=== PATIENT | female | born 2000 | race Caucasian/White ===

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

== ENCOUNTER 2021-01-25 12:21 | Emergency (ER) | payer OTHER, SELFPAY ==
[2021-01-25 12:39] VITALS: BP 142/91; PULSE 76; RESP 16; TEMP 36.1; O2SAT 100
--- NOTE | 2021-01-25 13:38 | ED.URI ---
HPI - URI/Sore Throat General Chief Complaint: Upper Respiratory Infection Stated Complaint: sore throat Time Seen by Provider: 01/25/21 13:18 Source: patient Mode of arrival: ambulatory Limitations: no limitations History of Present Illness HPI Narrative: This is a 21-year-old female that presents to the emergency department for cold symptoms x4 weeks. Reports congestion, rhinorrhea, and sinus pain. Reports she has been on antibiotics for her symptoms, but they then seem to return shortly after stopping antibiotics. Also reports a sore throat and mild cough. Denies fever. Related Data Home Medications Medication Instructions Recorded Confirmed albuterol sulfate INHALATION 12/03/20 Allergies Allergy/AdvReac Type Severity Reaction Status Date / Time amoxicillin Allergy Severe Swelling Verified 01/25/21 12:56 ibuprofen Allergy Severe Swelling Verified 01/25/21 12:56 Review of Systems Review of Systems: Narrative: CONSTITUTIONAL: Denies fever ENT: Reports rhinorrhea, congestion, sore throat and otalgia. RESPIRATORY: Reports cough All systems reviewed & are unremarkable except as noted in HPI and below PMFSH Past Medical History Medical History (Updated 01/25/21 @ 13:43 by Bonnie Will PA-C) ADD (attention deficit disorder) Anxiety Asthma Bipolar 1 disorder Depression Self-mutilation Suicide attempt Surgical History Surgical History No significant past surgical history Family History Family History Father ADHD (attention deficit hyperactivity disorder) Bipolar disorder Personality disorder Mother Alive and well Social History Social History Smoking packs per day: 0.5 Smoking cigarettes per day: 10.0 Years smoked: 8 Smoking pack-years: 4.00 Smoking status: Current every day smoker Tobacco type: cigarettes Second hand tobacco smoke exposure: Yes Additional smoking assessment comments: Vaping Alcohol intake: current Substance use: current Substance use type: marijuana Gender identity (if verbalized by the patient): Female Exam Narrative: Exam Narrative: GENERAL: Well-appearing, well-nourished, and in no acute distress. HEAD: Normocephalic, atraumatic. EYES: EOMI. ENT: Turbinates swollen and pale. Mucous membranes moist. Oropharynx with mild tonsillar hypertrophy and redness, no exudate or other lesions. Bilateral TMs pearly gilbert non-bulging. Maxillary sinus tenderness bilaterally NECK: Supple. No adenopathy or masses. CHEST: Clear to auscultation. No respiratory distress. No wheezes rales or rhonchi HEART: Regular rate and rhythm. No murmur heard. Normal peripheral pulses. EXTREMITIES: Normal range of motion. No edema. SKIN: Warm, dry, no rash. NEURO: No focal deficits. Alert and oriented x3. PSYCH: Normal mood and affect Course Vital Signs Vital signs: Vital Signs Temperature 97 F L 01/25/21 12:39 Pulse Rate 76 01/25/21 12:39 Respiratory Rate 16 01/25/21 12:39 Blood Pressure 142/91 H 01/25/21 12:39 Pulse Oximetry 100 01/25/21 12:39 Temperature 97 F L 01/25/21 12:39 Pulse Rate 76 01/25/21 12:39 Respiratory Rate 16 01/25/21 12:39 Blood Pressure 142/91 H 01/25/21 12:39 Pulse Oximetry 100 01/25/21 12:39 MDM - URI/Sore Throat MDM Narrative Medical decision making narrative: Patient presents to the emergency department for cold symptoms ongoing over the last month. Reports sinus pain and congestion. Also reporting sore throat. Strep screen is negative. Does report she has relief after antibiotic, but symptoms quickly returned. Will start patient on doxycycline, as she has failed antibiotics recently and has penicillin allergy. Instructed on other care of sinusitis. Instructed if this seems to continue she would benefit from seeing an ENT d
== END 2021-01-25 13:53 | disposition home or self-care (01) ==
PROVIDERS: Emergency Provider Emergency Medicine; PCP Family Medicine
DX: J01.90 Acute sinusitis, unspecified (principal); B96.89 Other specified bacterial agents as the cause of diseases classified elsewhere; F17.210 Nicotine dependence, cigarettes, uncomplicated
CPT/HCPCS: 87081; 87880; 99283

== ENCOUNTER 2021-01-28 16:10 | Emergency (ER) | payer OTHER, SELFPAY ==
--- NOTE | ~2021-01-28 | CT_ITS ---
EXAMINATION: CT abdomen pelvis w con DATE: 01/28/2021 19:19 INDICATION: Left upper quadrant abdominal pain. TECHNIQUE: Computed tomography (CT) of the abdomen and pelvis was performed with 100 mL Omnipaque-350 intravenous contrast. Automated exposure control and iterative reconstruction technique were employe d. The dose-length product was 217.67 mGy-cm. COMPARISON: 10/13/2019 FINDINGS: Lung bases are clear. Heart size is normal. No pericardial or pleural effusion. Liver, gallbladder, s pleen, pancreas, bilateral adrenal glands and kidneys are normal. Bowels including the appendix are n ormal. Bladder, anteverted uterus and left adnexa are unremarkable. 1.6 cm peripherally enhancing cor pus luteum cyst at the right ovary. No free intraperitoneal gas or fluid. No pathologically enlarged abdominal or pelvic lymphadenopathy. Bones are unremarkable. IMPRESSION: 1. Left ovarian corpus luteum cyst. No acute intra-abdominal/pelvic process. Reviewed, dictated and finalized at location A.
[2021-01-28 16:43] VITALS: BP 124/73; PULSE 64; RESP 20; TEMP 37; O2SAT 100
--- NOTE | 2021-01-28 16:54 | ED.ABDPAIN ---
HPI - Abdominal Pain General Chief Complaint: Abdominal Pain Stated Complaint: Abd Pain Time Seen by Provider: 01/28/21 16:34 Source: patient Mode of arrival: ambulatory Limitations: no limitations History of Present Illness HPI narrative: Patient is a 21 year old female who presents complaining of left upper abdominal pain, nausea and vomiting starting this afternoon. She denies diarrhea. Patient reports recent history of sinusitis with treatment with doxycycline. She denies fever, cough or shortness of breath. Patient denies known exposure to Covid. Patient reports pain with palpation to LUQ. She denies urinary complaints. She has no significant medical history per patient. MD elicited complaint: abdominal pain Related Data Home Medications Medication Instructions Recorded Confirmed albuterol sulfate INHALATION 12/03/20 Allergies Allergy/AdvReac Type Severity Reaction Status Date / Time amoxicillin Allergy Severe Swelling Verified 01/28/21 16:47 ibuprofen Allergy Severe Swelling Verified 01/28/21 16:47 Review of Systems Review of Systems: Narrative: CONSTITUTIONAL: Denies fever, chills, or sweats. EYES: Denies visual changes, redness, or discharge. ENT: Denies rhinorrhea, congestion, sore throat, or otalgia. CARDIOVASCULAR: Denies chest pain, palpitations, or edema. RESPIRATORY: Denies cough or dyspnea. GASTROINTESTINAL: Reports abdominal pain, nausea, and vomiting. GENITOURINARY: Denies dysuria or hematuria. SKIN: Denies rash or itching. MUSCULOSKELETAL: Denies back pain, joint pain, or myalgia. NEUROLOGIC: Denies headache, numbness, dizziness, or weakness. PSYCHIATRIC: Denies anxiety or depression. [facility] Past Medical History Medical History (Updated 01/28/21 @ 20:11 by ANTONETTE Stoll) ADD (attention deficit disorder) Anxiety Asthma Bipolar 1 disorder Depression Self-mutilation Suicide attempt Surgical History Surgical History No significant past surgical history Family History Family History Father ADHD (attention deficit hyperactivity disorder) Bipolar disorder Personality disorder Mother Alive and well Social History Social History Smoking packs per day: 0.5 Smoking cigarettes per day: 10.0 Years smoked: 8 Smoking pack-years: 4.00 Smoking status: Current every day smoker Tobacco type: cigarettes Second hand tobacco smoke exposure: Yes Additional smoking assessment comments: Vaping Alcohol intake: current Substance use: current Substance use type: marijuana Gender identity (if verbalized by the patient): Female Comments At the time of signature, I have reviewed and agree with nursing past medical, surgical, social, and family history unless otherwise noted. Please see nursing chart for further information. There is no relevant family history pertinent to the presenting complaint. Exam Narrative: Exam Narrative: GENERAL: Well-appearing, well-nourished, and in no acute distress. HEAD: Normocephalic, atraumatic. EYES: EOMI. No redness or drainage. Conjunctiva are normal. ENT: Mucous membranes pink and moist. CHEST: No respiratory distress. Clear to auscultation. HEART: Regular rate and rhythm. No murmur appreciated. Normal peripheral pulses. GI: Soft, tenderness with palpation to left abdomen quadrant. No distention. Bowel sounds normal in all quadrants. MUSCULOSKELETAL: No bony tenderness. EXTREMITIES: Normal range of motion. No edema. SKIN: Warm, dry, no rash. NEURO: No focal deficits. Alert and oriented x3. Gait steady. PSYCH: Normal affect. No signs of depression or anxiety. Course Vital Signs Vital signs: Vital Signs Temperature 37.0 C 01/28/21 16:43 Pulse Rate 64 01/28/21 16:43 Respiratory Rate 20 01/28/21 16:43 Blood Pressure 124/73 01/28/21 16:43 Pulse Ox
[2021-01-28] MEDS: SODIUM CHLORIDE 0.9% IV 1,000 ML 999 ML IV CONT (17:05)
[2021-01-28] MEDS: ONDANSETRON INJ 4 MG/2 ML VIAL IV PUSH (17:06)
[2021-01-28 17:12] LABS: Add Urine Microscopic? YES; Appearance Urine Clear (Clear); Bilirubin Urine Negative (Negative); Blood Urine Negative (Negative); Color Urine Straw (Yellow); Glucose Urine UA Negative (Negative); Ketones Urine 1+ mg/dL (Negative); Leukocyte Esterase Ur Negative LEU/UL (Negative); Nitrate Urine Negative (Negative); Protein Urine Negative (Negative); RBC Urine 0-2 /hpf (0-2); Specific Grav Ur 1.015 (1.001-1.035); Squamous Epithelial Cell Urine Few /hpf (Few); Urobilinogen Urine Negative mg/dL (<2.0); WBC Urine 0-3 /hpf
[2021-01-28 17:54] VITALS: BP 122/75; PULSE 66; RESP 16; O2SAT 100
--- NOTE | 2021-01-28 18:22 | PC.NURSE ---
pt stating i want my fucking discharge papers. you guys aren't doing shit for me. i could do this all at home. pt reminded of care received thus far and remainder of care plan to be completed. pt insisting i want my fucking discharge papers . pt aggressive towards staff.
[2021-01-28 18:24] LABS: Basophils Percent Auto 0.3 % (0.2-1.2); Eosinophils Percent Auto 0.3 % (0-4.4); Hemoglobin 12.9 g/dL (12.0-15.0); Immature Granulocyte Absolute 0.03 K/mm3 (0.00-0.031); Immature Granulocyte Percent A 0.4 % (0-0.5); Lymphocytes Absolute Auto 1.07 K/mm3 (0.9-3.2); Mean Corpuscular HGB Conc 33.1 g/dl (32-36); Mean Corpuscular Hemoglobin 30.9 pg (26-34); Mean Corpuscular Volume 93.3 fl (80-100); Mean Platelet Volume 9.5 fl (7.4-10.4); Monocytes Absolute Auto 0.3 K/mm3 (0.1-0.6); Monocytes Percent Auto 4.8 % (2.6-8.5); Neutrophils Absolute Auto 5.6 K/mm3 (1.3-6.7); Neutrophils Percent Auto 79.2 % (45.5-73.1); Platelet Count Result 202 k/mm3 (150-375); Red Blood Count 4.18 M/mm3 (4.2-5.4); Red Cell Distribution Width 13.5 % (11.5-14.5); White Blood Count 7.1 K/mm3 (4.5-10.0)
--- NOTE | 2021-01-28 18:29 | PC.NURSE ---
PT USED CALL LIGHT TO CALL LITERARY [employer] AND STATED IF THEY ARE NOT GOING TO GIVE ME PAIN MEDS THAN I WANT TO GO TO A DIFFERENT HOSPITAL , EDP MADE AWARE.
[2021-01-28 18:30] LABS: Alanine Aminotransferase 16 U/L (4-35); Albumin Level 4.4 g/dL (3.5-5.1); Alkaline Phosphatase 55 U/L (38-126); Anion Gap 9 mmol/L (8-16); Aspartate Amino Transferase 27 U/L (14-36); Bilirubin,Total 0.3 mg/dL (0.2-1.3); Blood Urea Nitrogen 13 mg/dL (7-17); Calcium 8.7 mg/dL (8.4-10.2); Carbon Dioxide 20 mmol/L (22-30); Chloride 111 mmol/L (98-107); Estimated CRCL calculation 99 ml/min; Estimated Glomerular Filt Rate > 60; Glucose 84 mg/dL (65-105); Potassium 4.2 mmol/L (3.4-5.0); Sodium 140 mmol/L (137-145)
--- NOTE | 2021-01-28 18:38 | PC.NURSE ---
pt cussing at this rn, you motherfuckers aren't doing shit for me. i'd be more than happy to get my discharge paperwork. pt agreeable to ct after some discussion and redirection.
--- NOTE | 2021-01-28 19:15 | PC.NURSE ---
report to cosme nieves
[2021-01-28 20:18] VITALS: BP 116/78; PULSE 68; RESP 18; O2SAT 100
== END 2021-01-28 20:19 | disposition home or self-care (01) ==
PROVIDERS: Emergency Provider Nurse Practitioner; PCP Family Medicine
DX: N83.12 Corpus luteum cyst of left ovary (principal); F17.210 Nicotine dependence, cigarettes, uncomplicated
CPT/HCPCS: 36415; 74177; 80053; 81001; 81025; 85025; 96361; 96365; 96375; 99284; J0131; J2405; J7030; Q9967

== ENCOUNTER 2021-03-03 13:15 | Emergency (ER) | payer OTHER, SELFPAY ==
[2021-03-03 13:18] VITALS: BP 146/83; PULSE 95; RESP 20; TEMP 36.7; O2SAT 99
[2021-03-03 13:40] LABS: Basophils Percent Auto 0.3 % (0.2-1.2); Eosinophils Absolute Auto 0.2 K/mm3 (0-0.3); Eosinophils Percent Auto 1.6 % (0-4.4); Hematocrit 39.3 % (37.0-47.0); Hemoglobin 13.2 g/dL (12.0-15.0); Immature Granulocyte Absolute 0.04 K/mm3 (0.00-0.031); Immature Granulocyte Percent A 0.3 % (0-0.5); Lymphocytes Absolute Auto 0.94 K/mm3 (0.9-3.2); Mean Corpuscular HGB Conc 33.6 g/dl (32-36); Mean Corpuscular Hemoglobin 30.9 pg (26-34); Mean Platelet Volume 9.6 fl (7.4-10.4); Monocytes Absolute Auto 0.5 K/mm3 (0.1-0.6); Monocytes Percent Auto 4.6 % (2.6-8.5); Neutrophils Absolute Auto 10.1 K/mm3 (1.3-6.7); Neutrophils Percent Auto 85.2 % (45.5-73.1); Platelet Count Result 220 k/mm3 (150-375); Red Blood Count 4.27 M/mm3 (4.2-5.4); Red Cell Distribution Width 13.3 % (11.5-14.5); White Blood Count 11.8 K/mm3 (4.5-10.0)
[2021-03-03 13:52] LABS: Alanine Aminotransferase 19 U/L (4-35); Alkaline Phosphatase 58 U/L (38-126); Anion Gap 9 mmol/L (8-16); Aspartate Amino Transferase 25 U/L (14-36); Bilirubin,Total 0.5 mg/dL (0.2-1.3); Blood Urea Nitrogen 9 mg/dL (7-17); Calcium 9.9 mg/dL (8.4-10.2); Carbon Dioxide 24 mmol/L (22-30); Chloride 101 mmol/L (98-107); Estimated CRCL calculation 88 ml/min; Estimated Glomerular Filt Rate > 60; Glucose 100 mg/dL (65-110); Lipase 67 U/L (23-300); Potassium 3.9 mmol/L (3.4-5.0); Sodium 134 mmol/L (137-145)
[2021-03-03 13:57] LABS: Add Urine Microscopic? YES; Appearance Urine Clear (Clear); Bilirubin Urine Negative (Negative); Blood Urine Negative (Negative); Color Urine Yellow (Yellow); Glucose Urine UA Negative (Negative); Ketones Urine 1+ mg/dL (Negative); Leukocyte Esterase Ur Negative LEU/UL (Negative); Mucus Urine Rare /lpf; Nitrate Urine Negative (Negative); Protein Urine Negative (Negative); RBC Urine 0-2 /hpf (0-2); Specific Grav Ur 1.014 (1.001-1.035); Squamous Epithelial Cell Urine Few /hpf (Few); Urobilinogen Urine Negative mg/dL (<2.0); WBC Urine 0-3 /hpf
[2021-03-03 14:00] VITALS: BP 127/90; PULSE 82; RESP 18; O2SAT 100
--- NOTE | 2021-03-03 14:45 | PC.NURSE ---
Attempted IV x2 without success.
--- NOTE | 2021-03-03 14:58 | ED.GENADULT ---
HPI - General Adult General Chief complaint: Nausea/Vomiting/Diarrhea Stated complaint: flu like symptoms Time Seen by Provider: 03/03/21 13:55 History of Present Illness HPI narrative: Patient is a 21 y/o female complaining nausea and vomiting since earlier this morning. She states that she vomited food particle. She vomited 3 times since onset. She took Zofran, which did not help. She also has intermittent chest pain. However, she has no chest pain at this time. Her last episode of vomiting was 2 hours ago. She had similar episodes of vomiting in the past and was diagnosed with cyclic vomiting. Related Data Home Medications Medication Instructions Recorded Confirmed albuterol sulfate INHALATION 12/03/20 Allergies Allergy/AdvReac Type Severity Reaction Status Date / Time amoxicillin Allergy Severe Swelling Verified 03/03/21 13:49 ibuprofen Allergy Severe Swelling Verified 03/03/21 13:49 Review of Systems Constitutional: Constitutional: Denies chills, Denies fever(s), Denies headache(s) and Denies weakness Eyes: Eyes: Denies blurry vision ENT: Denies headache(s) and Denies neck pain Cardiovascular: Cardiovascular: Reports chest pain and Denies dyspnea Respiratory: Respiratory: Denies cough and Denies dyspnea Gastrointestinal: Gastrointestinal: Denies abdominal pain, Denies diarrhea, Reports nausea and Reports vomiting Genitourinary: Genitourinary: Denies hematuria and Denies dysuria Musculoskeletal: Musculoskeletal: Denies back pain and Denies neck pain Neurologic: Denies headache(s) and Denies weakness PMF Past Medical History Medical History (Updated 03/04/21 @ 00:01 by Background [place]) ADD (attention deficit disorder) Anxiety Asthma Bipolar 1 disorder Depression Self-mutilation Suicide attempt Surgical History Surgical History No significant past surgical history Family History Family History Father ADHD (attention deficit hyperactivity disorder) Bipolar disorder Personality disorder Mother Alive and well Social History Social History Smoking packs per day: 0.5 Smoking cigarettes per day: 10.0 Years smoked: 8 Smoking pack-years: 4.00 Smoking status: Current every day smoker Tobacco type: cigarettes Second hand tobacco smoke exposure: Yes Additional smoking assessment comments: Vaping Alcohol intake: current Substance use: current Substance use type: marijuana Gender identity (if verbalized by the patient): Female Exam Const: General: no acute distress and well developed Orientation/consciousness: oriented to person, oriented to place, oriented to time and patient oriented x3 HENMT: Head: normocephalic Ears: external ears normal General nose exam: Normal external nose present Eyes: General: appearance normal, both eyes and all related structures Conjunctivae: conjunctivae normal Neck: Neck: normal visual inspection and full ROM Chest: Chest palpation & inspection: normal inspection of the chest and no tenderness Resp: Effort & Inspection: normal respiratory effort Auscultation: clear to auscultation bilaterally Cardio: Rate: regular rate Rhythm: regular rhythm GI: GI Palp: No abdominal tenderness and Yes Soft to palpation Skin: General skin exam: normal color and turgor normal Neuro: General: oriented to person, oriented to place, oriented to time and patient oriented x3 Cognition (Neuro): normal cognition Extrem: General: normal to inspection, full ROM and no pedal edema Psych: Appearance: grossly normal Mental Status: mental status grossly normal Affect: normal affect Course Vital Signs Vital signs: Vital Signs Temperature 36.7 C 03/03/21 13:18 Pulse Rate 95 03/03/21 13:18 Respiratory Rate 20 03/03/21 13:18 Blood Pressure 146/83 H 03/03/21 13:18
--- NOTE | 2021-03-03 14:59 | ECG_ITS ---
Measurements Intervals [place] Rate: 74 P: 74 KS: 108 QRS: 62 QRSD: 79 T: 56 QT: 344 QTc: 383 Interpretive Statements ECTOPIC ATRIAL RHYTHM CHANGES TO SINUS RHYTHM WITH SINUS ARRHYTHMIA BASELINE ARTIFACT- I, III, AVR, V4, V6 ABNORMAL ECG Electronically Signed On 03-03-2021 18:55:25 CDT by Carter Fleming D.O.
[2021-03-03 15:00] VITALS: BP 142/99; PULSE 90; RESP 18; O2SAT 100
[2021-03-03] MEDS: SODIUM CHLORIDE 0.9% IV 1,000 ML 999 ML IV CONT (15:00)
[2021-03-03] MEDS: METOCLOPRAMIDE HCL INJ 10 MG/2 ML VIAL IV PUSH (15:05)
--- NOTE | 2021-03-03 15:06 | PC.NURSE ---
called lab to add on Trop @ 1284
[2021-03-03] MEDS: LORazepam INJ (*CRX) 2 MG/ML VIAL 1 MG IV PUSH (15:40)
[2021-03-03 15:49] LABS: Troponin I < 0.012 ng/mL (0.000-0.034)
[2021-03-03 16:25] VITALS: BP 128/91; PULSE 100; RESP 18; O2SAT 100
[2021-03-03 17:55] VITALS: BP 143/84; PULSE 97; RESP 18; O2SAT 100
== END 2021-03-03 19:04 | disposition home or self-care (01) ==
PROVIDERS: Emergency Provider Emergency Medicine; PCP Family Medicine
DX: R11.15 Cyclical vomiting syndrome unrelated to migraine (principal); J45.909 Unspecified asthma, uncomplicated; F17.210 Nicotine dependence, cigarettes, uncomplicated; F17.290 Nicotine dependence, other tobacco product, uncomplicated; R94.31 Abnormal electrocardiogram [ECG] [EKG]
CPT/HCPCS: 36415; 80053; 81001; 81025; 83690; 84484; 85025; 93005; 96361; 96374; 96375; 99284; J2060; J2765; J7030

== ENCOUNTER 2021-03-27 13:44 | Emergency (ER) | payer OTHER, SELFPAY ==
[2021-03-27 13:55] VITALS: BP 145/98; PULSE 83; RESP 16; TEMP 35.7; O2SAT 99
--- NOTE | 2021-03-27 15:07 | ED.GENADULT ---
HPI - General Adult General Chief complaint: Unspecified Stated complaint: infection in mouth Time Seen by Provider: 03/27/21 15:07 Source: patient, RN notes reviewed and old records reviewed Mode of arrival: ambulatory Limitations: no limitations History of Present Illness HPI narrative: 21 year old female who presents to [facility] care with complaint of dental pain. Patient reports that she had wisdom teeth extraction on . She complains that the left upper and lower areas of her mouth remains red swollen and very painful. She states that she is taking the Tylenol #3 and also has been taking Vicodin for her pain with minimal relief of pain on the left side. She reports that she has been using salt water gargles also. MD complaint: gums red and swollen and painful Onset (ago): day(s) (2) Location: mouth (left upper and lower gums where teeth extracted) Related Data Home Medications Medication Instructions Recorded Confirmed albuterol sulfate INHALATION 12/03/20 Hydrocodone 03/27/21 Tylenol-Codeine #3 03/27/21 norethindrone-e.estradiol-iron [Lo tablet 03/27/21 Loestrin Fe] Allergies Allergy/AdvReac Type Severity Reaction Status Date / Time amoxicillin Allergy Severe Swelling Verified 03/03/21 13:49 ibuprofen Allergy Severe Swelling Verified 03/03/21 13:49 Review of Systems Review of Systems: CONSTITUTIONAL: Denies fever, chills, or sweats. EYES: Denies visual changes, redness, or discharge. ENT: Denies rhinorrhea, congestion, sore throat, or otalgia.positive for left side of mouth pain CARDIOVASCULAR: Denies chest pain, palpitations, or edema. RESPIRATORY: Denies cough or dyspnea. GASTROINTESTINAL: Denies abdominal pain, nausea, vomiting, or diarrhea. GENITOURINARY: Denies dysuria or hematuria. SKIN: Denies rash or itching. MUSCULOSKELETAL: Denies back pain, joint pain, or myalgia. NEUROLOGIC: Denies headache, numbness, or weakness. PSYCHIATRIC: Positive history of anxiety or depression. All systems reviewed & are unremarkable except as noted in HPI and below PMFSH Past Medical History Medical History (Updated 03/28/21 @ 00:00 by Grisel Chen) ADD (attention deficit disorder) Anxiety Asthma Bipolar 1 disorder Depression Self-mutilation Suicide attempt Surgical History Surgical History (Updated 04/02/21 @ 20:55 by Desirae Moseley NP) S/P wisdom tooth extraction Family History Family History Father ADHD (attention deficit hyperactivity disorder) Bipolar disorder Personality disorder Mother Alive and well Social History Social History Smoking packs per day: 0.5 Smoking cigarettes per day: 10.0 Years smoked: 8 Smoking pack-years: 4.00 Smoking status: Current every day smoker Tobacco type: cigarettes Second hand tobacco smoke exposure: Yes Additional smoking assessment comments: Vaping Alcohol intake: current Substance use: current Substance use type: marijuana Gender identity (if verbalized by the patient): Female Comments At time of signature, agree with nursing past medical, surgical, social and family history. There is no relevant family history pertinent to the presenting complaint Exam Narrative: GENERAL: Well-appearing, well-nourished, and in no acute distress. HEAD: Normocephalic, atraumatic. EYES: PERRLA and EOMI. ENT: Nares clear, no rhinorrhea or epistaxis. Mucous membranes moist.TM's normal throat pink with no exudates or lesions, no tonsil swelling, red swollen gums left posterior and left lower posterior gums.No difficulty with swallowing or trismus, no Thony angina NECK: Supple.no lymphadenopathy, CHEST: Clear to auscultation. No respiratory distress.SAO2 99% on room air HEART: Regular rate and rhythm. No murmur heard. Normal peripheral pulses. ABDOMEN: Soft, nontender, nondistended, normal active bowel sounds. EXTREMITIES: N
== END 2021-03-27 15:45 | disposition home or self-care (01) ==
PROVIDERS: Emergency Provider Registered Nurse
DX: K04.7 Periapical abscess without sinus (principal); F17.210 Nicotine dependence, cigarettes, uncomplicated; J45.909 Unspecified asthma, uncomplicated
CPT/HCPCS: 99213; G0463

== ENCOUNTER 2021-05-15 16:56 | Emergency (ER) | payer OTHER, SELFPAY ==
[2021-05-15 17:05] VITALS: BP 143/89; PULSE 89; RESP 16; TEMP 37.3; O2SAT 99
--- NOTE | 2021-05-15 18:10 | ED.ABDPAIN ---
HPI - Abdominal Pain General Chief Complaint: Abdominal Pain Stated Complaint: Abdominal Pain Time Seen by Provider: 05/15/21 17:58 Source: patient and RN notes reviewed Mode of arrival: ambulatory Limitations: no limitations History of Present Illness HPI narrative: Patient presents today complaining of a 3-day history of left-sided abdominal pain as well as 2 episodes of vomiting today. Patient has history of irritable bowel syndrome and cyclic vomiting syndrome. She currently rates her pain 7/10 and has been taking Tylenol and Zofran without relief. Denies diarrhea, constipation, fever. Patient states the abdominal pain is fairly constant but waxes and wanes. Patient does have an appointment set up to see a land economist, but has not seen one yet. She is currently taking an antibiotic for UTI for the past week and states it is helping with her UTI symptoms. Reports that the location of her abdominal pain is consistent with her baseline IBS symptoms. MD elicited complaint: abdominal pain Related Data Home Medications Medication Instructions Recorded Confirmed albuterol sulfate INHALATION 12/03/20 sulfamethoxazole-trimethoprim tablet 05/15/21 Allergies Allergy/AdvReac Type Severity Reaction Status Date / Time amoxicillin Allergy Severe Swelling Verified 03/03/21 13:49 ibuprofen Allergy Severe Swelling Verified 03/03/21 13:49 Review of Systems Review of Systems: CONSTITUTIONAL: Denies body aches, fever, chills, or sweats. EYES: Denies visual changes, redness, or discharge. ENT: Denies rhinorrhea, congestion, sore throat, or otalgia. CARDIOVASCULAR: Denies chest pain, palpitations, or edema. RESPIRATORY: Denies cough or dyspnea. GASTROINTESTINAL: Denies diarrhea.+ Abdominal pain, nausea, vomiting GENITOURINARY: Denies dysuria or hematuria. SKIN: Denies rash, itching, or wounds. MUSCULOSKELETAL: Denies back pain, joint pain, or myalgia. NEUROLOGIC: Denies headache, numbness, tingling, or weakness. PSYCH: Denies depression or anxiety. [facility] Past Medical History Medical History (Updated 05/15/21 @ 18:16 by Rocio Sargent, ME[employer] C[employer]TING BLOCK [employer]PA[employer], ) ADD (attention deficit disorder) Anxiety Asthma Bipolar 1 disorder Cyclic vomiting syndrome Depression Irritable bowel syndrome Self-mutilation Suicide attempt Surgical History Surgical History (Updated 04/02/21 @ 20:55 by Desirae Moseley NP) S/P wisdom tooth extraction Family History Family History Father ADHD (attention deficit hyperactivity disorder) Bipolar disorder Personality disorder Mother Alive and well Social History Social History Smoking packs per day: 0.5 Smoking cigarettes per day: 10.0 Years smoked: 8 Smoking pack-years: 4.00 Smoking status: Current every day smoker Tobacco type: cigarettes Second hand tobacco smoke exposure: Yes Additional smoking assessment comments: Vaping Alcohol intake: current Substance use: current Substance use type: marijuana Gender identity (if verbalized by the patient): Female Comments At time of signature, I have reviewed and agree with nursing past medical, surgical, social and family history unless otherwise noted. Please see nursing chart for further information. There is no relevant family history pertinent to the presenting complaint Exam Narrative: GENERAL: Well-appearing, well-nourished, and in no acute distress. HEAD: Normocephalic, atraumatic. EYES: EOMI. No redness or drainage. Conjunctivae normal. ENT: Mucous membranes pink and moist. NECK: Normal AROM. CHEST: No respiratory distress. Clear to auscultation. HEART: Regular rate and rhythm. No murmur appreciated. Normal peripheral pulses. ABDOMEN: Soft, nondistended, normal active bowel sounds.+ Periumbilical abdominal tenderness without rebound or guarding MUSCULOSKELETAL: No bony tenderness. EXTREMITIE
== END 2021-05-15 18:23 | disposition home or self-care (01) ==
PROVIDERS: Emergency Provider Nurse Practitioner; PCP Family Medicine
DX: R10.33 Periumbilical pain (principal); F17.210 Nicotine dependence, cigarettes, uncomplicated; J45.909 Unspecified asthma, uncomplicated
CPT/HCPCS: 99213; G0463

== ENCOUNTER → 2021-06-17 04:13 | Outpatient (CLI) | payer OTHER, SELFPAY ==
[2021-06-17 17:37] LABS: SARS-CoV-2 RNA PCR Negative
== END ==
PROVIDERS: PCP Nurse Practitioner Adult Health; Visit Provider Nurse Practitioner Adult Health
DX: R09.81 Nasal congestion (principal); Z20.822 Contact with and (suspected) exposure to COVID-19
CPT/HCPCS: C9803; U0003; U0005

== ENCOUNTER 2021-06-20 10:17 | Emergency (ER) | payer OTHER, SELFPAY ==
--- NOTE | 2021-06-20 10:25 | ED.FEMALEGU ---
HPI - Female Genitourinary General Chief complaint: Urogenital-Female Stated complaint: uti Time Seen by Provider: 06/20/21 10:25 Source: patient and RN notes reviewed History of Present Illness HPI Narrative: Patient is a 21-year-old female who presents the urgent care with complaints of a possible UTI. Patient states that yesterday she started having urinary frequency, urgency and dysuria. Patient is currently taking doxycycline for sinus infection . Patient also had a UTI approximately 2 weeks ago and states that she did finish the medication at that time. Patient denies of any fever, chills, nausea, vomiting, blood in the urine. No other acute complaints. No acute distress noted. Patient aware of the plan of care. Some parts of this dictation were generated by voice recognition software and may contain typographical and/or grammatical inaccuracies. Related Data Home Medications Medication Instructions Recorded Confirmed albuterol sulfate INHALATION 12/03/20 doxycycline hyclate 06/20/21 hydrochlorothiazide 06/20/21 Allergies Allergy/AdvReac Type Severity Reaction Status Date / Time amoxicillin Allergy Severe Swelling Verified 03/03/21 13:49 ibuprofen Allergy Severe Swelling Verified 03/03/21 13:49 Review of Systems Review of Systems: CONSTITUTIONAL: Denies fever, chills, or sweats. EYES: Denies visual changes, redness, or discharge. ENT: Denies rhinorrhea, congestion, sore throat, or otalgia. CARDIOVASCULAR: Denies chest pain, palpitations, or edema. RESPIRATORY: Denies cough or dyspnea. GASTROINTESTINAL: Denies abdominal pain, nausea, vomiting, or diarrhea. GENITOURINARY: Reports of dysuria, urgency, frequency SKIN: Denies rash or itching. MUSCULOSKELETAL: Denies back pain, joint pain, or myalgia. NEUROLOGIC: Denies headache, numbness, or weakness. All other systems reviewed are negative, except as documented in HPI. [facility] Past Medical History Medical History (Updated 06/20/21 @ 10:38 by ANTONETTE Acevedo) ADD (attention deficit disorder) Anxiety Asthma Bipolar 1 disorder Cyclic vomiting syndrome Depression Irritable bowel syndrome Self-mutilation Suicide attempt Surgical History Surgical History (Updated 04/02/21 @ 20:55 by Desirae Moseley NP) S/P wisdom tooth extraction Family History Family History Father ADHD (attention deficit hyperactivity disorder) Bipolar disorder Personality disorder Mother Alive and well Social History Social History Smoking packs per day: 0.5 Smoking cigarettes per day: 10.0 Years smoked: 8 Smoking pack-years: 4.00 Smoking status: Current every day smoker Tobacco type: cigarettes Second hand tobacco smoke exposure: Yes Additional smoking assessment comments: Vaping Alcohol intake: current Substance use: current Substance use type: marijuana Gender identity (if verbalized by the patient): Female Comments At the time of my signature, I reviewed and agree with the nursing past medical, surgical, social, and family history. There is no relevant family history pertinent to the patient complaint. Exam Narrative: GENERAL: This is a well-nourished, well-developed patient, in no apparent distress. HEAD: normocephalic, atraumatic. EYES: PERRL. Sclera clear/white. Vision is grossly intact. EARS: External ears normal NOSE: External nose normal with no obvious nasal discharge, nares without redness, no rhinorrhea. THROAT: Mucous membranes moist NECK: Neck supple CARDIOVASCULAR: Regular rate and rhythm without murmurs, gallops, or rubs. RESPIRATORY: Clear to auscultation. Breath sounds equal bilaterally. No wheezes, rales, or rhonchi. GASTROINTESTINAL: Abdomen soft, non-tender, nondistended. SKIN: warm, intact with no suspicious lesions or rash, good texture and turgor. NEURO: awake, alert, and oriented to person
[2021-06-20 10:31] VITALS: BP 138/83; PULSE 83; RESP 16; TEMP 36.1; O2SAT 100
[2021-06-20 10:38] VITALS: BP 138/83; PULSE 83; RESP 16; TEMP 36.1; O2SAT 100
== END 2021-06-20 10:39 | disposition home or self-care (01) ==
PROVIDERS: Emergency Provider Nurse Practitioner Family; PCP Family Medicine
DX: R30.0 Dysuria (principal); F17.210 Nicotine dependence, cigarettes, uncomplicated; J45.909 Unspecified asthma, uncomplicated
CPT/HCPCS: 81003; 87086; 99213; G0463

== ENCOUNTER 2021-06-30 09:41 | Outpatient (CLI) | payer OTHER, SELFPAY ==
--- NOTE | ~2021-06-30 | US_ITS ---
EXAMINATION: US retroperitoneal duplex ltd EXAM DATE: 06/30/2021 10:37 INDICATION: Hypertension. TECHNIQUE: Multiple grayscale and Doppler images of the kidneys and renal arteries were obtained. T here is no prior study for comparison. FINDINGS: The aorta peak systolic velocity is 184 cm/s. Renal arteries interrogated in several segments from origin to hilum. RIGHT RENAL ARTERY Proximal segment (origin): 125 cm/s. Middle segment: 110 cm/s. Distal segment (hilum): 101 cm/s. LEFT RENAL ARTERY Proximal segment (origin): 168 cm/s. Middle segment: 122 cm/s. Distal segment (hilum): 97 cm/s. IMPRESSION: Renal artery Doppler velocities within normal limits. Reviewed, dictated and finalized at location B. O MATE
== END 2021-06-30 09:42 | disposition home or self-care (01) ==
LOC: ANHIMG 09:46
PROVIDERS: PCP Family Medicine; Visit Provider Family Medicine
DX: I10 Essential (primary) hypertension (principal)
CPT/HCPCS: 93976

== ENCOUNTER 2021-08-23 13:24 | Emergency (ER) | payer OTHER, SELFPAY ==
[2021-08-23 13:34] VITALS: BP 144/73; PULSE 93; RESP 18; TEMP 36.9; O2SAT 100
--- NOTE | 2021-08-23 14:08 | ED.URI ---
HPI - URI/Sore Throat General Chief Complaint: Upper Respiratory Infection Stated Complaint: Sore Throat Time Seen by Provider: 08/23/21 13:42 Source: patient and RN notes reviewed Mode of arrival: ambulatory Limitations: no limitations History of Present Illness HPI Narrative: Patient presents today with a 3-day history of sore throat, congestion, rhinorrhea. States this morning she noted pus on her tonsils. Denies sick contacts. She currently rates her pain 3/10 and has been taking Tylenol with mild relief. Denies any recent COVID-19 infection. She has not been vaccinated against COVID-19. Denies fever, cough. MD elicited complaint: sore throat Related Data Home Medications Medication Instructions Recorded Confirmed albuterol sulfate 90 mcg INHALATION DIRECTED 12/03/20 hydrochlorothiazide 12.5 mg PO DAILY 06/20/21 Allergies Allergy/AdvReac Type Severity Reaction Status Date / Time amoxicillin Allergy Severe Swelling Verified 03/03/21 13:49 ibuprofen Allergy Severe Swelling Verified 03/03/21 13:49 Review of Systems Review of Systems: CONSTITUTIONAL: Denies body aches, fever, chills, or sweats. EYES: Denies visual changes, redness, or discharge. ENT: Denies otalgia.+ Congestion, rhinorrhea, sore throat CARDIOVASCULAR: Denies chest pain, palpitations, or edema. RESPIRATORY: Denies cough or dyspnea. GASTROINTESTINAL: Denies abdominal pain, nausea, vomiting, or diarrhea. GENITOURINARY: Denies dysuria or hematuria. SKIN: Denies rash, itching, or wounds. MUSCULOSKELETAL: Denies back pain, joint pain, or myalgia. NEUROLOGIC: Denies headache, numbness, tingling, or weakness. PSYCH: Denies depression or anxiety. [facility] Past Medical History Medical History ADD (attention deficit disorder) Anxiety Asthma Bipolar 1 disorder Cyclic vomiting syndrome Depression Irritable bowel syndrome Self-mutilation Suicide attempt Surgical History Surgical History S/P wisdom tooth extraction Family History Family History Father ADHD (attention deficit hyperactivity disorder) Bipolar disorder Personality disorder Mother Alive and well Social History Social History Smoking packs per day: 0.5 Smoking cigarettes per day: 10.0 Years smoked: 8 Smoking pack-years: 4.00 Smoking status: Current every day smoker Tobacco type: cigarettes Second hand tobacco smoke exposure: Yes Additional smoking assessment comments: Vaping Alcohol intake: current Substance use: current Substance use type: marijuana Gender identity (if verbalized by the patient): Female Comments At time of signature, I have reviewed and agree with nursing past medical, surgical, social and family history unless otherwise noted. Please see nursing chart for further information. There is no relevant family history pertinent to the presenting complaint Exam Narrative: GENERAL: Well-appearing, well-nourished, and in no acute distress. HEAD: Normocephalic, atraumatic. EYES: EOMI. No redness or drainage. Conjunctivae normal. ENT: Mucous membranes pink and moist. Nares clear. No rhinorrhea. TMs normal bilaterally. Throat erythematous. Tonsils 2+ with white exudate. Uvula midline. NECK: Normal AROM. Supple. Anterior and posterior bilateral cervical chain lymphadenopathy.. CHEST: No respiratory distress. Clear to auscultation. HEART: Regular rate and rhythm. No murmur appreciated. Normal peripheral pulses. EXTREMITIES: Normal range of motion. No edema. SKIN: Warm, dry, no rash. Capillary refill normal. Normal skin turgor. NEURO: No focal deficits. Alert and oriented x3. Gait steady. PSYCH: Normal affect. No signs of depression or anxiety. Course Course Level of Care: Express Care Visit
== END 2021-08-23 14:56 | disposition home or self-care (01) ==
PROVIDERS: Emergency Provider Nurse Practitioner
DX: J02.9 Acute pharyngitis, unspecified (principal); Z20.822 Contact with and (suspected) exposure to COVID-19; F17.210 Nicotine dependence, cigarettes, uncomplicated; J45.909 Unspecified asthma, uncomplicated
CPT/HCPCS: 87081; 87426; 87880; 99213; C9803; G0463

== ENCOUNTER 2021-08-31 23:17 | Emergency (ER) | payer OTHER, SELFPAY ==
--- NOTE | ~2021-08-31 | XR_ITS ---
EXAMINATION: XR chest 1V portable DATE: 08/31/2021 23:53 INDICATION: Generalized chest pain TECHNIQUE: frontal view of the chest was obtained. COMPARISON: Chest radiograph dated 12/04/2020 FINDINGS: The lungs remain clear with no focal airspace opacities, pulmonary edema, pleural effusion or pneumot horax. The cardiomediastinal silhouette is normal. Mild thoracic dextrocurvature. IMPRESSION: 1. No acute cardiopulmonary disease. Reviewed, dictated and finalized at location A. [employer]
[2021-08-31 23:25] VITALS: BP 140/110; PULSE 81; RESP 14; TEMP 36.9; O2SAT 100
--- NOTE | 2021-08-31 23:30 | ED.CHESTPAIN ---
HPI - Chest Pain General Chief Complaint: Chest Pain Stated Complaint: chest pain Time Seen by Provider: 08/31/21 23:19 Source: RN notes reviewed History of Present Illness HPI narrative: Patient presents emergency room from home for chest pain. Patient states symptoms began approximately 9 AM this morning she states midsternal chest pain described as a pressure associated with nausea states she has been feeling anxious with the symptoms she denies any fevers or chills shortness of breath vomiting diarrhea or any other symptoms states she has been having some intermittent headaches with the symptoms patient states she does have anxiety was not taking medication for the anxiety she denies any other symptoms at this time Related Data Home Medications Medication Instructions Recorded Confirmed albuterol sulfate 90 mcg INHALATION DIRECTED 12/03/20 08/23/21 hydrochlorothiazide 12.5 mg PO DAILY 06/20/21 08/23/21 Allergies Allergy/AdvReac Type Severity Reaction Status Date / Time amoxicillin Allergy Severe Swelling Verified 08/31/21 23:32 ibuprofen Allergy Severe Swelling Verified 08/31/21 23:32 Review of Systems Review of Systems: Gen.: Denies fevers or chills Eyes: Denies eye pain or visual change ENT: Denies congestion Respiratory: Denies shortness of breath or cough CV: See HPI GI: Denies abdominal pain emesis or diarrhea reports nausea Musculoskeletal: Denies back pain or muscle pain Neuro: Denies numbness, tingling, weakness or focal weakness Skin: Denies rash Except as documented, all other systems reviewed and negative [facility] Past Medical History Medical History ADD (attention deficit disorder) Anxiety Asthma Bipolar 1 disorder Cyclic vomiting syndrome Depression Irritable bowel syndrome Self-mutilation Suicide attempt Surgical History Surgical History S/P wisdom tooth extraction Family History Family History Father ADHD (attention deficit hyperactivity disorder) Bipolar disorder Personality disorder Mother Alive and well Social History Social History Smoking packs per day: 0.5 Smoking cigarettes per day: 10.0 Years smoked: 8 Smoking pack-years: 4.00 Smoking status: Current every day smoker Tobacco type: cigarettes Second hand tobacco smoke exposure: Yes Additional smoking assessment comments: Vaping Alcohol intake: current Substance use: current Substance use type: marijuana Gender identity (if verbalized by the patient): Female Exam Narrative: APPEARANCE: No acute distress, nontoxic, resting in bed EYES: EOMI HEENT: Normocephalic, atraumatic, OMM RESPIRATORY: No respiratory distress Clear to auscultation bilaterally with no rhonchi wheezing or rales. CARDIOVASCULAR: Regular rate and rhythm without murmurs rubs or gallops. Chest: Tender palpation across the anterior chest with point tenderness present ABDOMINAL: Soft, nontender, nondistended, no rebound or guarding MUSCULOSKELETAl: Moves all extremities. No clubbing, cyanosis or edema. NEURO: Awake and alert. Following commands, speech normal, no focal deficits SKIN:: Warm, dry. No rashes lesions or abrasions PSYCHIATRIC: Anxious in appearance nontoxic Course Course Emergency Course: Patient feeling much better following Ativan states that she does not have anxiety medication at home states pain is resolved Discussed with patient results of workup and diagnosis. Discussed need for follow-up with primary care, proper use of medication, and reasons to return to the emergency department. Patient understands and agrees to current treatment plan Vital Signs Vital signs: Vital Signs Temperature 98.4 F 08/31/21 23:25 Pulse Rate 81 08/31/21 23:25 Respiratory Rate 14 08/31/21 23:25
--- NOTE | 2021-08-31 23:33 | ECG_ITS ---
Measurements Intervals [place] Rate: 81 P: 74 OK: 130 QRS: 61 QRSD: 85 T: 48 QT: 336 QTc: 392 Interpretive Statements SINUS RHYTHM POSSIBLE LEFT ATRIAL ENLARGEMENT INCOMPLETE RIGHT BUNDLE BRANCH BLOCK BORDERLINE ECG Electronically Signed On 09-01-2021 7:09:54 [employer] by Carter Fleming D.O.
[2021-08-31 23:44] LABS: Basophils Percent Auto 0.4 % (0.2-1.2); Eosinophils Absolute Auto 0.1 K/mm3 (0-0.3); Eosinophils Percent Auto 0.9 % (0-4.4); Hematocrit 42.8 % (37.0-47.0); Hemoglobin 14.9 g/dL (12.0-15.0); Immature Granulocyte Absolute 0.04 K/mm3 (0.00-0.031); Immature Granulocyte Percent A 0.4 % (0-0.5); Lymphocytes Absolute Auto 2.68 K/mm3 (0.9-3.2); Lymphocytes Percent Auto 26.1 % (18.3-44.2); Mean Corpuscular HGB Conc 34.8 g/dl (32-36); Mean Corpuscular Hemoglobin 32.1 pg (26-34); Mean Corpuscular Volume 92.2 fl (80-100); Mean Platelet Volume 9.1 fl (7.4-10.4); Monocytes Absolute Auto 0.7 K/mm3 (0.1-0.6); Monocytes Percent Auto 6.7 % (2.6-8.5); Neutrophils Absolute Auto 6.7 K/mm3 (1.3-6.7); Neutrophils Percent Auto 65.5 % (45.5-73.1); Platelet Count Result 317 k/mm3 (150-375); Red Blood Count 4.64 M/mm3 (4.2-5.4); Red Cell Distribution Width 12.8 % (11.5-14.5); White Blood Count 10.3 K/mm3 (4.5-10.0)
[2021-08-31] MEDS: SODIUM CHLORIDE 0.9% IV 1,000 ML 999 ML IV CONT (23:45)
[2021-08-31] MEDS: ONDANSETRON INJ 4 MG/2 ML VIAL IV PUSH (23:45)
[2021-08-31] MEDS: MORPHINE SULFATE (*CRX) 4 MG/ML INJ 2 MG IV PUSH (23:46)
[2021-08-31 23:55] LABS: Alanine Aminotransferase 17 U/L (4-35); Albumin Level 5.2 g/dL (3.5-5.1); Alkaline Phosphatase 61 U/L (38-126); Anion Gap 11 mmol/L (8-16); Aspartate Amino Transferase 27 U/L (14-36); Bilirubin,Total 0.6 mg/dL (0.2-1.3); Blood Urea Nitrogen 20 mg/dL (7-17); Calcium 10.8 mg/dL (8.4-10.2); Carbon Dioxide 25 mmol/L (22-30); Chloride 102 mmol/L (98-107); Estimated CRCL calculation 66 ml/min; Estimated Glomerular Filt Rate > 60; Glucose 114 mg/dL (65-110); Lipase 128 U/L (23-300); Potassium 3.6 mmol/L (3.4-5.0); Sodium 138 mmol/L (137-145)
[2021-08-31 23:57] LABS: Prothrombin Time 13.2 Seconds (11.1-14.7)
[2021-08-31 23:58] LABS: Partial Thromboplastin Time 27.3 SECONDS (22.3-36.8)
[2021-09-01] MEDS: LORazepam INJ (*CRX) 2 MG/ML VIAL 0.5 MG IV PUSH ×2 (00:03→01:06)
[2021-09-01 00:07] LABS: Troponin I < 0.012 ng/mL (0.000-0.034)
[2021-09-01] MEDS: FAMOTIDINE 20 MG/2 ML VIAL IV PUSH (01:05)
[2021-09-01 01:09] VITALS: BP 143/97; PULSE 105; RESP 14; O2SAT 100
[2021-09-01 02:04] LABS: D Dimer 0.27 ug/mL (<0.48)
[2021-09-01 02:18] VITALS: BP 128/98; PULSE 79; RESP 14; O2SAT 98
== END 2021-09-01 02:19 | disposition home or self-care (01) ==
PROVIDERS: Emergency Provider Emergency Medicine
DX: F41.9 Anxiety disorder, unspecified (principal); J45.909 Unspecified asthma, uncomplicated; K58.9 Irritable bowel syndrome, unspecified; F17.210 Nicotine dependence, cigarettes, uncomplicated; F17.290 Nicotine dependence, other tobacco product, uncomplicated; I45.10 Unspecified right bundle-branch block; R94.31 Abnormal electrocardiogram [ECG] [EKG]
CPT/HCPCS: 36415; 71045; 80053; 83690; 84484; 85025; 85380; 85610; 85730; 93005; 96361; 96374; 96375; 96376; 99284; A9270; J2060; J2270; J2405; J7030

== ENCOUNTER 2021-09-09 18:19 | Emergency (ER) | payer OTHER, SELFPAY ==
--- NOTE | 2021-09-09 18:22 | ED.FEMALEGU ---
HPI - Female Genitourinary General Chief complaint: Urogenital-Female Stated complaint: STI check Source: patient, RN notes reviewed and old records reviewed Mode of arrival: ambulatory Limitations: no limitations History of Present Illness HPI Narrative: 21-year-old female presents to the [facility] with concerns over I think I have an STD. Patient states that she was led to believe this due to he said she said on her social media. Denies any other signs and symptoms. Denies any abdominal pain, nausea, vomiting or diarrhea. Denies any chest pain. Denies any vaginal discharge. Denies any burning or frequency with urination. Last menstrual period was 10 days ago MD elicited complaint: possible STD Related Data Home Medications Medication Instructions Recorded Confirmed albuterol sulfate 90 mcg INHALATION DIRECTED 12/03/20 09/09/21 hydrochlorothiazide 12.5 mg PO DAILY 06/20/21 09/09/21 Allergies Allergy/AdvReac Type Severity Reaction Status Date / Time amoxicillin Allergy Severe Swelling Verified 09/09/21 18:24 ibuprofen Allergy Severe Swelling Verified 09/09/21 18:24 Review of Systems Review of Systems: All systems reviewed & are unremarkable except as noted in HPI and below Constitutional: Constitutional: Reports no additional constitutional complaints, Denies chills and Denies fatigue Eyes: Eyes: Reports no additional eye complaints ENT: Reports system reviewed and no additional complaints, except as documented Cardiovascular: Cardiovascular: Reports no additional cardiovascular complaints and Denies chest pain Respiratory: Respiratory: Reports no additional respiratory complaints and Denies cough Gastrointestinal: Gastrointestinal: Reports no additional gastrointestinal complaints, Denies abdominal pain, Denies diarrhea, Denies nausea and Denies vomiting Genitourinary: Genitourinary: Reports as per HPI, Denies abnormal vaginal bleeding, Denies hematuria, Denies nocturia, Denies genital lesions, Reports dysuria, Denies pelvic pain, Denies flank pain, Denies vaginal discharge and Denies vaginal odor Musculoskeletal: Musculoskeletal: Reports no additional musculoskeletal complaints and Denies back pain Integumentary/Breasts: Skin/Breast: Reports system reviewed and no additional complaints, except as docu Neurologic: Reports system reviewed and no additional complaints, except as documented Psychiatric: Psychiatric: Reports no additional psychiatric complaints Allergic/Immunologic: Allergic/Immunologic: Reports no additional allergic/immunologic complaints PMFSH Past Medical History Medical History ADD (attention deficit disorder) Anxiety Asthma Bipolar 1 disorder Cyclic vomiting syndrome Depression Irritable bowel syndrome Self-mutilation Suicide attempt Surgical History Surgical History S/P wisdom tooth extraction Family History Family History Father ADHD (attention deficit hyperactivity disorder) Bipolar disorder Personality disorder Mother Alive and well Social History Social History Smoking packs per day: 0.5 Smoking cigarettes per day: 10.0 Years smoked: 8 Smoking pack-years: 4.00 Smoking status: Current every day smoker Tobacco type: cigarettes Second hand tobacco smoke exposure: Yes Additional smoking assessment comments: Vaping Alcohol intake: current Substance use: current Substance use type: marijuana Gender identity (if verbalized by the patient): Female Comments At the time of my signature, I reviewed and agree with the nursing past medical, surgical, social, and family history. There is no relevant family history pertinent to the patient complaint. Exam Const: General: healthy appearing, no acute distress and alert Nutrition
[2021-09-09 18:27] VITALS: BP 130/88; PULSE 76; RESP 18; TEMP 36.8; O2SAT 100
== END 2021-09-09 19:06 | disposition home or self-care (01) ==
PROVIDERS: Emergency Provider Nurse Practitioner; PCP Nurse Practitioner Adult Health
DX: Z20.2 Contact with and (suspected) exposure to infections with a predominantly sexual mode of transmission (principal); F17.210 Nicotine dependence, cigarettes, uncomplicated; J45.909 Unspecified asthma, uncomplicated; F41.9 Anxiety disorder, unspecified
CPT/HCPCS: 81003; 81025; 87491; 87591; 87661; 99214; G0463

== ENCOUNTER 2021-09-09 22:29 | Emergency (ER) | payer OTHER, SELFPAY ==
--- NOTE | ~2021-09-09 | CT_ITS ---
EXAMINATION: CT abdomen pelvis w con DATE: 09/10/2021 00:11 INDICATION: Abdominal pain. Nausea and vomiting. TECHNIQUE: Computed tomography (CT) of the abdomen and pelvis was performed with 100 mL Omnipaque 350 intravenous contrast. Automated exposure control and iterative reconstruction technique were employe d. The dose-length product was 222.68 mGy-cm. COMPARISON: CT abdomen and pelvis 01/28/2021 FINDINGS: The visualized portions of the lung bases are clear without pneumonia or pleural effusion. The heart size is normal. No pericardial effusion. The liver, gallbladder, spleen, pancreas, adrenal glands, and kidneys are normal. There are no dilated loops of bowel. The appendix is normal. There ar e no pathologically enlarged lymph nodes. There is physiologic fluid in the pelvis. There is levocurv ature of thoracolumbar spine. IMPRESSION: 1. No specific etiology for the patient's symptoms. Reviewed, dictated and finalized at location A. [employer]
[2021-09-09 22:30] VITALS: BP 134/100; PULSE 114; RESP 16; TEMP 36.4; O2SAT 99
[2021-09-09 22:57] VITALS: BP 136/77; PULSE 117
[2021-09-09 22:58] VITALS: BP 132/89; PULSE 117
[2021-09-09 22:59] LABS: Basophils Percent Auto 0.4 % (0.2-1.2); Eosinophils Absolute Auto 0.2 K/mm3 (0-0.3); Eosinophils Percent Auto 1.8 % (0-4.4); Hematocrit 40.3 % (37.0-47.0); Hemoglobin 13.6 g/dL (12.0-15.0); Immature Granulocyte Absolute 0.04 K/mm3 (0.00-0.031); Immature Granulocyte Percent A 0.4 % (0-0.5); Lymphocytes Absolute Auto 2.37 K/mm3 (0.9-3.2); Lymphocytes Percent Auto 21.7 % (18.3-44.2); Mean Corpuscular HGB Conc 33.7 g/dl (32-36); Mean Corpuscular Hemoglobin 31.6 pg (26-34); Mean Corpuscular Volume 93.7 fl (80-100); Mean Platelet Volume 9.3 fl (7.4-10.4); Monocytes Absolute Auto 0.7 K/mm3 (0.1-0.6); Neutrophils Absolute Auto 7.6 K/mm3 (1.3-6.7); Neutrophils Percent Auto 69.7 % (45.5-73.1); Platelet Count Result 265 k/mm3 (150-375); Red Cell Distribution Width 12.8 % (11.5-14.5); White Blood Count 10.9 K/mm3 (4.5-10.0)
[2021-09-09 23:00] VITALS: BP 136/77; PULSE 110; RESP 20; TEMP 36.9; O2SAT 100
[2021-09-09 23:01] VITALS: BP 127/92; PULSE 118
[2021-09-09 23:13] LABS: Alanine Aminotransferase 18 U/L (4-35); Alkaline Phosphatase 50 U/L (38-126); Anion Gap 0 mmol/L (8-16); Aspartate Amino Transferase 25 U/L (14-36); Bilirubin,Total 0.4 mg/dL (0.2-1.3); Blood Urea Nitrogen 17 mg/dL (7-17); Calcium 9.6 mg/dL (8.4-10.2); Carbon Dioxide 22 mmol/L (22-30); Chloride 105 mmol/L (98-107); Estimated CRCL calculation 77 ml/min; Estimated Glomerular Filt Rate > 60; Glucose 105 mg/dL (65-110); Lipase 287 U/L (23-300); Potassium 4.1 mmol/L (3.4-5.0); Sodium 127 mmol/L (137-145)
[2021-09-09 23:23] LABS: Add Urine Microscopic? YES; Appearance Urine Clear (Clear); Bilirubin Urine Negative (Negative); Blood Urine Negative (Negative); Color Urine Straw (Yellow); Glucose Urine UA Negative (Negative); Ketones Urine Negative (Negative); Leukocyte Esterase Ur 1+ LEU/UL (Negative); Nitrate Urine Negative (Negative); Protein Urine Negative (Negative); RBC Urine 0-2 /hpf (0-2); Specific Grav Ur 1.012 (1.001-1.035); Squamous Epithelial Cell Urine Few /hpf (Few); Urobilinogen Urine Negative mg/dL (<2.0); WBC Urine 0-3 /hpf
--- NOTE | 2021-09-09 23:47 | ED.NAVMDI ---
HPI - Nausea/Vomiting/Diarrhea General Chief complaint: Nausea/Vomiting/Diarrhea Stated complaint: ABD PAIN, N/V Time Seen by Provider: 09/09/21 23:18 Source: patient History of Present Illness HPI Narrative: Patient reports diffuse abdominal pain with nausea and vomiting that started today. Hurts she has pain everywhere is sharp constant everything makes it worse radiates across her entire abdomen. She has not been able to keep anything down today so she came to the ER for evaluation. She denies any diarrhea or urinary symptoms denies any blood or bile or melena. Does report a history of IBS and cyclic vomiting syndrome. Related Data Home Medications Medication Instructions Recorded Confirmed albuterol sulfate 90 mcg INHALATION DIRECTED 12/03/20 09/09/21 hydrochlorothiazide 12.5 mg PO DAILY 06/20/21 09/09/21 Allergies Allergy/AdvReac Type Severity Reaction Status Date / Time amoxicillin Allergy Severe Swelling Verified 09/09/21 22:35 ibuprofen Allergy Severe Swelling Verified 09/09/21 22:35 Review of Systems Review of Systems: CONSTITUTIONAL: Denies fever, chills, or sweats. EYES: Denies visual changes, redness, or discharge. ENT: Denies rhinorrhea, congestion, sore throat, or otalgia. CARDIOVASCULAR: Denies chest pain, palpitations, or edema. RESPIRATORY: Denies cough or dyspnea. GASTROINTESTINAL: Abdominal pain with nausea and vomiting GENITOURINARY: Denies dysuria or hematuria. SKIN: Denies rash or itching. MUSCULOSKELETAL: Denies back pain, joint pain, or myalgia. NEUROLOGIC: Denies headache, numbness, dizziness, or weakness. PSYCHIATRIC: Denies anxiety or depression. All systems reviewed & are unremarkable except as noted in HPI and below PMFSH Past Medical History Medical History ADD (attention deficit disorder) Anxiety Asthma Bipolar 1 disorder Cyclic vomiting syndrome Depression Irritable bowel syndrome Self-mutilation Suicide attempt Surgical History Surgical History S/P wisdom tooth extraction Family History Family History Father ADHD (attention deficit hyperactivity disorder) Bipolar disorder Personality disorder Mother Alive and well Social History Social History Smoking packs per day: 0.5 Smoking cigarettes per day: 10.0 Years smoked: 8 Smoking pack-years: 4.00 Smoking status: Current every day smoker Tobacco type: cigarettes Second hand tobacco smoke exposure: Yes Additional smoking assessment comments: Vaping Alcohol intake: current Substance use: current Substance use type: marijuana Gender identity (if verbalized by the patient): Female Exam Narrative: GENERAL: Well-appearing, well-nourished, and in mild acute distress due to pain. HEAD: Normocephalic, atraumatic. EYES: PERRLA and EOMI. ENT: Nares clear, no rhinorrhea or epistaxis. Mucous membranes moist. NECK: Supple. No masses. No JVD CHEST: Clear to auscultation. No respiratory distress. No wheezes rales or rhonchi HEART: Regular rate and rhythm. No murmur heard. Normal peripheral pulses. ABDOMEN: Moderate diffuse abdominal tenderness with guarding nontender, nondistended, normal active bowel sounds. EXTREMITIES: Normal range of motion. No edema. SKIN: Warm, dry, no rash. NEURO: No focal deficits. Alert and oriented x3. PSYCH: Normal mood and affect. Course Reevaluation(s) Reevaluation #1: Patient is sleeping comfortably easily awoke vital signs much improved after supportive therapies. Patient reports she is feeling much improved after supportive therapies. Patient is comfortable with the outpatient plan. Date: 09/10/21 Time: 01:38 Vital Signs Vital signs: Vital Signs Temperature 36.4 C 09/09/21 22:30 Pulse Rate 114 H 09/09/21 22:30 Respiratory Rate 16
[2021-09-10 00:07] LABS: Lactic Acid Reflex 0.9 mmol/L (0.7-2.1)
[2021-09-10] MEDS: MORPHINE SULFATE (*CRX) 4 MG/ML INJ IV PUSH (00:07)
[2021-09-10] MEDS: ONDANSETRON INJ 4 MG/2 ML VIAL IV PUSH (00:09)
[2021-09-10] MEDS: SODIUM CHLORIDE 0.9% IV 1,000 ML 999 ML IV CONT (00:32)
[2021-09-10 01:59] VITALS: BP 126/70; PULSE 100; RESP 20; O2SAT 100
--- NOTE | 2021-09-20 21:46 | PC.NURSE ---
LATE ENTRY This note is being entered to document information to the patient's record. The following information was omitted on 09/10/21, by Xavi Yu Pt received full L of NS initiated on 09/09/21 at 2326, stop time 09/10/21 at 0026. 0 volume left in container.
== END 2021-09-10 02:10 | disposition home or self-care (01) ==
PROVIDERS: Emergency Provider Emergency Medicine; PCP Nurse Practitioner Adult Health
DX: R11.2 Nausea with vomiting, unspecified (principal); R10.9 Unspecified abdominal pain; K58.9 Irritable bowel syndrome, unspecified; F31.9 Bipolar disorder, unspecified; F41.9 Anxiety disorder, unspecified; F98.8 Other specified behavioral and emotional disorders with onset usually occurring in childhood and adolescence; F17.210 Nicotine dependence, cigarettes, uncomplicated; F17.290 Nicotine dependence, other tobacco product, uncomplicated
CPT/HCPCS: 36415; 74177; 80053; 81001; 81003; 81025; 83605; 83690; 85025; 87491; 87591; 87661; 96374; 96375; 99284; J2270; J2405; J7030; Q9967

== ENCOUNTER 2021-09-14 11:56 | Emergency (ER) | payer OTHER, SELFPAY ==
[2021-09-14 11:58] VITALS: BP 147/94; PULSE 79; RESP 16; TEMP 36.8; O2SAT 100
[2021-09-14] MEDS: GENTAMICIN SULFATE INJ 80 MG/2 ML VIAL 240 MG IM (13:47)
--- NOTE | 2021-09-14 13:51 | ED.FEMALEGU ---
HPI - Female Genitourinary General Chief complaint: GRUBBER Stated complaint: STD Testing Time Seen by Provider: 09/14/21 12:11 Source: patient Mode of arrival: ambulatory Limitations: no limitations History of Present Illness HPI Narrative: This is a 21-year-old female that presents to the emergency department for STD treatment. Had positive chlamydia and gonorrhea tests from the urgent care. Patient has allergy to amoxicillin that causes swelling in her face. She was sent to the emergency department for IM injection of gentamicin to treat for gonorrhea. She does not have any symptoms currently. Reports that she found out a partner was positive. Related Data Home Medications Medication Instructions Recorded Confirmed albuterol sulfate 90 mcg INHALATION DIRECTED 12/03/20 09/09/21 hydrochlorothiazide 12.5 mg PO DAILY 06/20/21 09/09/21 Allergies Allergy/AdvReac Type Severity Reaction Status Date / Time amoxicillin Allergy Severe Swelling Verified 09/14/21 12:01 ibuprofen Allergy Severe Swelling Verified 09/14/21 12:01 Review of Systems Review of Systems: CONSTITUTIONAL: Denies fever GENITOURINARY: Denies dysuria or hematuria. All systems reviewed & are unremarkable except as noted in HPI and below PMFSH Past Medical History Medical History ADD (attention deficit disorder) Anxiety Asthma Bipolar 1 disorder Cyclic vomiting syndrome Depression Irritable bowel syndrome Self-mutilation Suicide attempt Surgical History Surgical History S/P wisdom tooth extraction Family History Family History Father ADHD (attention deficit hyperactivity disorder) Bipolar disorder Personality disorder Mother Alive and well Social History Social History Smoking packs per day: 0.5 Smoking cigarettes per day: 10.0 Years smoked: 8 Smoking pack-years: 4.00 Smoking status: Current every day smoker Tobacco type: cigarettes Second hand tobacco smoke exposure: Yes Additional smoking assessment comments: Vaping Alcohol intake: current Substance use: current Substance use type: marijuana Gender identity (if verbalized by the patient): Female Exam Narrative: GENERAL: Well-appearing, well-nourished, and in no acute distress. HEAD: Normocephalic, atraumatic. EYES: EOMI. CHEST: No respiratory distress. EXTREMITIES: Normal range of motion. No edema. SKIN: Warm, dry, no rash. NEURO: No focal deficits. Alert and oriented x3. PSYCH: Normal mood and affect Course Vital Signs Vital signs: Vital Signs Temperature 98.3 F 09/14/21 11:58 Pulse Rate 79 09/14/21 11:58 Respiratory Rate 16 09/14/21 11:58 Blood Pressure 147/94 H 09/14/21 11:58 Pulse Oximetry 100 09/14/21 11:58 Temperature 98.3 F 09/14/21 11:58 Pulse Rate 79 09/14/21 11:58 Respiratory Rate 16 09/14/21 11:58 Blood Pressure 147/94 H 09/14/21 11:58 Pulse Oximetry 100 09/14/21 11:58 MDM - Female Genitourinary MDM Narrative Medical decision making narrative: Patient presents to the emergency department for STD treatment. Had positive chlamydia and gonorrhea tests from the urgent care. Patient has allergy to amoxicillin that causes swelling of her face. She was sent to the emergency department for IM injection of gentamicin to treat for gonorrhea. She does not have any symptoms currently. Reports that she found out a partner was positive. Given dose of gentamicin in the ED. Will be sent home with oral Doxycycline. She was given 1 time dose of Azithromycin by urgent care, but reports she vomited shortly after so will treat with Doxycycline to ensure clearance. She was instructed to follow-up with primary doctor. She was given warnings to return to the ER Critical Care Time Critical Car
[2021-09-14 14:18] VITALS: PULSE 66; RESP 14
== END 2021-09-14 14:19 | disposition home or self-care (01) ==
PROVIDERS: Emergency Provider Emergency Medicine; PCP Nurse Practitioner Adult Health
DX: A56.8 Sexually transmitted chlamydial infection of other sites (principal); A54.9 Gonococcal infection, unspecified
CPT/HCPCS: 96372; 99283; J1580

== ENCOUNTER 2021-10-20 14:42 | Emergency (ER) | payer OTHER, SELFPAY ==
--- NOTE | ~2021-10-20 | CT_ITS ---
EXAMINATION: CT abdomen pelvis w con EXAM DATE: 10/20/2021 16:25 INDICATION: Low abdominal pain. TECHNIQUE: Spiral CT of the abdomen and pelvis was performed following intravenous injection of 100 m L Omnipaque 350. Axial, coronal and sagittal images of the abdomen and pelvis were reviewed. The do se-length product (DLP) for this examination was 192.22 mGy-cm. The exposure was tailored according to patient size (auto mA exposure control), and iterative reconstruction (ASIR) was used as additiona l dose reduction technique. There is no prior study for comparison. FINDINGS: The liver, spleen, adrenal glands and pancreas are unremarkable. Gallbladder is unremarkab le. No biliary obstruction. Portal and splenic veins are patent. Kidneys enhance symmetrically. T here is no hydronephrosis. The uterus and ovaries are unremarkable, no adnexal mass. Small free pel serenity fluid, physiologic. The bladder is unremarkable. There is no retroperitoneal or pelvic lymphade nopathy. The appendix is normal. The stomach and small bowel are unremarkable. There is expected amount of c olonic stool. No free intraperitoneal gas. The heart is normal in size. There are no pericardial or pleural effusions. The lung bases are unremarkable. The bones are unremarkable. IMPRESSION: No acute intra-abdominal findings. Reviewed, dictated and finalized at location A.
[2021-10-20 14:45] VITALS: BP 150/98; PULSE 86; RESP 18; TEMP 36.7; O2SAT 100
--- NOTE | 2021-10-20 14:53 | ED.ABDPAIN ---
HPI - Abdominal Pain General Chief Complaint: Abdominal Pain Stated Complaint: cp, sob, abd pain Time Seen by Provider: 10/20/21 14:48 Source: RN notes reviewed History of Present Illness HPI narrative: Patient presents emergency department from home for abdominal pain. Patient states symptoms began approximately 2 hours ago patient's pain is diffuse throughout the abdomen described as sharp and stabbing associate with nausea vomiting and diarrhea. Patient states she did try taking ibuprofen at home with minimal relief she denies any fevers or chills, chest pain shortness of breath or any other symptoms Related Data Home Medications Medication Instructions Recorded Confirmed albuterol sulfate 90 mcg INHALATION DIRECTED 12/03/20 09/09/21 hydrochlorothiazide 12.5 mg PO DAILY 06/20/21 09/09/21 Allergies Allergy/AdvReac Type Severity Reaction Status Date / Time amoxicillin Allergy Severe Swelling Verified 09/14/21 12:01 ibuprofen Allergy Severe Swelling Verified 09/14/21 12:01 Review of Systems Review of Systems: Gen.: Denies fevers or chills ENT: Denies congestion Respiratory: Denies shortness of breath or cough CV: Denies chest pain or palpitations GI: See HPI denies burning, urgency, frequency or hematuria Musculoskeletal: Denies back pain or muscle pain Neuro: Denies numbness, tingling, weakness or focal weakness Skin: Denies rash Except as documented, all other systems reviewed and negative PMFSH Past Medical History Medical History ADD (attention deficit disorder) Anxiety Asthma Bipolar 1 disorder Cyclic vomiting syndrome Depression Irritable bowel syndrome Self-mutilation Suicide attempt Surgical History Surgical History S/P wisdom tooth extraction Family History Family History Father ADHD (attention deficit hyperactivity disorder) Bipolar disorder Personality disorder Mother Alive and well Social History Social History Smoking packs per day: 0.5 Smoking cigarettes per day: 10.0 Years smoked: 8 Smoking pack-years: 4.00 Smoking status: Current every day smoker Tobacco type: cigarettes Second hand tobacco smoke exposure: Yes Additional smoking assessment comments: Vaping Alcohol intake: current Substance use: current Substance use type: marijuana Gender identity (if verbalized by the patient): Female Exam Narrative: APPEARANCE: No acute distress, nontoxic, resting in bed HEENT: Normocephalic, atraumatic, OMM RESPIRATORY: No respiratory distress, clear to auscultation bilaterally with no rhonchi wheezing or rales CARDIOVASCULAR: RRR s murmur ABDOMINAL: Soft nondistended diffusely tender to palpation no rebound or guarding MUSCULOSKELETAl: Moves all extremities. No clubbing, cyanosis or edema. NEURO: Awake and alert. Following commands, speech normal, no focal deficits SKIN:: Warm, dry. Normal Color PSYCHIATRIC: Normal affect/mood Course Course Emergency Course: Patient states that they are feeling much better at this time. States abdominal pain has resolved. Repeat abdominal exam shows the patient's abdomen to be soft and nontender. Discussed with patient results of workup and diagnosis. Discussed need for follow-up with primary care physician, reasons to return to the emergency department in proper use of medication. Patient understands and agrees to current treatment plan Vital Signs Vital signs: Vital Signs Temperature 98.1 F 10/20/21 14:45 Pulse Rate 86 10/20/21 14:45 Respiratory Rate 18 10/20/21 14:45 Blood Pressure 150/98 H 10/20/21 14:45 Pulse Oximetry 100 10/20/21 14:45 Temperature 98.1 F 10/20/21 14:45 Pulse Rate 86 10/20/21 14:45 Respiratory Rate 18 10/20/21 14:45 Blood Pressure 150/98 H 10/20/21 14:
[2021-10-20 15:19] LABS: Basophils Percent Auto 0.7 % (0.2-1.2); Eosinophils Absolute Auto 0.1 K/mm3 (0-0.3); Eosinophils Percent Auto 2.5 % (0-4.4); Hematocrit 41.2 % (37.0-47.0); Hemoglobin 13.9 g/dL (12.0-15.0); Immature Granulocyte Absolute 0.01 K/mm3 (0.00-0.031); Immature Granulocyte Percent A 0.2 % (0-0.5); Lymphocytes Absolute Auto 1.16 K/mm3 (0.9-3.2); Lymphocytes Percent Auto 26.7 % (18.3-44.2); Mean Corpuscular HGB Conc 33.7 g/dl (32-36); Mean Corpuscular Hemoglobin 31.7 pg (26-34); Mean Corpuscular Volume 94.1 fl (80-100); Mean Platelet Volume 9.4 fl (7.4-10.4); Monocytes Absolute Auto 0.3 K/mm3 (0.1-0.6); Monocytes Percent Auto 7.1 % (2.6-8.5); Neutrophils Absolute Auto 2.7 K/mm3 (1.3-6.7); Neutrophils Percent Auto 62.8 % (45.5-73.1); Platelet Count Result 225 k/mm3 (150-375); Red Blood Count 4.38 M/mm3 (4.2-5.4); Red Cell Distribution Width 12.7 % (11.5-14.5); White Blood Count 4.4 K/mm3 (4.5-10.0)
[2021-10-20 15:28] LABS: Alanine Aminotransferase 20 U/L (4-35); Albumin Level 5.3 g/dL (3.5-5.1); Alkaline Phosphatase 59 U/L (38-126); Anion Gap 12 mmol/L (8-16); Aspartate Amino Transferase 33 U/L (14-36); Bilirubin,Total 0.8 mg/dL (0.2-1.3); Blood Urea Nitrogen 13 mg/dL (7-17); Calcium 9.9 mg/dL (8.4-10.2); Carbon Dioxide 21 mmol/L (22-30); Chloride 105 mmol/L (98-107); Estimated CRCL calculation 60 ml/min; Estimated Glomerular Filt Rate > 60; Glucose 90 mg/dL (65-110); Lipase 96 U/L (23-300); Potassium 3.8 mmol/L (3.4-5.0); Sodium 138 mmol/L (137-145)
[2021-10-20 15:38] LABS: Add Urine Microscopic? YES; Appearance Urine Cloudy (Clear); Bilirubin Urine Negative (Negative); Blood Urine Negative (Negative); Color Urine Yellow (Yellow); Glucose Urine UA Negative (Negative); Ketones Urine 1+ mg/dL (Negative); Leukocyte Esterase Ur Negative LEU/UL (Negative); Nitrate Urine Negative (Negative); Protein Urine Negative (Negative); RBC Urine 0-2 /hpf (0-2); Specific Grav Ur 1.017 (1.001-1.035); Squamous Epithelial Cell Urine Few /hpf (Few); Urobilinogen Urine Negative mg/dL (<2.0); WBC Urine 0-3 /hpf
[2021-10-20] MEDS: SODIUM CHLORIDE 0.9% IV 1,000 ML 999 ML IV CONT (15:44)
[2021-10-20] MEDS: ONDANSETRON INJ 4 MG/2 ML VIAL IV PUSH (15:45)
[2021-10-20] MEDS: FAMOTIDINE 20 MG/2 ML VIAL IV PUSH (15:45)
[2021-10-20 17:19] VITALS: BP 151/100; PULSE 68; RESP 16; O2SAT 100
== END 2021-10-20 17:20 | disposition home or self-care (01) ==
PROVIDERS: Emergency Provider Emergency Medicine
DX: R10.13 Epigastric pain (principal); R11.2 Nausea with vomiting, unspecified; F17.210 Nicotine dependence, cigarettes, uncomplicated; J45.909 Unspecified asthma, uncomplicated; F41.9 Anxiety disorder, unspecified; F31.9 Bipolar disorder, unspecified
CPT/HCPCS: 36415; 74177; 80053; 81001; 81025; 83690; 85025; 96361; 96374; 96375; 99284; J2405; J7030; Q9967

== ENCOUNTER 2021-12-02 09:20 | Emergency (ER) | payer OTHER, SELFPAY ==
[2021-12-02 09:27] VITALS: BP 132/74; PULSE 91; RESP 16; TEMP 36.8; O2SAT 100
--- NOTE | 2021-12-02 09:40 | ED.SKABFB ---
HPI - Skin/Abscess/Foreign Bdy General Chief complaint: Skin/Abscess/Foreign Body Stated complaint: rash, sob Time Seen by Provider: 12/02/21 09:30 History of Present Illness HPI narrative: 21-year-old female presents the emergency room for evaluation of acute onset of a rash that she woke up with this morning. Patient states that she has hives that are covering her entire body, and causing her to have difficulty breathing. States the rash is pruritic and red. Denies fever. Denies any new medications, new soaps, perfumes, detergents, or Related Data Allergies Allergy/AdvReac Type Severity Reaction Status Date / Time amoxicillin Allergy Severe Swelling Verified 12/02/21 09:26 ibuprofen Allergy Severe Swelling Verified 12/02/21 09:26 Review of Systems Review of Systems: CONSTITUTIONAL: Denies fever, chills, or sweats. EYES: Denies visual changes, redness, or discharge. ENT: Denies rhinorrhea, congestion, sore throat, or otalgia. CARDIOVASCULAR: Denies chest pain, palpitations, or edema. RESPIRATORY: Denies cough or dyspnea. GASTROINTESTINAL: Denies abdominal pain, nausea, vomiting, or diarrhea. GENITOURINARY: Denies dysuria or hematuria. SKIN: Reports rash MUSCULOSKELETAL: Denies back pain, joint pain, or myalgia. NEUROLOGIC: Denies headache, numbness, dizziness, or weakness. PSYCHIATRIC: Denies anxiety or depression. [facility] Past Medical History Medical History ADD (attention deficit disorder) Anxiety Asthma Bipolar 1 disorder Cyclic vomiting syndrome Depression Irritable bowel syndrome Self-mutilation Suicide attempt Surgical History Surgical History S/P wisdom tooth extraction Family History Family History Father ADHD (attention deficit hyperactivity disorder) Bipolar disorder Personality disorder Mother Alive and well Social History Social History Smoking packs per day: 0.5 Smoking cigarettes per day: 10.0 Years smoked: 8 Smoking pack-years: 4.00 Smoking status: Current every day smoker Tobacco type: cigarettes Second hand tobacco smoke exposure: Yes Additional smoking assessment comments: Vaping Alcohol intake: current Substance use: current Substance use type: marijuana Gender identity (if verbalized by the patient): Female Exam Narrative: GENERAL: Well-appearing, well-nourished, and in no acute distress. HEAD: Normocephalic, atraumatic. EYES: PERRLA and EOMI. ENT: Nares clear, no rhinorrhea or epistaxis. Mucous membranes moist. Oropharynx without tonsillar hypertrophy exudate or other lesions. Bilateral TMs pearly gilbert nonbulging NECK: Supple. No adenopathy or masses. No carotid bruits or JVD CHEST: Clear to auscultation. No respiratory distress. No wheezes rales or rhonchi HEART: Regular rate and rhythm. No murmur heard. Normal peripheral pulses. ABDOMEN: Soft, nontender, nondistended, normal active bowel sounds. EXTREMITIES: Normal range of motion. No edema. SKIN: Urticaria noted to chest, back, upper extremities, lower extremities NEURO: No focal deficits. Alert and oriented x3. PSYCH: Normal mood and affect. Course Vital Signs Vital signs: Vital Signs Temperature 36.8 C 12/02/21 09:27 Pulse Rate 91 12/02/21 09:27 Respiratory Rate 16 12/02/21 09:27 Blood Pressure 132/74 12/02/21 09:27 Pulse Oximetry 100 12/02/21 09:27 Temperature 36.8 C 12/02/21 09:27 Pulse Rate 91 12/02/21 09:27 Respiratory Rate 16 12/02/21 09:27 Blood Pressure 132/74 12/02/21 09:27 Pulse Oximetry 100 12/02/21 09:27 Discharge Plan Discharge Clinical Impression: Urticaria Patient Disposition: Home, Self-Care Condition: Stable Instructions: Antibiotic Form, Urticaria (ED) Prescriptions: New prednisone 20 mg table
[2021-12-02] MEDS: SODIUM CHLORIDE 0.9% IV 1,000 ML 999 ML IV CONT (10:06)
[2021-12-02] MEDS: methylPREDNISolone SOD SUCC 125 MG VIAL IV PUSH (10:07)
[2021-12-02] MEDS: FAMOTIDINE 20 MG/2 ML VIAL IV PUSH (10:07)
[2021-12-02] MEDS: diphenhydrAMINE HCl INJ 50 MG/ML VIAL 25 MG IV PUSH (10:07)
== END 2021-12-02 11:37 | disposition home or self-care (01) ==
PROVIDERS: Emergency Provider Nurse Practitioner Family
DX: L50.9 Urticaria, unspecified (principal); J45.909 Unspecified asthma, uncomplicated; K58.9 Irritable bowel syndrome, unspecified; F17.210 Nicotine dependence, cigarettes, uncomplicated; F17.290 Nicotine dependence, other tobacco product, uncomplicated
CPT/HCPCS: 96374; 96375; 99284; J1200; J2930; J7030

== ENCOUNTER 2021-12-04 13:11 | Emergency (ER) | payer OTHER, SELFPAY ==
[2021-12-04] VITALS (12 sets, daily range): BP systolic 107–148; BP diastolic 77–90; PULSE 64–101; RESP 8–18; TEMP 36.8; O2SAT 96–100
--- NOTE | 2021-12-04 13:38 | ED.ALLEREA ---
HPI - Allergic Reaction General Chief complaint: Allergic Reaction Stated complaint: allergic rxn Time Seen by Provider: 12/04/21 13:38 Source: patient Mode of arrival: ambulatory Limitations: no limitations History of Present Illness HPI narrative: Patient is a 21-year-old female returning to the emergency department for evaluation of recurrent hives to the upper and lower extremities. Patient states that she has been compliant with her steroid, Benadryl and this does help to keep the hives controlled. Patient states that she awakened this morning with hives covering her arms and legs with itching sensation in her throat. She denies any nausea, vomiting, diarrhea, shortness of breath. No difficulty swallowing. Patient denies any chest pain, palpitations, diaphoresis. She states she is only taking the Benadryl at night. She continues to deny any new soaps, lotions, detergents. 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 Patient reports that in the past she had tested positive to cat and dog allergens, but lives with these pets in the house. She states that her dog sleeps with her. Patient's mom states that she does have a significant allergic history to ragweed, pollen. She does not currently have a primary care physician or an housekeeping aide. She has never struggled with allergic reactions in the past. No known history of COVID. No history of autoimmune disease. Reviewed the patient's chart with recent, previous visit for similar. Related Data Allergies Allergy/AdvReac Type Severity Reaction Status Date / Time amoxicillin Allergy Severe Swelling Verified 12/02/21 09:26 ibuprofen Allergy Severe Swelling Verified 12/02/21 09:26 Review of Systems Review of Systems: CONSTITUTIONAL: Denies fever, chills, or sweats. EYES: Denies visual changes, redness, or discharge. ENT: Denies rhinorrhea, congestion, sore throat, or otalgia. Reports itching sensation in throat. CARDIOVASCULAR: Denies chest pain, palpitations, or edema. RESPIRATORY: Denies cough or dyspnea. GASTROINTESTINAL: Denies abdominal pain, nausea, vomiting, or diarrhea. GENITOURINARY: Denies dysuria or hematuria. SKIN: Reports urticaria MUSCULOSKELETAL: Denies back pain, joint pain, or myalgia. NEUROLOGIC: Denies headache, numbness, or weakness. [facility] Past Medical History Medical History ADD (attention deficit disorder) Anxiety Asthma Bipolar 1 disorder Cyclic vomiting syndrome Depression Irritable bowel syndrome Self-mutilation Suicide attempt Surgical History Surgical History S/P wisdom tooth extraction Family History Family History Father ADHD (attention deficit hyperactivity disorder) Bipolar disorder Personality disorder Mother Alive and well Social History Social History Smoking packs per day: 0.5 Smoking cigarettes per day: 10.0 Years smoked: 8 Smoking pack-years: 4.00 Smoking status: Current every day smoker Tobacco type: cigarettes Second hand tobacco smoke exposure: Yes Additional smoking assessment comments: Vaping Alcohol intake: current Substance use: current Substance use type: marijuana Gender identity (if verbalized by the patient): Female Exam Narrative: GENERAL: Awake, alert, conversant HEAD: Normocephalic, atraumatic. EYES: PERRLA and EOMI. ENT: Nares clear, no rhinorrhea or epistaxis. Mucous membranes moist.No uvular edema. NECK: Supple. No neck edema. CHEST: No respiratory distress, breathing even and non labored HEART: Regular rate, sinus rhythm ABDOMEN:Non distended, non tender EXTREMITIES: Normal range of motion. No edema. SKIN: Warm, dry, pt with scattered urticaria to upper and lower extremities, none to the thorax, back, flanks. NEURO:No focal deficits. Alert and oriented x3 Course V
[2021-12-04] MEDS: FAMOTIDINE 20 MG/2 ML VIAL IV PUSH (14:30)
[2021-12-04] MEDS: EPINEPHrine HCL INJ 1 MG/ML AMPUL 0.3 MG IM (14:30)
[2021-12-04] MEDS: diphenhydrAMINE HCl INJ 50 MG/ML VIAL IV PUSH (14:30)
[2021-12-04 14:48] LABS: Basophils Percent Auto 0.2 % (0.2-1.2); Eosinophils Absolute Auto 0.1 K/mm3 (0-0.3); Eosinophils Percent Auto 0.5 % (0-4.4); Hematocrit 37.1 % (37.0-47.0); Hemoglobin 12.4 g/dL (12.0-15.0); Immature Granulocyte Absolute 0.03 K/mm3 (0.00-0.031); Immature Granulocyte Percent A 0.3 % (0-0.5); Lymphocytes Absolute Auto 2.71 K/mm3 (0.9-3.2); Lymphocytes Percent Auto 28.6 % (18.3-44.2); Mean Corpuscular HGB Conc 33.4 g/dl (32-36); Mean Corpuscular Hemoglobin 31.8 pg (26-34); Mean Corpuscular Volume 95.1 fl (80-100); Mean Platelet Volume 9.5 fl (7.4-10.4); Monocytes Absolute Auto 0.7 K/mm3 (0.1-0.6); Monocytes Percent Auto 7.3 % (2.6-8.5); Neutrophils Percent Auto 63.1 % (45.5-73.1); Platelet Count Result 212 k/mm3 (150-375); White Blood Count 9.5 K/mm3 (4.5-10.0)
[2021-12-04 15:00] LABS: Alanine Aminotransferase 16 U/L (6-35); Albumin Level 4.6 g/dL (3.5-5.1); Alkaline Phosphatase 29 U/L (38-126); Anion Gap 5 mmol/L (8-16); Aspartate Amino Transferase 28 U/L (14-36); Bilirubin,Total 0.5 mg/dL (0.2-1.3); Blood Urea Nitrogen 20 mg/dL (7-17); Calcium 8.8 mg/dL (8.4-10.2); Carbon Dioxide 27 mmol/L (22-30); Chloride 103 mmol/L (98-107); Estimated CRCL calculation 87 ml/min; Estimated Glomerular Filt Rate > 60; Glucose 76 mg/dL (65-110); Potassium 3.5 mmol/L (3.4-5.0); Sodium 135 mmol/L (137-145)
== END 2021-12-04 16:23 | disposition home or self-care (01) ==
PROVIDERS: Emergency Provider Emergency Medicine
DX: L50.0 Allergic urticaria (principal); J45.909 Unspecified asthma, uncomplicated; K58.9 Irritable bowel syndrome, unspecified
CPT/HCPCS: 36415; 80053; 83520; 85025; 96372; 96374; 96375; 99284; J0171; J1100; J1200

== ENCOUNTER 2021-12-20 19:46 | Emergency (ER) | payer OTHER, SELFPAY ==
[2021-12-20 19:54] VITALS: BP 143/98; PULSE 86; RESP 20; TEMP 36.7; O2SAT 99
--- NOTE | 2021-12-20 19:57 | ED.ABDPAIN ---
HPI - Abdominal Pain General Chief Complaint: Abdominal Pain <COREY Drew Last Filed: 12/21/21 01:30> Stated Complaint: ABD, N/V <Bonnie Bone PA-C - Last Filed: 12/21/21 01:30> History of Present Illness HPI narrative: Patient is a 21-year-old female with a history of cyclic vomiting syndrome and IBS here for evaluation of nausea and vomiting today. Patient states she is been unable to keep anything down today and has had about 8 episodes of vomiting nonbloody, nonbilious emesis. Denies relief after Zofran. She does admit to marijuana use today, she states that she smokes about 5 g/day. Additionally reports some epigastric discomfort for the past week, possibly worse today, and 1 episode of loose, nonbloody stool today. Last menstrual cycle ended 2 days ago. She is sexually active. Denies vaginal discharge, fevers, chest pain, shortness of breath, new foods, sick contacts. Patient has had three abd/pelvis CT scans for this issue in the past year, all of which have been unrevealing. <COREY Drew Last Filed: 12/21/21 01:30> Related Data Allergies/Adverse Reactions: Allergies Allergy/AdvReac Type Severity Reaction Status Date / Time amoxicillin Allergy Severe Swelling Verified 12/02/21 09:26 ibuprofen Allergy Severe Swelling Verified 12/02/21 09:26 <Bonnie Bone PA-C - Last Filed: 12/21/21 01:30> Review of Systems Review of Systems: Gen: Denies fevers or chills Eyes: Denies eye pain or visual change ENT: Denies congestion Respiratory: Denies shortness of breath or cough CV: Denies chest pain or palpitations GI: Reports abdominal pain nausea, emesis and diarrhea : denies burning, urgency, frequency or hematuria Musculoskeletal: Denies back pain or muscle pain Neuro: Denies numbness, tingling, weakness or focal weakness Skin: Denies rash Except as documented, all other systems reviewed and negative <COREY Drew Last Filed: 12/21/21 01:30> [facility] Past Medical History Medical History: Medical History ADD (attention deficit disorder) Anxiety Asthma Bipolar 1 disorder Cyclic vomiting syndrome Depression Irritable bowel syndrome Self-mutilation Suicide attempt <Bonnie Bone PA-C - Last Filed: 12/21/21 01:30> Surgical History Surgical History: Surgical History S/P wisdom tooth extraction <Bonnie Bone PA-C - Last Filed: 12/21/21 01:30> Family History Family History: Family History Father ADHD (attention deficit hyperactivity disorder) Bipolar disorder Personality disorder Mother Alive and well <COREY Drew Last Filed: 12/21/21 01:30> Social History Social History: Social History Smoking packs per day: 0.5 Smoking cigarettes per day: 10.0 Years smoked: 8 Smoking pack-years: 4.00 Smoking status: Current every day smoker Tobacco type: cigarettes Second hand tobacco smoke exposure: Yes Additional smoking assessment comments: Vaping Alcohol intake: current Substance use: current Substance use type: marijuana Gender identity (if verbalized by the patient): Female <COREY Drew Last Filed: 12/21/21 01:30> Exam Narrative: APPEARANCE: Uncomfortable appearing, tearful, smells of marijuana Head: normocephalic and atraumatic. EYES: PERRLA/EOMI, conjunctivae clear NOSE: No nasal drainage EARS: External ear normal in appearance THROAT: Oropharynx is clear. Mucous membranes are moist. NECK: Supple. No adenopathy, no masses. RESPIRATORY: Airway patent, respirations nonlabored. Clear to auscultation bilaterally, no rales, rhonchi, wheezing. CARDIOVASCULAR: Regular rate and rhythm without murmurs, rubs, or gall
[2021-12-20 20:11] LABS: Basophils Percent Auto 0.2 % (0.2-1.2); Eosinophils Absolute Auto 0.1 K/mm3 (0-0.3); Eosinophils Percent Auto 0.5 % (0-4.4); Hematocrit 44.1 % (37.0-47.0); Hemoglobin 14.9 g/dL (12.0-15.0); Immature Granulocyte Absolute 0.07 K/mm3 (0.00-0.031); Immature Granulocyte Percent A 0.6 % (0-0.5); Lymphocytes Absolute Auto 0.48 K/mm3 (0.9-3.2); Lymphocytes Percent Auto 3.9 % (18.3-44.2); Mean Corpuscular HGB Conc 33.8 g/dl (32-36); Mean Corpuscular Hemoglobin 31.4 pg (26-34); Mean Corpuscular Volume 92.8 fl (80-100); Mean Platelet Volume 9.3 fl (7.4-10.4); Monocytes Absolute Auto 0.4 K/mm3 (0.1-0.6); Monocytes Percent Auto 2.9 % (2.6-8.5); Neutrophils Absolute Auto 11.2 K/mm3 (1.3-6.7); Neutrophils Percent Auto 91.9 % (45.5-73.1); Platelet Count Result 229 k/mm3 (150-375); Red Blood Count 4.75 M/mm3 (4.2-5.4); Red Cell Distribution Width 12.4 % (11.5-14.5); White Blood Count 12.2 K/mm3 (4.5-10.0)
[2021-12-20 20:14] LABS: Appearance Urine Clear (Clear); Bilirubin Urine Negative (Negative); Blood Urine Negative (Negative); Color Urine Yellow (Yellow); Glucose Urine UA Negative (Negative); Ketones Urine 2+ mg/dL (Negative); Leukocyte Esterase Ur Negative LEU/UL (Negative); Nitrate Urine Negative (Negative); Protein Urine Negative (Negative); Urobilinogen Urine 0.2 mg/dL (<2.0); pH Urine 8.5 (5.0-9.0)
[2021-12-20] MEDS: SODIUM CHLORIDE 0.9% IV 1,000 ML 999 ML IV CONT (20:19)
[2021-12-20] MEDS: diphenhydrAMINE HCl INJ 50 MG/ML VIAL 12.5 MG IV PUSH (20:19)
[2021-12-20] MEDS: METOCLOPRAMIDE HCL INJ 10 MG/2 ML VIAL IV PUSH (20:20)
[2021-12-20 20:23] LABS: Alanine Aminotransferase 26 U/L (6-35); Albumin Level 5.2 g/dL (3.5-5.1); Alkaline Phosphatase 67 U/L (38-126); Anion Gap 12 mmol/L (8-16); Aspartate Amino Transferase 31 U/L (14-36); Bilirubin,Total 1.3 mg/dL (0.2-1.3); Blood Urea Nitrogen 13 mg/dL (7-17); Calcium 9.7 mg/dL (8.4-10.2); Carbon Dioxide 24 mmol/L (22-30); Chloride 103 mmol/L (98-107); Estimated CRCL calculation 83 ml/min; Estimated Glomerular Filt Rate > 60; Glucose 98 mg/dL (65-110); Lipase 95 U/L (23-300); Potassium 3.5 mmol/L (3.4-5.0); Sodium 139 mmol/L (137-145)
[2021-12-20 20:29] LABS: Add Urine Microscopic? YES; Mucus Urine Rare /lpf; RBC Urine 0-2 /hpf (0-2); WBC Urine 0-3 /hpf
[2021-12-20 22:11] VITALS: BP 101/87; PULSE 95; RESP 18; O2SAT 98
--- NOTE | 2022-01-13 11:19 | PC.NURSE ---
LATE ENTRY This note is being entered to document information to the patient's record. The following information was omitted on [12/20/2021], by [Emmanuel Lynch RN]. Ns stopped at 0672
== END 2021-12-20 22:13 | disposition home or self-care (01) ==
PROVIDERS: Physician Assistant; Emergency Provider Emergency Medicine
DX: K52.9 Noninfective gastroenteritis and colitis, unspecified (principal); K58.9 Irritable bowel syndrome, unspecified; R11.15 Cyclical vomiting syndrome unrelated to migraine; F17.210 Nicotine dependence, cigarettes, uncomplicated; F17.290 Nicotine dependence, other tobacco product, uncomplicated
CPT/HCPCS: 36415; 80053; 81001; 81025; 83690; 85025; 96361; 96374; 96375; 99284; J1200; J2765; J7030

== ENCOUNTER 2022-04-08 11:50 | Emergency (ER) | payer OTHER, SELFPAY ==
[2022-04-08 11:49] VITALS: BP 134/91; PULSE 93; TEMP 36.4; O2SAT 100
[2022-04-08] MEDS: ONDANSETRON INJ 4 MG/2 ML VIAL IV PUSH (12:35)
[2022-04-08] MEDS: SODIUM CHLORIDE 0.9% IV 1,000 ML 999 ML IV CONT (12:35)
[2022-04-08 12:42] LABS: Basophils Percent Auto 0.5 % (0.2-1.2); Eosinophils Absolute Auto 0.1 K/mm3 (0-0.3); Hematocrit 39.6 % (37.0-47.0); Hemoglobin 13.4 g/dL (12.0-15.0); Immature Granulocyte Absolute 0.02 K/mm3 (0.00-0.031); Immature Granulocyte Percent A 0.3 % (0-0.5); Lymphocytes Percent Auto 20.2 % (18.3-44.2); Mean Corpuscular HGB Conc 33.8 g/dl (32-36); Mean Corpuscular Hemoglobin 31.3 pg (26-34); Mean Corpuscular Volume 92.5 fl (80-100); Mean Platelet Volume 9.3 fl (7.4-10.4); Monocytes Absolute Auto 0.3 K/mm3 (0.1-0.6); Monocytes Percent Auto 5.4 % (2.6-8.5); Neutrophils Absolute Auto 4.3 K/mm3 (1.3-6.7); Neutrophils Percent Auto 71.6 % (45.5-73.1); Platelet Count Result 220 k/mm3 (150-375); Red Blood Count 4.28 M/mm3 (4.2-5.4); Red Cell Distribution Width 13.3 % (11.5-14.5); White Blood Count 5.9 K/mm3 (4.5-10.0)
--- NOTE | 2022-04-08 12:43 | ED.NAVMDI ---
HPI - Nausea/Vomiting/Diarrhea General Chief complaint: Nausea/Vomiting/Diarrhea Stated complaint: vomiting since 0900 - drinking last night Time Seen by Provider: 04/08/22 11:56 History of Present Illness HPI Narrative: Patient is a 22-year-old female with a history of IBS here for evaluation of nausea and vomiting today. Patient states that she drank half a bottle of [place] last night and since waking up this morning she has felt nauseated and has had about 4 episodes of vomiting nonbloody/nonbilious emesis. States she feels hungover, has felt this way in the past with hangovers. No significant abdominal pain. No fevers, diarrhea. Patient also notes urinary burning, frequency, urgency. 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 Denies known exposures. Related Data Allergies Allergy/AdvReac Type Severity Reaction Status Date / Time amoxicillin Allergy Severe Swelling Verified 12/02/21 09:26 ibuprofen Allergy Severe Swelling Verified 12/02/21 09:26 Review of Systems Review of Systems: Gen: Denies fevers or chills Eyes: Denies eye pain or visual change ENT: Denies congestion Respiratory: Denies shortness of breath or cough CV: Denies chest pain or palpitations GI: reports nausea, vomiting. : Reports urinary urgency and frequency. Musculoskeletal: Denies back pain or muscle pain Neuro: Denies numbness, tingling, weakness or focal weakness Skin: Denies rash Except as documented, all other systems reviewed and negative [facility] Past Medical History Medical History ADD (attention deficit disorder) Anxiety Asthma Bipolar 1 disorder Cyclic vomiting syndrome Depression Irritable bowel syndrome Self-mutilation Suicide attempt Surgical History Surgical History S/P wisdom tooth extraction Family History Family History Father ADHD (attention deficit hyperactivity disorder) Bipolar disorder Personality disorder Mother Alive and well Social History Social History Smoking packs per day: 0.5 Smoking cigarettes per day: 10.0 Years smoked: 8 Smoking pack-years: 4.00 Smoking status: Current every day smoker Tobacco type: cigarettes Second hand tobacco smoke exposure: Yes Additional smoking assessment comments: Vaping Alcohol intake: current Substance use: current Substance use type: marijuana Gender identity (if verbalized by the patient): Female Exam Narrative: APPEARANCE: Well appearing, no pain in distress, well-nourished. Head: Normocephalic and atraumatic. EYES: PERRLA/EOMI, conjunctivae clear NOSE: No nasal drainage EARS: External ear normal in appearance THROAT: Oropharynx is clear. Mucous membranes are moist. NECK: Supple. No adenopathy, no masses. RESPIRATORY: Airway patent, respirations nonlabored. Clear to auscultation bilaterally, no rales, rhonchi, wheezing. CARDIOVASCULAR: Regular rate and rhythm without murmurs, rubs, or gallops. ABDOMINAL: Normoactive bowel sounds. Soft, nontender, nondistended. No rebound tenderness or guarding. MUSCULOSKELETAL: Extremities are warm and well-perfused. Moves all extremities well. No edema. NEURO: Normal speech. No focal neurologic deficits. SKIN: Skin is warm and dry. No rashes. PSYCHIATRIC: Normal affect/mood. Course Vital Signs Vital signs: Vital Signs Temperature 97.5 F L 04/08/22 11:49 Pulse Rate 93 04/08/22 11:49 Blood Pressure 134/91 H 04/08/22 11:49 Pulse Oximetry 100 04/08/22 11:49 Oxygen Delivery Room Air 04/08/22 11:49 Temperature 97.5 F L 04/08/22 11:49 Pulse Rate 93 04/08/22 11:49 Blood Pressure 134/91 H 04/08/22 11:49 Pulse Oximetry 100 04/08/22 11:49 Oxygen Delivery Room Air 04/08/22 11:49 MDM - Nausea/Vomiti
[2022-04-08 12:52] LABS: Alanine Aminotransferase 21 U/L (6-35); Albumin Level 4.8 g/dL (3.5-5.1); Alkaline Phosphatase 45 U/L (38-126); Anion Gap 12 mmol/L (8-16); Aspartate Amino Transferase 27 U/L (14-36); Bilirubin,Total 0.6 mg/dL (0.2-1.3); Blood Urea Nitrogen 14 mg/dL (7-17); Calcium 9.3 mg/dL (8.4-10.2); Carbon Dioxide 23 mmol/L (22-30); Chloride 104 mmol/L (98-107); Estimated CRCL calculation 94 ml/min; Estimated Glomerular Filt Rate > 60; Glucose 86 mg/dL (65-110); Lipase 62 U/L (23-300); Potassium 4.1 mmol/L (3.4-5.0); Sodium 139 mmol/L (137-145)
[2022-04-08 14:17] LABS: Appearance Urine Slightly Cloudy (Clear); Bilirubin Urine Negative (Negative); Blood Urine Negative (Negative); Color Urine Yellow (Yellow); Glucose Urine UA Negative (Negative); Ketones Urine 1+ mg/dL (Negative); Leukocyte Esterase Ur 3+ LEU/UL (Negative); Nitrate Urine Negative (Negative); Protein Urine Negative (Negative); Specific Grav Ur 1.015 (1.001-1.035); Urobilinogen Urine 0.2 mg/dL (<2.0); pH Urine 8.5 (5.0-9.0)
[2022-04-08 14:26] LABS: Bacteria Urine Trace /hpf; Mucus Urine Rare /lpf; RBC Urine 21-50 /hpf (0-2); Squamous Epithelial Cell Urine Many /hpf (Few); WBC Urine 51-75 /hpf
[2022-04-08 14:28] LABS: Add Urine Microscopic? YES
== END 2022-04-08 14:33 | disposition home or self-care (01) ==
PROVIDERS: Physician Assistant; Emergency Provider Emergency Medicine
DX: N39.0 Urinary tract infection, site not specified (principal); J45.909 Unspecified asthma, uncomplicated; K58.9 Irritable bowel syndrome, unspecified; F17.210 Nicotine dependence, cigarettes, uncomplicated; F17.290 Nicotine dependence, other tobacco product, uncomplicated
CPT/HCPCS: 36415; 80053; 81001; 81025; 83690; 85025; 87086; 96361; 96374; 99284; J2405; J7030

== ENCOUNTER 2022-05-26 08:04 | Emergency (ER) | payer OTHER, SELFPAY ==
[2022-05-26 08:08] VITALS: BP 148/98; PULSE 112; RESP 18; TEMP 36.9; O2SAT 98
--- NOTE | 2022-05-26 08:37 | PC.NURSE ---
vrbo erp dr jean carlos moran to give pcr flu,covid,rsv, and 1lns bolus wide open.
[2022-05-26] MEDS: SODIUM CHLORIDE 0.9% IV 1,000 ML 999 ML IV CONT (08:42)
[2022-05-26 08:45] LABS: Basophils Percent Auto 0.3 % (0.2-1.2); Eosinophils Percent Auto 0.3 % (0-4.4); Hematocrit 39.9 % (37.0-47.0); Hemoglobin 13.4 g/dL (12.0-15.0); Immature Granulocyte Absolute 0.02 K/mm3 (0.00-0.031); Immature Granulocyte Percent A 0.3 % (0-0.5); Lymphocytes Absolute Auto 0.39 K/mm3 (0.9-3.2); Lymphocytes Percent Auto 6.1 % (18.3-44.2); Mean Corpuscular HGB Conc 33.6 g/dl (32-36); Mean Corpuscular Hemoglobin 31.7 pg (26-34); Mean Corpuscular Volume 94.3 fl (80-100); Mean Platelet Volume 9.3 fl (7.4-10.4); Monocytes Absolute Auto 0.7 K/mm3 (0.1-0.6); Monocytes Percent Auto 10.6 % (2.6-8.5); Neutrophils Absolute Auto 5.3 K/mm3 (1.3-6.7); Neutrophils Percent Auto 82.4 % (45.5-73.1); Platelet Count Result 200 k/mm3 (150-375); Red Blood Count 4.23 M/mm3 (4.2-5.4); Red Cell Distribution Width 12.8 % (11.5-14.5); White Blood Count 6.4 K/mm3 (4.5-10.0)
[2022-05-26 08:55] LABS: Alanine Aminotransferase 34 U/L (6-35); Albumin Level 5.3 g/dL (3.5-5.1); Alkaline Phosphatase 52 U/L (38-126); Anion Gap 15 mmol/L (8-16); Aspartate Amino Transferase 47 U/L (14-36); Bilirubin,Total 0.5 mg/dL (0.2-1.3); Blood Urea Nitrogen 12 mg/dL (7-17); Calcium 9.5 mg/dL (8.4-10.2); Carbon Dioxide 23 mmol/L (22-30); Chloride 100 mmol/L (98-107); Estimated CRCL calculation 81 ml/min; Estimated Glomerular Filt Rate > 60; Glucose 109 mg/dL (65-110); Lipase 102 U/L (23-300); Sodium 138 mmol/L (137-145)
--- NOTE | 2022-05-26 09:14 | ED.FEVER ---
HPI - Fever General Chief Complaint: Fever Stated Complaint: flu symptoms Time Seen by Provider: 05/26/22 09:02 Source: patient Mode of arrival: ambulatory Limitations: no limitations History of Present Illness HPI Narrative: 22-year-old female presents today with complaints of cough, body aches, nausea vomiting, abdominal pain. For the past 3 days. Fever started this morning per patient. Patient did not take any medication since currently afebrile here. Patient with wet cough. Patient does have a history of asthma, IBS, hypertension. Patient has unknown sick contacts. Abdominal pain is consistent with her IBS pain. Last menstrual period May 16. Patient states decreased oral intake able to keep some fluids down but not all. Related Data Home Medications Medication Instructions Recorded Confirmed hydrochlorothiazide 12.5 mg capsule mg 05/26/22 ondansetron HCl 4 mg tablet mg 05/26/22 Allergies Allergy/AdvReac Type Severity Reaction Status Date / Time amoxicillin Allergy Severe Swelling Verified 05/26/22 08:10 ibuprofen Allergy Severe Swelling Verified 05/26/22 08:10 Review of Systems Review of Systems: CONSTITUTIONAL: fever, chills, or sweats. EYES: Denies visual changes, redness, or discharge. ENT: Positive for congestion. Denies rhinorrhea, sore throat, or otalgia. CARDIOVASCULAR: Denies chest pain, palpitations, or edema. RESPIRATORY: Productive cough with wheezing. GASTROINTESTINAL: Lower abdominal pain consistent with IBS issues, nausea, vomiting. Denies diarrhea. GENITOURINARY: Denies dysuria or hematuria. SKIN: Denies rash or itching. MUSCULOSKELETAL: Myalgia. denies back pain, joint pain. NEUROLOGIC: Denies headache, numbness, dizziness, or weakness. PSYCHIATRIC: Denies anxiety or depression. [facility] Past Medical History Medical History ADD (attention deficit disorder) Anxiety Asthma Bipolar 1 disorder Cyclic vomiting syndrome Depression Irritable bowel syndrome Self-mutilation Suicide attempt Surgical History Surgical History S/P wisdom tooth extraction Family History Family History Father ADHD (attention deficit hyperactivity disorder) Bipolar disorder Personality disorder Mother Alive and well Social History Social History Smoking packs per day: 0.5 Smoking cigarettes per day: 10.0 Years smoked: 8 Smoking pack-years: 4.00 Smoking status: Current every day smoker Tobacco type: cigarettes Second hand tobacco smoke exposure: Yes Additional smoking assessment comments: Vaping Alcohol intake: current Substance use: current Substance use type: marijuana Gender identity (if verbalized by the patient): Female Exam Narrative: GENERAL: Well-appearing, well-nourished, and in no acute distress. HEAD: Normocephalic, atraumatic. EYES: PERRLA and EOMI. ENT: Nares clear, no rhinorrhea or epistaxis. Mucous membranes moist. Oropharynx without tonsillar hypertrophy exudate or other lesions. Bilateral TMs pearly gilbert nonbulging NECK: Supple. No adenopathy or masses. No carotid bruits or JVD CHEST: Slight wheezing bilaterally to posterior lung bases. No respiratory distress. No wheezes rales or rhonchi HEART: Regular rate and rhythm. No murmur heard. Normal peripheral pulses. ABDOMEN: Soft, nontender, nondistended, normal active bowel sounds. EXTREMITIES: Normal range of motion. No edema. SKIN: Warm, dry, no rash. NEURO: No focal deficits. Alert and oriented x3. PSYCH: Normal mood and affect. Course PULMONARY FELLOW/PA Physician Supervision Patient feeling better after IV medications and fluids. She is aware that she is influenza A positive. Supportive treatment at home. Will discharge home plan follow-up with primary if need be. She is aware to return wit
[2022-05-26 09:20] LABS: Influenza A QL RT-PCR Positive (Negative); Influenza B QL RT-PCR Negative (Negative); RSV RNA, RT-PCR Negative (Negative); SARS-CoV-2 RNA PCR Negative
[2022-05-26 09:43] LABS: Appearance Urine Clear (Clear); Bilirubin Urine Negative (Negative); Blood Urine Negative (Negative); Color Urine Yellow (Yellow); Glucose Urine UA Negative (Negative); Ketones Urine Negative (Negative); Leukocyte Esterase Ur Negative LEU/UL (Negative); Nitrate Urine Negative (Negative); Protein Urine Negative (Negative); Urobilinogen Urine 0.2 mg/dL (<2.0); pH Urine 7.5 (5.0-9.0)
[2022-05-26 09:50] LABS: Add Urine Microscopic? NO
[2022-05-26] MEDS: FAMOTIDINE 20 MG/2 ML VIAL IV PUSH (09:57)
[2022-05-26] MEDS: METOCLOPRAMIDE HCL INJ 10 MG/2 ML VIAL IV PUSH (09:57)
[2022-05-26] MEDS: DICYCLOMINE HCL 10 MG CAPSULE 20 MG PO (09:57)
[2022-05-26 11:31] VITALS: BP 119/70; PULSE 98; RESP 16; O2SAT 100
== END 2022-05-26 11:34 | disposition home or self-care (01) ==
PROVIDERS: Emergency Medicine; Emergency Provider Nurse Practitioner Family; PCP Nurse Practitioner Adult Health
DX: J10.1 Influenza due to other identified influenza virus with other respiratory manifestations (principal); Z20.822 Contact with and (suspected) exposure to COVID-19; J45.909 Unspecified asthma, uncomplicated; K58.9 Irritable bowel syndrome, unspecified; F17.210 Nicotine dependence, cigarettes, uncomplicated; F17.290 Nicotine dependence, other tobacco product, uncomplicated
CPT/HCPCS: 36415; 80053; 81003; 81025; 83690; 85025; 87502; 87634; 96361; 96374; 96375; 99284; A9270; J2765; J7030; U0003; U0005

== ENCOUNTER 2022-08-20 04:32 | Emergency (ER) | payer OTHER, SELFPAY ==
--- NOTE | ~2022-08-20 | XR_ITS ---
EXAMINATION: XR chest 1V portable INDICATION: Chest pain and shortness of breath TECHNIQUE: Portable AP chest at 0455 hours COMPARISON: 08/31/2021 FINDINGS: The lungs are free of acute opacities. No pleural effusion or pneumothorax. The cardiomedia stinal silhouette is normal. The visualized bones and soft tissues are unremarkable. IMPRESSION: 1. No acute cardiopulmonary abnormality. Reviewed, dictated and finalized at location A. TENANCE SPECIALIST
[2022-08-20 04:33] VITALS: BP 146/90; PULSE 89; RESP 16; TEMP 36.7; O2SAT 100
--- NOTE | 2022-08-20 04:42 | ECG_ITS ---
Measurements Intervals [place] Rate: 70 P: 68 UT: 133 QRS: 55 QRSD: 85 T: 54 QT: 369 QTc: 399 Interpretive Statements SINUS RHYTHM NORMAL ECG COMPARED TO ECG 08/31/2021 23:27:47 NO SIGNIFICANT CHANGES Electronically Signed On 08-20-2022 12:47:37 [employer] TE[employer] by Laurent Adames M.D.
--- NOTE | 2022-08-20 04:52 | ED.GENADULT ---
HPI - General Adult General Chief complaint: Upper Respiratory Infection Stated complaint: flu like symptoms, chest discomfort Time Seen by Provider: 08/20/22 04:41 History of Present Illness HPI narrative: 22-year-old female presented to the emergency department for evaluation of cough congestion body aches fatigue headache and fever. Patient suspects that she has the flu. Patient reports that she is already had influenza a and influenza B this season. Patient reports that her symptoms started on . Related Data Home Medications Medication Instructions Recorded Confirmed hydrochlorothiazide 12.5 mg capsule mg 05/26/22 ondansetron HCl 4 mg tablet mg 05/26/22 Allergies Allergy/AdvReac Type Severity Reaction Status Date / Time amoxicillin Allergy Severe Swelling Verified 05/26/22 08:10 ibuprofen Allergy Severe Swelling Verified 05/26/22 08:10 Review of Systems Review of Systems: CONSTITUTIONAL: See HPI EYES: Denies visual changes, redness, or discharge. ENT: See HPI CARDIOVASCULAR: Denies chest pain, palpitations, or edema. RESPIRATORY: See HPI GASTROINTESTINAL: Denies abdominal pain, nausea, vomiting, or diarrhea. GENITOURINARY: Denies dysuria or hematuria. SKIN: Denies rash or itching. MUSCULOSKELETAL: Denies back pain, joint pain, or myalgia. NEUROLOGIC: Denies headache, numbness, or weakness. [facility] Past Medical History Medical History ADD (attention deficit disorder) Anxiety Asthma Bipolar 1 disorder Cyclic vomiting syndrome Depression Irritable bowel syndrome Self-mutilation Suicide attempt Surgical History Surgical History S/P wisdom tooth extraction Family History Family History Father ADHD (attention deficit hyperactivity disorder) Bipolar disorder Personality disorder Mother Alive and well Social History Social History Smoking packs per day: 0.5 Smoking cigarettes per day: 10.0 Years smoked: 8 Smoking pack-years: 4.00 Smoking status: Current every day smoker Tobacco type: cigarettes Second hand tobacco smoke exposure: Yes Additional smoking assessment comments: Vaping Alcohol intake: current Substance use: current Substance use type: marijuana Living arrangements: with family Occupation/Education: occupation Gender identity (if verbalized by the patient): Female Exam Narrative: APPEARANCE: Well appearing, no pain, no distress, well-nourished. HEAD: normocephalic, atraumatic. EYES: PERRLA/EOMI, conjunctivae clear. NOSE: Normal no drainage NECK: Supple. No adenopathy, no masses. RESPIRATORY: Airway patent, respirations nonlabored. Clear to auscultation bilaterally, no rales, rhonchi, wheezing. CARDIOVASCULAR: Regular rate and rhythm without murmurs rubs or gallops. ABDOMINAL: Soft, nontender, nondistended, normal bowel sounds MUSCULOSKELETAL: Moves all extremities. Strength/ROM intact, No edema, No calf tenderness. NEURO: Alert. Cranial nerves II through XII intact. Grossly intact SKIN: Warm, dry. Normal Color Course Course Emergency Course: Patient was not hypoxic nor tachycardic. Patient was saturating well on room air. EKG showed normal sinus rhythm. Chest x-ray showed no acute cardiopulmonary malady. Patient did test positive for COVID. Patient was provided albuterol inhaler and Tessalon Perles. Differential diagnosis also did include pneumothorax, pneumonia, influenza, RSV. With negative chest x-ray and positive COVID patient will be treated and has COVID. Patient was updated on results of her work-up. All questions concerns were addressed. Vital Signs Vital signs: Vital Signs Temperature 98.1 F 08/20/22 04:33 Pulse Rate 89 08/20/22 04:33 Respiratory Rate 16 08/20/22 04:33 Blood Pressure 146/90 H 0
[2022-08-20 04:59] VITALS: PULSE 79; RESP 13; O2SAT 100; O2SAT 99
[2022-08-20 05:00] VITALS: PULSE 88; RESP 15; O2SAT 99
[2022-08-20 05:30] LABS: Influenza A QL RT-PCR Negative (Negative); Influenza B QL RT-PCR Negative (Negative); RSV RNA, RT-PCR Negative (Negative); SARS-CoV-2 RNA PCR Positive
[2022-08-20 05:58] VITALS: BP 130/84; PULSE 68; RESP 17; O2SAT 99
== END 2022-08-20 05:59 | disposition home or self-care (01) ==
PROVIDERS: Emergency Provider Emergency Medicine; PCP Nurse Practitioner Adult Health
DX: U07.1 COVID-19 (principal); F17.210 Nicotine dependence, cigarettes, uncomplicated
CPT/HCPCS: 71045; 87637; 93005; 99283

== ENCOUNTER 2022-08-21 03:23 | Emergency (ER) | payer OTHER, SELFPAY ==
[2022-08-21 03:26] VITALS: BP 150/103; PULSE 89; RESP 20; TEMP 36.6; O2SAT 100
[2022-08-21] MEDS: SODIUM CHLORIDE 0.9% IV 1,000 ML 999 ML IV CONT (03:53)
[2022-08-21] MEDS: ONDANSETRON INJ 4 MG/2 ML VIAL IV PUSH (03:53)
--- NOTE | 2022-08-21 04:03 | ED.GENADULT ---
HPI - General Adult General Chief complaint: Nausea/Vomiting/Diarrhea Stated complaint: COVID + yesterday, n/v Time Seen by Provider: 08/21/22 03:28 History of Present Illness HPI narrative: 22-year-old female presented to the emergency department for evaluation of nausea and vomiting. Patient was recently diagnosed with COVID. During her initial evaluation patient was only having cough and shortness of breath. Patient was discharged home with albuterol and Tessalon Perles. Patient reports after getting home she was having worsening nausea and vomiting was having difficulty keeping medications down. Patient states she is still having some cough and some intermittent chest pain. Patient reports he does have IBS and often has issues with nausea and vomiting. Patient states she is out of her Zofran at home. Related Data Home Medications Medication Instructions Recorded Confirmed hydrochlorothiazide 12.5 mg capsule mg 05/26/22 ondansetron HCl 4 mg tablet mg 05/26/22 Allergies Allergy/AdvReac Type Severity Reaction Status Date / Time amoxicillin Allergy Severe Swelling Verified 08/21/22 03:28 ibuprofen Allergy Severe Swelling Verified 08/21/22 03:28 Review of Systems Review of Systems: CONSTITUTIONAL: Denies fever, chills, or sweats. EYES: Denies visual changes, redness, or discharge. ENT: Denies rhinorrhea, congestion, sore throat, or otalgia. CARDIOVASCULAR: Denies chest pain, palpitations, or edema. RESPIRATORY: Denies cough or dyspnea. GASTROINTESTINAL: See HPI GENITOURINARY: Denies dysuria or hematuria. SKIN: Denies rash or itching. MUSCULOSKELETAL: Denies back pain, joint pain, or myalgia. NEUROLOGIC: Denies headache, numbness, or weakness. [facility] Past Medical History Medical History ADD (attention deficit disorder) Anxiety Asthma Bipolar 1 disorder Cyclic vomiting syndrome Depression Irritable bowel syndrome Self-mutilation Suicide attempt Surgical History Surgical History S/P wisdom tooth extraction Family History Family History Father ADHD (attention deficit hyperactivity disorder) Bipolar disorder Personality disorder Mother Alive and well Social History Social History Smoking packs per day: 0.5 Smoking cigarettes per day: 10.0 Years smoked: 8 Smoking pack-years: 4.00 Smoking status: Current every day smoker Tobacco type: cigarettes Second hand tobacco smoke exposure: Yes Additional smoking assessment comments: Vaping Alcohol intake: current Substance use: current Substance use type: marijuana Living arrangements: with family Occupation/Education: occupation Gender identity (if verbalized by the patient): Female Exam Narrative: APPEARANCE: Well appearing, no pain, no distress, well-nourished. HEAD: normocephalic, atraumatic. EYES: PERRLA/EOMI, conjunctivae clear. NOSE: Normal no drainage NECK: Supple. No adenopathy, no masses. RESPIRATORY: Airway patent, respirations nonlabored. Clear to auscultation bilaterally, no rales, rhonchi, wheezing. CARDIOVASCULAR: Regular rate and rhythm without murmurs rubs or gallops. ABDOMINAL: Soft, nontender, nondistended, normal bowel sounds MUSCULOSKELETAL: Moves all extremities. Strength/ROM intact, No edema, No calf tenderness. NEURO: Alert. Cranial nerves II through XII intact. Grossly intact SKIN: Warm, dry. Normal Color Course Course Emergency Course: Patient was treated with IV fluids and IV Zofran for nausea control. Patient did feel improved with treatment. Patient already has albuterol and Tessalon Perles at home. Patient was provided Zofran for nausea control at home. All question concerns were addressed. Patient was comfortable to plan for discharge to home. Vital Signs Vital signs:
[2022-08-21 04:42] VITALS: BP 126/79; PULSE 76; RESP 19; O2SAT 98
== END 2022-08-21 04:45 | disposition home or self-care (01) ==
PROVIDERS: Emergency Provider Emergency Medicine; PCP Nurse Practitioner Adult Health
DX: U07.1 COVID-19 (principal); R11.2 Nausea with vomiting, unspecified; J45.909 Unspecified asthma, uncomplicated; K58.9 Irritable bowel syndrome, unspecified; F17.210 Nicotine dependence, cigarettes, uncomplicated
CPT/HCPCS: 96361; 96374; 99284; J2405; J7030

== ENCOUNTER 2022-09-12 23:26 | Emergency (ER) | payer OTHER, SELFPAY ==
[2022-09-12 23:32] VITALS: BP 109/92; PULSE 103; RESP 15; TEMP 36.8; O2SAT 100
[2022-09-12 23:36] VITALS: PULSE 103
[2022-09-12 23:38] VITALS: RESP 15
--- NOTE | 2022-09-12 23:55 | ED.OVERDOSE ---
HPI - Overdose General Chief Complaint: Overdose Stated Complaint: Oversdose Time Seen by Provider: 09/12/22 23:45 Source: patient, RN notes reviewed and old records reviewed Mode of arrival: ambulatory Limitations: no limitations History of Present Illness HPI Narrative: This is a 22 year old female who presents for evaluation of a overdose after taking valium. Patient states that she took a approximately 20 Valium 10 mg pills approximately 1 hour ago. She states she took the pills to get high. She normally takes 10mg percocet daily but she did not have today. Someone gave her some valium so she took all of them. She reports a friend was worried about her so they told her to come to ER. She denies SI/HI. She denies taking medications to hurt her self. She denies drinking alcohol today . Her only complaint is dizziness. LMP 1 week ago. Related Data Home Medications Medication Instructions Recorded Confirmed hydrochlorothiazide 12.5 mg capsule mg 05/26/22 ondansetron HCl 4 mg tablet mg 05/26/22 Allergies Allergy/AdvReac Type Severity Reaction Status Date / Time amoxicillin Allergy Severe Swelling Verified 08/21/22 03:28 ibuprofen Allergy Severe Swelling Verified 08/21/22 03:28 Review of Systems Constitutional: Constitutional: Denies weakness Cardiovascular: Cardiovascular: Denies syncope, Denies rapid heart rate, Denies irregular heart rhythm, Denies leg edema and Denies dyspnea Respiratory: Respiratory: Denies chest congestion, Denies hemoptysis, Denies excessive phlegm production and Denies dyspnea Gastrointestinal: Gastrointestinal: Denies abdominal pain, Denies hematochezia, Denies diarrhea and Denies vomiting Genitourinary: Genitourinary: Denies hematuria and Denies dysuria Musculoskeletal: Musculoskeletal: Denies joint swelling, Denies loss of height and Denies muscle weakness Neurologic: Denies syncope, Denies focal weakness and Denies weakness PMFSH Past Medical History Medical History ADD (attention deficit disorder) Anxiety Asthma Bipolar 1 disorder Cyclic vomiting syndrome Depression Irritable bowel syndrome Self-mutilation Suicide attempt Surgical History Surgical History S/P wisdom tooth extraction Family History Family History Father ADHD (attention deficit hyperactivity disorder) Bipolar disorder Personality disorder Mother Alive and well Social History Social History Smoking packs per day: 0.5 Smoking cigarettes per day: 10.0 Years smoked: 8 Smoking pack-years: 4.00 Smoking status: Current every day smoker Tobacco type: cigarettes Second hand tobacco smoke exposure: Yes Additional smoking assessment comments: Vaping Alcohol intake: current Substance use: current Substance use type: marijuana Living arrangements: with family Occupation/Education: occupation Gender identity (if verbalized by the patient): Female Exam Const: General: alert Nutritional Appearance: well nourished Orientation/consciousness: patient oriented x3 Limitations: no limitations HENMT: Head: normal to inspection Eyes: EOM: EOMs intact bilaterally Chest: Chest palpation & inspection: normal inspection of the chest Resp: Effort & Inspection: normal respiratory effort Auscultation: clear to auscultation bilaterally Cardio: Rate: regular rate Rhythm: regular rhythm Heart sounds: no murmurs GI: GI Palp: Yes Soft to palpation, No Tenderness to palpation present (GI) and No Guarding due to palpation present (GI) Auscultation: normal bowel sounds Skin: General skin exam: normal color Rashes: no rashes Wounds: no wounds Neuro: General: patient oriented x3, moves all extremities and CN's II-XI intact bilaterally Extrem: General: normal to insp
--- NOTE | 2022-09-12 23:58 | PC.NURSE ---
[place] poison control called at this time. will order appropriate labs per poison control. case # [id number]
[2022-09-13 00:18] LABS: Basophils Percent Auto 0.5 % (0.2-1.2); Eosinophils Absolute Auto 0.1 K/mm3 (0-0.3); Eosinophils Percent Auto 0.8 % (0-4.4); Hematocrit 39.2 % (37.0-47.0); Immature Granulocyte Absolute 0.01 K/mm3 (0.00-0.031); Immature Granulocyte Percent A 0.2 % (0-0.5); Lymphocytes Absolute Auto 1.85 K/mm3 (0.9-3.2); Lymphocytes Percent Auto 30.5 % (18.3-44.2); Mean Corpuscular HGB Conc 33.2 g/dl (32-36); Mean Corpuscular Hemoglobin 31.3 pg (26-34); Mean Corpuscular Volume 94.2 fl (80-100); Mean Platelet Volume 9.6 fl (7.4-10.4); Monocytes Absolute Auto 0.4 K/mm3 (0.1-0.6); Monocytes Percent Auto 7.2 % (2.6-8.5); Neutrophils Absolute Auto 3.7 K/mm3 (1.3-6.7); Neutrophils Percent Auto 60.8 % (45.5-73.1); Platelet Count Result 235 k/mm3 (150-375); Red Blood Count 4.16 M/mm3 (4.2-5.4); Red Cell Distribution Width 12.8 % (11.5-14.5); White Blood Count 6.1 K/mm3 (4.5-10.0)
[2022-09-13 00:21] LABS: Appearance Urine Clear (Clear); Bilirubin Urine Negative (Negative); Blood Urine Negative (Negative); Color Urine Yellow (Yellow); Glucose Urine UA Negative (Negative); Ketones Urine Negative (Negative); Leukocyte Esterase Ur Negative LEU/UL (Negative); Nitrate Urine Negative (Negative); Protein Urine Negative (Negative); Specific Grav Ur 1.009 (1.001-1.035); Urobilinogen Urine 0.2 mg/dL (<2.0); pH Urine 6.5 (5.0-9.0)
[2022-09-13 00:29] LABS: INR 1.1; Partial Thromboplastin Time 26.1 SECONDS (22.3-36.8); Prothrombin Time 13.8 Seconds (11.1-14.7)
[2022-09-13 00:30] LABS: Acetaminophen < 10 ug/mL (10-30); Ethanol < 10 mg/dL (<10)
[2022-09-13 00:34] LABS: Amphetamine Screen Urine Negative (Negative); Barbiturate Screen Urine Negative (Negative); Benzodiazepines Screen Urine Positive (Negative); Cannabinoid Screen Urine Positive (Negative); Cocaine Screen Urine Positive (Negative); Methadone Screen Urine Negative (Negative); Opiate Screen Urine Negative (Negative); Phencyclidine Screen Urine Negative (Negative)
--- NOTE | 2022-09-13 00:35 | ECG_ITS ---
Measurements Intervals [place] Rate: 91 P: 74 HI: 135 QRS: 46 QRSD: 89 T: 51 QT: 324 QTc: 400 Interpretive Statements SINUS RHYTHM COMPARED TO ECG 08/20/2022 04:47:34 NO SIGNIFICANT CHANGES Electronically Signed On 09-13-2022 11:35:02 SCOUT SNIPER by Donell Gramajo M.D.
[2022-09-13 00:36] LABS: Add Urine Microscopic? NO
[2022-09-13 00:37] LABS: Alanine Aminotransferase 28 U/L (6-35); Albumin Level 5.1 g/dL (3.5-5.1); Alkaline Phosphatase 55 U/L (38-126); Anion Gap 12 mmol/L (8-16); Aspartate Amino Transferase 33 U/L (14-36); Bilirubin,Total 0.7 mg/dL (0.2-1.3); Blood Urea Nitrogen 13 mg/dL (7-17); Calcium 9.5 mg/dL (8.4-10.2); Carbon Dioxide 25 mmol/L (22-30); Chloride 105 mmol/L (98-107); Estimated CRCL calculation 90 ml/min; Estimated Glomerular Filt Rate > 60; Glucose 100 mg/dL (65-110); Potassium 3.4 mmol/L (3.4-5.0); Sodium 142 mmol/L (137-145)
[2022-09-13 00:56] LABS: SARS-CoV-2 RNA PCR Negative
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
--- NOTE | 2022-09-13 07:04 | PC.NURSE ---
Late note due to acuity of patient. PD told RN they were no longer going to sit on patient approximately 15 minutes after last note was written. patient left AMA after PD left. MD krause aware and supercharger repair supervisor aware of situation.
== END 2022-09-13 02:24 | disposition left against medical advice (07) ==
PROVIDERS: Emergency Provider General Practice; PCP Nurse Practitioner Adult Health
DX: F19.10 Other psychoactive substance abuse, uncomplicated (principal); Z20.822 Contact with and (suspected) exposure to COVID-19; J45.909 Unspecified asthma, uncomplicated; F17.210 Nicotine dependence, cigarettes, uncomplicated; F17.290 Nicotine dependence, other tobacco product, uncomplicated
CPT/HCPCS: 36415; 80053; 80307; 81003; 81025; 84443; 85025; 85610; 85730; 93005; 99284; U0003; U0005

== ENCOUNTER 2022-09-13 21:06 | Emergency (ER) | payer OTHER, SELFPAY ==
[2022-09-13 21:15] VITALS: BP 140/97; PULSE 100; RESP 15; TEMP 36.6; O2SAT 100
--- NOTE | 2022-09-13 23:52 | PC.NURSE ---
patient refusing updated vital signs in triage.
[2022-09-14 00:45] VITALS: BP 124/92; PULSE 82; RESP 23; O2SAT 100
[2022-09-14 02:02] VITALS: BP 137/80; BP 148/112; PULSE 70; PULSE 89
[2022-09-14 02:04] VITALS: BP 144/91; PULSE 116
[2022-09-14 02:12] LABS: Basophils Percent Auto 0.6 % (0.2-1.2); Eosinophils Absolute Auto 0.1 K/mm3 (0-0.3); Eosinophils Percent Auto 1.4 % (0-4.4); Hematocrit 38.9 % (37.0-47.0); Hemoglobin 13.1 g/dL (12.0-15.0); Immature Granulocyte Absolute 0.02 K/mm3 (0.00-0.031); Immature Granulocyte Percent A 0.3 % (0-0.5); Lymphocytes Absolute Auto 2.09 K/mm3 (0.9-3.2); Lymphocytes Percent Auto 32.8 % (18.3-44.2); Mean Corpuscular HGB Conc 33.7 g/dl (32-36); Mean Corpuscular Hemoglobin 31.5 pg (26-34); Mean Corpuscular Volume 93.5 fl (80-100); Mean Platelet Volume 9.3 fl (7.4-10.4); Monocytes Absolute Auto 0.5 K/mm3 (0.1-0.6); Monocytes Percent Auto 7.5 % (2.6-8.5); Neutrophils Absolute Auto 3.7 K/mm3 (1.3-6.7); Neutrophils Percent Auto 57.4 % (45.5-73.1); Platelet Count Result 231 k/mm3 (150-375); Red Blood Count 4.16 M/mm3 (4.2-5.4); Red Cell Distribution Width 12.8 % (11.5-14.5); White Blood Count 6.4 K/mm3 (4.5-10.0)
[2022-09-14 02:22] LABS: Alanine Aminotransferase 27 U/L (6-35); Albumin Level 5.1 g/dL (3.5-5.1); Alkaline Phosphatase 57 U/L (38-126); Anion Gap 9 mmol/L (8-16); Aspartate Amino Transferase 31 U/L (14-36); Bilirubin,Total 0.7 mg/dL (0.2-1.3); Blood Urea Nitrogen 18 mg/dL (7-17); Calcium 9.4 mg/dL (8.4-10.2); Carbon Dioxide 26 mmol/L (22-30); Chloride 102 mmol/L (98-107); Estimated CRCL calculation 78 ml/min; Estimated Glomerular Filt Rate > 60; Glucose 63 mg/dL (65-110); Potassium 3.5 mmol/L (3.4-5.0); Sodium 137 mmol/L (137-145)
[2022-09-14] MEDS: SODIUM CHLORIDE 0.9% IV 1,000 ML 999 ML IV CONT (02:31)
[2022-09-14 02:35] VITALS: BP 142/82; PULSE 76; RESP 14; O2SAT 99
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
== END 2022-09-14 04:05 | disposition home or self-care (01) ==
PROVIDERS: Emergency Provider Physician Assistant; PCP Nurse Practitioner Adult Health
DX: R51.9 Headache, unspecified (principal); R42 Dizziness and giddiness; F41.9 Anxiety disorder, unspecified; F17.210 Nicotine dependence, cigarettes, uncomplicated; F98.8 Other specified behavioral and emotional disorders with onset usually occurring in childhood and adolescence; J45.909 Unspecified asthma, uncomplicated; F32.9 Major depressive disorder, single episode, unspecified
CPT/HCPCS: 36415; 80053; 85025; 96361; 96374; 99284; J0131; J7030

== ENCOUNTER 2022-12-12 12:24 | Emergency (ER) | payer OTHER, SELFPAY ==
[2022-12-12 12:33] VITALS: BP 129/87; PULSE 78; RESP 16; TEMP 37.1; O2SAT 100
--- NOTE | 2022-12-12 12:48 | ED.FEMALEGU ---
HPI - Female Genitourinary General Chief complaint: Urogenital-Female Stated complaint: Vaginal Problems/Mouth Pain Source: patient and RN notes reviewed Mode of arrival: ambulatory Limitations: no limitations History of Present Illness HPI Narrative: 22 y/o female presented for 2 complaints. Reports Gum pain. Feels swollen on the right upper gumline, and reports bleeding with brushing, and foul breath. History of gingivitis and states it feels the same. Currently on 2nd round of doxycycline for treatment of Chlamydia, endorses intermittent vaginal burning sensation and white thick discharge for over one week. States the second round was started after possible reinfection. She states she feels that she has yeast infection. She has taken [id number] Monistat without relief. Just completed menses yesterday, endorsing normal cycle. Denies abdominal pain, nausea, vomiting, dyspareunia, dysuria, hematuria, flank pain, fevers or chills. Denies skin lesions. Follows with [facility] [place]. Related Data Home Medications Medication Instructions Recorded Confirmed ondansetron HCl 4 mg tablet mg 05/26/22 doxycycline hyclate 100 mg capsule mg 12/12/22 hydrochlorothiazide 12.5 mg capsule mg 12/12/22 12/12/22 Allergies Allergy/AdvReac Type Severity Reaction Status Date / Time amoxicillin Allergy Severe Swelling Verified 12/12/22 12:35 ibuprofen Allergy Severe Swelling Verified 12/12/22 12:35 Review of Systems Review of Systems: CONSTITUTIONAL: Denies body aches, fever, chills, or sweats. CARDIOVASCULAR: Denies chest pain, palpitations, or edema. RESPIRATORY: Denies cough or dyspnea. GASTROINTESTINAL: Denies abdominal pain, nausea, vomiting, or diarrhea. GENITOURINARY: Denies dysuria, frequency, urgency, hematuria, flank pain SKIN: Denies rash, itching, or wounds. MUSCULOSKELETAL: Denies back pain or myalgia. [facility] Past Medical History Medical History ADD (attention deficit disorder) Anxiety Asthma Bipolar 1 disorder Cyclic vomiting syndrome Depression Irritable bowel syndrome Self-mutilation Suicide attempt Surgical History Surgical History S/P wisdom tooth extraction Family History Family History Father ADHD (attention deficit hyperactivity disorder) Bipolar disorder Personality disorder Mother Alive and well Social History Social History Smoking packs per day: 0.5 Smoking cigarettes per day: 10.0 Years smoked: 8 Smoking pack-years: 4.00 Smoking status: Current every day smoker Tobacco type: cigarettes Second hand tobacco smoke exposure: Yes Additional smoking assessment comments: Vaping Alcohol intake: current Substance use: current Substance use type: marijuana Living arrangements: with family Occupation/Education: occupation Gender identity (if verbalized by the patient): Female Comments At time of signature, I have reviewed and agree with nursing past medical, surgical, social and family history unless otherwise noted. Please see nursing chart for further information. There is no relevant family history pertinent to the presenting complaint Exam Narrative: GENERAL: Well-appearing and in no acute distress. HEAD: Normocephalic EYES: EOMI. . ENT: Mucous membranes pink and moist. No apparent vesicles, swelling, or erythema, good dentition. NECK: Normal AROM. Supple. CHEST: No respiratory distress. Clear to auscultation. HEART: Regular rate and rhythm. ABDOMEN: Soft, nontender, nondistended, normal active bowel sounds. No CVA tenderness : deferred/refused MUSCULOSKELETAL: No bony tenderness. SKIN: Warm, dry, no rash. NEURO: No focal deficits. Alert and oriented x3. Gait steady. PSYCH: Normal affect. No signs of dep
== END 2022-12-12 13:24 | disposition home or self-care (01) ==
PROVIDERS: Emergency Provider Nurse Practitioner Family
DX: K05.10 Chronic gingivitis, plaque induced (principal); N76.0 Acute vaginitis; F17.210 Nicotine dependence, cigarettes, uncomplicated; F17.290 Nicotine dependence, other tobacco product, uncomplicated; J45.909 Unspecified asthma, uncomplicated
CPT/HCPCS: 81003; 81025; 99213; G0463

== ENCOUNTER 2022-12-18 17:56 | Emergency (ER) | payer OTHER, SELFPAY ==
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
[2022-12-18 18:03] VITALS: BP 143/85; PULSE 107; RESP 16; TEMP 37.2; O2SAT 100
== END 2022-12-18 18:41 | disposition home or self-care (01) ==
PROVIDERS: Emergency Provider Nurse Practitioner
DX: N89.8 Other specified noninflammatory disorders of vagina (principal); J45.909 Unspecified asthma, uncomplicated; F17.210 Nicotine dependence, cigarettes, uncomplicated; Z11.3 Encounter for screening for infections with a predominantly sexual mode of transmission
CPT/HCPCS: 87491; 87591; 87661; 99214; G0463

== ENCOUNTER 2023-01-01 16:03 | Emergency (ER) | payer OTHER, SELFPAY ==
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
[2023-01-01 16:11] VITALS: BP 145/98; PULSE 121; RESP 16; TEMP 36.7; O2SAT 99
== END 2023-01-01 16:25 | disposition left against medical advice (07) ==
PROVIDERS: Emergency Provider Nurse Practitioner
DX: R10.2 Pelvic and perineal pain (principal); R68.84 Jaw pain; F17.210 Nicotine dependence, cigarettes, uncomplicated; F17.290 Nicotine dependence, other tobacco product, uncomplicated; F12.90 Cannabis use, unspecified, uncomplicated; J45.909 Unspecified asthma, uncomplicated
CPT/HCPCS: 99211; G0463

== ENCOUNTER 2023-01-26 15:48 | Emergency (ER) | payer OTHER, SELFPAY ==
--- NOTE | 2023-01-26 15:53 | ED.URI ---
HPI - URI/Sore Throat General Chief Complaint: Upper Respiratory Infection Stated Complaint: Sore Throat Time Seen by Provider: 01/26/23 15:53 Source: patient Mode of arrival: ambulatory Limitations: no limitations History of Present Illness HPI Narrative: Patient is a 23-year-old female who presents with 4-5 days of sore throat. Patient states she was seen at [facility] yesterday and diagnosed with tonsillitis. Patient has been taken Zyrtec Flonase and Tylenol. States she is still having sore throat and difficulty eating. Denies any congestion, cough, ear pain, fever, chills, nausea, vomiting, diarrhea. Does report fatigue. Related Data Allergies Allergy/AdvReac Type Severity Reaction Status Date / Time amoxicillin Allergy Severe Swelling Verified 01/01/23 16:08 ibuprofen Allergy Severe Swelling Verified 01/01/23 16:08 Review of Systems Review of Systems: All systems reviewed & are unremarkable except as noted in HPI and below Constitutional: Constitutional: Denies body ache(s), Denies chills, Reports fatigue, Denies fever(s), Denies headache(s), Denies malaise and Denies weakness Eyes: Eyes: Denies blurry vision, Denies itchy eyes and Denies loss of vision ENT: Denies otalgia, Denies headache(s), Denies nasal congestion, Denies sinus pain and Reports sore throat Cardiovascular: Cardiovascular: Denies chest pain, Denies irregular heart rhythm and Denies dyspnea Respiratory: Respiratory: Denies cough and Denies dyspnea Gastrointestinal: Gastrointestinal: Denies abdominal pain, Denies diarrhea, Denies nausea and Denies vomiting Musculoskeletal: Musculoskeletal: Denies back pain, Denies myalgias and Denies arthralgias Integumentary/Breasts: Skin/Breast: Denies pruritus and Denies rash Neurologic: Denies headache(s), Denies loss of vision and Denies weakness Psychiatric: Psychiatric: Reports no additional psychiatric complaints Endocrine: Endocrine: Denies fatigue Allergic/Immunologic: Allergic/Immunologic: Denies itchy eyes PMFSH Past Medical History Medical History ADD (attention deficit disorder) Anxiety Asthma Bipolar 1 disorder Cyclic vomiting syndrome Depression Irritable bowel syndrome Self-mutilation Suicide attempt Surgical History Surgical History S/P wisdom tooth extraction Family History Family History Father ADHD (attention deficit hyperactivity disorder) Bipolar disorder Personality disorder Mother Alive and well Social History Social History Smoking packs per day: 0.5 Smoking cigarettes per day: 10.0 Years smoked: 8 Smoking pack-years: 4.00 Smoking status: Current every day smoker Tobacco type: cigarettes Second hand tobacco smoke exposure: Yes Additional smoking assessment comments: Vaping Alcohol intake: current Substance use: current Substance use type: marijuana Living arrangements: with family Occupation/Education: occupation Gender identity (if verbalized by the patient): Female Comments At time of signature, agree with nursing past medical, surgical, social and family history. There is no relevant family history pertinent to the presenting complaint. Exam Const: General: cooperative, healthy appearing, comfortable, no acute distress and well nourished Nutritional Appearance: well nourished Orientation/consciousness: patient oriented x3 Limitations: no limitations HENMT: Head: normal to inspection, normocephalic and atraumatic Ears: hearing grossly normal bilaterally, external ears normal, TM's normal bilaterally, EAC's normal and no periauricular adenopathy Face/Nose/Sinus: Normal external nose present, Normal nasal mucous membranes and turbinates present, normal facial exam, sinuses nontender and face symmetric Fa
[2023-01-26 15:55] VITALS: BP 135/63; PULSE 93; RESP 16; TEMP 37.8; O2SAT 100
== END 2023-01-26 16:32 | disposition home or self-care (01) ==
PROVIDERS: Emergency Provider Nurse Practitioner Family
DX: J02.9 Acute pharyngitis, unspecified (principal); F17.210 Nicotine dependence, cigarettes, uncomplicated; F12.90 Cannabis use, unspecified, uncomplicated; J45.909 Unspecified asthma, uncomplicated
CPT/HCPCS: 99213; G0463

== ENCOUNTER 2023-02-10 13:52 | Emergency (ER) | payer OTHER, SELFPAY ==
[2023-02-10 14:07] VITALS: BP 124/84; PULSE 80; RESP 18; TEMP 37.5; O2SAT 99
--- NOTE | 2023-02-10 14:10 | ED.URI ---
HPI - URI/Sore Throat General Chief Complaint: Upper Respiratory Infection Stated Complaint: Throat Pain Time Seen by Provider: 02/10/23 14:10 Source: patient Mode of arrival: ambulatory Limitations: no limitations History of Present Illness HPI Narrative: 23-year-old female presents with complaint of sore throat for the past 3 days. States sore throat is worse in the morning also reports postnasal drainage. Was seen at [facility] for tonsillitis. Was given prednisone. States that sore throat had improved. Patient states she is taking Claritin and using Flonase daily. Afebrile. All systems reviewed and negative except as noted above. Related Data Home Medications Medication Instructions Recorded Confirmed albuterol sulfate 90 mcg/actuation 2 puff inhalation DIRECTED 02/10/23 02/10/23 aerosol inhaler fluticasone propionate 50 2 spray intranasal DAILY 02/10/23 02/10/23 mcg/actuation nasal spray,suspension hydrochlorothiazide 12.5 mg capsule 12.5 mg PO DAILY 02/10/23 02/10/23 Allergies Allergy/AdvReac Type Severity Reaction Status Date / Time amoxicillin Allergy Severe Swelling Verified 02/10/23 13:55 ibuprofen Allergy Severe Swelling Verified 02/10/23 13:55 Review of Systems Review of Systems: CONSTITUTIONAL: Denies fever, chills, or sweats. EYES: Denies visual changes, redness, or discharge. ENT: Denies rhinorrhea, congestion . Reports sore throat, postnasal drainage. Denies otalgia. CARDIOVASCULAR: Denies chest pain, palpitations, or edema. RESPIRATORY: Denies cough or dyspnea. GASTROINTESTINAL: Denies abdominal pain, nausea, vomiting, or diarrhea. GENITOURINARY: Denies dysuria or hematuria. SKIN: Denies rash or itching. MUSCULOSKELETAL: Denies back pain, joint pain, or myalgia. NEUROLOGIC: Denies headache, numbness, or weakness. PSYCHIATRIC: Denies anxiety or depression. All other systems reviewed are negative, except as documented in HPI. [facility] Past Medical History Medical History ADD (attention deficit disorder) Anxiety Asthma Bipolar 1 disorder Cyclic vomiting syndrome Depression Irritable bowel syndrome Self-mutilation Suicide attempt Surgical History Surgical History S/P wisdom tooth extraction Family History Family History Father ADHD (attention deficit hyperactivity disorder) Bipolar disorder Personality disorder Mother Alive and well Social History Social History Smoking packs per day: 0.5 Smoking cigarettes per day: 10.0 Years smoked: 8 Smoking pack-years: 4.00 Smoking status: Current every day smoker Tobacco type: cigarettes Second hand tobacco smoke exposure: Yes Additional smoking assessment comments: Vaping Alcohol intake: current Substance use: current Substance use type: marijuana Living arrangements: with family Occupation/Education: occupation Gender identity (if verbalized by the patient): Female Comments At time of signature, agree with nursing past medical, surgical, social and family history. There is no relevant family history pertinent to the presenting complaint. Exam Narrative: GENERAL: This is a well-nourished, well-developed patient, in no apparent distress. HEAD: normocephalic, atraumatic. EYES: PERRL. Sclera clear/white. Vision is grossly intact. EARS: External ears normal, auditory canals clear and without drainage, TMs normal without perforation. Hearing grossly intact. NOSE: External nose normal with no obvious nasal discharge, nares without redness, no rhinorrhea. THROAT: Mucous membranes moist, clear postnasal drainage. No erythema or swelling noted. Tonsils appear normal without exudates. NECK: Neck supple, non-tender without lymphadenopathy, masses or thyromegaly. CARDIOV
== END 2023-02-10 14:27 | disposition home or self-care (01) ==
PROVIDERS: Emergency Provider Nurse Practitioner Family
DX: J02.9 Acute pharyngitis, unspecified (principal); R09.82 Postnasal drip; F17.210 Nicotine dependence, cigarettes, uncomplicated; F17.290 Nicotine dependence, other tobacco product, uncomplicated; F12.90 Cannabis use, unspecified, uncomplicated; J45.909 Unspecified asthma, uncomplicated
CPT/HCPCS: 87081; 87880; 99213; G0463

== ENCOUNTER 2023-02-23 19:25 | Emergency (ER) | payer OTHER, SELFPAY ==
--- NOTE | ~2023-02-23 | XR_ITS ---
EXAM: XR hand RT min 3V DATE: 02/23/2023 19:53 HISTORY: INJURY WHILE BOXING, RIGHT WRIST AND 3RD DIGIT PAIN . COMPARISON: None available. FINDINGS: Normal mineralization. No fracture or dislocation. No lytic or blastic lesion. Joint space s are maintained. No erosion or periosteal change. Soft tissues within normal limits. IMPRESSION: No acute osseous finding in the right hand. Reviewed, dictated and finalized at location K.
--- NOTE | 2023-02-23 19:28 | ED.UPPEXIN ---
HPI - Extremity Injury (Upper) General Chief Complaint: Extremity Injury, Upper Stated Complaint: right hand injury Time Seen by Provider: 02/23/23 19:28 Source: patient Mode of arrival: ambulatory Limitations: no limitations History of Present Illness HPI narrative: Patient is a 23-year-old female that presents with right middle finger pain and wrist pain after sparring without gloves. Patient states she is new to fighting. Patient states she is still able to move all fingers and wrist it is just painful. Denies any swelling, numbness, tingling. Related Data Home Medications Medication Instructions Recorded Confirmed hydrochlorothiazide 12.5 mg capsule 12.5 mg PO DAILY 02/10/23 02/23/23 Allergies Allergy/AdvReac Type Severity Reaction Status Date / Time amoxicillin Allergy Severe Swelling Verified 02/23/23 19:33 ibuprofen Allergy Severe Swelling Verified 02/23/23 19:33 Review of Systems Review of Systems: All systems reviewed & are unremarkable except as noted in HPI and below Constitutional: Constitutional: Denies body ache(s), Denies chills, Denies fatigue, Denies fever(s), Denies headache(s), Denies malaise and Denies weakness Eyes: Eyes: Denies blurry vision, Denies irritation and Denies loss of vision ENT: Denies otalgia, Denies headache(s), Denies nasal discharge, Denies sinus pain and Denies sore throat Cardiovascular: Cardiovascular: Denies chest pain, Denies irregular heart rhythm and Denies dyspnea Respiratory: Respiratory: Denies dyspnea Gastrointestinal: Gastrointestinal: Denies abdominal pain, Denies melena, Denies hematochezia, Denies diarrhea, Denies nausea and Denies vomiting Musculoskeletal: Musculoskeletal: Denies back pain, Denies myalgias and Reports arthralgias Integumentary/Breasts: Skin/Breast: Denies pruritus and Denies rash Neurologic: Denies headache(s), Denies loss of vision and Denies weakness Psychiatric: Psychiatric: Reports no additional psychiatric complaints Endocrine: Endocrine: Denies fatigue PMFSH Past Medical History Medical History ADD (attention deficit disorder) Anxiety Asthma Bipolar 1 disorder Cyclic vomiting syndrome Depression Irritable bowel syndrome Self-mutilation Suicide attempt Surgical History Surgical History S/P wisdom tooth extraction Family History Family History Father ADHD (attention deficit hyperactivity disorder) Bipolar disorder Personality disorder Mother Alive and well Social History Social History Smoking packs per day: 0.5 Smoking cigarettes per day: 10.0 Years smoked: 8 Smoking pack-years: 4.00 Smoking status: Current every day smoker Tobacco type: cigarettes Second hand tobacco smoke exposure: Yes Additional smoking assessment comments: Vaping Alcohol intake: current Substance use: current Substance use type: marijuana Living arrangements: with family Occupation/Education: occupation Gender identity (if verbalized by the patient): Female Comments At time of signature, agree with nursing past medical, surgical, social and family history. There is no relevant family history pertinent to the presenting complaint. Exam Const: General: cooperative, healthy appearing, comfortable, no acute distress and well nourished Nutritional Appearance: well nourished Orientation/consciousness: patient oriented x3 Limitations: no limitations HENMT: Head: normal to inspection, normocephalic and atraumatic Ears: hearing grossly normal bilaterally and external ears normal Face/Nose/Sinus: Normal external nose present, normal facial exam and face symmetric Face and sinus: normal facial exam and face symmetric Mouth: Yes lip normal Eyes: General: appearance normal, both eyes and all relate
[2023-02-23 19:33] VITALS: BP 142/84; PULSE 114; RESP 16; TEMP 37.1; O2SAT 100
== END 2023-02-23 20:05 | disposition home or self-care (01) ==
PROVIDERS: Emergency Provider Nurse Practitioner Family
DX: S63.501A Unspecified sprain of right wrist, initial encounter (principal); S66.911A Strain of unspecified muscle, fascia and tendon at wrist and hand level, right hand, initial encounter; X58.XXXA Exposure to other specified factors, initial encounter; Y93.71 Activity, boxing; S63.632A Sprain of interphalangeal joint of right middle finger, initial encounter; F17.210 Nicotine dependence, cigarettes, uncomplicated; F12.90 Cannabis use, unspecified, uncomplicated; J45.909 Unspecified asthma, uncomplicated
CPT/HCPCS: 73130; 99213; G0463

== ENCOUNTER 2023-03-14 14:15 | Emergency (ER) | payer OTHER, SELFPAY ==
[2023-03-14 14:22] VITALS: BP 144/85; PULSE 114; RESP 16; TEMP 37.2; O2SAT 99
--- NOTE | 2023-03-14 15:58 | ED.ABDPAIN ---
HPI - Abdominal Pain General Chief Complaint: Abdominal Pain Stated Complaint: Abdominal Pain Source: patient Mode of arrival: ambulatory Limitations: no limitations History of Present Illness HPI narrative: Patient presents for evaluation of abdominal bloating. Symptom onset 5 days ago. Bloating has been intermittent. She reports seeing some bubbles in her stool. She has experience nausea and vomiting. She has an underlying history of IBS and normally has a bowel movement approximately 6 times per day the frequency of her bowel movements has been unchanged. She denies any blood/mucous in the stool. no fever, chills, urinary symptoms, vaginal bleeding or discharge. LMP 5 days ago. She denies any abdominal pain. She indicates that the present time she is currently asymptomatic. She indicates that symptoms improve with marijuana use. Related Data Home Medications Medication Instructions Recorded Confirmed hydrochlorothiazide 12.5 mg capsule 12.5 mg PO DAILY 02/10/23 02/23/23 fluticasone propionate 50 intranasal 03/14/23 mcg/actuation nasal spray,suspension norethindrone 1 mg-ethinyl tablet 03/14/23 estradiol 10 mcg (24)-iron 10 mcg(2) tablet (Lo Loestrin Fe) Allergies Allergy/AdvReac Type Severity Reaction Status Date / Time amoxicillin Allergy Severe Swelling Verified 03/14/23 14:18 ibuprofen Allergy Severe Swelling Verified 03/14/23 14:18 Review of Systems Review of Systems: CONSTITUTIONAL: Denies fever, chills, or sweats. EYES: Denies visual changes, redness, or discharge. ENT: Denies rhinorrhea, congestion, sore throat, or otalgia. CARDIOVASCULAR: Denies chest pain, palpitations, or edema. RESPIRATORY: Denies cough or dyspnea. GASTROINTESTINAL: Reports abdominal bloating intermittently with some bubbles in her stool. Reports recent nausea and vomiting, none currently. Denies abdominal pain or diarrhea. GENITOURINARY: Denies dysuria or hematuria. SKIN: Denies rash or itching. MUSCULOSKELETAL: Denies back pain, joint pain, or myalgia. NEUROLOGIC: Denies headache, numbness, dizziness, or weakness. PSYCHIATRIC: Denies anxiety or depression. [facility], [facility] Past Medical History Medical History ADD (attention deficit disorder) Anxiety Asthma Bipolar 1 disorder Cyclic vomiting syndrome Depression Irritable bowel syndrome Self-mutilation Suicide attempt Surgical History Surgical History S/P wisdom tooth extraction Family History Family History Father ADHD (attention deficit hyperactivity disorder) Bipolar disorder Personality disorder Mother Alive and well Social History Social History (Updated 03/14/23 @ 16:03 by ANTONETTE Floyd, ) Smoking packs per day: 0.5 Smoking cigarettes per day: 10.0 Years smoked: 8 Smoking pack-years: 4.00 Smoking status: Current every day smoker Tobacco type: cigarettes Second hand tobacco smoke exposure: Yes Additional smoking assessment comments: Vaping Alcohol intake: current Substance use: current Substance use type: marijuana Living arrangements: with family Occupation/Education: occupation Gender identity (if verbalized by the patient): Female Spiritual care concerns: No Exam Narrative: GENERAL: Well-appearing, well-nourished, and in no acute distress. HEAD: Normocephalic, atraumatic. EYES: PERRLA and EOMI. ENT: Nares clear, no rhinorrhea or epistaxis. Mucous membranes moist. Oropharynx without tonsillar hypertrophy exudate or other lesions. Bilateral TMs pearly gilbert nonbulging NECK: Supple. No adenopathy or masses. No carotid bruits or JVD CHEST: Clear to auscultation. No respiratory distress. No wheezes rales or rhonchi HEART: Regular rate and rhythm. No murmur heard. Normal peripheral pulses. ABDOMEN: Soft,
== END 2023-03-14 15:47 | disposition home or self-care (01) ==
PROVIDERS: Emergency Provider Nurse Practitioner
DX: R14.0 Abdominal distension (gaseous) (principal); Z87.19 Personal history of other diseases of the digestive system; F17.210 Nicotine dependence, cigarettes, uncomplicated; F17.290 Nicotine dependence, other tobacco product, uncomplicated; F12.90 Cannabis use, unspecified, uncomplicated; J45.909 Unspecified asthma, uncomplicated
CPT/HCPCS: 99213; G0463

== ENCOUNTER 2023-03-15 14:18 | Emergency (ER) | payer OTHER, SELFPAY ==
--- NOTE | 2023-03-15 14:24 | ED.URI ---
HPI - URI/Sore Throat General Chief Complaint: Upper Respiratory Infection Stated Complaint: Chest [place], Congestion, Nausea/Vomiting, Headache Time Seen by Provider: 03/15/23 14:56 Source: patient and RN notes reviewed Mode of arrival: ambulatory Limitations: no limitations History of Present Illness HPI Narrative: 23-year-old female presents with concern for runny nose, stuffy nose, cough, chest congestion that started yesterday. She reports chills and sweats. She denies taking any medications for her symptoms. MD elicited complaint: cough, sore throat and nasal congestion Related Data Home Medications Medication Instructions Recorded Confirmed hydrochlorothiazide 12.5 mg capsule 12.5 mg PO DAILY 02/10/23 03/15/23 norethindrone 1 mg-ethinyl 1 tablet PO DAILY 03/14/23 03/15/23 estradiol 10 mcg (24)-iron 10 mcg(2) tablet (Lo Loestrin Fe) Allergies Allergy/AdvReac Type Severity Reaction Status Date / Time amoxicillin Allergy Severe Swelling Verified 03/15/23 14:26 ibuprofen Allergy Severe Swelling Verified 03/15/23 14:26 Review of Systems Review of Systems: CONSTITUTIONAL: Denies malaise, fever. Reports chills and sweats EYES: Denies visual changes, redness, or discharge. ENT: Reports rhinorrhea, congestion, and sore throat. CARDIOVASCULAR: Denies chest pain, palpitations, or edema. RESPIRATORY: Reports cough. Denies dyspnea. GASTROINTESTINAL: Denies abdominal pain, nausea, vomiting, diarrhea SKIN: Denies rash or itching. MUSCULOSKELETAL: Reports myalgia. NEUROLOGIC: Denies headache. All systems reviewed & are unremarkable except as noted in HPI and below PMFSH Past Medical History Medical History ADD (attention deficit disorder) Anxiety Asthma Bipolar 1 disorder Cyclic vomiting syndrome Depression Irritable bowel syndrome Self-mutilation Suicide attempt Surgical History Surgical History S/P wisdom tooth extraction Family History Family History Father ADHD (attention deficit hyperactivity disorder) Bipolar disorder Personality disorder Mother Alive and well Social History Social History (Updated 03/14/23 @ 16:03 by Laurent Villegas, [facility], ) Smoking packs per day: 0.5 Smoking cigarettes per day: 10.0 Years smoked: 8 Smoking pack-years: 4.00 Smoking status: Current every day smoker Tobacco type: cigarettes Second hand tobacco smoke exposure: Yes Additional smoking assessment comments: Vaping Alcohol intake: current Substance use: current Substance use type: marijuana Living arrangements: with family Occupation/Education: occupation Gender identity (if verbalized by the patient): Female Spiritual care concerns: No Comments At time of signature, agree with nursing past medical, surgical, social and family history. There is no relevant family history pertinent to the presenting complaint Exam Narrative: GENERAL: Well-appearing, well-nourished, and in no acute distress. HEAD: Normocephalic EYES: PERRLA, conjunctivae clear ENT: Nares clear, turbinates edematous and erythematous, clear discharge. Mucous membranes moist. TM pearly gilbert with dull light reflex bilaterally; no tragal tenderness. Oropharynx not erythematous without lesions. Tonsils not enlarged and without exudate, no drooling, no hoarseness, no trismus, uvula midline. NECK: Supple. No lymphadenopathy CHEST: Clear to auscultation, breath sounds equal. No wheezing, rhonchi, rales, or stridor. No respiratory distress, speaks in full sentences. HEART: Regular rate and rhythm. No murmur heard. SKIN: Warm, dry, no rash. NEURO: Alert and oriented x3. PSYCH: Normal mood and affect Course Course Emergency Course: Patient is aware of diagnosis, understands and agrees to treatment plan. Anticipatory guidance giv
[2023-03-15 14:27] VITALS: BP 145/86; PULSE 96; RESP 16; TEMP 36.7; O2SAT 99
== END 2023-03-15 15:07 | disposition home or self-care (01) ==
PROVIDERS: Emergency Provider Nurse Practitioner
DX: J06.9 Acute upper respiratory infection, unspecified (principal); Z20.822 Contact with and (suspected) exposure to COVID-19; F17.210 Nicotine dependence, cigarettes, uncomplicated; F17.290 Nicotine dependence, other tobacco product, uncomplicated; F12.90 Cannabis use, unspecified, uncomplicated; J45.909 Unspecified asthma, uncomplicated
CPT/HCPCS: 87081; 87426; 87804; 87880; 99213; C9803; G0463

== ENCOUNTER 2023-10-17 21:35 | Emergency (ER) | payer OTHER, SELFPAY ==
[2023-10-17 21:43] VITALS: BP 148/118; PULSE 88; RESP 22; TEMP 36.5; O2SAT 94
[2023-10-17] MEDS: SODIUM CHLORIDE 0.9% IV 1,000 ML 999 ML IV CONT (23:07)
[2023-10-17] MEDS: ONDANSETRON INJ 4 MG/2 ML VIAL IV PUSH (23:08)
[2023-10-17 23:18] LABS: Basophils Percent Auto 0.5 % (0.2-1.2); Eosinophils Percent Auto 0.2 % (0-4.4); Hematocrit 38.2 % (37.0-47.0); Hemoglobin 13.3 g/dL (12.0-15.0); Immature Granulocyte Absolute 0.02 K/mm3 (0.00-0.031); Immature Granulocyte Percent A 0.3 % (0-0.5); Lymphocytes Absolute Auto 0.75 K/mm3 (0.9-3.2); Lymphocytes Percent Auto 12.3 % (18.3-44.2); Mean Corpuscular HGB Conc 34.8 g/dl (32-36); Mean Corpuscular Hemoglobin 31.1 pg (26-34); Mean Corpuscular Volume 89.3 fl (80-100); Mean Platelet Volume 9.2 fl (7.4-10.4); Monocytes Absolute Auto 0.3 K/mm3 (0.1-0.6); Monocytes Percent Auto 4.3 % (2.6-8.5); Neutrophils Percent Auto 82.4 % (45.5-73.1); Platelet Count Result 226 k/mm3 (150-375); Red Blood Count 4.28 M/mm3 (4.2-5.4); Red Cell Distribution Width 12.2 % (11.5-14.5); White Blood Count 6.1 K/mm3 (4.5-10.0)
[2023-10-17 23:31] LABS: Alanine Aminotransferase 26 U/L (6-35); Albumin Level 4.9 g/dL (3.5-5.1); Alkaline Phosphatase 45 U/L (38-126); Anion Gap 12 mmol/L (4-12); Aspartate Amino Transferase 30 U/L (14-36); Bilirubin,Total 0.9 mg/dL (0.2-1.3); Blood Urea Nitrogen 15 mg/dL (7-17); Calcium 9.7 mg/dL (8.4-10.2); Carbon Dioxide 19 mmol/L (22-30); Chloride 104 mmol/L (98-107); Estimated CRCL calculation 100 ml/min; Estimated Glomerular Filt Rate > 60; Glucose 122 mg/dL (65-110); Lipase 63 U/L (23-300); Magnesium 1.9 mg/dL (1.6-2.3); Potassium 3.2 mmol/L (3.4-5.0); Sodium 135 mmol/L (137-145)
--- NOTE | 2023-10-17 23:35 | ED.GENADULT ---
HPI - General Adult General Chief complaint: Nausea/Vomiting/Diarrhea Stated complaint: vomiting Time Seen by Provider: 10/17/23 22:48 History of Present Illness HPI narrative: Patient is a 23-year-old female who presents to the emergency department evening complaining of nausea, vomiting and diarrhea. Patient's symptoms have been ongoing for the past 2 days. Patient believes that she may have the flu, as she also has body aches. She denies any exposure to any sick contacts a sparse she is aware. Patient denies any melena or hematochezia and denies any hematemesis. She admits to history of IBS and cyclical vomiting syndrome. Patient also admits to feeling of feverish at home. There are no other modifying, alleviating, or precipitating factors at this time. Related Data Home Medications Medication Instructions Recorded Confirmed hydrochlorothiazide 12.5 mg capsule 12.5 mg PO DAILY 02/10/23 10/11/23 albuterol sulfate 90 mcg/actuation 2 puff inhalation PRN PRN 10/11/23 10/11/23 aerosol inhaler Shortness Of Breath Or Wheezing cetirizine 10 mg tablet (Zyrtec) 10 mg PO DAILY 10/11/23 10/11/23 Allergies Allergy/AdvReac Type Severity Reaction Status Date / Time amoxicillin Allergy Severe Swelling Verified 10/17/23 21:52 ibuprofen Allergy Severe Anaphylactic Verified 10/17/23 21:52 Shock Penicillins Allergy Severe Swelling Verified 10/17/23 21:52 metoclopramide [From Reglan] AdvReac Anxiety Verified 10/17/23 23:48 Review of Systems Review of Systems: All systems are reviewed and are negative unless stated otherwise in the HPI. [facility], [facility] Past Medical History Medical History ADD (attention deficit disorder) Anxiety Asthma Bipolar 1 disorder Cyclic vomiting syndrome Depression Irritable bowel syndrome Self-mutilation Suicide attempt Surgical History Surgical History S/P wisdom tooth extraction Family History Family History Father ADHD (attention deficit hyperactivity disorder) Bipolar disorder Personality disorder Mother Alive and well Social History Social History Smoking packs per day: 0.5 Smoking cigarettes per day: 10.0 Years smoked: 8 Smoking pack-years: 4.00 Smoking status: Current every day smoker Tobacco type: cigarettes and e-cigarettes/vaping Second hand tobacco smoke exposure: Yes Additional smoking assessment comments: Vaping Alcohol intake: current Substance use: current Substance use type: marijuana Other substance usage details: USES MARIJUANA 5 DAYS PER WEEK Living arrangements: with family Occupation/Education: occupation Gender identity (if verbalized by the patient): Female Spiritual care concerns: No Exam Narrative: General: Alert, awake, afebrile, in no acute distress. HEENT: PERRL, no rhinorrhea, no post nasal drip, oropharynx clear. Neck: Trachea midline, no JVD, no lymphadenopathy. Cardiovascular: Regular rate and rhythm, no murmurs, rubs or gallops, no peripheral edema. Respiratory: Clear to auscultation bilaterally, no tachypnea, no wheezing, no rhonchi, no rubs, no respiratory distress. Abdomen: Soft, nontender, nondistended, no rebound, no guarding, no peritoneal signs. Musculoskeletal: No joint swelling or deformity, normal muscle tone. Skin: No rashes or petechia, no signs of infection. Psychiatric: Alert and oriented, normal behavior and judgment for situation. Neurological: Alert and oriented to person, place, and time. Follows all commands. No focal deficits, speech is clear and fluent. Course Vital Signs Vital signs: Vital Signs Temperature 97.7 F 10/17/23 21:43 Pulse Rate 88 10/17/23 21:43 Respiratory Rate 22 H 10/17/23 21:43 Blood Pressure 148/118 H 10/17/23 21:43 Pulse Oximetry 94
[2023-10-17 23:41] LABS: SPREG INTERNAL CONTROL Positive; Serum Qual hCG Negative
[2023-10-17] MEDS: diphenhydrAMINE HCl INJ 50 MG/ML VIAL 25 MG IV PUSH (23:44)
[2023-10-17 23:48] VITALS: BP 135/108; PULSE 81; RESP 17; O2SAT 100
[2023-10-17 23:53] VITALS: O2SAT 100
[2023-10-18] VITALS: O2SAT 100
[2023-10-18] MEDS: POTASSIUM CHLORIDE 20 MEQ PACKET (FOR LIQUID) 40 MEQ PO (00:03)
[2023-10-18 00:04] LABS: Appearance Urine Cloudy (Clear); Bacteria Urine None Seen /hpf; Bilirubin Urine Negative (Negative); Blood Urine 2+ (Negative); Color Urine Yellow (Yellow); Glucose Urine UA Negative (Negative); Ketones Urine 3+ mg/dL (Negative); Leukocyte Esterase Ur Negative LEU/UL (Negative); Nitrate Urine Negative (Negative); Non Pathogenic Casts 0-2; Protein Urine Negative (Negative); Specific Grav Ur 1.029 (1.001-1.035); Squamous Epithelial Cell Urine None Seen /hpf (Few); Urobilinogen Urine 0.2 mg/dL (<2.0); WBC Urine 0-5 /hpf (0-3); pH Urine 8.5 (5.0-9.0)
[2023-10-18 00:10] LABS: Add Urine Microscopic? YES
[2023-10-18 00:20] LABS: Influenza A QL RT-PCR Negative (Negative); Influenza B QL RT-PCR Negative (Negative); RSV RNA, RT-PCR Negative (Negative); SARS-CoV-2 RNA PCR Negative (Negative)
[2023-10-18 00:31] VITALS: BP 121/76; PULSE 103; RESP 20; O2SAT 98
[2023-10-18] MEDS: SODIUM CHLORIDE 0.9% IV 1,000 ML 999 ML IV CONT (00:38)
[2023-10-18] MEDS: ACETAMINOPHEN 325 MG TABLET 650 MG PO (00:44)
--- NOTE | 2023-10-18 01:13 | PC.NURSE ---
this rn assumed care of patient. this rn took patient report from THAIS Marquez.
--- NOTE | 2023-10-18 02:25 | PC.NURSE ---
upon discharge pt refused to take potassium pills PO as pt requested. Pt stated, this shit tastes worse than the drink . I guess I'll just drink the potassium drink .
== END 2023-10-18 02:20 | disposition home or self-care (01) ==
PROVIDERS: Emergency Provider Emergency Medicine
DX: R11.2 Nausea with vomiting, unspecified (principal); R19.7 Diarrhea, unspecified; E87.6 Hypokalemia; J45.909 Unspecified asthma, uncomplicated; K58.9 Irritable bowel syndrome, unspecified; F17.210 Nicotine dependence, cigarettes, uncomplicated; F17.290 Nicotine dependence, other tobacco product, uncomplicated
CPT/HCPCS: 36415; 80053; 81001; 81025; 82248; 83690; 83735; 84703; 85025; 87637; 96361; 96374; 96375; 99284; A9270; J1200; J2405; J7030

== ENCOUNTER 2023-11-13 19:32 | Emergency (ER) | payer OTHER, SELFPAY ==
[2023-11-13 19:39] VITALS: BP 131/92; PULSE 118; RESP 20; TEMP 36.9; O2SAT 100
[2023-11-13 19:57] LABS: Basophils Percent Auto 0.3 % (0.2-1.2); Eosinophils Absolute Auto 0.1 K/mm3 (0-0.3); Eosinophils Percent Auto 1.3 % (0-4.4); Hematocrit 40.1 % (37.0-47.0); Hemoglobin 13.8 g/dL (12.0-15.0); Immature Granulocyte Absolute 0.03 K/mm3 (0.00-0.031); Immature Granulocyte Percent A 0.3 % (0-0.5); Lymphocytes Percent Auto 28.1 % (18.3-44.2); Mean Corpuscular HGB Conc 34.4 g/dl (32-36); Mean Corpuscular Hemoglobin 31.5 pg (26-34); Mean Corpuscular Volume 91.6 fl (80-100); Mean Platelet Volume 9.5 fl (7.4-10.4); Monocytes Absolute Auto 0.5 K/mm3 (0.1-0.6); Monocytes Percent Auto 5.7 % (2.6-8.5); Neutrophils Absolute Auto 5.9 K/mm3 (1.3-6.7); Neutrophils Percent Auto 64.3 % (45.5-73.1); Platelet Count Result 215 k/mm3 (150-375); Red Blood Count 4.38 M/mm3 (4.2-5.4); Red Cell Distribution Width 12.9 % (11.5-14.5); White Blood Count 9.3 K/mm3 (4.5-10.0)
[2023-11-13 20:07] LABS: Alanine Aminotransferase 22 U/L (6-35); Albumin Level 5.1 g/dL (3.5-5.1); Alkaline Phosphatase 45 U/L (38-126); Anion Gap 11 mmol/L (4-12); Aspartate Amino Transferase 29 U/L (14-36); Bilirubin,Total 0.6 mg/dL (0.2-1.3); Blood Urea Nitrogen 14 mg/dL (7-17); Calcium 9.9 mg/dL (8.4-10.2); Carbon Dioxide 21 mmol/L (22-30); Chloride 103 mmol/L (98-107); Estimated CRCL calculation 89 ml/min; Estimated Glomerular Filt Rate > 60; Glucose 101 mg/dL (65-110); Lipase 162 U/L (23-300); Potassium 3.3 mmol/L (3.4-5.0); Sodium 135 mmol/L (137-145)
[2023-11-13 22:27] VITALS: BP 133/97; PULSE 99; RESP 21; O2SAT 100
[2023-11-13 22:30] VITALS: BP 132/87; PULSE 82; RESP 18; O2SAT 100
[2023-11-13 23:01] LABS: Appearance Urine Clear (Clear); Bilirubin Urine Negative (Negative); Blood Urine Negative (Negative); Color Urine Yellow (Yellow); Glucose Urine UA Negative (Negative); Ketones Urine 2+ mg/dL (Negative); Leukocyte Esterase Ur Negative LEU/UL (Negative); Nitrate Urine Negative (Negative); Protein Urine Negative (Negative); Specific Grav Ur 1.011 (1.001-1.035); Urobilinogen Urine 0.2 mg/dL (<2.0)
[2023-11-13 23:04] LABS: Add Urine Microscopic? YES
[2023-11-13] MEDS: SODIUM CHLORIDE 0.9% IV 2,000 ML 999 ML IV CONT (23:55)
[2023-11-13] MEDS: FAMOTIDINE 20 MG/2 ML VIAL IV PUSH (23:57)
[2023-11-13] MEDS: HALOPERIDOL LACTATE 5 MG/ML VIAL IM (23:57)
[2023-11-14] MEDS: diphenhydrAMINE HCl INJ 50 MG/ML VIAL 25 MG IV PUSH (00:03)
--- NOTE | 2023-11-14 00:12 | ED.GENADULT ---
HPI - General Adult General Chief complaint: Nausea/Vomiting/Diarrhea Stated complaint: N/V, increased HR Time Seen by Provider: 11/13/23 21:58 History of Present Illness HPI narrative: This is a 23-year-old female with a history of IBS and cyclic vomiting presenting for abdominal discomfort. Pain has been going on for the last 2-3 days. Associated with nausea and vomiting. She has been having alternating diarrhea and constipation. Patient is still actively using marijuana. She is being evaluated by an OBGYN for endometriosis. Related Data Home Medications Medication Instructions Recorded Confirmed hydrochlorothiazide 12.5 mg capsule 12.5 mg PO DAILY 02/10/23 10/11/23 albuterol sulfate 90 mcg/actuation 2 puff inhalation PRN PRN 10/11/23 10/11/23 aerosol inhaler Shortness Of Breath Or Wheezing cetirizine 10 mg tablet (Zyrtec) 10 mg PO DAILY 10/11/23 10/11/23 Allergies Allergy/AdvReac Type Severity Reaction Status Date / Time amoxicillin Allergy Severe Swelling Verified 10/17/23 21:52 ibuprofen Allergy Severe Anaphylactic Verified 10/17/23 21:52 Shock Penicillins Allergy Severe Swelling Verified 10/17/23 21:52 metoclopramide [From Reglan] AdvReac Anxiety Verified 10/17/23 23:48 PMFSH Past Medical History Medical History ADD (attention deficit disorder) Anxiety Asthma Bipolar 1 disorder Cyclic vomiting syndrome Depression Irritable bowel syndrome Self-mutilation Suicide attempt Surgical History Surgical History S/P wisdom tooth extraction Family History Family History Father ADHD (attention deficit hyperactivity disorder) Bipolar disorder Personality disorder Mother Alive and well Social History Social History Smoking packs per day: 0.5 Smoking cigarettes per day: 10.0 Years smoked: 8 Smoking pack-years: 4.00 Smoking status: Current every day smoker Tobacco type: cigarettes and e-cigarettes/vaping Second hand tobacco smoke exposure: Yes Additional smoking assessment comments: Vaping Alcohol intake: current Substance use: current Substance use type: marijuana Other substance usage details: USES MARIJUANA 5 DAYS PER WEEK Living arrangements: with family Occupation/Education: occupation Gender identity (if verbalized by the patient): Female Spiritual care concerns: No Exam Narrative: APPEARANCE: No apparent distress. smells of marijuana Head: atraumatic. EYES: EOMI, NOSE: Atraumatic NECK: Trachea midline RESPIRATORY: No increased rate of breathing CARDIOVASCULAR: RRR, ABDOMINAL: Non-distended , soft nontender no guarding rebound MUSCULOSKELETAl: No obvious deformities NEURO: Alert. Moving 4/4 extremities SKIN:: Warm, dry. Normal color PSYCHIATRIC: Normal affect Course Vital Signs Vital signs: Vital Signs Temperature 98.4 F 11/13/23 19:39 Pulse Rate 118 H 11/13/23 19:39 Respiratory Rate 20 11/13/23 19:39 Blood Pressure 131/92 H 11/13/23 19:39 Pulse Oximetry 100 11/13/23 19:39 Oxygen Delivery Room Air 11/13/23 19:39 Temperature 98.4 F 11/13/23 19:39 Pulse Rate 99 11/13/23 22:27 Respiratory Rate 21 H 11/13/23 22:27 Blood Pressure 133/97 H 11/13/23 22:27 Pulse Oximetry 100 11/13/23 22:27 Oxygen Delivery Room Air 11/13/23 19:39 Medical Decision Making MDM Narrative Medical decision making narrative: -Course: 23-year-old female with chronic abdominal pain presenting with abdominal pain. Patient treated for cyclic vomiting. Given IV fluid resuscitation. Condition improved and she is tolerating p.o.. Patient discharged with outpatient follow-up. Given return precautions. -DDX includes but is not limited to: Cyclic vomiting, gastroenteritis, IBS, endometriosis -Co-morbidities
[2023-11-14 00:50] LABS: Pregnancy On Board Control Positive; Urine Pregnancy Test Negative
[2023-11-14 01:09] VITALS: BP 142/83; PULSE 97; RESP 16; O2SAT 98
[2023-11-14 01:15] VITALS: BP 123/86; PULSE 91; RESP 18; O2SAT 100
[2023-11-14] MEDS: ACETAMINOPHEN 500 MG TABLET 1000 MG PO (01:15)
== END 2023-11-14 01:54 | disposition home or self-care (01) ==
PROVIDERS: Emergency Provider Emergency Medicine
DX: R10.9 Unspecified abdominal pain (principal); R11.15 Cyclical vomiting syndrome unrelated to migraine; J45.909 Unspecified asthma, uncomplicated; K58.9 Irritable bowel syndrome, unspecified; F17.210 Nicotine dependence, cigarettes, uncomplicated; F17.290 Nicotine dependence, other tobacco product, uncomplicated
CPT/HCPCS: 36415; 80053; 81001; 81025; 83690; 85025; 96361; 96372; 96374; 99284; A9270; J1200; J1630; J7030

== ENCOUNTER 2023-11-16 12:18 | Emergency (ER) | payer OTHER, SELFPAY ==
--- NOTE | ~2023-11-16 | CT_ITS ---
EXAMINATION: CT abdomen pelvis w con DATE: 11/16/2023 14:07 INDICATION: Mid lower abdominal pain TECHNIQUE: Computed tomography (CT) of the abdomen and pelvis was performed with 100 cc Omnipaque 350 intravenous contrast. The dose-length product was 179.43 mGy-cm. Automated exposure control and iter ative reconstruction technique were employed. COMPARISON: 10/20/2021. FINDINGS: Lung bases are unremarkable. Heart size normal. No significant pleural or pericardial effus ion. Fatty infiltration of the liver. The spleen, pancreas, adrenal glands and kidneys are unremarkab le. Gallbladder is present. There is an umbilical. Syncope. Nonobstructive bowel gas pattern. There a re follicular changes in the ovaries. Small amount of free fluid in the pelvis. Mildly thickened endo metrium. No acute osseous abnormality. IMPRESSION: 1. Mildly thickened endometrium with follicular changes of the ovaries and free fluid in the pelvis. Correlate with menstrual cycle. Reviewed, dictated and finalized at location B.
[2023-11-16 12:31] VITALS: BP 145/104; PULSE 96; RESP 16; TEMP 36.7; O2SAT 100
--- NOTE | 2023-11-16 13:14 | ED.NAVMDI ---
HPI - Nausea/Vomiting/Diarrhea General Chief complaint: Nausea/Vomiting/Diarrhea Stated complaint: abd pain, N/V , dehydration Time Seen by Provider: 11/16/23 12:54 Source: patient Mode of arrival: ambulatory Limitations: no limitations History of Present Illness HPI Narrative: Chloe is a 23-year-old female patient presenting to the ER today with complaints mid to lower abdominal pain, nausea vomiting, and dehydration. States that she has a history of irritable bowel disease and was recently diagnosed with cyclic vomiting syndrome. States that she has vomited about 10 times today. Last bowel movement was this morning and it was somewhat hard but she denies any constipation. Rates her pain currently a 8/10. Is concerned because she started. Two days ago and the pain is gradually gotten a little worse and is concerned about an ovarian cyst. Related Data Home Medications Medication Instructions Recorded Confirmed hydrochlorothiazide 12.5 mg capsule 12.5 mg PO DAILY 02/10/23 10/11/23 albuterol sulfate 90 mcg/actuation 2 puff inhalation PRN PRN 10/11/23 10/11/23 aerosol inhaler Shortness Of Breath Or Wheezing cetirizine 10 mg tablet (Zyrtec) 10 mg PO DAILY 10/11/23 10/11/23 Allergies Allergy/AdvReac Type Severity Reaction Status Date / Time amoxicillin Allergy Severe Swelling Verified 10/17/23 21:52 ibuprofen Allergy Severe Anaphylactic Verified 10/17/23 21:52 Shock Penicillins Allergy Severe Swelling Verified 10/17/23 21:52 metoclopramide [From Reglan] AdvReac Anxiety Verified 10/17/23 23:48 Review of Systems Review of Systems: Pertinent positives per HPI. Patient denies any fever, chills, rash, headache, visual changes, dizziness, cough, runny nose, sore throat, shortness of breath, chest pain, palpitations, diarrhea, constipation,or any urinary issues. [facility] Past Medical History Medical History ADD (attention deficit disorder) Anxiety Asthma Bipolar 1 disorder Cyclic vomiting syndrome Depression Irritable bowel syndrome Self-mutilation Suicide attempt Surgical History Surgical History S/P wisdom tooth extraction Family History Family History Father ADHD (attention deficit hyperactivity disorder) Bipolar disorder Personality disorder Mother Alive and well Social History Social History Smoking packs per day: 0.5 Smoking cigarettes per day: 10.0 Years smoked: 8 Smoking pack-years: 4.00 Smoking status: Current every day smoker Tobacco type: cigarettes and e-cigarettes/vaping Second hand tobacco smoke exposure: Yes Additional smoking assessment comments: Vaping Alcohol intake: current Substance use: current Substance use type: marijuana Other substance usage details: USES MARIJUANA 5 DAYS PER WEEK Living arrangements: with family Occupation/Education: occupation Gender identity (if verbalized by the patient): Female Spiritual care concerns: No Comments At the time of my signature, I reviewed and agree with the nursing past medical, surgical, social, and family history. There is no relevant family history pertinent to the patient complaint. Exam Narrative: General: Well-developed, well nourished, in no apparent distress. Head: Normocephalic, atraumatic. Cardio: Regular rate and rhythm, s1 and s2 normal, no murmur appreciated. Resp: Clear to auscultation bilaterally, no rhonchi, rales, wheezing or rubs. Abdomen: Soft, pliable, bowel sounds present in all quadrants, nondistended, tender to palpation to the mid lower abdomen, no organomegly, no CVAT tenderness. Course Course Emergency Course: Portions of this record may have been created with voice recognition software. Vital Signs Vital signs: Vital Signs [place]
[2023-11-16 13:17] LABS: Bacteria Urine None Seen /hpf; Non Pathogenic Casts 0-2; RBC Urine 0-2 /hpf (0-2); Squamous Epithelial Cell Urine None Seen /hpf (Few); WBC Urine 0-5 /hpf (0-3)
[2023-11-16 13:20] LABS: Appearance Urine Clear (Clear); Bilirubin Urine Negative (Negative); Blood Urine 2+ (Negative); Color Urine Yellow (Yellow); Glucose Urine UA Negative (Negative); Ketones Urine 1+ mg/dL (Negative); Leukocyte Esterase Ur Negative LEU/UL (Negative); Nitrate Urine Negative (Negative); Protein Urine Negative (Negative); Urobilinogen Urine 0.2 mg/dL (<2.0); pH Urine 6.5 (5.0-9.0)
[2023-11-16 13:22] LABS: Add Urine Microscopic? YES; Specific Grav Ur 1.004 (1.001-1.035)
[2023-11-16 13:25] LABS: Basophils Percent Auto 0.3 % (0.2-1.2); Eosinophils Percent Auto 0.3 % (0-4.4); Hematocrit 41.6 % (37.0-47.0); Hemoglobin 14.9 g/dL (12.0-15.0); Immature Granulocyte Absolute 0.03 K/mm3 (0.00-0.031); Immature Granulocyte Percent A 0.3 % (0-0.5); Lymphocytes Absolute Auto 2.16 K/mm3 (0.9-3.2); Lymphocytes Percent Auto 21.9 % (18.3-44.2); Mean Corpuscular HGB Conc 35.8 g/dl (32-36); Mean Corpuscular Volume 89.5 fl (80-100); Mean Platelet Volume 9.3 fl (7.4-10.4); Monocytes Absolute Auto 0.6 K/mm3 (0.1-0.6); Monocytes Percent Auto 6.3 % (2.6-8.5); Neutrophils Percent Auto 70.9 % (45.5-73.1); Platelet Count Result 238 k/mm3 (150-375); Red Blood Count 4.65 M/mm3 (4.2-5.4); Red Cell Distribution Width 12.4 % (11.5-14.5); White Blood Count 9.9 K/mm3 (4.5-10.0)
[2023-11-16 13:40] LABS: Alanine Aminotransferase 21 U/L (6-35); Albumin Level 5.7 g/dL (3.5-5.1); Alkaline Phosphatase 53 U/L (38-126); Anion Gap 14 mmol/L (4-12); Aspartate Amino Transferase 29 U/L (14-36); Bilirubin,Total 1.3 mg/dL (0.2-1.3); Blood Urea Nitrogen 10 mg/dL (7-17); Calcium 10.6 mg/dL (8.4-10.2); Carbon Dioxide 20 mmol/L (22-30); Chloride 103 mmol/L (98-107); Estimated CRCL calculation 85 ml/min; Estimated Glomerular Filt Rate > 60; Glucose 97 mg/dL (65-110); Lipase 96 U/L (23-300); Potassium 3.7 mmol/L (3.4-5.0); Sodium 137 mmol/L (137-145)
[2023-11-16 13:42] LABS: Pregnancy On Board Control Positive; Urine Pregnancy Test Negative
[2023-11-16] MEDS: MORPHINE SULFATE (*CRX) 4 MG/ML INJ IV PUSH (13:42)
[2023-11-16] MEDS: PROMETHAZINE HCL 25 MG/ML AMPUL 12.5 MG IV PUSH (13:44)
[2023-11-16] MEDS: SODIUM CHLORIDE 0.9% IV 1,000 ML 999 ML IV CONT (13:44)
[2023-11-16] MEDS: FAMOTIDINE 20 MG/2 ML VIAL IV PUSH (14:50)
[2023-11-16 15:12] VITALS: BP 116/78; PULSE 70; RESP 16; TEMP 36.3; O2SAT 100
== END 2023-11-16 15:14 | disposition home or self-care (01) ==
PROVIDERS: Emergency Medicine; Emergency Provider Nurse Practitioner Family
DX: R10.30 Lower abdominal pain, unspecified (principal); R11.2 Nausea with vomiting, unspecified; J45.909 Unspecified asthma, uncomplicated; K58.9 Irritable bowel syndrome, unspecified; F17.290 Nicotine dependence, other tobacco product, uncomplicated
CPT/HCPCS: 36415; 74177; 80053; 81001; 81025; 83690; 85025; 96361; 96374; 96375; 99284; J2270; J2550; J7030; Q9967

== ENCOUNTER 2023-12-01 10:53 | Emergency (ER) | payer OTHER, SELFPAY ==
--- NOTE | 2023-12-01 11:02 | ED.FEMALEGU ---
HPI - Female Genitourinary General Chief complaint: Urogenital-Female Stated complaint: urinary issue Time Seen by Provider: 12/01/23 11:24 Source: patient and RN notes reviewed Mode of arrival: ambulatory Limitations: no limitations History of Present Illness HPI Narrative: 23-year-old female presents concern for checking her urine. She reports she recently was treated for urinary tract infection but she had some vomiting during the course for treatment and was not sure if she completed the antibiotic course appropriately. She reports today she began having some dark colored urine and some low back pain. She denies fever, aches, chills, sweats, vomiting, nausea, dysuria, frequency, urgency MD elicited complaint: UTI Related Data Home Medications Medication Instructions Recorded Confirmed hydrochlorothiazide 12.5 mg capsule 12.5 mg PO DAILY 02/10/23 12/01/23 albuterol sulfate 90 mcg/actuation 2 puff inhalation PRN PRN 10/11/23 12/01/23 aerosol inhaler Shortness Of Breath Or Wheezing cetirizine 10 mg tablet (Zyrtec) 10 mg PO DAILY 10/11/23 12/01/23 metronidazole 0.75 % (37.5 mg/5 See Rx Instructions .Route .COMPLEX 12/01/23 12/01/23 gram) vaginal gel Allergies Allergy/AdvReac Type Severity Reaction Status Date / Time amoxicillin Allergy Severe Swelling Verified 12/01/23 11:25 ibuprofen Allergy Severe Anaphylactic Verified 12/01/23 11:25 Shock Penicillins Allergy Severe Swelling Verified 12/01/23 11:25 metoclopramide [From Reglan] AdvReac Intermediate Anxiety Verified 12/01/23 11:25 Review of Systems Review of Systems: CONSTITUTIONAL: Denies malaise, chills, sweats, or fever. CARDIOVASCULAR: Denies chest pain, palpitations, or edema. RESPIRATORY: Denies cough or dyspnea. GASTROINTESTINAL: Denies abdominal pain, nausea, vomiting, diarrhea GENITOURINARY: Denies dysuria, frequency, urgency, suprapubic pressure. Denies flank pain or hematuria. Reports dark-colored urine SKIN: Denies rash or itching. MUSCULOSKELETAL: Reports low back pain. Denies myalgia. All systems reviewed & are unremarkable except as noted in HPI and below PMFSH Past Medical History Medical History ADD (attention deficit disorder) Anxiety Asthma Bipolar 1 disorder Cyclic vomiting syndrome Depression Irritable bowel syndrome Self-mutilation Suicide attempt Surgical History Surgical History S/P wisdom tooth extraction Family History Family History Father ADHD (attention deficit hyperactivity disorder) Bipolar disorder Personality disorder Mother Alive and well Social History Social History Smoking packs per day: 0.5 Smoking cigarettes per day: 10.0 Years smoked: 8 Smoking pack-years: 4.00 Smoking status: Current every day smoker Tobacco type: cigarettes and e-cigarettes/vaping Second hand tobacco smoke exposure: Yes Additional smoking assessment comments: Vaping Alcohol intake: current Substance use: current Substance use type: marijuana Other substance usage details: USES MARIJUANA 5 DAYS PER WEEK Living arrangements: with family Occupation/Education: occupation Gender identity (if verbalized by the patient): Female Spiritual care concerns: No Comments At time of signature, agree with nursing past medical, surgical, social and family history. There is no relevant family history pertinent to the presenting complaint Exam Narrative: GENERAL: Well-appearing, well-nourished, and in no acute distress. HEAD: Normocephalic. EYES: PERRLA, conjunctivae clear. NECK: Supple. No lymphadenopathy CHEST: Clear to auscultation. No respiratory distress. HEART: Regular rate and rhythm. ABDOMEN: Soft, nontender upon palpation, nondistended, normal active bowel soun
[2023-12-01 11:05] VITALS: BP 131/91; PULSE 104; RESP 14; TEMP 36.6; O2SAT 100
== END 2023-12-01 11:31 | disposition home or self-care (01) ==
PROVIDERS: Emergency Provider Nurse Practitioner
DX: R82.998 Other abnormal findings in urine (principal); M54.50 Low back pain, unspecified; J45.909 Unspecified asthma, uncomplicated
CPT/HCPCS: 81003; 87086; 87088; 99213; G0463

== ENCOUNTER 2023-12-14 13:43 | Outpatient (CLI) | payer OTHER, SELFPAY ==
--- NOTE | ~2023-12-14 | US_ITS ---
US breast LT complete 12/14/2023 14:00 Indication: Palpable left breast lump Procedure: High-resolution complete ultrasound of the left breast including all 4 quadrants in the bustillo bareolar location Comparison: No prior studies for comparison. Findings: In the area of palpable concern at 10-11:00, 4 cm from the nipple there is an oval hypoecho ic solid mass measuring 13 x 12 x 8 mm with parallel orientation, no significant posterior features. There is internal vascularity. At 2:00, 3 cm from the nipple there is an oval hypoechoic 11 mm mass w ithout posterior features or internal vascularity. Impression: 1: Probable benign left breast masses located at 10-11 o'clock and 2:00, described above. BI-RADS CATEGORY 3-PROBABLY BENIGN FINDING RECOMMENDATION: Six-month follow-up Limited left breast ultrasound recommended. Reviewed, dictated and finalized at location B. Impression: 1: Probable benign left breast masses located at 10-11 o'clock and 2:00, descri bed above. BI-RADS CATEGORY 3-PROBABLY BENIGN FINDING RECOMMENDATION: Six-month follow-up Limited left breast ultrasound recommended.
== END 2023-12-14 13:44 ==
LOC: MICIMG 13:44
PROVIDERS: PCP Obstetrics & Gynecology; Visit Provider Nurse Practitioner Obstetrics & Gynecology
DX: N63.20 Unspecified lump in the left breast, unspecified quadrant (principal)
CPT/HCPCS: 76641

== ENCOUNTER 2023-12-24 01:28 | Emergency (ER) | payer OTHER, SELFPAY ==
[2023-12-24 01:35] VITALS: BP 156/90; PULSE 75; RESP 16; TEMP 36.9; O2SAT 98
[2023-12-24 01:47] LABS: Basophils Percent Auto 0.4 % (0.2-1.2); Eosinophils Absolute Auto 0.2 K/mm3 (0-0.3); Eosinophils Percent Auto 2.3 % (0-4.4); Hemoglobin 13.4 g/dL (12.0-15.0); Immature Granulocyte Absolute 0.02 K/mm3 (0.00-0.031); Immature Granulocyte Percent A 0.2 % (0-0.5); Lymphocytes Absolute Auto 3.29 K/mm3 (0.9-3.2); Lymphocytes Percent Auto 38.4 % (18.3-44.2); Mean Corpuscular HGB Conc 34.4 g/dl (32-36); Mean Corpuscular Hemoglobin 31.8 pg (26-34); Mean Corpuscular Volume 92.6 fl (80-100); Mean Platelet Volume 8.7 fl (7.4-10.4); Monocytes Absolute Auto 0.6 K/mm3 (0.1-0.6); Monocytes Percent Auto 6.5 % (2.6-8.5); Neutrophils Absolute Auto 4.5 K/mm3 (1.3-6.7); Neutrophils Percent Auto 52.2 % (45.5-73.1); Platelet Count Result 243 k/mm3 (150-375); Red Blood Count 4.21 M/mm3 (4.2-5.4); Red Cell Distribution Width 12.3 % (11.5-14.5); White Blood Count 8.6 K/mm3 (4.5-10.0)
[2023-12-24 02:02] LABS: Alanine Aminotransferase 20 U/L (6-35); Albumin Level 5.1 g/dL (3.5-5.1); Alkaline Phosphatase 51 U/L (38-126); Anion Gap 10 mmol/L (4-12); Aspartate Amino Transferase 26 U/L (14-36); Bilirubin,Total 0.7 mg/dL (0.2-1.3); Blood Urea Nitrogen 16 mg/dL (7-17); Calcium 9.7 mg/dL (8.4-10.2); Carbon Dioxide 23 mmol/L (22-30); Chloride 104 mmol/L (98-107); Estimated CRCL calculation 68 ml/min; Estimated Glomerular Filt Rate > 60; Glucose 103 mg/dL (65-110); Lipase 170 U/L (23-300); Potassium 3.8 mmol/L (3.4-5.0); Sodium 137 mmol/L (137-145)
--- NOTE | 2023-12-24 02:05 | ED.NAVMDI ---
HPI - Nausea/Vomiting/Diarrhea General Chief complaint: Abdominal Pain Stated complaint: N/V/D, abd pain, UTI sx Time Seen by Provider: 12/24/23 01:36 History of Present Illness HPI Narrative: Patient presents with nausea, vomiting, abdominal discomfort, and low abdominal discomfort. She had recently been treated for any for urinary tract infection, then bacterial vaginosis, then yeast infection, none of which helped her symptoms much, she does admit to having some vaginal discharge and concern for possible STD. Related Data Home Medications Medication Instructions Recorded Confirmed hydrochlorothiazide 12.5 mg capsule 12.5 mg PO DAILY 02/10/23 12/01/23 albuterol sulfate 90 mcg/actuation 2 puff inhalation PRN PRN 10/11/23 12/01/23 aerosol inhaler Shortness Of Breath Or Wheezing cetirizine 10 mg tablet (Zyrtec) 10 mg PO DAILY 10/11/23 12/01/23 metronidazole 0.75 % (37.5 mg/5 See Rx Instructions .Route .COMPLEX 12/01/23 12/01/23 gram) vaginal gel Allergies Allergy/AdvReac Type Severity Reaction Status Date / Time amoxicillin Allergy Severe Swelling Verified 12/24/23 01:53 ibuprofen Allergy Severe Anaphylactic Verified 12/24/23 01:53 Shock Penicillins Allergy Severe Swelling Verified 12/24/23 01:53 metoclopramide [From Reglan] AdvReac Intermediate Anxiety Verified 12/24/23 01:53 Review of Systems Review of Systems: All systems reviewed & are unremarkable except as noted in HPI and below PMFSH Past Medical History Medical History ADD (attention deficit disorder) Anxiety Asthma Bipolar 1 disorder Cyclic vomiting syndrome Depression Irritable bowel syndrome Self-mutilation Suicide attempt Surgical History Surgical History S/P wisdom tooth extraction Family History Family History Father ADHD (attention deficit hyperactivity disorder) Bipolar disorder Personality disorder Mother Alive and well Social History Social History Smoking packs per day: 0.5 Smoking cigarettes per day: 10.0 Years smoked: 8 Smoking pack-years: 4.00 Smoking status: Current every day smoker Tobacco type: cigarettes and e-cigarettes/vaping Second hand tobacco smoke exposure: Yes Additional smoking assessment comments: Vaping Alcohol intake: current Substance use: current Substance use type: marijuana Other substance usage details: USES MARIJUANA 5 DAYS PER WEEK Living arrangements: with family Occupation/Education: occupation Gender identity (if verbalized by the patient): Female Spiritual care concerns: No Exam Narrative: EXAMINATION OF ORGAN SYSTEMS/BODY AREAS: Constitutional: Vital signs per nursing GENERAL: Holding emesis bag, appears uncomfortable HEAD: Normal with no signs of head trauma. EYES: EOMI, conjunctiva normal ENT: Hearing grossly intact LUNGS: Nonlabored breathing. HEART: [Regular rate and rhythm] ABD: [Soft], [nontender to palpation] EXT: Normal range of motion SKIN: [No rashes or lesions.] NEURO: [Alert and oriented x 3. No gross focal sensory or strength deficits.] PSYCH: Normal affect Course Vital Signs Vital signs: Vital Signs Temperature 98.5 F 12/24/23 01:35 Pulse Rate 75 12/24/23 01:35 Respiratory Rate 16 12/24/23 01:35 Blood Pressure 156/90 H 12/24/23 01:35 Pulse Oximetry 98 12/24/23 01:35 Oxygen Delivery Room Air 12/24/23 01:35 Temperature 98.5 F 12/24/23 01:35 Pulse Rate 80 12/24/23 03:16 Respiratory Rate 16 12/24/23 03:16 Blood Pressure 110/53 L 12/24/23 03:16 Pulse Oximetry 98 12/24/23 03:16 Oxygen Delivery Room Air 12/24/23 01:35 MDM - Nausea/Vomiting/Diarrhea MDM Narrative Medical decision making narrative: patient presenting with nausea, vomiting, and p
[2023-12-24 02:06] LABS: Bacteria Urine None Seen /hpf; Need Manual Microscopic Reviewed; Non Pathogenic Casts 0-2; Squamous Epithelial Cell Urine None Seen /hpf (Few); WBC Urine 0-5 /hpf (0-3)
[2023-12-24] MEDS: ONDANSETRON INJ 4 MG/2 ML VIAL IV PUSH (02:07)
[2023-12-24] MEDS: LACTATED RINGERS 1,000 ML 999 ML IV CONT (02:08)
[2023-12-24 02:14] LABS: Appearance Urine Cloudy (Clear); Bilirubin Urine Negative (Negative); Blood Urine Negative (Negative); Glucose Urine UA Negative (Negative); Ketones Urine Negative (Negative); Leukocyte Esterase Ur Trace LEU/UL (Negative); Nitrate Urine Positive (Negative); Protein Urine Negative (Negative); pH Urine 5.5 (5.0-9.0)
[2023-12-24 02:23] LABS: Specific Grav Ur 1.004 (1.001-1.035)
[2023-12-24 02:27] LABS: Add Urine Microscopic? YES; Color Urine Orange (Yellow)
[2023-12-24 03:16] VITALS: BP 110/53; PULSE 80; RESP 16; O2SAT 98
[2023-12-24] MEDS: DOXYCYCLINE HYCLATE 100 MG TABLET PO (03:26)
== END 2023-12-24 04:04 | disposition home or self-care (01) ==
PROVIDERS: Emergency Provider Emergency Medicine
DX: R11.2 Nausea with vomiting, unspecified (principal); R10.2 Pelvic and perineal pain; F17.210 Nicotine dependence, cigarettes, uncomplicated; F98.8 Other specified behavioral and emotional disorders with onset usually occurring in childhood and adolescence; F41.9 Anxiety disorder, unspecified; J45.909 Unspecified asthma, uncomplicated; F32.A Depression, unspecified
CPT/HCPCS: 36415; 80053; 81001; 81025; 83690; 85025; 96365; 96375; 99284; A9270; J0696; J2405; J7120

== ENCOUNTER 2023-12-26 12:24 | Emergency (ER) | payer OTHER, SELFPAY ==
[2023-12-26 12:31] VITALS: BP 126/96; PULSE 80; RESP 16; TEMP 36.6; O2SAT 100
[2023-12-26 13:30] VITALS: BP 125/81; PULSE 67; RESP 16; O2SAT 100
--- NOTE | 2023-12-26 13:33 | ED.GENADULT ---
HPI - General Adult General Chief complaint: Nausea/Vomiting/Diarrhea Stated complaint: vomiting Time Seen by Provider: 12/26/23 12:47 History of Present Illness HPI narrative: 23-year-old female presenting to the emergency department for evaluation persistent nausea vomiting and persistent lower abdominal pain. Patient reports she has had increased nausea and vomiting. Patient has had weight loss over the last few months. Patient does use THC but reports that she recently quit. The patient does have follow-up scheduled with GI for the weight loss. Patient states she also does frequently get PID. Related Data Home Medications Medication Instructions Recorded Confirmed hydrochlorothiazide 12.5 mg capsule 12.5 mg PO DAILY 02/10/23 12/01/23 albuterol sulfate 90 mcg/actuation 2 puff inhalation PRN PRN 10/11/23 12/01/23 aerosol inhaler Shortness Of Breath Or Wheezing cetirizine 10 mg tablet (Zyrtec) 10 mg PO DAILY 10/11/23 12/01/23 metronidazole 0.75 % (37.5 mg/5 See Rx Instructions .Route .COMPLEX 12/01/23 12/01/23 gram) vaginal gel Allergies Allergy/AdvReac Type Severity Reaction Status Date / Time amoxicillin Allergy Severe Swelling Verified 12/24/23 01:53 ibuprofen Allergy Severe Anaphylactic Verified 12/24/23 01:53 Shock Penicillins Allergy Severe Swelling Verified 12/24/23 01:53 metoclopramide [From Reglan] AdvReac Intermediate Anxiety Verified 12/24/23 01:53 Review of Systems Review of Systems: All systems reviewed & are unremarkable except as noted in HPI and below PMFSH Past Medical History Medical History ADD (attention deficit disorder) Anxiety Asthma Bipolar 1 disorder Cyclic vomiting syndrome Depression Irritable bowel syndrome Self-mutilation Suicide attempt Surgical History Surgical History S/P wisdom tooth extraction Family History Family History Father ADHD (attention deficit hyperactivity disorder) Bipolar disorder Personality disorder Mother Alive and well Social History Social History Smoking packs per day: 0.5 Smoking cigarettes per day: 10.0 Years smoked: 8 Smoking pack-years: 4.00 Smoking status: Current every day smoker Tobacco type: cigarettes and e-cigarettes/vaping Second hand tobacco smoke exposure: Yes Additional smoking assessment comments: Vaping Alcohol intake: current Substance use: current Substance use type: marijuana Other substance usage details: USES MARIJUANA 5 DAYS PER WEEK Living arrangements: with family Occupation/Education: occupation Gender identity (if verbalized by the patient): Female Spiritual care concerns: No Exam Narrative: APPEARANCE: Well appearing, no pain, no distress, well-nourished. HEAD: normocephalic, atraumatic. EYES: PERRLA/EOMI, conjunctivae clear. NOSE: Normal no drainage EARS:TMS clear with good light reflex. THROAT: Pharynx clear, no exudate. NECK: Supple. No adenopathy, no masses. RESPIRATORY: Airway patent, respirations nonlabored. Clear to auscultation bilaterally, no rales, rhonchi, wheezing. CARDIOVASCULAR: Regular rate and rhythm without murmurs rubs or gallops. ABDOMINAL: Soft, nontender, nondistended, normal bowel sounds MUSCULOSKELETAL: Moves all extremities. Strength/ROM intact, No edema, No calf tenderness. NEURO: Alert. Cranial nerves II through XII intact. Good gait. Good coordination SKIN: Warm, dry. Normal Color Course Vital Signs Vital signs: Vital Signs Temperature 97.9 F 12/26/23 12:31 Pulse Rate 80 12/26/23 12:31 Respiratory Rate 16 12/26/23 12:31 Blood Pressure 126/96 H 12/26/23 12:31 Pulse Oximetry 100 12/26/23 12:31 Oxygen Delivery Room Air 12/26/23 12:31 Temperature 98.0 F 12/26/23 15:48 Pul
[2023-12-26 13:38] LABS: Appearance Urine Clear (Clear); Bilirubin Urine Negative (Negative); Blood Urine Negative (Negative); Color Urine Yellow (Yellow); Glucose Urine UA Negative (Negative); Ketones Urine Negative (Negative); Leukocyte Esterase Ur Negative LEU/UL (Negative); Nitrate Urine Negative (Negative); Protein Urine Negative (Negative); Specific Grav Ur 1.005 (1.001-1.035); Urobilinogen Urine 0.2 mg/dL (<2.0)
[2023-12-26] MEDS: SODIUM CHLORIDE 0.9% IV 1,000 ML 999 ML IV CONT (13:39)
[2023-12-26] MEDS: ONDANSETRON INJ 4 MG/2 ML VIAL IV PUSH (13:39)
[2023-12-26 13:41] LABS: Basophils Percent Auto 0.3 % (0.2-1.2); Eosinophils Absolute Auto 0.1 K/mm3 (0-0.3); Eosinophils Percent Auto 1.6 % (0-4.4); Hematocrit 38.2 % (37.0-47.0); Hemoglobin 13.1 g/dL (12.0-15.0); Immature Granulocyte Absolute 0.02 K/mm3 (0.00-0.031); Immature Granulocyte Percent A 0.3 % (0-0.5); Lymphocytes Absolute Auto 1.08 K/mm3 (0.9-3.2); Lymphocytes Percent Auto 17.7 % (18.3-44.2); Mean Corpuscular HGB Conc 34.3 g/dl (32-36); Mean Corpuscular Volume 93.2 fl (80-100); Monocytes Absolute Auto 0.3 K/mm3 (0.1-0.6); Monocytes Percent Auto 5.1 % (2.6-8.5); Neutrophils Absolute Auto 4.6 K/mm3 (1.3-6.7); Platelet Count Result 206 k/mm3 (150-375); Red Cell Distribution Width 12.2 % (11.5-14.5); White Blood Count 6.1 K/mm3 (4.5-10.0)
[2023-12-26] MEDS: MORPHINE SULFATE (*CRX) 2 MG/ML INJ IV PUSH (13:44)
[2023-12-26 13:49] LABS: Add Urine Microscopic? NO
[2023-12-26 13:53] LABS: Alanine Aminotransferase 22 U/L (6-35); Albumin Level 4.8 g/dL (3.5-5.1); Alkaline Phosphatase 48 U/L (38-126); Anion Gap 8 mmol/L (4-12); Aspartate Amino Transferase 33 U/L (14-36); Bilirubin,Total 0.8 mg/dL (0.2-1.3); Blood Urea Nitrogen 13 mg/dL (7-17); Calcium 9.5 mg/dL (8.4-10.2); Carbon Dioxide 25 mmol/L (22-30); Chloride 105 mmol/L (98-107); Estimated CRCL calculation 68 ml/min; Estimated Glomerular Filt Rate > 60; Glucose 95 mg/dL (65-110); Potassium 3.8 mmol/L (3.4-5.0); Sodium 138 mmol/L (137-145)
[2023-12-26] MEDS: PANTOPRAZOLE SODIUM IV 40 MG VIAL IV PUSH (14:53)
[2023-12-26] MEDS: ACETAMINOPHEN 325 MG TABLET 650 MG PO (14:54)
[2023-12-26] MEDS: BELLADONNA ALK/PHENOB ELIX 10 ML, MAG HYDROX/ALUMINUM HYD/SIMETH 30 ML, LIDOCAINE HCL 2... PO (14:54)
[2023-12-26 15:07] LABS: Chlamydia trachomatis NOT DETECTED (NOT DETECTE); Neisseria gonorrhoeae PCR NOT DETECTED (NOT DETECTE)
[2023-12-26 15:48] VITALS: BP 125/78; PULSE 63; RESP 14; TEMP 36.7; O2SAT 100
== END 2023-12-26 15:49 | disposition home or self-care (01) ==
PROVIDERS: Emergency Provider Emergency Medicine; PCP Physician Assistant
DX: R11.2 Nausea with vomiting, unspecified (principal); J45.909 Unspecified asthma, uncomplicated; K58.9 Irritable bowel syndrome, unspecified; F17.210 Nicotine dependence, cigarettes, uncomplicated; F17.290 Nicotine dependence, other tobacco product, uncomplicated; Z79.899 Other long term (current) drug therapy
CPT/HCPCS: 36415; 80053; 81003; 85025; 87491; 87591; 96361; 96374; 96375; 99284; A9270; C9113; J2270; J2405; J7030

== ENCOUNTER 2024-01-16 21:00 | Emergency (ER) | payer OTHER, SELFPAY ==
[2024-01-16 21:09] VITALS: BP 124/83; PULSE 87; RESP 15; TEMP 36.9; O2SAT 100
--- NOTE | 2024-01-16 21:18 | ED.ABDPAIN ---
HPI - Abdominal Pain General Chief Complaint: Abdominal Pain Stated Complaint: abd pain, N/V Time Seen by Provider: 01/16/24 21:10 History of Present Illness HPI narrative: Patient is a 24-year-old female with history of recurrent GI issues, cyclic vomiting, IBS, bipolar here with nausea and abdominal pain x1 day. she notes that last night her symptoms began. She describes with upper and lower abdominal pain which is associated with significant nausea and dry heaves. She denies any vomiting. She denies any diarrhea. No vaginal discharge, has recently been tested for STIs and treated for bacterial vaginosis. She denies any urinary symptoms. She did start her menstrual cycle this morning. She has recurrent GI issues which have similar presentation to today, she notes that sometimes her recurrent pain makes it difficult for her to identify if there is an acute process such as an influenza going on on top of her chronic illnesses. No fever, chills. She is currently scheduled for follow-up with a GI doctor at [facility] for both upper and lower endoscopy which she has not had in the past. She has been struggling with GI issues and weight loss for the last 5 years. Today she took Zofran, Benadryl, Pepcid without any relief of her symptoms. She does note that her recurrent abdominal issues do seem to get worse with her menstrual cycle. Related Data Home Medications Medication Instructions Recorded Confirmed hydrochlorothiazide 12.5 mg capsule 12.5 mg PO DAILY 02/10/23 12/01/23 albuterol sulfate 90 mcg/actuation 2 puff inhalation PRN PRN 10/11/23 12/01/23 aerosol inhaler Shortness Of Breath Or Wheezing cetirizine 10 mg tablet (Zyrtec) 10 mg PO DAILY 10/11/23 12/01/23 metronidazole 0.75 % (37.5 mg/5 See Rx Instructions .Route .COMPLEX 12/01/23 12/01/23 gram) vaginal gel Allergies Allergy/AdvReac Type Severity Reaction Status Date / Time amoxicillin Allergy Severe Swelling Verified 01/16/24 21:12 ibuprofen Allergy Severe Anaphylactic Verified 01/16/24 21:12 Shock Penicillins Allergy Severe Swelling Verified 01/16/24 21:12 metoclopramide [From Reglan] AdvReac Intermediate Anxiety Verified 01/16/24 21:12 Review of Systems Review of Systems: All systems reviewed & are unremarkable except as noted in HPI and below PMFSH Past Medical History Medical History ADD (attention deficit disorder) Anxiety Asthma Bipolar 1 disorder Cyclic vomiting syndrome Depression Irritable bowel syndrome Self-mutilation Suicide attempt Surgical History Surgical History S/P wisdom tooth extraction Family History Family History Father ADHD (attention deficit hyperactivity disorder) Bipolar disorder Personality disorder Mother Alive and well Social History Social History Smoking packs per day: 0.5 Smoking cigarettes per day: 10.0 Years smoked: 8 Smoking pack-years: 4.00 Smoking status: Current every day smoker Tobacco type: cigarettes and e-cigarettes/vaping Second hand tobacco smoke exposure: Yes Additional smoking assessment comments: Vaping Alcohol intake: current Substance use: current Substance use type: marijuana Other substance usage details: USES MARIJUANA 5 DAYS PER WEEK Living arrangements: with family Occupation/Education: occupation Gender identity (if verbalized by the patient): Female Spiritual care concerns: No Exam Narrative: GENERAL: Well-appearing, well-nourished, and in no acute distress. HEAD: Normocephalic, atraumatic. EYES: PERRLA and EOMI. ENT: Nares clear. Mucous membranes moist. NECK: Supple. CHEST: Clear to auscultation. No respiratory distress. HEART: Regular rate and rhythm. Normal peripheral pulses. ABDOMEN
[2024-01-16 21:36] LABS: Basophils Percent Auto 0.4 % (0.2-1.2); Eosinophils Absolute Auto 0.1 K/mm3 (0-0.3); Eosinophils Percent Auto 0.6 % (0-4.4); Hematocrit 37.5 % (37.0-47.0); Hemoglobin 13.3 g/dL (12.0-15.0); Immature Granulocyte Absolute 0.03 K/mm3 (0.00-0.031); Immature Granulocyte Percent A 0.4 % (0-0.5); Lymphocytes Absolute Auto 1.99 K/mm3 (0.9-3.2); Lymphocytes Percent Auto 23.7 % (18.3-44.2); Mean Corpuscular HGB Conc 35.5 g/dl (32-36); Mean Corpuscular Hemoglobin 32.3 pg (26-34); Mean Platelet Volume 9.5 fl (7.4-10.4); Monocytes Absolute Auto 0.4 K/mm3 (0.1-0.6); Monocytes Percent Auto 5.2 % (2.6-8.5); Neutrophils Absolute Auto 5.9 K/mm3 (1.3-6.7); Neutrophils Percent Auto 69.7 % (45.5-73.1); Platelet Count Result 200 k/mm3 (150-375); Red Blood Count 4.12 M/mm3 (4.2-5.4); Red Cell Distribution Width 12.3 % (11.5-14.5); White Blood Count 8.4 K/mm3 (4.5-10.0)
[2024-01-16 21:50] LABS: Appearance Urine Clear (Clear); Bacteria Urine None Seen /hpf; Bilirubin Urine Negative (Negative); Blood Urine 2+ (Negative); Color Urine Yellow (Yellow); Glucose Urine UA Negative (Negative); Ketones Urine 1+ mg/dL (Negative); Leukocyte Esterase Ur Trace LEU/UL (Negative); Nitrate Urine Negative (Negative); Non Pathogenic Casts 0-2; Protein Urine Negative (Negative); RBC Urine 21-50 /hpf (0-2); Specific Grav Ur 1.015 (1.001-1.035); Squamous Epithelial Cell Urine None Seen /hpf (Few); Urobilinogen Urine 0.2 mg/dL (<2.0); WBC Urine 0-5 /hpf (0-3); pH Urine 7.5 (5.0-9.0)
[2024-01-16 21:53] LABS: Add Urine Microscopic? YES
[2024-01-16 21:54] LABS: Alanine Aminotransferase 17 U/L (6-35); Alkaline Phosphatase 46 U/L (38-126); Anion Gap 11 mmol/L (4-12); Aspartate Amino Transferase 29 U/L (14-36); Bilirubin,Total 0.7 mg/dL (0.2-1.3); Blood Urea Nitrogen 12 mg/dL (7-17); Calcium 9.5 mg/dL (8.4-10.2); Carbon Dioxide 21 mmol/L (22-30); Chloride 108 mmol/L (98-107); Estimated CRCL calculation 61 ml/min; Estimated Glomerular Filt Rate > 60; Glucose 94 mg/dL (65-110); Lipase 127 U/L (23-300); Potassium 3.6 mmol/L (3.4-5.0); Sodium 140 mmol/L (137-145)
[2024-01-16] MEDS: PANTOPRAZOLE SODIUM IV 40 MG VIAL IV PUSH (21:59)
[2024-01-16] MEDS: ONDANSETRON INJ 4 MG/2 ML VIAL IV PUSH (21:59)
[2024-01-16] MEDS: DICYCLOMINE HCL INJ 20 MG/2 ML VIAL IM (21:59)
[2024-01-16 22:24] LABS: Influenza A QL RT-PCR Negative (Negative); Influenza B QL RT-PCR Negative (Negative); RSV RNA, RT-PCR Negative (Negative); SARS-CoV-2 RNA PCR Negative (Negative)
[2024-01-16] MEDS: LACTATED RINGERS 1,000 ML 999 ML IV CONT (22:53)
[2024-01-16 23:32] LABS: Trichomonas Vag PCR NOT DETECTED (NOT DETECTE)
[2024-01-16] MEDS: HALOPERIDOL LACTATE 5 MG/ML VIAL 2.5 MG IV PUSH (23:52)
[2024-01-16] MEDS: diphenhydrAMINE HCl INJ 50 MG/ML VIAL 25 MG IV PUSH (23:52)
[2024-01-16 23:55] LABS: Chlamydia trachomatis NOT DETECTED (NOT DETECTE); Neisseria gonorrhoeae PCR NOT DETECTED (NOT DETECTE)
== END 2024-01-17 00:33 | disposition home or self-care (01) ==
PROVIDERS: Emergency Provider Student in an Organized Health Care Education/Training Program; PCP Physician Assistant
DX: R10.13 Epigastric pain (principal); R11.2 Nausea with vomiting, unspecified; Z20.822 Contact with and (suspected) exposure to COVID-19; K58.9 Irritable bowel syndrome, unspecified; F17.210 Nicotine dependence, cigarettes, uncomplicated; F17.290 Nicotine dependence, other tobacco product, uncomplicated; Z79.899 Other long term (current) drug therapy
CPT/HCPCS: 36415; 80053; 81001; 81025; 83690; 85025; 87491; 87591; 87637; 87661; 96361; 96372; 96374; 96375; 99284; J0500; J1200; J1630; J2405; J2470; J7120

== ENCOUNTER 2024-02-06 17:57 | Emergency (ER) | payer OTHER, SELFPAY ==
[2024-02-06 18:13] VITALS: BP 142/111; PULSE 111; RESP 20; TEMP 36.4; O2SAT 100
[2024-02-06 19:06] LABS: Influenza A QL RT-PCR Negative (Negative); Influenza B QL RT-PCR Negative (Negative); RSV RNA, RT-PCR Negative (Negative); SARS-CoV-2 RNA PCR Negative (Negative)
[2024-02-06 21:13] VITALS: BP 139/82; PULSE 71; RESP 18; TEMP 36.4; O2SAT 100
--- NOTE | 2024-02-06 21:31 | ED.GENADULT ---
HPI - General Adult General Chief complaint: Unspecified Stated complaint: flu symptoms Time Seen by Provider: 02/06/24 20:54 History of Present Illness HPI narrative: 24-year-old female with a history of IBS, cyclic vomiting presenting with nausea and vomiting. States that she has been having flu-like symptoms for the last few days with body aches, nausea, chills. States that she has been feeling intermittently very hot. For the last days she has been unable to keep anything down despite taking Zofran. She denies chest pain or shortness of breath. No abdominal pain. No dysuria or hematuria. Related Data Home Medications Medication Instructions Recorded Confirmed hydrochlorothiazide 12.5 mg capsule 12.5 mg PO DAILY 02/10/23 12/01/23 albuterol sulfate 90 mcg/actuation 2 puff inhalation PRN PRN 10/11/23 12/01/23 aerosol inhaler Shortness Of Breath Or Wheezing cetirizine 10 mg tablet (Zyrtec) 10 mg PO DAILY 10/11/23 12/01/23 metronidazole 0.75 % (37.5 mg/5 See Rx Instructions .Route .COMPLEX 12/01/23 12/01/23 gram) vaginal gel Allergies Allergy/AdvReac Type Severity Reaction Status Date / Time amoxicillin Allergy Severe Swelling Verified 01/16/24 21:12 ibuprofen Allergy Severe Anaphylactic Verified 01/16/24 21:12 Shock Penicillins Allergy Severe Swelling Verified 01/16/24 21:12 metoclopramide [From Reglan] AdvReac Intermediate Anxiety Verified 01/16/24 21:12 Review of Systems Review of Systems: All systems reviewed & are unremarkable except as noted in HPI and below PMFSH Past Medical History Medical History ADD (attention deficit disorder) Anxiety Asthma Bipolar 1 disorder Cyclic vomiting syndrome Depression Irritable bowel syndrome Self-mutilation Suicide attempt Surgical History Surgical History S/P wisdom tooth extraction Family History Family History Father ADHD (attention deficit hyperactivity disorder) Bipolar disorder Personality disorder Mother Alive and well Social History Social History Smoking packs per day: 0.5 Smoking cigarettes per day: 10.0 Years smoked: 8 Smoking pack-years: 4.00 Smoking status: Current every day smoker Tobacco type: cigarettes and e-cigarettes/vaping Second hand tobacco smoke exposure: Yes Additional smoking assessment comments: Vaping Alcohol intake: current Substance use: current Substance use type: marijuana Other substance usage details: USES MARIJUANA 5 DAYS PER WEEK Living arrangements: with family Occupation/Education: occupation Gender identity (if verbalized by the patient): Female Spiritual care concerns: No Exam Narrative: GENERAL: Nontoxic, no acute distress, pleasant cooperative HEAD: Normocephalic, atraumatic. EYES: PERRLA and EOMI. ENT: Nares clear, no rhinorrhea or epistaxis. Mucous membranes moist. NECK: Supple. CHEST: Clear to auscultation. No respiratory distress. HEART: Regular rate and rhythm ABDOMEN: Soft, mild epigastric tenderness, no guarding or rebound EXTREMITIES: Normal range of motion SKIN: Warm, dry, no rash. NEURO: No focal deficits. Alert and oriented x3. PSYCH: Normal mood and affect. Course Vital Signs Vital signs: Vital Signs Temperature 97.6 F 02/06/24 18:13 Pulse Rate 111 H 02/06/24 18:13 Respiratory Rate 20 02/06/24 18:13 Blood Pressure 142/111 H 02/06/24 18:13 Pulse Oximetry 100 02/06/24 18:13 Oxygen Delivery Room Air 02/06/24 18:13 Temperature 97.6 F 02/06/24 21:13 Pulse Rate 71 02/06/24 21:13 Respiratory Rate 18 02/06/24 21:13 Blood Pressure 139/82 02/06/24 21:13 Pulse Oximetry 100 02/06/24 21:13 Oxygen Delivery Room Air 02/06/24 18:13 Medical Decision Making MDM Narrative Me
[2024-02-06] MEDS: HALOPERIDOL LACTATE 5 MG/ML VIAL IM (21:45)
[2024-02-06] MEDS: diphenhydrAMINE HCl INJ 50 MG/ML VIAL 25 MG IM (21:46)
[2024-02-06 22:26] VITALS: BP 113/75; PULSE 91; RESP 16; TEMP 36.9; O2SAT 100
== END 2024-02-06 22:25 | disposition home or self-care (01) ==
PROVIDERS: Emergency Provider Emergency Medicine; PCP Physician Assistant
DX: B34.9 Viral infection, unspecified (principal); R11.2 Nausea with vomiting, unspecified; F17.210 Nicotine dependence, cigarettes, uncomplicated; Z20.822 Contact with and (suspected) exposure to COVID-19
CPT/HCPCS: 87637; 96372; 99284; J1200; J1630

== ENCOUNTER 2024-02-29 03:44 | Emergency (ER) | payer OTHER, SELFPAY ==
[2024-02-29 04:04] VITALS: BP 137/94; PULSE 97; RESP 19; TEMP 36.6; O2SAT 100
[2024-02-29 04:22] LABS: BEDSIDEPREGUCG Negative
[2024-02-29 04:24] LABS: Basophils Percent Auto 0.2 % (0.2-1.2); Eosinophils Absolute Auto 0.1 K/mm3 (0-0.3); Eosinophils Percent Auto 1.1 % (0-4.4); Hematocrit 40.4 % (37.0-47.0); Hemoglobin 13.8 g/dL (12.0-15.0); Immature Granulocyte Absolute 0.03 K/mm3 (0.00-0.031); Immature Granulocyte Percent A 0.5 % (0-0.5); Lymphocytes Absolute Auto 1.07 K/mm3 (0.9-3.2); Lymphocytes Percent Auto 16.8 % (18.3-44.2); Mean Corpuscular HGB Conc 34.2 g/dl (32-36); Mean Corpuscular Hemoglobin 32.2 pg (26-34); Mean Corpuscular Volume 94.2 fl (80-100); Monocytes Absolute Auto 0.3 K/mm3 (0.1-0.6); Monocytes Percent Auto 4.2 % (2.6-8.5); Neutrophils Absolute Auto 4.9 K/mm3 (1.3-6.7); Neutrophils Percent Auto 77.2 % (45.5-73.1); Platelet Count Result 205 k/mm3 (150-375); Red Blood Count 4.29 M/mm3 (4.2-5.4); Red Cell Distribution Width 12.6 % (11.5-14.5); White Blood Count 6.4 K/mm3 (4.5-10.0)
[2024-02-29 04:32] LABS: Add Urine Microscopic? YES; Appearance Urine Cloudy (Clear); Bacteria Urine None Seen /hpf; Bilirubin Urine 1+ (Negative); Blood Urine Negative (Negative); Color Urine Dark Yellow (Yellow); Glucose Urine UA Negative (Negative); Ketones Urine 4+ mg/dL (Negative); Leukocyte Esterase Ur Negative LEU/UL (Negative); Nitrate Urine Negative (Negative); Non Pathogenic Casts 0-2; Protein Urine Trace mg/dL (Negative); Squamous Epithelial Cell Urine Moderate /hpf (Few); WBC Urine 0-5 /hpf (0-3)
--- NOTE | 2024-02-29 04:34 | ED.ABDPAIN ---
HPI - Abdominal Pain General Chief Complaint: Abdominal Pain Stated Complaint: abd pain, n/v Time Seen by Provider: 02/29/24 04:33 Source: patient Mode of arrival: ambulatory Limitations: no limitations History of Present Illness HPI narrative: female presents with abdominal pain as well as nausea and vomiting. She notes burning and irritation at her vagina but denies any dysuria, hematuria, or urinary urgency or frequency she states that her symptoms do not occur with urination. Last bowel movement was when she awoke in started vomiting and she denies that it was bloody but she does state that it was soft. Denies any fevers but she has felt hot. Her last menstrual period was 02/03/2024. Patient trialed Zofran, Benadryl, and Tylenol at home without any change. She has a history of UTIs, bacterial vaginosis, and recurrent yeast infection for which she requires Diflucan regularly. Patient states she has a history of IBD but denies any diagnosis of ulcerative colitis or Crohn's disease; however per review of the EMR, is documented as IBS. Patient underwent EGD and colonoscopy through [facility] which she reports was negative. History of STI(s) which was/were treated previously but she states she recently was tested again and they were negative and she has not been sexually active since. She has an upcoming procedure with Dr. Pacheco for surgery on 03/20/2024 for endometriosis. She occasionally experiences low back pain intermittently but denies any flank pain. Related Data Home Medications Medication Instructions Recorded Confirmed hydrochlorothiazide 12.5 mg capsule 12.5 mg PO DAILY 02/10/23 12/01/23 albuterol sulfate 90 mcg/actuation 2 puff inhalation PRN PRN 10/11/23 12/01/23 aerosol inhaler Shortness Of Breath Or Wheezing cetirizine 10 mg tablet (Zyrtec) 10 mg PO DAILY 10/11/23 12/01/23 metronidazole 0.75 % (37.5 mg/5 See Rx Instructions .Route .COMPLEX 12/01/23 12/01/23 gram) vaginal gel Allergies Allergy/AdvReac Type Severity Reaction Status Date / Time amoxicillin Allergy Severe Swelling Verified 01/16/24 21:12 ibuprofen Allergy Severe Anaphylactic Verified 01/16/24 21:12 Shock Penicillins Allergy Severe Swelling Verified 01/16/24 21:12 metoclopramide [From Reglan] AdvReac Intermediate Anxiety Verified 01/16/24 21:12 [facility] Past Medical History Medical History ADD (attention deficit disorder) Anxiety Asthma Bipolar 1 disorder Cyclic vomiting syndrome Depression Endometriosis Irritable bowel syndrome Self-mutilation Suicide attempt Surgical History Surgical History History of colonoscopy [facility] History of esophagogastroduodenoscopy (EGD) [facility] S/P wisdom tooth extraction Family History Family History Father ADHD (attention deficit hyperactivity disorder) Bipolar disorder Personality disorder Mother Alive and well Social History Social History Smoking packs per day: 0.5 Smoking cigarettes per day: 10.0 Years smoked: 8 Smoking pack-years: 4.00 Smoking status: Current every day smoker Tobacco type: cigarettes and e-cigarettes/vaping Second hand tobacco smoke exposure: Yes Additional smoking assessment comments: Vaping Alcohol intake: current Substance use: current Substance use type: marijuana Other substance usage details: USES MARIJUANA 5 DAYS PER WEEK Living arrangements: with family Occupation/Education: occupation Additional occupation/education comments: works at [employer] in [place] Gender identity (if verbalized by the patient): Female Spiritual care concerns: No Exam Narrative: GENERAL: Well-appearing, well-nourished, and in no acute distress. HEAD: Normocephalic, atraumatic. EYES: Non injected, non icteric ENT: Nares
[2024-02-29 04:35] LABS: Alanine Aminotransferase 18 U/L (6-35); Alkaline Phosphatase 49 U/L (38-126); Anion Gap 13 mmol/L (4-12); Aspartate Amino Transferase 28 U/L (14-36); Bilirubin,Total 0.9 mg/dL (0.2-1.3); Blood Urea Nitrogen 13 mg/dL (7-17); Calcium 9.7 mg/dL (8.4-10.2); Carbon Dioxide 24 mmol/L (22-30); Chloride 101 mmol/L (98-107); Estimated CRCL calculation 75 ml/min; Estimated Glomerular Filt Rate > 60; Glucose 97 mg/dL (65-110); Lipase 69 U/L (23-300); Potassium 3.6 mmol/L (3.4-5.0); Sodium 138 mmol/L (137-145)
[2024-02-29] MEDS: MORPHINE SULFATE (*CRX) 2 MG/ML INJ IV PUSH (04:52)
[2024-02-29] MEDS: SODIUM CHLORIDE 0.9% IV 1,000 ML 999 ML IV CONT (04:52)
[2024-02-29] MEDS: ONDANSETRON INJ 4 MG/2 ML VIAL IV PUSH (04:52)
[2024-02-29] MEDS: diphenhydrAMINE HCl INJ 50 MG/ML VIAL 25 MG IV PUSH (05:52)
[2024-02-29] MEDS: HALOPERIDOL LACTATE 5 MG/ML VIAL 2.5 MG IV PUSH (05:52)
[2024-02-29 05:54] VITALS: BP 129/81; PULSE 71; RESP 18; O2SAT 97
[2024-02-29] MEDS: DICYCLOMINE HCL 10 MG CAPSULE PO (06:18)
== END 2024-02-29 06:41 | disposition home or self-care (01) ==
PROVIDERS: Emergency Provider Student in an Organized Health Care Education/Training Program; PCP Physician Assistant
DX: R82.4 Acetonuria (principal); R10.9 Unspecified abdominal pain; R11.0 Nausea; F17.210 Nicotine dependence, cigarettes, uncomplicated; F98.8 Other specified behavioral and emotional disorders with onset usually occurring in childhood and adolescence; F41.9 Anxiety disorder, unspecified; J45.909 Unspecified asthma, uncomplicated; F31.9 Bipolar disorder, unspecified
CPT/HCPCS: 36415; 80053; 81001; 81025; 83690; 85025; 96361; 96374; 96375; 99284; A9270; J1200; J1630; J2270; J2405; J7030

== ENCOUNTER 2024-03-10 14:27 | Emergency (ER) | payer OTHER, SELFPAY ==
[2024-03-10 14:40] VITALS: BP 141/84; PULSE 75; RESP 16; TEMP 36.9; O2SAT 99
[2024-03-10 15:10] LABS: EDSTREPNEGPOS1 Negative
== END 2024-03-10 16:08 | disposition home or self-care (01) ==
PROVIDERS: Emergency Provider Nurse Practitioner; PCP Physician Assistant
DX: B34.9 Viral infection, unspecified (principal); N80.9 Endometriosis, unspecified
CPT/HCPCS: 87081; 87880; 99213; G0463

== ENCOUNTER 2024-03-20 01:13 | Day surgery (SDC) | payer OTHER, SELFPAY ==
[2024-03-15 10:54] VITALS: BMI 18.8
--- NOTE | 2024-03-15 11:32 | PC.NURSE ---
Report to the Outpatient Waiting Room, entrance under the green pavilion located off [facility], at time __0800 on date _03/20/24 . Planned Procedure Time: __1000 .? Time changes happen often and if your time is changed the preop area will call you the afternoon before. - You and your visitor will be asked to self-screen and do not enter if you have any COVID symptoms. Please call surgeon if you need to reschedule. - A mask is optional within the hospital at this time. Patients may have clear liquids (water, carbonated beverages, clear teas, apple juice) until 3 hours prior to surgery with a maximum of 20 ounces. - No food from midnight until time of surgery and no smoking - Infants may have breast milk until 4 hours before surgery, infant formula 6 hours prior to surgery. - Children will be allowed to drink immediately following surgery.? If applicable, please bring a bottle or sippy cup to assist with drinking. Juice, water, soda, and popsicles are readily available.? For infants on formula, please bring formula the day of surgery.? Pacifiers are allowed. Take only the following medications with a SIP of water on the morning of surgery: __Inhaler DO NOT STOP ANY OF YOUR OTHER PRESCRIPTION MEDICATIONS PRIOR TO SURGERY EXCEPT THE FOLLOWING Medications to discontinue per physician __N/A Date to take last dose___N/A Please no make-up, nail icelandic, hairspray, perfume, deodorant, or body powder the day of surgery.? No jewelry (including any body piercings) or valuables the day of surgery, leave them at home.? Please take a shower or bath the night before, or the morning of, surgery with an antibacterial soap.? Wear comfortable, loose fitting clothing.? Children are encouraged to wear pajamas. - Jewelry must be removed prior to entering the operating room.? Rings and piercings that are not removed may be cut off. - The hospital will not accept responsibility for valuables.? - Please leave all valuables, including medications, at home the day of surgery. If you are going home after surgery, a licensed combine driver must drive you home.? - NO public transportation without another adult if you receive anesthesia. - We recommend that an adult stay with you for 24 hours following discharge. - We also recommend that you do not drive, make important decision, drink alcoholic beverages, or take any drugs that were not prescribed by your health care provider for at least 24 hours after your discharge time. For Pediatric surgeries, we recommend two adults accompany the child home. Follow any additional instructions given to you from your surgeon. Telephone instructions given to _Chloe and asked if any additional questions and then verbalized understanding. Patient advised to call surgeon office or pre surgery nurse liaison [phone] if any additional questions.
[2024-03-20] VITALS (11 sets, daily range): BP systolic 109–144; BP diastolic 58–98; PULSE 46–106; RESP 11–22; TEMP 36.6–36.8; O2SAT 100; BMI 18.3
[2024-03-20] MEDS: LACTATED RINGERS 1,000 ML 30 ML IV CONT ×2 (08:35→11:49)
[2024-03-20] MEDS: ACETAMINOPHEN 500 MG TABLET 1000 MG PO (08:40)
[2024-03-20] MEDS: ONDANSETRON INJ 4 MG/2 ML VIAL IV PUSH ×2 (08:52→12:18)
--- NOTE | 2024-03-20 09:43 | WPDANESEPPF ---
Anes - Initial Pre Proc Eval Procedure: Operation Date: 03/20/24 10:00 Proposed Procedures p Diagnostic Laparoscopy - German Pacheco MD Date/Time: 03/20/24 09:43 Surgeon: German Pacheco MD Pre Op Diagnosis: pelvic pain Patient Data Age: 24 Gender: F Height: 1.65 m Weight: 51.26 kg Last Vital Signs O2 Del Method Room Air 03/15/24 11:28 Allergies Allergy/AdvReac Type Severity Reaction Status Date / Time amoxicillin Allergy Severe Swelling Verified 03/20/24 08:42 ibuprofen Allergy Severe Anaphylactic Verified 03/20/24 08:42 Shock Penicillins Allergy Severe Swelling Verified 03/20/24 08:42 metoclopramide [From Reglan] AdvReac Intermediate Anxiety Verified 03/20/24 08:42 Home Medications Medication Instructions Recorded Confirmed Type hydrochlorothiazide 12.5 mg capsule 12.5 mg PO DAILY 02/10/23 03/15/24 History fluticasone propionate 50 2 spray intranasal DAILY 14 days 03/15/23 03/15/24 Rx mcg/actuation nasal #15.8 mL spray,suspension (Flonase Allergy Relief) albuterol sulfate 90 mcg/actuation 2 puff inhalation PRN PRN 10/11/23 03/15/24 History aerosol inhaler Shortness Of Breath Or Wheezing cetirizine 10 mg tablet (Zyrtec) 10 mg PO DAILY 10/11/23 03/15/24 History ondansetron 4 mg disintegrating 4 mg PO Q8H PRN nausea and 10/18/23 03/15/24 Rx tablet vomiting #10 tabs omeprazole 20 mg capsule,delayed 20 mg PO DAILY 14 days #14 caps 12/26/23 03/15/24 Rx release dicyclomine 10 mg capsule 10 mg PO BID PRN abdominal pain 02/29/24 03/15/24 Rx #10 caps fluconazole 150 mg tablet 150 mg PO WEEKLY 03/15/24 03/15/24 History potassium 99 mg tablet 99 mg PO DAILY 03/15/24 03/15/24 History Patient hx anesthesia problems: none Family hx anesthesia problems: none Results Review: All pre-operative results and documents have been reviewed as part of the pre-operative evaluation. [facility] Past Medical History Medical History ADD (attention deficit disorder) Anxiety Asthma Bipolar 1 disorder Cyclic vomiting syndrome Depression Endometriosis Irritable bowel syndrome Self-mutilation Suicide attempt Surgical History Surgical History History of colonoscopy [facility] History of esophagogastroduodenoscopy (EGD) [facility] S/P wisdom tooth extraction Family History Family History Father ADHD (attention deficit hyperactivity disorder) Bipolar disorder Personality disorder Mother Alive and well Social History Social History Smoking packs per day: 0.5 Smoking cigarettes per day: 10.0 Years smoked: 8 Smoking pack-years: 4.00 Smoking status: Current every day smoker Tobacco type: cigarettes and e-cigarettes/vaping Second hand tobacco smoke exposure: Yes Additional smoking assessment comments: Vaping Alcohol intake: former Alcohol use details: Maybe once a week Substance use: current Substance use type: marijuana Other substance usage details: Daily Living arrangements: with family Occupation/Education: occupation Additional occupation/education comments: works at [employer] in [place] Gender identity (if verbalized by the patient): Female Spiritual care concerns: No Anes - Eval Final PreProcedure Day of Procedure 03/20/24 09:43 Patient weight: normal Heart: regular rate and rhythm Lungs: clear to auscultation Airway: Mallampati scale class II Neurological: alert and oriented Last oral intake: >/= 8 hours ASA classification: II Emergent: no Anesthetic plan: proceed Anesthesia type and monitoring: general ETT (has nausea, Zofran given; may need RSI; states sip of water at 0600) and standard monitoring Results Review: All pre-operative results and documents have been reviewed as part of the pre-o
[2024-03-20 10:04] LABS: BEDSIDEPREGUCG Negative
--- NOTE | 2024-03-20 10:11 | WPDHPUPDATE1 ---
History and Physical Update Update Date/Time: 03/20/24 10:11 History and Physical has been reviewed, including an updated exam of the patient. There are NO changes in the patient's condition. Risks, benefits, and alternatives have been discussed and questions answered. Patient agrees to proceed with procedure.
--- NOTE | 2024-03-20 11:40 | W.PM.PROC2 ---
Procedure Note - Detailed Date of Procedure 03/20/24 Pre-op Diagnosis pelvic pain Post-op Diagnosis Same ( Possible endometriosis, retrograde menstruation, redundant rectum) Procedure Performed Diagnostic laparoscopy Surgeon German Pacheco MD Anesthesia General Indications Pelvic pain Findings Hemoperitoneum in the pelvis was observed, small vesicular lesions on the right uterosacral ligament at the juncture of the cervix. Possible endometriosis or blood staining. Redundant sigmoid colon and rectum with additional fold present Description of Procedure The patient was taken to the operating room. She was prepped and draped in the dorsal lithotomy position after induction general anesthesia. A 5 mm incision was made with a scalpel on the abdominal skin in the left upper quadrant of the abdomen. A 5 mm trocar was inserted into the intra-abdominal cavity under direct visualization the scope. In the same fashion a 5 mm left lower quadrant trocar was inserted and a 5 mm infraumbilical trocar was inserted. another 5 mm trocar was inserted and 5 mm abdominal skin incision on the lower right lower quadrant. This was done under direct visualization of the scope as well. Pelvis was irrigated. Was examined carefully. A area of peritoneum was removed at the uterosacral ligament on the right. This was the medial portion of the uterosacral ligament. ureter was identified. area removed was away from the ureter. About a 3 x 3 cm swatch of peritoneum she was removed. it was irrigated carefully, it was hemostatic, it was covered with Interceed. The pneumoperitoneum was reduced. The trocars were removed. Skin was closed with subcuticular 4 micro. The patient's incisions were covered with Dermabond. She was taken recovery room in stable condition. Sponge lap and needle counts were correct x2. Estimated Blood Loss 25 Complications No immediate complications Condition Stable Disposition Same day
[2024-03-20] MEDS: fentaNYL CITRATE INJ (*CRX) 100 MCG/2 ML VIAL 25 MCG IV PUSH ×4 (12:09→12:34)
[2024-03-20] MEDS: HYDROmorphone HCL INJ (*CRX) 1 MG/ML SYR 0.5 MG IV PUSH ×4 (12:41→13:14)
[2024-03-20] MEDS: diphenhydrAMINE HCl INJ 50 MG/ML VIAL 12.5 MG IV PUSH ×2 (13:04→13:22)
[2024-03-20] MEDS: oxyCODONE HCL (*CRX) 5 MG TAB IR PO (13:35)
== END 2024-03-20 14:31 | disposition home or self-care (01) ==
PROVIDERS: PCP Physician Assistant; Visit Provider Obstetrics & Gynecology
PROC: (CPT 49320; principal; 2024-03-20 10:00)
DX: K66.8 Other specified disorders of peritoneum (principal); K66.1 Hemoperitoneum; Q43.8 Other specified congenital malformations of intestine; K58.9 Irritable bowel syndrome, unspecified; J45.909 Unspecified asthma, uncomplicated; Z79.51 Long term (current) use of inhaled steroids; F17.210 Nicotine dependence, cigarettes, uncomplicated; F17.290 Nicotine dependence, other tobacco product, uncomplicated; F12.90 Cannabis use, unspecified, uncomplicated
CPT/HCPCS: 49321; 88305; A9270; J0330; J1100; J1170; J1200; J1596; J2250; J2405; J2704; J2710; J3010; J7030; J7120

== ENCOUNTER 2024-03-25 16:59 | Emergency (ER) | payer OTHER, SELFPAY ==
[2024-03-25 17:11] VITALS: BP 151/96; PULSE 100; RESP 18; TEMP 37.4; O2SAT 100
--- NOTE | 2024-03-25 17:19 | ED.FEMALEGU ---
HPI - Female Genitourinary General Chief complaint: Urogenital-Female Stated complaint: STD Time Seen by Provider: 03/25/24 17:45 Source: patient and RN notes reviewed Mode of arrival: ambulatory Limitations: no limitations History of Present Illness HPI Narrative: 24-year-old female presents with concern for exposure to chlamydia. Reports she recently had endometriosis surgery and has had some abdominal discomfort from that and some nausea. Reports she has since started having vaginal irritation and discharge. MD elicited complaint: possible STD Related Data Home Medications Medication Instructions Recorded Confirmed hydrochlorothiazide 12.5 mg capsule 12.5 mg PO DAILY 02/10/23 03/25/24 albuterol sulfate 90 mcg/actuation 2 puff inhalation PRN PRN 10/11/23 03/15/24 aerosol inhaler Shortness Of Breath Or Wheezing cetirizine 10 mg tablet (Zyrtec) 10 mg PO DAILY 10/11/23 03/15/24 fluconazole 150 mg tablet 150 mg PO WEEKLY 03/15/24 03/15/24 potassium 99 mg tablet 99 mg PO DAILY 03/15/24 03/15/24 Allergies Allergy/AdvReac Type Severity Reaction Status Date / Time amoxicillin Allergy Severe Swelling Verified 03/25/24 17:19 ibuprofen Allergy Severe Anaphylactic Verified 03/25/24 17:19 Shock Penicillins Allergy Severe Swelling Verified 03/25/24 17:19 metoclopramide [From Reglan] AdvReac Intermediate Anxiety Verified 03/25/24 17:19 Review of Systems Review of Systems: CONSTITUTIONAL: Denies malaise, chills, sweats, or fever. CARDIOVASCULAR: Denies chest pain, palpitations, or edema. RESPIRATORY: Denies cough or dyspnea. GASTROINTESTINAL: Denies abdominal pain, diarrhea. Reports nausea and 1 episode of vomiting GENITOURINARY: Denies dysuria, frequency, urgency, suprapubic pressure. Denies flank pain or hematuria. Reports vaginal irritation and discharge SKIN: Denies rash or itching. MUSCULOSKELETAL: Denies back pain or myalgia. All systems reviewed & are unremarkable except as noted in HPI and below PMFSH Past Medical History Medical History ADD (attention deficit disorder) Anxiety Asthma Bipolar 1 disorder Cyclic vomiting syndrome Depression Endometriosis Irritable bowel syndrome Self-mutilation Suicide attempt Surgical History Surgical History History of colonoscopy [facility] History of esophagogastroduodenoscopy (EGD) [facility] S/P wisdom tooth extraction Family History Family History Father ADHD (attention deficit hyperactivity disorder) Bipolar disorder Personality disorder Mother Alive and well Social History Social History Smoking packs per day: 0.5 Smoking cigarettes per day: 10.0 Years smoked: 8 Smoking pack-years: 4.00 Smoking status: Current every day smoker Tobacco type: cigarettes and e-cigarettes/vaping Second hand tobacco smoke exposure: Yes Additional smoking assessment comments: Vaping Alcohol intake: former Alcohol use details: Maybe once a week Substance use: current Substance use type: marijuana Other substance usage details: Daily Living arrangements: with family Occupation/Education: occupation Additional occupation/education comments: works at [employer] in [place] Gender identity (if verbalized by the patient): Female Spiritual care concerns: No Comments At time of signature, agree with nursing past medical, surgical, social and family history. There is no relevant family history pertinent to the presenting complaint Exam Narrative: GENERAL: Well-appearing, well-nourished, and in no acute distress. HEAD: Normocephalic. EYES: PERRLA, conjunctivae clear. NECK: Supple. No lymphadenopathy CHEST: Clear to auscultation. No respiratory distress. HEART: Regular rate and rhythm. ABDOMEN: Soft, abdomen
[2024-03-25 18:03] LABS: EDUAAPPEAR Clear; EDUABILI Negative (Negative); EDUABLOOD Negative (Negative); EDUACOLOR1 Yellow; EDUAGLUCOSE Negative (Negative); EDUAKETONE Negative (Negative); EDUALEUKO Negative (Negative); EDUANITRATE Negative (Negative); EDUAPH 7.5; EDUAPROTEIN Negative (Negative); EDUAUROBILI 0.2
[2024-03-26 21:15] LABS: Trichomonas Vag PCR NOT DETECTED (NOT DETECTE)
[2024-03-26 21:39] LABS: Chlamydia trachomatis NOT DETECTED (NOT DETECTE); Neisseria gonorrhoeae PCR NOT DETECTED (NOT DETECTE)
== END 2024-03-25 18:16 | disposition home or self-care (01) ==
PROVIDERS: Emergency Provider Nurse Practitioner; PCP Physician Assistant
DX: Z11.3 Encounter for screening for infections with a predominantly sexual mode of transmission (principal); F17.210 Nicotine dependence, cigarettes, uncomplicated; F17.290 Nicotine dependence, other tobacco product, uncomplicated; J45.909 Unspecified asthma, uncomplicated; N80.9 Endometriosis, unspecified
CPT/HCPCS: 81003; 87491; 87591; 87661; 99213; G0463

== ENCOUNTER 2024-03-27 11:14 | Emergency (ER) | payer OTHER, SELFPAY ==
--- NOTE | ~2024-03-27 | CT_ITS ---
EXAMINATION: CT abdomen pelvis w con DATE: 03/27/2024 13:51 INDICATION: Epigastric and left upper quadrant tenderness post recent laparoscopy. TECHNIQUE: Computed tomography (CT) of the abdomen and pelvis was performed with 100 mL Omnipaque-350 intravenous contrast. Automated exposure control and iterative reconstruction technique were employe d. The dose-length product was 188.12 mGy-cm. COMPARISON: 11/16/2023 FINDINGS: Lung bases are clear. Heart size is normal. No pericardial or pleural effusion. Liver, gallbladder, s pleen, pancreas, bilateral adrenal glands and kidneys are normal. Bowels including the appendix are n ormal. Bladder and anteverted uterus are normal. 1.3 similar left ovarian follicle. Small amount of l ikely physiologic free fluid in the right adnexa and in the cul-de-sac. No abscess or free intraperit sykes gas. There is gas within the left abdominal anterior wall consistent with reported history of r ecent laparoscopy. No pathologically enlarged abdominal or pelvic lymphadenopathy. Bones are unremark able. IMPRESSION: 1. Small amount of likely physiologic free fluid in the cul-de-sac and gas within the left anterior a bdominal wall consistent with reported recent laparoscopy. No acute intra-abdominal/pelvic process. Reviewed, dictated and finalized at location B. IMPRESSION: 1. Small amount of likely physiologic free fluid in the cul-de-sac and gas with in the left anterior abdominal wall consistent with reported recent laparoscopy . No acute intra-abdominal/pelvic process.
[2024-03-27 11:22] VITALS: BP 152/109; PULSE 96; RESP 16; TEMP 36.4; O2SAT 100
[2024-03-27 11:54] LABS: BEDSIDEPREGUCG Negative (Negative)
[2024-03-27 11:56] LABS: Add Urine Microscopic? NO; Appearance Urine Clear (Clear); Bilirubin Urine Negative (Negative); Blood Urine Negative (Negative); Color Urine Yellow (Yellow); Glucose Urine UA Negative (Negative); Ketones Urine Negative (Negative); Leukocyte Esterase Ur Negative LEU/UL (Negative); Nitrate Urine Negative (Negative); Protein Urine Negative (Negative); Specific Grav Ur 1.016 (1.001-1.035); Urobilinogen Urine 0.2 mg/dL (<2.0); pH Urine 6.5 (5.0-9.0)
--- NOTE | 2024-03-27 13:06 | ED.NAVMDI ---
HPI - Nausea/Vomiting/Diarrhea General Chief complaint: Nausea/Vomiting/Diarrhea Stated complaint: vomiting Time Seen by Provider: 03/27/24 12:28 History of Present Illness HPI Narrative: Patient is a 24-year-old female with a history of cyclic vomiting syndrome, IBS presenting with vomiting and abdominal pain. Patient states that she had a diagnostic laparoscopy about a week ago. Since that time she has had persistent abdominal pain and nausea and vomiting. States she is concerned that something related to the surgery. No fevers, dysuria hematuria, vaginal bleeding or discharge. Planes of nonbloody diarrhea. States that she was recently being treated for Chlamydia but she just got a phone call saying that she tested negative. Related Data Home Medications Medication Instructions Recorded Confirmed hydrochlorothiazide 12.5 mg capsule 12.5 mg PO DAILY 02/10/23 03/25/24 albuterol sulfate 90 mcg/actuation 2 puff inhalation PRN PRN 10/11/23 03/15/24 aerosol inhaler Shortness Of Breath Or Wheezing cetirizine 10 mg tablet (Zyrtec) 10 mg PO DAILY 10/11/23 03/15/24 fluconazole 150 mg tablet 150 mg PO WEEKLY 03/15/24 03/15/24 potassium 99 mg tablet 99 mg PO DAILY 03/15/24 03/15/24 Allergies Allergy/AdvReac Type Severity Reaction Status Date / Time amoxicillin Allergy Severe Swelling Verified 03/25/24 17:19 ibuprofen Allergy Severe Anaphylactic Verified 03/25/24 17:19 Shock Penicillins Allergy Severe Swelling Verified 03/25/24 17:19 metoclopramide [From Reglan] AdvReac Intermediate Anxiety Verified 03/25/24 17:19 Review of Systems Review of Systems: All systems reviewed & are unremarkable except as noted in HPI and below PMFSH Past Medical History Medical History ADD (attention deficit disorder) Anxiety Asthma Bipolar 1 disorder Cyclic vomiting syndrome Depression Endometriosis Irritable bowel syndrome Self-mutilation Suicide attempt Surgical History Surgical History History of colonoscopy [facility] History of esophagogastroduodenoscopy (EGD) [facility] S/P wisdom tooth extraction Family History Family History Father ADHD (attention deficit hyperactivity disorder) Bipolar disorder Personality disorder Mother Alive and well Social History Social History Smoking packs per day: 0.5 Smoking cigarettes per day: 10.0 Years smoked: 8 Smoking pack-years: 4.00 Smoking status: Current every day smoker Tobacco type: cigarettes and e-cigarettes/vaping Second hand tobacco smoke exposure: Yes Additional smoking assessment comments: Vaping Alcohol intake: former Alcohol use details: Maybe once a week Substance use: current Substance use type: marijuana Other substance usage details: Daily Living arrangements: with family Occupation/Education: occupation Additional occupation/education comments: works at [employer] in [place] Gender identity (if verbalized by the patient): Female Spiritual care concerns: No Exam Narrative: GENERAL: Well-appearing, in no acute distress, pleasant cooperative HEAD: Normocephalic, atraumatic. EYES: PERRLA and EOMI. ENT: Grossly unremarkable NECK: Supple. CHEST: Clear to auscultation. No respiratory distress. HEART: Regular rate and rhythm ABDOMEN: Soft, + left upper quadrant, epigastric tenderness without guarding or rebound EXTREMITIES: Normal range of motion SKIN: Warm, dry, no rash. NEURO: No focal deficits. Alert and oriented x3. PSYCH: Normal mood and affect. Course Vital Signs Vital signs: Vital Signs Temperature 97.6 F 03/27/24 11:22 Pulse Rate 96 03/27/24 11:22 Respiratory Rate 16 03/27/24 11:22 Blood Pressure 152/109 H 03/27/24 11:22 Pulse Oximetry 100 03/27/24 11:22 Oxygen
[2024-03-27] MEDS: SODIUM CHLORIDE 0.9% IV 1,000 ML 999 ML IV CONT (13:14)
[2024-03-27 13:25] LABS: Basophils Percent Auto 0.3 % (0.2-1.2); Eosinophils Absolute Auto 0.1 K/mm3 (0-0.3); Hematocrit 42.7 % (37.0-47.0); Immature Granulocyte Absolute 0.03 K/mm3 (0.00-0.031); Immature Granulocyte Percent A 0.5 % (0-0.5); Lymphocytes Absolute Auto 1.04 K/mm3 (0.9-3.2); Lymphocytes Percent Auto 17.8 % (18.3-44.2); Mean Corpuscular HGB Conc 32.8 g/dl (32-36); Mean Corpuscular Volume 94.7 fl (80-100); Monocytes Absolute Auto 0.3 K/mm3 (0.1-0.6); Neutrophils Absolute Auto 4.4 K/mm3 (1.3-6.7); Neutrophils Percent Auto 75.4 % (45.5-73.1); Platelet Count Result 244 k/mm3 (150-375); Red Blood Count 4.51 M/mm3 (4.2-5.4); Red Cell Distribution Width 12.7 % (11.5-14.5); White Blood Count 5.8 K/mm3 (4.5-10.0)
[2024-03-27 13:37] LABS: Alanine Aminotransferase 18 U/L (6-35); Albumin Level 5.2 g/dL (3.5-5.1); Alkaline Phosphatase 54 U/L (38-126); Anion Gap 13 mmol/L (4-12); Aspartate Amino Transferase 27 U/L (14-36); Bilirubin,Total 0.5 mg/dL (0.2-1.3); Blood Urea Nitrogen 9 mg/dL (7-17); Carbon Dioxide 25 mmol/L (22-30); Chloride 103 mmol/L (98-107); Estimated CRCL calculation 84 ml/min; Estimated Glomerular Filt Rate > 60; Glucose 102 mg/dL (65-110); Lipase 120 U/L (23-300); Sodium 141 mmol/L (137-145)
== END 2024-03-27 14:34 | disposition home or self-care (01) ==
PROVIDERS: Emergency Medicine; Emergency Provider Emergency Medicine; PCP Physician Assistant
DX: R11.2 Nausea with vomiting, unspecified (principal); R19.7 Diarrhea, unspecified; F98.8 Other specified behavioral and emotional disorders with onset usually occurring in childhood and adolescence; F41.9 Anxiety disorder, unspecified; F31.9 Bipolar disorder, unspecified; J45.909 Unspecified asthma, uncomplicated; F17.210 Nicotine dependence, cigarettes, uncomplicated; F17.290 Nicotine dependence, other tobacco product, uncomplicated
CPT/HCPCS: 36415; 74177; 80053; 81003; 81025; 83690; 85025; 96360; 99284; J7030; Q9967

== ENCOUNTER 2024-07-30 16:06 | Emergency (ER) | payer OTHER, SELFPAY ==
--- NOTE | 2024-07-30 16:12 | ED.URI ---
HPI - URI/Sore Throat General Chief Complaint: Upper Respiratory Infection Stated Complaint: lower pain in chest,asthmatic Time Seen by Provider: 07/30/24 16:39 Source: patient, RN notes reviewed and old records reviewed Mode of arrival: ambulatory Limitations: no limitations History of Present Illness HPI Narrative: 24-year-old female presents to the [facility] with complaints wheezing. Reports that she has been sick for over 1 week. Had used her nebulizer just prior to arrival Denies fever. Reports a cough, dry. Related Data Home Medications ?Medication ?Instructions ?Recorded ?Confirmed ?Last Taken ?Type albuterol sulfate 90 mcg/actuation 2 puff inhalation PRN PRN 10/11/23 07/30/24 Unknown History aerosol inhaler Shortness Of Breath Or Wheezing cetirizine 10 mg tablet (Zyrtec) 10 mg PO DAILY 10/11/23 07/30/24 Unknown History fluconazole 150 mg tablet 150 mg PO WEEKLY 03/15/24 07/30/24 Unknown History amitriptyline 10 mg tablet 10 mg PO BID 07/30/24 07/30/24 Unknown History metoprolol tartrate 25 mg tablet 25 mg PO .QD 07/30/24 07/30/24 Unknown History montelukast 10 mg tablet 10 mg PO QPM 07/30/24 07/30/24 Unknown History norethindrone (contraceptive) 0.35 0.35 mg PO .QD 07/30/24 07/30/24 Unknown History mg tablet (Bibiana) Allergies Allergy/AdvReac Type Severity Reaction Status Date / Time amoxicillin Allergy Severe Swelling Verified 07/30/24 16:29 ibuprofen Allergy Severe Anaphylactic Verified 07/30/24 16:29 Shock Penicillins Allergy Severe Swelling Verified 07/30/24 16:29 metoclopramide (From Reglan) AdvReac Intermediate Anxiety Verified 07/30/24 16:29 Review of Systems Review of Systems: All systems reviewed & are unremarkable except as noted in HPI and below Constitutional: Constitutional: Reports no additional constitutional complaints ENT: Reports system reviewed and no additional complaints, except as documented Cardiovascular: Cardiovascular: Reports no additional cardiovascular complaints, Denies chest pain and Denies dyspnea Respiratory: Respiratory: Reports as per HPI, Denies chest congestion, Reports cough, Denies dyspnea and Reports wheezing Musculoskeletal: Musculoskeletal: Reports no additional musculoskeletal complaints Integumentary/Breasts: Skin/Breast: Reports system reviewed and no additional complaints, except as docu PMFSH Past Medical History Medical History Endometriosis Cyclic vomiting syndrome Irritable bowel syndrome Self-mutilation Suicide attempt Anxiety Depression Bipolar 1 disorder ADD (attention deficit disorder) Asthma Surgical History Surgical History History of colonoscopy [facility] History of esophag[facility]ast[facility] (EGD) [facility] S/P wisdom tooth extraction Family History Family History Father ADHD (attention deficit hyperactivity disorder) Bipolar disorder Personality disorder Mother Alive and well Social History Social History Smoking packs per day: 0.5 Smoking cigarettes per day: 10.0 Years smoked: 8 Smoking pack-years: 4.00 Smoking status: Current every day smoker Tobacco type: cigarettes and e-cigarettes/vaping Second hand tobacco smoke exposure: Yes Additional smoking assessment comments: Vaping Alcohol intake: former Alcohol use details: Maybe once a week Substance use: current Substance use type: marijuana Other substance usage details: Daily Living arrangements: with family Occupation/Education: occupation Additional occupation/education comments: works at [employer] in [place] Gender identity (if verbalized by the patient): Female Spiritual care concerns: No Comments At the time of my signature, I reviewed and agree with the nursing past medical, surgical, social, and family history. There is no relevant family history pertinent to the patient complaint. Exam Const: General: cooperative, healthy appearing, comfortable, no acute distress, well developed, alert and well nourished Nutritional Appearance: well nourished Orientation/consciousness: patient oriented x3 Limitations: no limitations HENMT: Head: normal to inspection Ears: hearing grossly normal bilaterally, external ears normal, TM's normal bilaterally, EAC's normal, mastoids normal and no periauricular adenopathy Mouth: Yes Normal oral and palatal mucosa present, Yes lip normal, Yes tongue normal and Yes moist mucous membranes Throat: posterior oropharynx normal, uvula midline and no uvular edema Eyes: General: appearance normal, both eyes and all related structures Alignment and Position: alignment normal Neck: Neck: normal visual inspection, full ROM, no lymphadenopathy and no meningeal signs Chest: Chest palpation & inspection: normal inspection of the chest Resp: Effort & Inspection: normal respiratory effort and able to speak in complete sentences Auscultation: clear to auscultation bilaterally, no crackles, no rales, no rhonchi and no wheezes Cardio: Rate: regular rate Skin: General skin exam: normal color and no rashes or lesions noted Neuro: General: patient oriented x3, gait normal, moves all extremities and no meningeal signs Cognition (Neuro): normal cognition Speech: normal speech Gait exam (Neuro): Normal gait present Extrem: General: normal to inspection, full ROM, capillary refill normal and normal gait Psych: Appearance: grossly normal and well kempt Mental Status: mental status grossly normal Speech and movement: Normal speech and movement present and Clear speech present Affect: normal affect Attitude: cooperative Course Course Level of Care: Express Care Visit Vital Signs Vital signs: Vital Signs Temperature 99.3 F 07/30/24 16:15 Pulse Rate 88 07/30/24 16:15 Respiratory Rate 07/30/24 16:15 Blood Pressure 140/96 H 07/30/24 16:15 Pulse Oximetry 100 07/30/24 16:15 Oxygen Delivery Room Air 07/30/24 16:15 Temperature 99.3 F 07/30/24 16:15 Pulse Rate 88 07/30/24 16:15 Respiratory Rate 20 07/30/24 16:15 Blood Pressure 140/96 H 07/30/24 16:15 Pulse Oximetry 100 07/30/24 16:15 Oxygen Delivery Room Air 07/30/24 16:15 Reviewed MDM - URI/Sore Throat MDM Narrative Medical decision making narrative: Patient sitting comfortably in exam room. Nontoxic, vitals stable. Patient in no acute distress. Patient presents for cough and wheezing approximately 1 week. Patient has a known of nebulized albuterol at home she reports. Patient reports wheezing, history of asthma. URI symptoms. No acute findings noted on exam. Discussed treatment plan with steroids and to continue to use albuterol. Discussed signs and symptoms to proceed to the emergency room which she verbalized understanding Discharge instructions reviewed with patient, as well as provided in writing per nursing staff. The instructions also include specific and strict return/GO TO THE ER as well as f/u information. All questions have been answered, and the patient deny any further questions with discharge and discharge plan. Some parts of this dictation were generated by voice recognition software and may contain typographical and/or grammatical inaccuracies. Differential Diagnosis Differential diagnosis: Likely upper respiratory infection, sinusitis, viral infection, bronchitis and other (Asthma) Critical Care Time Critical Care Time Critical Care Time: No Discharge Plan Discharge Clinical Impression: History of asthma Upper respiratory infection Qualifiers: URI type: unspecified viral URI Qualified Code(s): J06.9 - Acute upper respiratory infection, unspecified Patient Disposition: Home, Self-Care Condition: Stable Instructions: Antibiotic Form, Asthma (ED), Upper Respiratory Infection (ED) Additional Instructions: It is very important to treat your symptoms. Drink plenty of water, Gatorade, Pedialyte, ice pops or Jell-O. -take Tylenol per package directions for fever or pain. -Antihistamine medication such as Zyrtec/Claritin/Julissa during the day can help improve symptoms. -doing daily nasal irrigations can help relieve pressure your sinuses. Things like a Neti pot -Use Flonase twice a day for 5 days then daily to help reduce the inflammation and dry up your sinuses. -You can also use Mucinex. Be sure to drink plenty of water with this medication at least 8 ounces with every dose and it is important to drink 8 to 10 glasses of water per day. Water is a natural decongestant -Eat and drink things that are easy to swallow, like tea or soup, or popsicles. -Oral rinses such as: Salt water gargles and/or may use topical anesthetic (eg. Chloraseptic spray) or lozenges to relieve dryness or throat pain). -Frequent hand washing or hand tar roofer is one of the best ways to prevent spread of infection. -Using a vaporizer or humidifier at night will also help thin secretions and help with coughing up phlegm. -Follow up with primary care provider in 7-10 days if condition is not improving - For new or worsening symptoms go directly to the nearest ER Patient Language: Czech Prescriptions: New prednisone 20 mg tablet See Rx Instructions .Route .COMPLEX Qty: 18 0RF Rx Instructions: Take 60 mg daily for 3 days, 40 mg daily for 3 days, 20 mg daily for 3 days No Action amitriptyline 10 mg tablet 10 mg PO BID montelukast 10 mg tablet 10 mg PO QPM norethindrone (contraceptive) [Bibiana] 0.35 mg tablet 0.35 mg PO .QD metoprolol tartrate 25 mg tablet 25 mg PO .QD fluticasone propionate [Flonase Allergy Relief] 50 mcg/actuation spray,suspension 2 spray NASAL DAILY 14 Days Qty: 15.8 0RF Rx Instructions: administer into each nostril fluconazole 150 mg tablet 150 mg PO WEEKLY Rx Instructions: Takes on dicyclomine 10 mg capsule 10 mg PO BID PRN (Reason: abdominal pain) Qty: 10 0RF cetirizine [Zyrtec] 10 mg Tablet 10 mg PO DAILY albuterol sulfate 90 mcg/actuation HFA aerosol inhaler 2 puff INHALATION PRN PRN (Reason: Shortness Of Breath Or Wheezing) Follow-up/Referrals: Treasure,TERRY Lorenzo [Primary Care Provider] -
[2024-07-30 16:15] VITALS: BP 140/96; PULSE 88; RESP 20; TEMP 37.4; O2SAT 100
== END 2024-07-30 16:45 | disposition home or self-care (01) ==
PROVIDERS: Emergency Provider Nurse Practitioner; PCP Physician Assistant
DX: J45.909 Unspecified asthma, uncomplicated (principal); J06.9 Acute upper respiratory infection, unspecified; F17.210 Nicotine dependence, cigarettes, uncomplicated; F17.290 Nicotine dependence, other tobacco product, uncomplicated; N80.9 Endometriosis, unspecified; F32.A Depression, unspecified
CPT/HCPCS: 99213; G0463

== ENCOUNTER 2024-08-27 00:25 | Emergency (ER) | payer OTHER, SELFPAY ==
--- NOTE | ~2024-08-27 | CT_ITS ---
EXAMINATION: CT abdomen pelvis w con DATE: 08/27/2024 08:47 INDICATION: Left lower quadrant abdominal pain. TECHNIQUE: Computed tomography (CT) of the abdomen and pelvis was performed with 100 mL Omnipaque 350 intravenous contrast. Automated exposure control and iterative reconstruction technique were employe d. The dose-length product was 183.72 mGy-cm. COMPARISON: CT abdomen and pelvis 03/27/2024 FINDINGS: The visualized portions of the lung bases are clear without pneumonia or pleural effusion. The heart size is normal. No pericardial effusion. The liver, gallbladder, spleen, pancreas, adrenal glands, and kidneys are normal. There are no dilated loops of bowel. The appendix is normal. There ar e no pathologically enlarged lymph nodes. There is physiologic fluid in the pelvis. There is thoracol umbar levoscoliosis. IMPRESSION: 1. No etiology for the patient's symptoms. Reviewed, dictated and finalized at location A. O CONVEYOR OPERATOR
--- OUTSIDE RECORDS SUMMARY | 2024-08-27 00:28 | XMS_ITS | Clinical Summary ---
Author Organization [facility] Address [address] [place] [id number] Care Team Providers Care Grades 9 12 Tutor Name Role Phone Bessy Santos MD Primary Care Provider [phone] Allergies Active Allergy Reactions Criticality Noted Date Comments Amoxicillin Other (See comments) Low 09/14/2022 Lip swelling Ibuprofen Anaphylaxis High 09/14/2022 Medications ondansetron ODT (ZOFRAN-ODT) 4 mg disintegrating tablet Take 1 tablet (4 mg total) by mouth every 8 (eight) hours as needed for nausea or vomiting 12 tablet 3 Active al & mag hydroxide with simethicone-diphen hydramine-lidocain e (MAGIC MOUTHWASH) suspension 1-1-1 Swish and swallow 10 mL every 4 (four) hours as needed (sore throat) 200 mL 3 Active fluticasone propionate (FLONASE) 50 mcg/actuation nasal sprayIndications:A llergic Rhinitis Administer 1 spray into each nostril daily 16 g 3 Active Medical History Medical History Date Comments Hypertension Anxiety Social History Tobacco Use Types Packs/Day Years Used Date Smoking Tobacco: Never Assessed Personal Safety Answer Date Recorded Have you ever been in or are you currently in a harmful physical or emotional relationship or is someone making you feel afraid or unsafe? Denies 08/25/2023 Comments No Sex and Gender Information Value Date Recorded Sex Assigned at Not on file Legal Sex Female 9:28 AM [employer] Gender Identity Not on file Sexual Orientation Not on file Obstetrics History Last Filed Vital Signs Vital Sign Reading Time Taken Comments Blood Pressure 103/58 08/26/2023 1:00 AM [employer] Pulse 102 08/26/2023 1:00 AM [employer] Temperature 36.8 C (98.2 F) 08/25/2023 9:35 PM [employer] Respiratory Rate 14 08/26/2023 1:00 AM [employer] Oxygen Saturation 94% 08/26/2023 1:00 AM [employer] Inhaled Oxygen Concentration - - Weight 51 kg (112 lb 7 oz) 08/25/2023 9:35 PM CS T Height 154.9 cm (5' 1 ) 08/25/2023 9:35 PM [employer] Body Mass Index 21.24 08/25/2023 9:35 PM [employer] Plan of Treatment Health Maintenance Due Date Last Done Comments Cervical Cancer Screening 2001 Depression Screening 2001 Hepatitis C Screening 2001 Pneumococcal vaccine <65 (1 of 2 - PCV) 2007 Meningococcal B Vaccine (1 o f 2 - Patient Seeks Protection) 2017 Regular Well Visit/Exam 18-64 2019 DTaP/Tdap/Td Vaccine (7 - Td or Tdap) 02/06/2022 02/07/2012, 11/04/2005, 08/06/2002, Additional history exists Influenza Vaccine (#1) 2024 6, 05/14/2015, 05/17/2014, Additional history exists Hepatitis B Screening Completed 02/04/2002 , 2001, 2001, Additional history exists Varicella Vaccines Completed 02/01/2013, 03/29/2002 HPV Vaccines Completed 11/18/2013, 01/14, 02/07/[address] [place] [place] [id number] [facility] Care Teams Grades 9 12 Tutor Relationship Specialty Start Date End Date Bessy Santos MD PCP - General Family Medicine 09/14/22
--- OUTSIDE RECORDS SUMMARY | 2024-08-27 00:28 | XMS_ITS | Clinical Summary ---
Author Organization [facility] Address [address] [place] [address] Care Team Providers Care Systems Trainer Name Role Phone Claudia Holman PA-C Primary Care Provider [phone] Allergies Active Allergy Reactions Criticality Noted Date Comments Amoxicillin Angioedema,Rash,Swelling High 04/17/2014 Ibuprofen Anaphylaxis High 08/21/2009 Nsaids Anaphylaxis High 09/16/2022 Medications hydroCHLOROthiazide (MICROZIDE) 12.5 MG capsule Take 25 mg by mouth every morning. Active ondansetron (ZOFRAN-ODT) 4 MG disintegrating tablet Take 1 tablet (4 mg total) by mouth every 8 (eight) hours as needed for Nausea. 20 tablet 3 Active ondansetron (ZOFRAN-ODT) 4 MG disintegrating tablet Take 1 tablet (4 mg total) by mouth every 8 (eight) hours as needed for Nausea. 20 tablet 3 Active methocarbamol (ROBAXIN) 500 MG tablet Take 1 tablet (500 mg total) by mouth every 8 (eight) hours as needed. 30 tablet 4 Active lidocaine (LIDO KIMBERLY) 4 % patch Place 1 patch onto the skin daily. Remove & Discard patch within 12 hours or as directed 30 patch 4 Active promethazine (PHENERGAN) 25 MG tablet Take 1 tablet (25 mg total) by mouth every 6 (six) hours as needed for Nausea. 20 tablet 4 Active Social History Tobacco Use Types Packs/Day Years Used Date Smoking Tobacco: Never Smokeless Tobacco: Never Tobacco Cessation:Counseling Given: Not Answered Alcohol Use Standard Drinks/Week Comments Not Currently 0 (1 standard drink = 0.6 oz pur e alcohol) Comments No Sex and Gender Information Value Date Recorded Sex Assigned at Not on file Legal Sex Female 8:58 PM CDT Gender Identity Not on file Sexual Orientation Not on file Last Filed Vital Signs Vital Sign Reading Time Taken Comments Blood Pressure 136/84 09/12/2023 11:30 PM SAUSAGE CUTTER Pulse 107 09/12/2023 9:21 PM SAUSAGE CUTTER Temperature 36.7 C (98.1 F) 09/12/2023 9:21 PM SAUSAGE CUTTER Respiratory Rate 18 09/12/2023 9:21 PM SAUSAGE CUTTER Oxygen Saturation 97% 09/12/2023 11:30 PM SAUSAGE CUTTER Inhaled Oxygen Concentration - - Weight 54.4 kg (120 lb) 09/12/2023 9:21 PM SAUSAGE CUTTER Height 165.1 cm (5' 5 ) 09/12/2023 9:21 PM SAUSAGE CUTTER Body Mass Index 19.97 09/12/2023 9:21 PM SAUSAGE CUTTER Plan of Treatment Health Maintenance Due Date Last Done Comments Annual Physical 01/16/2004 PHQ-2 (Physician [place]) 2013 Meningococcal B Vaccine (1 of 2 - Standard) 2017 Hepatitis C 2019 DTaP, Tdap and Td Vaccines (7 - Td or Tdap) 02/06/2022 02/07/2012, 11/04/2005, 08/06/2002, Additional history exists COVID-19 Vaccine ( season) 2024 Influenza Adult (#1) 2024 03/25/2016, 05/14/2015, 05/17/2014, Additional history exists PHQ-2 (Physician [place]) 07/17/2024 Cervical Cancer Screening Pap Smear (Age 21 to 29) Every 3 Years 08/09/2026 08/09/2023, 07/21/2023, 06/20/2023, Additional history exists Cervical Cancer Screening 08/09/2026 Hepatitis B Vaccines Completed 02/04/2002, 2001, 2001, Additional history exists HPV Vaccines Completed 11/18/2013, 01/14, 02/07/2012 Meningococcal Vaccine Completed 02/20/2018, 012 Pneumococcal Vaccine: Pediatrics (0 to 5 Years) and At-Risk Patients (6 to 64 Years) Aged Out No longer eligible based on patient's age to complete this topic RSV Immunizations Under 20 Months Aged Out No longer eligible based on patient's age to complete this topic Insurance [employer] Care Teams Systems Trainer Relationship Specialty Start Date End Date Claudia Holman PA-C [address] [place] [id number] PCP - General NURSE PRACTITIONER 05/18/23
--- OUTSIDE RECORDS SUMMARY | 2024-08-27 00:28 | XMS_ITS | Encounter Summary ---
Author Organization [facility] Address [address] [place] [address] Care Team Providers Care Tonal Regulator Name Role Phone Bessy Santos MD Primary Care Provider [phone] Reason for Visit * Reason Onset Date Comments Referral Consult Request 07/11/2024 Encounter Details Date Type Department Care Team (Late st Contact Info) Description 07/11/2024 Telephone [facility] - Centralized Scheduling [address] [place] [phone] Clark Griggs MD [address] [phone] Referral Consult Request Social History Tobacco Use Types Packs/Day Years Used Date Smoking Tobacco: Former Cigarettes Q uit: 12/31/2014 Smokeless Tobacco: Never Alcohol Use Standard Drinks/Week Comments Never 0 (1 standard drink = 0.6 oz pur e alcohol) AUDIT-C Answer Date Recorded Q1: How often do you have a drink containing alc ohol? Never 12/10/2019 Average Number of Drinks Not on file 020 Frequency of Binge Drinking Not on file 11/15 Sex and Gender Information Value Date Recorded Sex Assigned at Not on file Gender Identity Not on file Sexual Orientation Not on file documented as of this encounter Functional Status Functional Status Response Date of Assess ment Is person deaf or have serious hearing difficult y? No 01/25/2024 Is person blind or have serious difficulty seein g? No 01/25/2024 Does person have serious dif ficulty walking/climbing stairs? No 01/25/2024 Does person have difficulty dressing/bathing? No 01/25/2024 Does person have difficulty doing errands alone? No 01/25/2024 Cognitive Status Response Date of Assessm ent Does person have difficulty concentrating/remembering/making decisions? No 01/25/2024 documented as of this encounter Plan of Treatment Upcoming Encounters Date Type Department Care Team (Late st Contact Info) Description 12/30/2024 12:30 PM CDT Office Visit [facility] - [address] [place] [address] documented as of this encounter Goals Goal Patient Goal Type Associated Problems Recent Progress Patient-Stated? Author Medication Management General No Belinda Tony, RN Note: Expected end date: Ongoing Interventions: Take all medications as prescribed Let your doctor know right away about any changes in your medications Make sure to request a refill of your medication at least one week prior to your last dose Use safety retraint in car Lifestyle On track( 018 2:08 PM CDT) No Desirae Sainz, THAIS documented as of this encounter Visit Diagnoses Not on filedocumented in this encounter Care Teams Tonal Regulator Relationship Specialty Start Date End Date Bessy Santos MD [address] [place] [phone] PCP - General Family Medicine 12/10/19 documented as of this encounter
--- OUTSIDE RECORDS SUMMARY | 2024-08-27 00:28 | XMS_ITS | Referral Summary ---
Author Organization [facility] Address [address] [place] [phone] Care Team Providers Care Horse Trainer Name Role Phone Bessy Santos MD Primary Care Provider [phone] Allergies Active Allergy Reactions Criticality Noted Date [...] each nostril daily 16 g 3 Active Social History Tobacco Use Types Packs/Day [...] on file Legal Sex Female 9:28 AM COMBAT ENGINEER Gender Identity Not on file Sexual Orientation Not on file Last Filed Vital Signs Vital Sign Reading Time Taken Comments Blood Pressure 103/58 08/26/2023 1:00 AM COMBAT ENGINEER Pulse 102 08/26/2023 1:00 AM COMBAT ENGINEER Temperature 36.8 C (98.2 F) 08/25/2023 9:35 PM COMBAT ENGINEER Respiratory Rate 14 08/26/2023 1:00 AM COMBAT ENGINEER Oxygen Saturation 94% 08/26/2023 1:00 AM COMBAT ENGINEER Inhaled Oxygen Concentration - - Weight 51 kg (112 lb 7 oz) 08/25/2023 9:35 PM CS T Height 154.9 cm (5' 1 ) 08/25/2023 9:35 PM COMBAT ENGINEER Body Mass Index 21.24 08/25/2023 9:35 PM COMBAT ENGINEER Plan of Treatment Not on file Insurance [facility] Care Teams Horse Trainer Relationship Specialty Start Date End Date Bessy Santos MD PCP - General Family Medicine 09/14/22
--- OUTSIDE RECORDS SUMMARY | 2024-08-27 00:28 | XMS_ITS | Clinical Summary ---
Author Organization [employer] [address] [facility] Address [address] [place] [address] Care Team Providers Care Web Design Specialist Name Role Phone Unavailable Primary Care Provider Unavailabl e Allergies Active Allergy Reactions Criticality Noted Date Comments Amoxicillin Angioedema High 05/16/2018 Ibuprofen Anaphylaxis High 05/16/2018 Medications ARIPiprazole (ABILIFY) 10 mg tablet Take 10 mg by mouth daily. Active hydrOXYzine HCl (ATARAX) 25 mg tablet Take 25 mg by mouth 3 times daily as needed for Itching. Active albuterol HFA 90 mcg inhaler Take 2 Puffs by inhalation every 6 hours as needed for Shortness of Breath. Active lisdexamfetamin e (VYVANSE) 40 mg capsule Take 40 mg by mouth daily mud plant operator. Active ziprasidone (GEODON) 40 mg Capsule Take 40 mg by mouth 2 times daily with meals. Active benzonatate (TESSALON) 100 mg capsule Take 1 Capsule (100 mg) by mouth 3 times daily. 30 Capsule 9 Active Social History Tobacco Use Types Packs/Day Years Used Date Smoking Tobacco: Every Day Smokeless Tobacco: Never Alcohol Use Standard Drinks/Week Comments No 0 (1 standard drink = 0.6 oz pur e alcohol) Comments No Sex and Gender Information Value Date Recorded Sex Assigned at Not on file Legal Sex Female 11:47 AM CDT Gender Identity Not on file Sexual Orientation Not on file Last Filed Vital Signs Vital Sign Reading Time Taken Comments Blood Pressure 131/77 07/30/2018 6:05 PM INTERLOCKING PAVEMENT INSTALLER Pulse 98 07/30/2018 6:05 PM INTERLOCKING PAVEMENT INSTALLER Temperature 37.2 C (98.9 F) 07/30/2018 6:05 PM INTERLOCKING PAVEMENT INSTALLER Respiratory Rate 14 07/30/2018 6:05 PM INTERLOCKING PAVEMENT INSTALLER Oxygen Saturation 99% 07/30/2018 6:05 PM INTERLOCKING PAVEMENT INSTALLER Inhaled Oxygen Concentration - - Weight 62.7 kg (138 lb 3.2 oz) 07/30/2018 6:05 P M INTERLOCKING PAVEMENT INSTALLER Height 165.1 cm (5' 5 ) 05/16/2018 11:54 AM CDT Body Mass Index - - Plan of Treatment Health Maintenance Due Date Last Done Comments CHLAMYDIA SCREENING (ANNUAL) 11-24 YEARS 01/16/2012 CERVICAL CANCER SCREENING 2022 DTAP/TDAP/TD VACCINES (7 - T d or Tdap) 02/06/2022 02/07/2012, 11/04/2005, 08/06/2002, Additional history exists INFLUENZA VACCINE (#1) 2024 6, 05/14/2015, 05/17/2014, Additional history exists HEPATITIS B VACCINES Completed 02/04/2002, 2001, 2001, Additional history exists HPV VACCINES Completed 11/18/2013, 01/14, 02/07/2012 Insurance [facility] MEDICA[facility]
--- OUTSIDE RECORDS SUMMARY | 2024-08-27 00:28 | XMS_ITS | Clinical Summary ---
Author Organization [facility] depict Address [address] [place] [address] Care Team Providers Care Product Sales Representative Name Role Phone Bessy Santos MD Primary Care Provider [phone] Source Comments [facility],non-owned Affiliates and Associated Physician Practices is amultiple site organization consisting of ambulatory clinics and hospital sitesin [place], [place], [place] and [place]. This disclosure is being madepursuant to the Care Everywhere program and may not contain all information available regarding this patient. Last updated 18.[facility] depict Allergies Active Allergy Reactions Criticality Noted Date Comments Amoxicillin Rash,Swelling Low 04/17/2014 Ibuprofen Anaphylaxis 08/21/2009 Nsaids Anaphylaxis High 09/16/2022 Penicillins Unknown 01/01/2024 Metoclopramide Other 01/25/2024 anxiety Medications * Be aware that medications may not be up to date on this document. Alwaysverify current medications with the patient. Medication Sig Dispensed Refills Start Date End Date Status EPIPEN 2-VITALIY 0.3 MG/0.3ML auto-injector Inject 0.3 mL into muscle once as needed 02/09/2015 Active albuterol HFA (PROVENTIL;VENTOLI N;PROAIR) 108 (90 Base) MCG/ACT inhaler INHALE 2 PUFFS EVERY 4 HOURS NEEDED FOR COUGH/WHEEZE 18 Inhaler 04/29/2019 Active hydroCHLOROthiazid e (Microzide) 12.5 MG capsule Take 1 (one) capsule by mouth once daily Active lidocaine (Lidoderm) 4 % patch Apply 1 (one) patch to skin as needed 08/25/2023 Active ondansetron, disintegrating, (Zofran ODT) 4 MG tablet Take 1 (one) tablet by mouth every 8 hours as needed for Nausea/Vomiting 10/24/2022 Active POTASSIUM PO Take 99 mg by mouth once daily Active polyethylene glycol (Gavilyte-C) 240 g solution Drink 3/4th of prep solution at 5pm the night before colonoscopy. Finish the prep at 4am the day of test. 4000 mL 01/17/2024 Active Additional Information Patient not taking.Reported on 07/01/2024 cetirizine (ZyrTEC) 10 MG chew tablet Take 1 (one) tablet by mouth once daily Active boric acid 600 mg vaginal capsule Insert 1 (one) capsule into the vagina at bedtime Active Loperamide (Imodium) 2 MG tablet Take 1 (one) tablet by mouth 4 times daily as needed for Diarrhea 120 tablet 03/28/2024 Active Additional Information Patient not taking.Reported on 07/01/2024 dicyclomine (Bentyl) 10 MG capsule Take 1 (one) capsule by mouth 4 times daily as needed 360 capsule 04/30/2024 Active metoprolol succinate XL 24hr (Toprol XL) 25 MG tablet Take 1 (one) tablet by mouth once daily Active cimetidine (Tagamet HB 200) 200 MG tablet Take 1 (one) tablet by mouth 2 times daily Active Other Vaginal Probiotic + prebiotic, cranberry, and d mannose, once daily Active amitriptyline (Elavil) 10 MG tablet Take 2 (two) tablets by mouth at bedtime 60 tablet 1 07/15/2024 Active Hospital, Clinic, or Other Facility Administered Medication Ordered Dose Route Frequency Start Date End Date Status lidocaine (Xylocaine) 1 % injectionIndications :Abdominal wall pain INFILTRATION ONCE 08/06/2024 08/06/2024 En ded triamcinolone acetonide (Kenalog-40) injection 40 mgIndications:Abdomi nal wall pain 40 mg IM ONCE 08/06/2024 08/07/2024 Ended Active Problems Problem Noted Date Diagnosed Date Suicide attempt by drug ingestion 02/08/2017 Assessment & Plan (02/08/2017 8:48 PM CDT): Assessment: Chloe is a 17 y.o. female with history of depression and attempted suicide admitted following ingestion of celexa in an attempt at suicide. She has been doing well and her second EKG revealed a normal QTc. Spoke with toxicology given the normal EKGs recommended that she is medically cleared. Plan: - Contact [facility] for inpatient psychiatric placement - Regular Diet as tolerated - Magician Helper - CR monitors - Pulse ox - Continue home singulair and jose Assessment & Plan (02/08/2017 11:39 AM CDT): Assessment: Chloe is a 17 y.o. female with history of depression and attempted suicide admitted following ingestion of Citalopram in an attempt at suicide. VS have been okay and no prolonged QTc on repeat EKG. Plan: - Will discuss with Toxicology today - Contact [facility] for inpatient psychiatric placement - Regular Diet as tolerates - Magician Helper - CR monitors - Pulse ox - Continue home singulair and jose Assessment & Plan (02/08/2017 6:55 AM CDT): Assessment: Chloe is a 17 y.o. female with history of depression and attempted suicide who presents following ingestion of Citalopram in an attempt at suicide. Total intake of somewhere between 70-120 mg of Citalopram which is an SSRI. Per toxicology this would not be a dose likely to cause serotonin syndrome however would have the possibility of causing prolonged QT interval and requires further monitoring. She has not had any tachycardia or other signs or symptoms of toxicity at this point. Her blood pressure was elevated upon admission, however she was also just moved and mother was with her with argument taking place and deemed to probably be stress induced increase as was previously WNL in the ED screening prior to coming to the floor without mom at bedside. Per toxicology however this could be an early sign of serotonin syndrome. Patient requires admission for further monitoring and management until medically stable for transfer to inpatient psychiatric facility. Plan: - Admit to [facility]: Dr. Tony Orantes - Vitals Q8H - Regular Diet as tolerates - Magician Helper - EKG, Acetaminophen, and ASA level upon admission - Repeat EKG in 6 hours - CR monitors - Pulse ox - Continue home singulair and jose - Urine HCG upon admission Attention deficit hyperactiv ity disorder (ADHD), combined type 11/01/2016 Bipolar 1 disorder 11/01/2016 Personality disorder 11/01/2016 Contact dermatitis 09/17/2013 Allergy, drug 09/17/2013 Overview (09/17/2013): Ibuprofen - angioedema/laryngeal edema at age 7 years; Strictly avoids NSAIDs; tolerates Acetaminophen. Anaphylaxis 06/09/2013 Assessment & Plan (06/09/2013 10:08 AM [facility]): Assessment: 13 y.o. female with a presumed anaphylactic reaction. Etiology is unclear (hair product?, food exposure?). With her history of a reaction to ibuprofen in the past and asthma (poorly controlled), would be concerned for her reaction last night truly being anaphylaxis. Lack of follow-up with AI after reaction to ibuprofen is also of concern. Plan: - Will consult AI today (better to see while inpatient given poorly controlled asthma and lack of prior follow-up with previous reaction) - Steroid burst - prednisone 2 mg/kg daily x 3 days - Antihistamine - Benadryl scheduled q8h x 3 days - H2 receptor carmelina- Pepcid scheduled daily x 3 days - Anaphylaxis education - Ensure patient has EpiPen available for home, at discharge Asthma 06/09/2013 Overview (01/31/2017): Monitor ALbuterol use, multiple refills for inhaler in 2015- Assessment & Plan (06/09/2013 5:25 AM [facility]): Assessment: Chloe Holbrook is a 13 y.o. female with history of asthma, being admitted for anaphylactic reaction, likely secondary to hair product use. Plan: - Continue home albuterol, PRN - Per parents she only takes Flovent as a preventive medication during allergy season in the fall - will not order flovent at this time Anxiety 09/16/2011 Assessment & Plan (06/09/2013 5:24 AM [facility]): Assessment: Chloe Holbrook is a 13 y.o. female with history of anxiety, being admitted for anaphylactic reaction, likely secondary to hair product use. Plan: - Continue home zoloft - 75 mg qhs Allergic rhinitis 01/20/2010 Overview (09/17/2013): SPT (09/17/13) + for: T/G/RW/M/HDM/Dog/Cat. Resolved Problems Problem Noted Date Diagnosed Date Resolved Date Diarrhea 01/01/2024 01/29/2024 Exercise-induced asthma 02/07/201201/14 Allergy, drug 01/20/2010 05/07/2013 Overview (01/20/2010): Ibuprofen - angioedema, dyspnea Encounters Date Type Department Care Team Description 08/06/2024 2:00 PM [facility] Office Visit [facility] - Family Medicine [address] [place] [phone] Odell Wise DO Neme, Jamil Richard, MD Abdominal wall pain (Primary Dx) 08/06/2024 Travel 07/24/2024 Telephone [facility] - GI [address] [place] [phone] Alisson Mcgrath RN General 07/11/2024 8:30 AM [facility] - 07/11/2024 11:59 PM [facility] Hospital Encounter [facility] [address] [place] [phone] Odell Wise DO Discharge Disposition: Home or Self Care 07/11/2024 7:44 AM [facility] - 07/11/2024 8:29 AM [facility] Hospital Encounter [facility] [address] [place] [phone] Odell Wise DO Discharge Disposition: Home or Self Care 07/11/2024 Telephone [facility] - GI [address] [place] [phone] Odell Wise DO Med Question 07/11/2024 Telephone [facility] - Centralized Scheduling [address] [place] [phone] Clark Griggs MD Referral Consult Request 07/11/2024 Travel 07/04/2024 Telephone [facility] - Centralized Scheduling [address] [place] [phone] Clark Griggs MD Future Appointment 07/01/2024 2:30 PM [facility] Office Visit [facility] - GI [address] [facility] [place] [phone] Navya Clements MD Abdominal discomfort (Primary Dx); Nausea and vomiting, unspecified vomiting type 07/01/2024 Travel from Last 3 Months Immunizations Name Administration Dates Next Due INFLUENZA VACCINE, TRIV. (AF LURIA, FLUZONE TRIVALENT; 6MO+) (IIV3) 06/02/2011 DTaP VACCINE IM (6wk-6yrs) 11/04/2005,,2001,05/08,2001 HEP A PEDS 2 DOSE 10/07/2010,11/07/2005 HEP B VACCINE, PED/ADOL 02/04/2002,05/08,2001,01/15 HIB BOOSTER 02/04/2002,2001,2001 Human Papilloma Virus Margie valent Vaccine 11/18/2013,02/01/2013,02/07/2012 INFLUENZA A R2F4-14 VACCINE 05/29/2009 INFLUENZA VACCINE 06/09/2013, 7,06/19/2006,06/01,06/25/2004 INFLUENZA VACCINE, QUADR. (F LUZONE; FLULAVAL; FLUARIX; AFLURIA QUADRIVALENT; 6MO+), 0.5 ML (IIV4) 03/25/2016,05/14/2015,05/17/2014 MENINGOCOCCAL CONJUGATE (MCV4P) 02/20/2018,02/06 MMR 11/04/2005,03/29/2002 PNEUMOCOCCAL CONJ, PEDS 2001,2001, POLIO IPV 11/04/2005, 3,2001,03/13 PPD 11/04/2005,02/13/2003 TDAP (7yrs+) 02/07/2012 VARICELLA 02/01/2013,03/29/2002 Family History Medical History Relation Name Comments Allergies Father Asthma Father Eczema Father Alcohol abuse Maternal Grandfather Hypertension Maternal Grandfather Arthritis - Rheumatoid Maternal Grandmother Allergies Maternal Uncle Allergies Sister Relation Name Status Comments Father Maternal Grandfather Maternal Grandmother Maternal Uncle Sister Social History Tobacco Use Types Packs/Day Years Used Date Smoking Tobacco: Former Cigarettes Q uit: 12/31/2014 Smokeless Tobacco: Never Tobacco Cessation:Counseling Given: Not Answered Alcohol Use Standard Drinks/Week Comments Never 0 [...] Sign Reading Time Taken Comments Blood Pressure 122/84 08/06/2024 1:53 PM [facility] Pulse 105 08/06/2024 1:53 PM [facility] Temperature 36.6 C (97.9 F) 01/25/2024 8:45 AM CDT Respiratory Rate 18 07/01/2024 2:36 PM [facility] Oxygen Saturation 99% 08/06/2024 1:53 PM [facility] Inhaled Oxygen Concentration - - Weight 51.7 kg (114 lb) 08/06/2024 1:53 PM [facility] Height 165.1 cm (5' 5 ) 08/06/2024 1:53 PM [facility] Body Mass Index 18.97 08/06/2024 1:53 PM [facility] Plan of Treatment Upcoming Encounters Date Type Department Care Team (Late st Contact Info) Description 12/30/2024 12:30 PM CDT Office Visit [facility] - GI [address] [facility] [place] [phone] Health Maintenance Due Date Last Done Comments PNEUMOCOCCAL VACCINE (1 of 1 - PPSV23) 2007 2001, 2001, 2001 MENINGOCOCCAL (Group B) VACC INE (1 of 2 - Standard) 2017 CHLAMYDIA/GONORRHEA SCREENING 12/09/2020 12/10/2019 DTAP/TDAP/TD VACCINES (7 - T d or Tdap) 02/06/2022 02/07/2012, 11/04/2005, 08/06/2002, Additional history exists COVID-19 VACCINE (2023-2 5 season) 2024 INFLUENZA VACCINE (#1) 2024 6, 05/14/2015, 05/17/2014, Additional history exists PAP SMEAR 05/23/2027 05/23/2024, 04/0 08/2023, 01/25/2023, Additional history exists ZOSTER VACCINE (1 of 2) 2051 HEPATITIS B VACCINE Completed 02/04/2002, 2001, 2001, Additional history exists HIB VACCINE Completed 02/04/2002, 04/17, 2001 HPV VACCINE Completed 11/18/2013, 01/14, 02/07/2012 MENINGOCOCCAL VACCINE Completed 02/20/2018, 012 HEPATITIS C SCREENING Completed 01/01/2024 HIV SCREENING Completed 01/01/2024 Goals Goal Patient Goal Type Associated Problems [...] 018 2:08 PM CDT) No Desirae Sainz, hospitalist physician Procedure Name Priority Date/Time Associated Diagnosis Comments MD INJ TRIGGER POINT, 1-2 MUSCLES Routine 08/06/2024 1:57 PM [facility] Abdominal wall pain MD US GUIDED NEEDLE PLACEMENT Routine 08/06/2024 1:56 PM [facility] Abdominal wall pain NM GASTRIC EMPTYING Routine 07/11/2024 1 :03 PM [facility] Nausea and vomiting, unspecified vomiting type HEPATITIS C AB SCREEN RFLX NAAT QUANT STAT 01/01/2024 4:22 PM CDT Diarrhea, unspecified type HIV-1 HIV-2 ANTIBODY + HIV P24 AG PANEL Routine 01/01/2024 4:22 PM CDT Diarrhea, unspecified type CHLAMYDIA + GC AMPLIFIED PROBE STAT 12/10/2019 12:31 PM CDT from Last 3 Months or Most Recently Relevant to Health Maintenance Results * MD INJ TRIGGER POINT, 1-2 MUSCLES (08/06/2024 1:57 PM [facility]) Narrative Clark Griggs MD - 08/06/2024 1:57 PM [facility] Clark Griggs MD 08/07/2024 10:40 AM U/S-GUIDED INJECTION PROCEDURE NOTE Risks/benefits of injection discussed, including bleeding, infection, site reaction, and possible flare. Pt. Expresses understanding and verbally consents for injection. U/S used to visualize anatomic area first. Next area prepped with chloroprep in usual sterile fashion. Ethyl chloride for local anesthesia. 1 cc of Kenalog (triamcinalone 40mg/ml) + 4 cc of lidocaine 1% was injected into Left transverse abdominus muscle using an anterior approach under ultrasound guidance. Pt. Tolerated well. No complications. An ultrasound image was saved demonstrating the successful needle localization. Clark Griggs MD PROCEDURE/MINOR BUSTAMANTE RGICAL ORDERABLES * MD US GUIDED NEEDLE PLACEMENT (08/06/2024 1:56 PM [facility]) Narrative Clark Griggs MD - 08/06/2024 1:56 PM [facility] Clark Griggs MD 08/06/2024 1:56 PM (No note.) Clark Griggs MD PROCEDURE/MINOR BUSTAMANTE RGICAL ORDERABLES * NM Gastric Emptying (07/11/2024 1:03 PM [facility]) Anatomical Region Laterality Modality Abdomen Nuclear Medicine 07/11/2024 9:14 AM [facility] Impressions 07/11/2024 3:36 PM [facility] Impression: Normal gastric emptying based on 5% retention at 4 hours after ingestion of meal. > Dictated by Aide Steiner (Honeycomb Decapper) 07/11/2024 9:14 AM Ronn Sullivan DO have personally reviewed and interpreted this examination/study. > Interpreting Provider: Ronn Chaudhary DO on 07/11/2024 3:36 PM Narrative 07/11/2024 3:36 PM [facility] PROCEDURE: NM GASTRIC EMPTYING DATE/TIME OF EXAM: 07/11/2024 8:30 AM Indication: R11.2: Nausea and vomiting, unspecified vomiting type History: 24-year-old female patient with nausea/vomiting. Patient's BMI is 19.2 kg/m . Technique: The examination was performed after the ingestion of a standardized meal (scrambled egg substitute (120 g Egg Beater, 60 kcal, equivalent to the volume of 2 large eggs), two slices of bread (120 kcal), strawberry jam (30 g, 75 kcal), and water (120 ml).The meal has a caloric value of 255 kcal: 72% carbohydrate,24% protein, 2% fat and 2% fiber. The meal is labeled with 550 uCi of [id number] sulfur colloid. Findings: After ingestion of solid meal, sequential images were obtained up to 4 hours. Immediate,1 hour, 2 hour and 4 hours after ingestion. The percent retention in the stomach is as follows: 1 hour: 10% (Normal range: 37 - 90% ) 2 hour: 10% (Normal range: 30 - 60%) 4 hour: 5% (Normal range: 0 - 10%) T1/2: 31 minutes (Upper limits 130) Severity of gastroparesis is as follows: Grade 1 (mild): 11-20% Grade 2 (moderate): 21 - 35% Grade 3 (severe): 36-50% Grade 4 (very severe): > 50% Procedure Note Ronn Chaudhary DO - 07/11/2024 PROCEDURE: NM GASTRIC EMPTYING DATE/TIME OF EXAM: 07/11/2024 8:30 AM Indication: R11.2: Nausea and vomiting, unspecified vomiting type History: 24-year-old female patient with nausea/vomiting. Patient's BMIis 19.2 kg/m . Technique: The examination was performed after the ingestion of a standardized meal (scrambled egg substitute (120 g Egg Beater, 60 kcal, equivalent to the volume of 2 large eggs), two slices of bread (120kcal), strawberry jam (30 g, 75 kcal), and water (120 ml).The meal has acaloric value of 255 kcal: 72% carbohydrate,24% protein, 2% fat and 2% fiber.The meal is labeled with 550 uCi of [id number] sulfur colloid. Findings: After ingestion of solid meal, sequential images were obtained up to 4 hours. Immediate,1 hour, 2 hour and 4 hours after ingestion. The percent retention in the stomach is as follows: 1 hour: 10% (Normal range: 37 - 90% ) 2 hour: 10% (Normal range: 30 - 60%) 4 hour: 5% (Normal range: 0 - 10%) T1/2: 31 minutes (Upper limits 130) Severity of gastroparesis is as follows: Grade 1 (mild): 11-20% Grade 2 (moderate): 21 - 35% Grade 3 (severe): 36-50% Grade 4 (very severe): > 50% Impression: Normal gastric emptying based on 5% retention at 4 hours after ingestionof meal. > Dictated by Aide Steiner (Honeycomb Decapper) 07/11/2024 9:14AM IRonn DO have personally reviewed and interpreted this examination/study. > Interpreting Provider: Ronn Chaudhary DO on 07/11/2024 3:36 PM Odell Wise DO NM ORDERABLES * HEPATITIS C AB SCREEN RFLX NAAT QUANT (01/01/2024 4:22 PM CDT) Hepatitis C Antibody Non-react isabelle Non-reac tidamir 01/01/2024 5:15 PM CDT [facility] Comment:Hepatitis C Antibody screen indicates no serologic evidence of past or current infection with Hepatitis C Virus. Patients with unexplained liver disease who are immunocompromised or suspected of having acute Hepatitis C infection may benefit from Nucleic Acid Test (ALEXANDER) for Hepatitis C Viral RNA to confirm Hepatitis C status. Blood BLOOD SPECIMEN / Unknown Lab Venipuncture / Unknown 01/01/2024 4:22 PM CDT 01/01/2024 4:29 PM CDT Provider Unknown LAB - CHEMISTRY MAT BURNS [facility] [address] [place] [phone], [facility] [phone] * HIV-1 HIV-2 ANTIBODY + HIV P24 AG PANEL (01/01/2024 4:22 PM CDT) Pathologist [facility] HIV Antigen/Antibod y 1 & 2 Non-reacti ve Non-react isabelle 01/01/2024 5:15 PM CDT [facility] Comment:No Laboratory eviden ce of HIV infection. Blood BLOOD SPECIMEN / Unknown Lab Venipuncture / Unknown 01/01/2024 4:22 PM CDT 01/01/2024 4:29 PM CDT Provider Unknown LAB - CHEMISTRY MAT BURNS [facility] [address] [place] [phone], [facility] [phone] * CHLAMYDIA + GC AMPLIFIED PROBE (STL) (12/10/2019 12:31 PM CDT) Pathologist [facility] Chlamydia Amplified Probe Negative Negative 12/11/2019 11:58 AM CDT [facility] GC Amplified Probe Negative Negative 12/11/2019 11:58 AM CDT [facility] Microbiology URINE / Unknown Collection / Unknown 12/10/2019 12:31 PM CDT 12/10/2019 12:35 PM CDT Narrative [facility] - 12/11/2019 11:58 AM CDT Results based on detection/no detection of ribosomal RNA by amplified method. Ene Renteria MD LAB - MICROBIOLOGY ORDERABLES [facility] [address] [place] [address], [facility] [phone] from Last 3 Months or Most Recently Relevant to Health Maintenance Advance Directives * Full Code (Latest Code Status on File) Date Activated Date Inactivated Comments 02/08/2017 12:40 AM 02/09/2017 12:26 AM Care Teams Product Sales Representative Relationship Specialty Start Date End Date Bessy Santos MD [address] [place] [phone] PCP - General Family Medicine 12/10/19
--- OUTSIDE RECORDS SUMMARY | 2024-08-27 00:28 | XMS_ITS | Referral Summary ---
Author Organization [facility] Address [address] [place] [address] Care Team Providers Care Glass Carrier Name Role Phone Bessy Santos MD Primary Care Provider [phone] Source Comments [facility],non-owned Affiliates and Associated Physician Practices is amultiple site organization consisting of ambulatory clinics and hospital sitesin [place], [place], [place] and [place]. This disclosure is being madepursuant to the Care Everywhere program and may not contain all information available regarding this patient. Last updated 18.[facility] Encounters Date Type Department Care Team Description 08/06/2024 Travel 08/06/2024 2:00 PM DIRECT CARE STAFFER Office Visit [facility] - Family Medicine [address] [place] [phone] Odell Wise DO Neme, Jamil Richard, MD Abdominal wall pain (Primary Dx) 07/24/2024 Telephone [facility] - GI [address] [place] [phone] Alisson Mcgrath RN General 07/11/2024 Telephone [facility] - GI [address] [place] [phone] Odell Wise DO Med Question 07/11/2024 Telephone [facility] - Centralized Scheduling [address] [place] [address] Clark Griggs MD Referral Consult Request 07/11/2024 Travel 07/11/2024 8:30 AM DIRECT CARE STAFFER - 07/11/2024 11:59 PM DIRECT CARE STAFFER Hospital Encounter [facility] [address] [place] [address] Odell Wise, DO Discharge Disposition: Home or Self Care 07/11/2024 7:44 AM DIRECT CARE STAFFER - 07/11/2024 8:29 AM DIRECT CARE STAFFER Hospital Encounter [facility] [address] [place] [address] Odell Wise, Discharge Disposition: Home or Self Care 07/04/2024 Telephone [facility] - Centralized Scheduling [address] [place] [address] Clark Griggs MD Future Appointment 07/01/2024 Travel 07/01/2024 2:30 PM DIRECT CARE STAFFER Office Visit [facility] - GI [address] [facility], [place] [address] Navya Clements MD Abdominal discomfort (Primary Dx); Nausea and vomiting, unspecified vomiting type from Last 3 Months Allergies Active Allergy Reactions Criticality Noted Date [...] placement - Regular Diet as tolerated - Bereavement Program Coordinator - CR monitors - Pulse ox - [...] placement - Regular Diet as tolerates - Bereavement Program Coordinator - CR monitors - Pulse ox - [...] psychiatric facility. Plan: - Admit to Gen Med: Dr. Tony Orantes - Vitals Q8H - Regular Diet as tolerates - Bereavement Program Coordinator - EKG, Acetaminophen, and ASA level upon [...] 06/09/2013 Assessment & Plan (06/09/2013 10:08 AM DIRECT CARE STAFFER): Assessment: 13 y.o. female with a presumed [...] 2015- Assessment & Plan (06/09/2013 5:25 AM DIRECT CARE STAFFER): Assessment: Chloe Holbrook is a 13 y.o. female with history of asthma, being admitted for anaphylactic reaction, likely secondary to hair product use. Plan: - Continue home albuterol, PRN - Per parents she only takes Flovent as a preventive medication during allergy season in the fall - will not order flovent at this time Anxiety 09/16/2011 Assessment & Plan (06/09/2013 5:24 AM DIRECT CARE STAFFER): Assessment: Chloe Holbrook is a 13 y.o. [...] 05/07/2013 Overview (01/20/2010): Ibuprofen - angioedema, dyspnea Immunizations Name Administration Dates Next Due INFLUENZA VACCINE, TRIV. (AF LURIA, FLUZONE TRIVALENT; 6MO+) (IIV3) 06/02/2011 DTaP VACCINE IM (6wk-6yrs) 11/04/2005,,2001,05/08,2001 HEP A PEDS 2 DOSE 10/07/2010,11/07/2005 HEP B VACCINE, PED/ADOL 02/04/2002,05/08,2001,01/15 HIB BOOSTER 02/04/2002,2001,2001 Human Papilloma Virus Margie valent Vaccine 11/18/2013,02/01/2013,02/07/2012 INFLUENZA A C1J0-14 VACCINE 05/29/2009 INFLUENZA VACCINE 06/09/2013, 7,06/19/2006,06/01,06/25/2004 INFLUENZA VACCINE, QUADR. (F LUZONE; FLULAVAL; FLUARIX; AFLURIA QUADRIVALENT; 6MO+), 0.5 ML (IIV4) 03/25/2016,05/14/2015,05/17/2014 MENINGOCOCCAL CONJUGATE (MCV4P) 02/20/2018,02/06 MMR 11/04/2005,03/29/2002 PNEUMOCOCCAL CONJ, PEDS 2001,2001, POLIO IPV 11/04/2005, 3,2001,03/13 PPD 11/04/2005,02/13/2003 TDAP (7yrs+) 02/07/2012 VARICELLA 02/01/2013,03/29/2002 Social History Tobacco Use Types Packs/Day Years [...] Comments Blood Pressure 122/84 08/06/2024 1:53 PM DIRECT CARE STAFFER Pulse 105 08/06/2024 1:53 PM DIRECT CARE STAFFER Temperature 36.6 C (97.9 F) 01/25/2024 8:45 AM CDT Respiratory Rate 18 07/01/2024 2:36 PM DIRECT CARE STAFFER Oxygen Saturation 99% 08/06/2024 1:53 PM DIRECT CARE STAFFER Inhaled Oxygen Concentration - - Weight 51.7 kg (114 lb) 08/06/2024 1:53 PM DIRECT CARE STAFFER Height 165.1 cm (5' 5 ) 08/06/2024 1:53 PM DIRECT CARE STAFFER Body Mass Index 18.97 08/06/2024 1:53 PM DIRECT CARE STAFFER Functional Status Functional Status Response Date of [...] person have difficulty concentrating/remembering/making decisions? No 01/25/2024 Plan of Treatment Upcoming Encounters Date Type Department Care Team (Late st Contact Info) Description 12/30/2024 12:30 PM CDT Office Visit [facility] - [address] [phone] Goals Goal Patient Goal Type Associated Problems [...] track( 018 2:08 PM CDT) No Desirae Sainz RN Procedures Procedure Name Priority Date/Time Associated Diagnosis Comments [place] INJ TRIGGER POINT, 1-2 MUSCLES Routine 08/06/2024 1:57 PM DIRECT CARE STAFFER Abdominal wall pain [place] US GUIDED NEEDLE PLACEMENT Routine 08/06/2024 1:56 PM DIRECT CARE STAFFER Abdominal wall pain NM GASTRIC EMPTYING Routine 07/11/2024 1 :03 PM DIRECT CARE STAFFER Nausea and vomiting, unspecified vomiting type HEPATITIS C AB SCREEN RFLX NAAT QUANT STAT 01/01/2024 4:22 PM CDT Diarrhea, unspecified type HIV-1 HIV-2 ANTIBODY + HIV P24 AG PANEL Routine 01/01/2024 4:22 PM CDT Diarrhea, unspecified type CHLAMYDIA + GC AMPLIFIED PROBE STAT 12/10/2019 12:31 PM CDT from Last 3 Months or Most Recently Relevant to Health Maintenance Results * [place] INJ TRIGGER POINT, 1-2 MUSCLES (08/06/2024 1:57 PM DIRECT CARE STAFFER) Narrative Clark Griggs MD - 08/06/2024 1:57 PM DIRECT CARE STAFFER Clark Griggs MD 08/07/2024 10:40 AM U/S-GUIDED [...] Griggs MD PROCEDURE/MINOR BUSTAMANTE RGICAL ORDERABLES * [place] US GUIDED NEEDLE PLACEMENT (08/06/2024 1:56 PM DIRECT CARE STAFFER) Narrative Clark Griggs MD - 08/06/2024 1:56 PM DIRECT CARE STAFFER Clark Griggs MD 08/06/2024 1:56 PM (No note.) Clark Griggs MD PROCEDURE/MINOR BUSTAMANTE RGICAL ORDERABLES * NM Gastric Emptying (07/11/2024 1:03 PM DIRECT CARE STAFFER) Anatomical Region Laterality Modality Abdomen Nuclear Medicine 07/11/2024 9:14 AM DIRECT CARE STAFFER Impressions 07/11/2024 3:36 PM DIRECT CARE STAFFER Impression: Normal gastric emptying based on 5% retention at 4 hours after ingestion of meal. > Dictated by Aide Steiner (Leveler) 07/11/2024 9:14 AM IRonn DO have personally reviewed and interpreted this examination/study. > Interpreting Provider: Ronn Chaudhary DO on 07/11/2024 3:36 PM Narrative 07/11/2024 3:36 PM DIRECT CARE STAFFER PROCEDURE: NM GASTRIC EMPTYING DATE/TIME OF EXAM: [...] meal is labeled with 550 uCi of [id number] sulfur colloid. Findings: After ingestion of solid [...] meal is labeled with 550 uCi of [id number] sulfur colloid. Findings: After ingestion of solid [...] ingestionof meal. > Dictated by Aide Steiner (Leveler) 07/11/2024 9:14AM Ronn Sullivan DO have personally reviewed and interpreted this examination/study. > Interpreting Provider: Ronn Chaudhary DO on 07/11/2024 3:36 PM Odell Wise DO ND ORDERABLES * HEPATITIS C AB SCREEN RFLX NAAT QUANT (01/01/2024 4:22 PM CDT) Hepatitis C Antibody Non-react isabelle Non-reac tive 01/01/2024 5:15 PM CDT [facility] Comment:Hepatitis C Antibody screen indicates no serologic [...] PM CDT Provider Unknown LAB - CHEMISTRY ORDE [facility] Performing Organization Address City/[facility]/ZIP Co de Phone Number [address] [address], [facility] [phone] * HIV-1 HIV-2 ANTIBODY + HIV P24 AG PANEL (01/01/2024 4:22 PM CDT) Pathologist [facility] HIV Antigen/Antibod y 1 & 2 Non-reacti ve Non-react isabelle 01/01/2024 5:15 PM CDT [facility] Comment:No Laboratory eviden ce of HIV infection. Blood BLOOD SPECIMEN / Unknown Lab Venipuncture / Unknown 01/01/2024 4:22 PM CDT 01/01/2024 4:29 PM CDT Provider Unknown LAB - CHEMISTRY ORDE [facility] [address] [address], [place] [phone] * CHLAMYDIA + GC AMPLIFIED PROBE (STL) (12/10/2019 12:31 PM CDT) Pathologist [facility] Chlamydia Amplified Probe Negative Negative 12/11/2019 11:58 AM CDT [facility]CRO[facility] GC Amplified Probe Negative Negative 12/11/2019 11:58 AM CDT [facility]CRO[facility] Microbiology URINE / Unknown Collection / Unknown 12/10/2019 12:31 PM CDT 12/10/2019 12:35 PM CDT Narrative [facility] - 12/11/2019 11:58 AM CDT Results based on detection/no detection of ribosomal RNA by amplified method. Ene Renteria MD LAB - MICROBIOLOGY ORDERABLES [facility] [address] [place] [address], [facility] [phone] from Last 3 Months or Most Recently Relevant to Health Maintenance Administered Medications Advance Directives * Full Code (Latest Code Status on File) Date Activated Date Inactivated Comments 02/08/2017 12:40 AM 02/09/2017 12:26 AM Care Teams Glass Carrier Relationship Specialty Start Date End Date Bessy Santos MD [address] [place] [phone] PCP - General Family Medicine 12/10/19
--- OUTSIDE RECORDS SUMMARY | 2024-08-27 00:28 | XMS_ITS | Patient Health Summary ---
Author Organization [facility] Address [address] [place] [address] Care Team Providers Care Court Reporter Name Role Phone Bessy Santos MD Primary Care Provider [phone] [facility],non-owned Affiliates and Associated Physician Practices is amultiple site organization consisting of ambulatory clinics and hospital sitesin [place], [place], [place] and [place]. This disclosure is being madepursuant to the Care Everywhere program and may not contain all information available regarding this patient. Last updated 18.[facility] Allergies * Amoxicillin(Rash,Swelling) -Low Criticality * Ibuprofen(Anaphylaxis) * Nsaids(Anaphylaxis) -High Criticality * Penicillins(Unknown) * Metoclopramide(Other) Medications * Be aware that medications may not be up to date on this document. Alwaysverify current medications with the patient. * EPIPEN 2-VITALIY 0.3 MG/0.3ML auto-injector(Started 02/09/2015) Inject 0.3 mL into muscle once as needed * albuterol HFA (PROVENTIL;VENTOLIN;PROAIR) 108 (90 Base) MCG/ACT inhaler (Started 04/29/2019) INHALE 2 PUFFS EVERY 4 HOURS NEEDED FOR COUGH/WHEEZE * hydroCHLOROthiazide (Microzide) 12.5 MG capsule Take 1 (one) capsule by mouth once daily * lidocaine (Lidoderm) 4 % patch(Started 08/25/2023) Apply 1 (one) patch to skin as needed * ondansetron, disintegrating, (Zofran ODT) 4 MG tablet(Started 10/24/2022) Take 1 (one) tablet by mouth every 8 hours as needed for Nausea/Vomiting * POTASSIUM PO Take 99 mg by mouth once daily * polyethylene glycol (Gavilyte-C) 240 g solution(Started 01/17/2024) Drink 3/4th of prep solution at 5pm the night before colonoscopy. Finish the prep at 4am the day oftest. * cetirizine (ZyrTEC) 10 MG chew tablet Take 1 (one) tablet by mouth once daily * boric acid 600 mg vaginal capsule Insert 1 (one) capsule into the vagina at bedtime * Loperamide (Imodium) 2 MG tablet(Started 03/28/2024) Take 1 (one) tablet by mouth 4 times daily as needed for Diarrhea * dicyclomine (Bentyl) 10 MG capsule(Started 04/30/2024) Take 1 (one) capsule by mouth 4 times daily as needed * metoprolol succinate XL 24hr (Toprol XL) 25 MG tablet Take 1 (one) tablet by mouth once daily * cimetidine (Tagamet HB 200) 200 MG tablet Take 1 (one) tablet by mouth 2 times daily * Other Vaginal Probiotic + prebiotic, cranberry, and d mannose, once daily * amitriptyline (Elavil) 10 MG tablet(Started 07/15/2024) Take 2 (two) tablets by mouth at bedtime 1 refill by 07/15/2025 Active Problems Problem Noted Date Diagnosed Date Suicide attempt by drug ingestion 02/08/2017 Attention deficit hyperactiv ity disorder (ADHD), combined type 11/01/2016 Bipolar 1 disorder 11/01/2016 Personality disorder 11/01/2016 Contact dermatitis 09/17/2013 Allergy, drug 09/17/2013 Anaphylaxis 06/09/2013 Asthma 06/09/2013 Anxiety 09/16/2011 Allergic rhinitis 01/20/2010 Resolved Problems Problem Noted Date Diagnosed Date Resolved Date Diarrhea 01/01/2024 01/29/2024 Exercise-induced asthma 02/07/201201/14 Allergy, drug 01/20/2010 05/07/2013 Immunizations * INFLUENZA VACCINE, TRIV. (AFLURIA, FLUZONE TRIVALENT; 6MO+) (IIV3)(Given 06/02/2011) * DTaP VACCINE IM (6wk-6yrs)(Given 11/04/2005, 08/06/2002, 2001, 2001, 2001) * HEP A PEDS 2 DOSE(Given 10/07/2010, 11/07/2005) * HEP B VACCINE, PED/ADOL(Given 02/04/2002, 2001, 2001, 2001) * HIB BOOSTER(Given 02/04/2002, 2001, 2001) * Human Papilloma Virus Quadrivalent Vaccine(Given 11/18/2013, 02/01/2013, 02/07/2012) * INFLUENZA A C8O1-16 VACCINE(Given 05/29/2009) * INFLUENZA VACCINE(Given 06/09/2013, 07/03/2007, 06/19/2006, 06/01/2005, 06/25/2004) * INFLUENZA VACCINE, QUADR. (FLUZONE; FLULAVAL; FLUARIX; AFLURIA QUADRIVALENT; 6MO+), 0.5 ML (IIV4)(Given 03/25/2016, 05/14/2015, 05/17/2014) * MENINGOCOCCAL CONJUGATE (MCV4P)(Given 02/20/2018, 02/07/2012) * MMR(Given 11/04/2005, 03/29/2002) * PNEUMOCOCCAL CONJ, PEDS(Given 2001, 2001, 2001) * POLIO IPV(Given 11/04/2005, 08/06/2002, 2001, 2001) * PPD(Given 11/04/2005, 02/13/2003) * TDAP (7yrs+)(Given 02/07/2012) * VARICELLA(Given 02/01/2013, 03/29/2002) Social History Tobacco Use Types Packs/Day Years [...] Comments Blood Pressure 122/84 08/06/2024 1:53 PM TOLL SERVICE OBSERVER Pulse 105 08/06/2024 1:53 PM TOLL SERVICE OBSERVER Temperature 36.6 C (97.9 F) 01/25/2024 8:45 AM CDT Respiratory Rate 18 07/01/2024 2:36 PM TOLL SERVICE OBSERVER Oxygen Saturation 99% 08/06/2024 1:53 PM TOLL SERVICE OBSERVER Inhaled Oxygen Concentration - - Weight 51.7 kg (114 lb) 08/06/2024 1:53 PM TOLL SERVICE OBSERVER Height 165.1 cm (5' 5 ) 08/06/2024 1:53 PM TOLL SERVICE OBSERVER Body Mass Index 18.97 08/06/2024 1:53 PM TOLL SERVICE OBSERVER Procedures * NJ INJ TRIGGER POINT, 1-2 MUSCLES(Performed 08/06/2024) Performed for Abdominal wall pain * NJ US GUIDED NEEDLE PLACEMENT(Performed 08/06/2024) Performed for Abdominal wall pain * NM GASTRIC EMPTYING(Performed 07/11/2024) Performed for Nausea and vomiting, unspecified vomiting type * ENDOSCOPY, COLON, DIAGNOSTIC(Performed 01/25/2024) * PATHOLOGY TISSUE(Performed 01/25/2024) Performed for Diarrhea, unspecified type, Weight loss * EGD(Performed 01/25/2024) * NJ COLONOSCOPY, DIAGNOSTIC(Performed 01/25/2024) Performed for Diarrhea, unspecified type, Weight loss * NJ ED EGD FLEX TRANSORAL DX(Performed 01/25/2024) Performed for Diarrhea, unspecified type, Weight loss * HCG URINE QUALITATIVE - POCT (IP) INTERFACED(Performed 01/25/2024) * HCG URINE QUAL POCT NOTIFICATION(Performed 01/25/2024) Performed for Preop examination * METANEPHRINES URINE FRACTIONATED(Performed 01/04/2024) Performed for Tachycardia * HEPATITIS C AB SCREEN RFLX NAAT QUANT(Performed 01/01/2024) Performed for Diarrhea, unspecified type * HIV-1 HIV-2 ANTIBODY + HIV P24 AG PANEL(Performed 01/01/2024) Performed for Diarrhea, unspecified type * C-REACTIVE PROTEIN(Performed 01/01/2024) Performed for Diarrhea, unspecified type * IGA BLOOD(Performed 01/01/2024) Performed for Diarrhea, unspecified type * TISSUE TRANSGLUTAMINASE AB IGA(Performed 01/01/2024) Performed for Diarrhea, unspecified type * TSH REFLEX FREE T4(Performed 01/01/2024) Performed for Diarrhea, unspecified type * HCG URINE QUAL POCT NOTIFICATION(Performed 12/10/2019) * XR LUMBAR SPINE 2 OR 3VW(Performed 12/10/2019) Performed for Bilateral low back pain, unspecified chronicity, unspecified whether sciatica present * HCG URINE QUALITATIVE - POCT (IP) INTERFACED(Performed 12/10/2019) * DIFFERENTIAL MANUAL(Performed 12/10/2019) * LIPASE BLOOD(Performed 12/10/2019) * COMPREHENSIVE METABOLIC PANEL(Performed 12/10/2019) * CBC W AUTO DIFFERENTIAL(Performed 12/10/2019) * URINALYSIS W/MICROSCOPIC NO CULTURE(Performed 12/10/2019) * TRICHOMONAS RAPID TEST(Performed 12/10/2019) * CHLAMYDIA + GC AMPLIFIED PROBE(Performed 12/10/2019) * IMAGING/RADIOLOGY/XRAY RESULTS ORDER(Performed 05/04/2019) * LAB RESULTS ORDER(Performed 05/04/2019) * IMAGING/RADIOLOGY/XRAY RESULTS ORDER(Performed 04/28/2019) * LAB RESULTS ORDER(Performed 04/28/2019) * LAB RESULTS ORDER(Performed 01/10/2019) * LAB RESULTS ORDER(Performed 01/10/2019) * LAB RESULTS ORDER(Performed 11/25/2018) * LIPID PROFILE+GLUCOSE - POINT OF CARE (AMB)(Performed 02/20/2018) Performed for Screening cholesterol level * LAB RESULTS ORDER(Performed 02/10/2017) * EKG 15-LEAD(Performed 02/08/2017) * HCG URINE QUALITATIVE(Performed 02/08/2017) * EKG 15-LEAD(Performed 02/08/2017) * SALICYLATE LEVEL BLOOD(Performed 02/08/2017) * ACETAMINOPHEN LEVEL(Performed 02/08/2017) * INFLUENZA A+B - POINT OF CARE (AMB)(Performed 10/01/2015) Performed for Acute URI, Fever, unspecified fever cause * XR ANKLE RIGHT 3VW OR MORE(Performed 06/29/2015) * XR WRIST LEFT 2VW(Performed 03/04/2015) * XR WRIST RIGHT 3VW OR MORE(Performed 02/06/2015) Performed for Swelling of right hand, Right wrist pain * XR CHEST 2VW(Performed 11/13/2014) Performed for Fever presenting with conditions classified elsewhere * XR FINGER(S) RIGHT(Performed 05/02/2014) * STREP A SCREEN - POINT OF CARE (AMB)(Performed 03/31/2014) Performed for Sore throat * URINALYSIS - POINT OF CARE(Performed 02/07/2014) Performed for Enuresis * STREP A SCREEN - POINT OF CARE (AMB)(Performed 02/07/2014) Performed for Sore throat * URINALYSIS - POINT OF CARE(Performed 01/07/2014) Performed for Vaginal discharge * EEG(Performed 12/25/2013) Performed for Seizure (HCC) * MRI BRAIN WWO CONTRAST(Performed 12/20/2013) Performed for Aggression * STREP A SCREEN - POINT OF CARE (AMB)(Performed 10/16/2013) Performed for Pharyngitis, acute, Exposure to strep throat * ALLERGEN FOOD COMMON ADULT PROFILE(Performed 09/17/2013) Performed for Anaphylaxis * ALLERGEN INDIVIDUAL IGE(Performed 09/17/2013) Performed for Anaphylaxis * TRYPTASE(Performed 09/17/2013) Performed for Anaphylaxis * ALLERGEN LATEX IGE(Performed 09/17/2013) Performed for Anaphylaxis * BEDSIDE SPIROMETRY PRE AND POST BRONCHODILATOR(Performed 09/17/2013) * XR LUMBAR SPINE 2 OR 3VW(Performed 09/04/2013) Performed for Low back pain * IP CONSULT TO PEDIATRIC ALLERGY(Performed 06/09/2013) * CULTURE STREP GROUP A(Performed 12/27/2012) Performed for Pharyngitis * STREP A SCREEN - POINT OF CARE (AMB)(Performed 12/27/2012) Performed for Pharyngitis * URINALYSIS - POINT OF CARE(Performed 11/12/2012) Performed for Abdominal Pain * XR ABDOMEN KUB(Performed 11/12/2012) Performed for Abdominal Pain * XR HAND RIGHT 3VW OR MORE(Performed 04/27/2012) * CULTURE STREP GROUP A(Performed 04/09/2012) Performed for Acute pharyngitis * STREP A SCREEN - POINT OF CARE (AMB)(Performed 04/09/2012) Performed for Acute pharyngitis * URINALYSIS - POINT OF CARE(Performed 09/16/2011) Performed for Abdominal pain, unspecified site, Anxiety * XR ABDOMEN KUB(Performed 09/16/2011) Performed for Abdominal pain, unspecified site * INFLUENZA A+B ANTIGEN RAPID(Performed 08/16/2011) * XR CHEST 2VW(Performed 08/15/2011) * XR KNEE LEFT 2VW OR LESS(Performed 10/07/2010) Performed for Knee pain, left * LAB MISC TEST(Performed 03/09/2010) * LAB MISC TEST(Performed 01/20/2010) Performed for Allergy, Unspecified Results * NJ INJ TRIGGER POINT, 1-2 MUSCLES (08/06/2024 1:57 PM TOLL SERVICE OBSERVER) Narrative Clark Griggs MD - 08/06/2024 1:57 PM TOLL SERVICE OBSERVER Clark Griggs MD 08/07/2024 10:40 AM U/S-GUIDED [...] Griggs MD PROCEDURE/MINOR BUSTAMANTE RGICAL ORDERABLES * NJ US GUIDED NEEDLE PLACEMENT (08/06/2024 1:56 PM TOLL SERVICE OBSERVER) Narrative Clark Griggs MD - 08/06/2024 1:56 PM TOLL SERVICE OBSERVER Clark Griggs MD 08/06/2024 1:56 PM (No note.) Clark Griggs MD PROCEDURE/MINOR BUSTAMANTE RGICAL ORDERABLES * NM Gastric Emptying (07/11/2024 1:03 PM TOLL SERVICE OBSERVER) Anatomical Region Laterality Modality Abdomen Nuclear Medicine 07/11/2024 9:14 AM TOLL SERVICE OBSERVER Impressions 07/11/2024 3:36 PM TOLL SERVICE OBSERVER Impression: Normal gastric emptying based on 5% retention at 4 hours after ingestion of meal. > Dictated by Aide Steiner ([employer]) 07/11/2024 9:14 AM IRonn DO have personally reviewed and interpreted this examination/study. > Interpreting Provider: Ronn Chaudhary DO on 07/11/2024 3:36 PM Narrative 07/11/2024 3:36 PM TOLL SERVICE OBSERVER PROCEDURE: NM GASTRIC EMPTYING DATE/TIME OF EXAM: [...] meal is labeled with 550 uCi of [id number] sulfur colloid. Findings: After ingestion of solid [...] meal is labeled with 550 uCi of [id number] sulfur colloid. Findings: After ingestion of solid [...] ingestionof meal. > Dictated by Aide Steiner ([employer]) 07/11/2024 9:14AM IRonn DO have personally reviewed and interpreted this examination/study. > Interpreting Provider: Ronn Chaudhary DO on 07/11/2024 3:36 PM Odell Wise DO NM ORDERABLES * ENDOSCOPY, COLON, DIAGNOSTIC (01/25/2024 8:20 AM CDT) Report Endoscopy POC Endoscopy Department Report _ Patient Name: Bina Holbrook Procedure Date: 01/25/2024 8:20 AM Date of : 2000 Classification: Outpatient Gender: Female Ethnicity: Not or Race: White _ Providers: Marin Hurley Referring MD: Bessy Santos (Referring MD) Procedure: Colonoscopy Indications: Chronic diarrhea Medications: Propofol per Anesthesia, See the Anesthesia note for documentation of the administered medications Description of Procedure: Pre-Anesthesia Assessment: - Pre-procedure physical examination revealed no contraindications to sedation. - After reviewing the risks and benefits, the patient was deemed in satisfactory condition to undergo the procedure. - The anesthesia plan was to use monitored anesthesia care (MAC). - Immediately prior to administration of medications, the patient was re-assessed for adequacy to receive sedatives. After I obtained informed consent, the scope was passed under direct vision. Throughout the procedure, the patient's blood pressure, pulse, and oxygen saturations were monitored continuously. The [id number] was introduced through the anus and advanced to 10 cm into the ileum. The colonoscopy was performed without difficulty. The patient tolerated the procedure well. The quality of the bowel preparation was excellent. The terminal ileum was photographed. Findings: The perianal and digital rectal examinations were normal. The entire examined colon appeared normal. Biopsies for histology were taken with a cold forceps from the entire colon for evaluation of microscopic colitis. The terminal ileum appeared normal. Estimated Blood Loss: Estimated blood loss: none. Complications: No immediate complications. Impression: - The entire examined colon is normal. Biopsied. - The examined portion of the ileum was normal. Recommendation: - Patient has a contact number available for emergencies. The signs and symptoms of potential delayed complications were discussed with the patient. Return to normal activities tomorrow. Written discharge instructions were provided to the patient. - Discharge patient to home (ambulatory). - Resume previous diet. - Continue present medications. - Await pathology results. - Return to GI clinic. - The findings and recommendations were discussed with the patient. Attending Participation: I personally performed the entire procedure. Procedure Code(s): --- Professional --- 60774, Colonoscopy, flexible; with biopsy, single or multiple Diagnosis Code(s): --- Professional --- K52.9, Noninfective gastroenteritis and colitis, unspecified CPT copyright 2021 [employer]. All rights reserved. The codes documented in this report are preliminary and upon medical billing coder review may be revised to meet current compliance requirements. Marin Hurley, 01/25/2024 8:43:37 AM Note Initiated On: 01/25/2024 8:20 AM Number of Addenda: [phone] [id number] [facility] 01/25/2024 8:20 AM CDT Marin Hurley MD GI PROCEDURE ORDERAB LES [facility] * PATHOLOGY TISSUE (01/25/2024 8:12 AM CDT) Case Report Surgical Pathology Report Case: [id number] Authorizing Provider: Marin Hurley MD Collected: 01/25/2024 08:12 AM Ordering Location: [facility] Received: 01/25/2024 11:16 AM Pathologist: Fly Lopez MD Specimens: A) - Small Bowel, Small Bowel Biopsies R/O Celiac B) - Gastric, Gastric Biopsies R/O H. Pylori C) - Colon, Random Colon Biopsies 01/26/2024 12:58 PM CDT [facility] Final Diagnosis Small bowel, biopsies (A): - No histopathologic abnormality - No villous blunting or increased intraepithelial lymphocytes Stomach, biopsy (B): - Mild chronic gastritis - No active inflammation or H. pylori organisms (H&E examination) Colon, random biopsies (C): - No histopathologic abnormality - No lymphocytic or collagenous colitis 01/26/2024 12:58 PM CDT [facility] Microscopic Description and Comment Microscopic examination substantiates the final diagnosis. 01/26/2024 12:58 PM CDT [facility] Clinical History The patient is a 24 year-old female with history of Diarrhea, Dyspepsia, Nausea with vomiting, Weight loss 01/26/2024 12:58 PM CDT [facility] Gross Description The requisition and specimen(s) are identified with the patient's name, Bina Holbrook. Received in formalin, specimen A , are 4 diaz-white soft tissue fragments aggregating to 0.8 x 0.4 x 0.2 cm and ranging from 0.2 to 0.4 cm. Submitted in toto in A1. Received in formalin, specimen B are two diaz-white segments of soft tissue measuring 0.5 x 0.2 x 0.1 and 0.9 x 0.2 x 0.1 cm. Submitted in toto in B1. Received in formalin, specimen C are 5 diaz-white soft tissue fragments aggregating to 0.7 x 0.5 x 0.2 cm and ranging from 0.1 to 0.3 cm. Submitted in toto in C1. MSL 01/26/2024 12:58 PM CDT [facility] Pathologist Location at [facility] 01/26/2024 12:58 PM CDT [facility] Disclaimer The performance characteristics of all immunohistochemical and indirect immunofluorescence stains (if any) cited in this report were determined by the Histopathology Laboratory of [facility]. Some of these tests were developed by our own laboratory and have not been cleared or approved by the US Food and Drug Administration. The FDA does not require this test to go through premarket FDA review. These tests are used for clinical purposes. They should not be regarded as investigational or for research. This laboratory is certified under the Clinical Laboratory Improvement Amendments (CLIA) as qualified to perform high complexity clinical laboratory testing. This case has been personally reviewed and interpreted by the attending (teaching) pathologist. 01/26/2024 12:58 PM CDT [facility] Embedded Images 01/26/2024 12:58 PM CDT [facility] Resection without Tumor SMALL BOWEL RESECTION SPECIMEN / Unknown 01/25/2024 8:12 AM CDT 01/25/2024 11:16 AM CDT Biopsy, NOS GASTRIC CONTENTS SPECIMEN / Unknown 01/25/2024 8:12 AM CDT 01/25/2024 11:16 AM CDT Biopsy, NOS COLON PART / Unknown 01/25/2024 8:22 AM CDT 01/25/2024 11:16 AM CDT Marin Hurley MD LAB - PATHOLOGY/CYTO LOGY ORDERABLES [facility] [address] [place], [place] [address] [phone] * EGD (01/25/2024 8:09 AM CDT) Report Endoscopy POC Endoscopy Department Report _ Patient Name: Bina Holbrook Procedure Date: 01/25/2024 8:09 AM Date of : 2000 Classification: Outpatient Gender: Female Ethnicity: Not or Race: White _ Providers: Marin Hurley Referring MD: Bessy Santos (Referring MD) Procedure: Upper GI endoscopy Indications: Diarrhea, Dyspepsia, Nausea with vomiting, Weight loss Medications: Propofol per Anesthesia, See the Anesthesia note for documentation of the administered medications Description of Procedure: Pre-Anesthesia Assessment: - Pre-procedure physical examination revealed no contraindications to sedation. - After reviewing the risks and benefits, the patient was deemed in satisfactory condition to undergo the procedure. - The anesthesia plan was to use monitored anesthesia care (MAC). - Immediately prior to administration of medications, the patient was re-assessed for adequacy to receive sedatives. After obtaining informed consent, the endoscope was passed under direct vision. Throughout the procedure, the patient's blood pressure, pulse, and oxygen saturations were monitored continuously. The Endoscope was introduced through the mouth, and advanced to the second part of duodenum. The upper GI endoscopy was accomplished without difficulty. The patient tolerated the procedure well. Findings: The Z-line was regular and was found 37 cm from the incisors. Normal mucosa was found in the entire examined stomach. Biopsies were taken with a cold forceps for Helicobacter pylori testing. Normal mucosa was found in the entire duodenum. Biopsies for histology were taken with a cold forceps for evaluation of celiac disease. Estimated Blood Loss: Estimated blood loss: none. Complications: No immediate complications. Impression: - Z-line regular, 37 cm from the incisors. - Normal mucosa was found in the entire stomach. Biopsied. - Normal mucosa was found in the entire examined duodenum. Biopsied. Recommendation: - Await pathology results. - Perform a colonoscopy today. Attending Participation: I personally performed the entire procedure. Procedure Code(s): --- Professional --- 51064, Esophagogastroduod enoscopy, flexible, transoral; with biopsy, single or multiple Diagnosis Code(s): --- Professional --- R19.7, Diarrhea, unspecified R10.13, Epigastric pain R11.2, Nausea with vomiting, unspecified R63.4, Abnormal weight loss CPT copyright 2021 [employer]. All rights reserved. The codes documented in this report are preliminary and upon medical billing coder review may be revised to meet current compliance requirements. Marin Hurley, 01/25/2024 8:39:20 AM Note Initiated On: 01/25/2024 8:09 AM Number of Addenda: [id number] [place] [address] 01/25/2024 8:09 AM CDT Marin Hurley MD [facility] PROCEDURE [facility] * HCG URINE QUALITATIVE - POCT (IP) INTERFACED (01/25/2024 7:18 AM CDT) Only the most recent of2 resultswithin the time period is included. HCG Qual Urine Negative Negative 01/25/2024 7:25 AM CDT [facility] Urine URINE / Unknown 01/25/2024 7 :18 AM CDT 01/25/2024 7:25 AM CDT Marin Hurley MD LAB - POINT OF CARE ORDERABLES Performing Organization Address City/[facility]/ZIP Co de Phone Number [facility] [address] [place] [id number], [place] [phone] * HCG URINE QUAL POCT NOTIFICATION (01/25/2024 7:06 AM CDT) Only the most recent of2 resultswithin the time period is included. Comment Notification Label Only - See Separate Report 01/25/2024 8:30 AM CDT [facility] Urine URINE / Unknown 01/25/2024 7 :06 AM CDT 01/25/2024 7:06 AM CDT Marin Hurley MD LAB - URINALYSIS ORD ERABLES Performing Organization Address City/[facility]/ZIP Co de Phone Number [address] [address], [place] [phone] * METANEPHRINES URINE FRACTIONATED (01/04/2024 12:11 PM CDT) Metanephrine 24 Hour Urine 99 36 - 229 ug/d 01/07/2024 5:54 AM CDT [facility] ([facility]) Collection Time Hours 24 hr 01/07/2024 5:54 AM CDT [facility] ([facility]) Comment: Per 24h calculations are provided to aid interpretation for collections with a duration of 24 hours and an average daily urine volume. For specimens with notable deviations in collection time or volume, ratios of analytes to a corresponding urine creatinine concentration may assist in result interpretation. Volume 24 Hour Urine 3000 mL 01/07/2024 5:54 AM CDT [facility] ([facility]) Metanephrine Urine 33 ug/L 2023 5:54 AM CDT [facility] ([facility]) Normetanephrine Urine 52 ug/L 01/07/2024 5:54 AM CDT [facility] ([facility]) Metanephrine Urine Ratio to CREAM DUMPER 67 0 - 300 ug/g CREAM DUMPER 01/07/2024 5:54 AM CDT [facility] ([facility]) Normetanephrine 24 Hour Urine 156 95 - 650 ug/d 01/07/2024 5:54 AM CDT [facility] ([facility]) Normetanephrine ug/g CREAM DUMPER 106 0 - 400 ug/g CREAM DUMPER 01/07/2024 5:54 AM CDT [facility] ([facility]) Interpretation Metanephrine Urine See Note 01/07/2024 5:54 AM CDT [facility] ([facility]) Comment: TEST INFORMATION: Metanephrines Fractionated, Urine Smaller increases in metanephrine and/or normetanephrine concentrations (less than two times the upper reference limit) usually are the result of physiological stimuli, drugs, or improper specimen collection. Essential hypertension is often associated with slight elevations (metanephrine less than 400 ug/d and normetanephrine less than 900 ug/d). Elevated concentrations may be due to intense physical activity, life-threatening illness, and drug interferences. Significant elevation of one or both metanephrines (three or more times the upper reference limit) is associated with an increased probability of a neuroendocrine tumor. Access complete set of age- and/or gender-specific reference intervals for this test in the [employer] Laboratory Test Directory ([employer]). This test was developed and its performance characteristics determined by [employer]. It has not been cleared or approved by the US Food and Drug Administration. This test was performed in a CLIA certified laboratory and is intended for clinical purposes. Creatinine Urine 49 mg/dL 01/07/20 24 5:54 AM CDT [facility] [employer] ([facility]) Creatinine 24 Hour Urine 1470 700 - 1600 mg/d 01/07/2024 5:54 AM CDT [facility] [employer] [facility]) Comment: Performed By: [facility] [address] [place] [address] Tuber Operator: Silvestre Rose MD, PhD CLIA Number: [id number] Urine URINE SPECIMEN COLLECTION, 24 HOURS / Unknown Timed Urine Volume Measurement / Unknown 01/04/2024 12:11 PM CDT 01/04/2024 12:40 PM CDT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 Najera MD LAB - CHEMISTRY ORD ERABLES Performing Organization Address [facility] Co de Phone Number [email or web address] [address] [place] [address] * ALLERGEN LATEX IGE (09/17/2013 10:34 AM TOLL SERVICE OBSERVER) Allergen Latex <0.10 <=0.34 kU/L 09/18/2013 3:13 PM TOLL SERVICE OBSERVER [facility] Blood specimen (specimen) BLOOD SPECIMEN / Unknown Lab Venipuncture / Unknown 09/17/2013 10:34 AM TOLL SERVICE OBSERVER 09/17/2013 11:01 AM TOLL SERVICE OBSERVER Irma Najera MD LAB - CHEMISTRY ORD ERABLES Performing Organization Address [facility] Co de Phone Number [email or web address] [address] [place] [address] * TRYPTASE (09/17/2013 10:34 AM TOLL SERVICE OBSERVER) Tryptase 2.3 <=10.9 ug/L 09/18/2013 10:56 PM TOLL SERVICE OBSERVER [facility] [employer] Blood specimen (specimen) BLOOD SPECIMEN / Unknown Lab Venipuncture / Unknown 09/17/2013 10:34 AM TOLL SERVICE OBSERVER 09/17/2013 11:01 AM TOLL SERVICE OBSERVER Irma Najera MD LAB - CHEMISTRY ORD ERABLES Performing Organization Address [facility] de Phone Number [employer] [address] [place] [address] * IP CONSULT TO PEDIATRIC ALLERGY (06/09/2013 12:06 PM TOLL SERVICE OBSERVER) Narrative Ihsan Fine MD - 06/09/2013 12:06 PM TOLL SERVICE OBSERVER Ihsan Fine MD 06/09/2013 12:06 PM Allergy/Immunology Fellow Consult Note Date of Admission: 06/09/2013 Date of Consult:06/09/2013 Physician Requesting Consult: Dr. Nhi Orantes Reason for Consult: Anaplylaxis Chief Complaint/History of Present Illness: Bina is a 13yo F with history of asthma and allergy to ibuprofen who presents with anaphylactic reaction characterized by facial swelling, hives and wheeze. She was in her usual state of health going to a cheerleading friend's house last night. Mom dropped her off at about 6pm. They used a lot of new hair products (sprays/gels) and wore their uniforms the whole time (and then slept in them). She had pepperoni pizza, chocolate chip and M&M cookies. Dad subsequently picked her up around 9 or 9:30. She work up at 12:30AM with periorbital and facial edema and wheeze. She went to an OSH ER, where she was treated with Benadryl, Epinephrine, solumedrol and famotidine. About 30min after meds, she developed urticaria but other symptoms improved. Rash resolved after a subsequent dose of Benadryl. Wheezing noted on exam. She was transferred to for further evaluation and management. No drooling, hoarseness, stridor, diarrhea or abdominal pain. No ingestion of ibuprofen. No known food allergies - she tolerates dairy, peanut, tree nut, egg, finned fish and shellfish. She does eat meat. No prior episode of a similar episode, except with ibuprofen one year ago when she developed eye swelling and decreased saturations about 45min after taking ibuprofen . She now strictly avoids NSAIDs and ibuprofen - only takes acetaminophen. Of note, her cheerleading top is new. This is the third time she has worn it. After the first time where she wore it several hours, she developed hives on her forearms (per mom the exact same rash as last night ). No rash after the second time she wore it, but only had it on a couple of hours. Bina does have a diagnosis of asthma. Her asthma symptoms increased in the Fall after starting school and she required multiple trips to urgent care and ER. No response to initial asthma management in urgent care, but mom says she did improve after she was seen the following night in an ER and her steroids were increased. Mom notes stridor that accompanies asthma symptoms. +Anxiety for which she is on Zoloft. In the Fall she was started on Flovent, but has not been taking it over the last few weeks. She was also started on Flonase and a prescription allergy medicine to take at [facility] that she is no longer taking. Allergy therapy started with the idea that allergic rhinitis may be worsening asthma symptoms per mom. She does have rhinorrhea, but no sneezing, facial itch or watery/itchy eyes. No history of eczema. Past Medical History: Past Medical History Diagnosis Date Routine infant or child health check 11/04/05 Cellulitis and abscess of finger, unspecified 06/09/08 Cellulitis and abscess of toe, unspecified 03/10/09,03/12/09,04/01/09 Onychia and paronychia of toe 03/10/09,03/12/09,04/01/06,04/03/09 Polydipsia 03/10/09 Molluscum contagiosum 03/10/09 INSECT BITE 01/19/07 Allergic rhinitis, cause unspecified AR (allergic rhinitis) 11/04/05,05/09/06,03/29/07 Eczema Exercise-induced asthma 02/07/2012 Anaphylaxis Ibuprofen, and Hair Products Outpatient Medications: Prescriptions prior to admission Medication Status Sig Dispense Refill Melatonin 10 MG CAPS Active Take by mouth. albuterol HFA (PROVENTIL;VENTOLIN;PROAIR) 108 (90 BASE) MCG/ACT inhaler Active Inhale 2 Puffs by mouth every 6 hours as needed. fluticasone hfa 110 (FLOVENT HFA) 110 MCG/ACT inhaler Active Inhale 2 Puffs by mouth 2 times daily. sertraline (ZOLOFT) 50 MG tablet Active Take 75 mg by mouth once daily. fluticasone hfa 110 (FLOVENT HFA) 110 MCG/ACT inhaler Active Inhale 2 Puffs by mouth 2 times daily. 1 Inhaler 5 PROAIR HFA 108 (90 BASE) MCG/ACT inhaler Active INHALE TWO PUFFS BY MOUTH EVERY 4 HOURS NEEDED FOR WHEEZING OR COUGH. 8.5 Inhaler 0 PROAIR HFA 108 (90 BASE) MCG/ACT inhaler Active INHALE TWO PUFFS BY MOUTH EVERY 4 HOURS NEEDED FOR WHEEZING 8.5 Inhaler 2 Acetaminophen (TYLENOL PO) Active EPINEPHrine (EPIPEN JR 2-VITALIY) 0.15 MG/0.3ML (1:2000) auto-injector Active Inject 0.3 mL into muscle once. 1 2 Allergies: Allergies Allergen Reactions Ibuprofen Anaphylaxis Family History: Asthma Dad - severe as child AR Dad AD Urticaria Food Allergy SLE RA Thyroid Leukemia Lymphoma IDS Other Immunization status: UTD Social History: Mom and dad over the last few months - mostly lives with mom. Both homes with central heat and air. +Basements. Inside cat and Dad's and outside cat at moms. No known water or mold damage at either home. Bina gets mostly good grades. She is being treated with Zoloft for anxiety. Per mom, she was previously diagnosed with ADHD and was treated for that, but then developed behavioral problems with not wanting to go go school. Physician discontinued ADHD meds and transitioned to Zoloft which she has done much better on. Review of Systems: A complete review of systems was obtained and positive per HPI. Exam: Vitals: 06/09/13 0430 06/09/13 0445 06/09/13 0525 06/09/13 0825 BP: 104/51 105/48 110/58 Pulse: 90 89 90 100 Temp: 98 F 97.8 F 98.2 F Resp: 17 19 20 20 Weight: SpO2: 98% 98% 94% Gen: NAD Eyes: PERRL, EOMI, conjunctiva clear B, +periorbital edema ENT: TM-clear B, nares - patent with noninflammed nasal mucosa, OP-clear. CV: RRR s m Resp: CTAB, no wheezes ABD: soft, NTND, no HSM Extr: no c/c/e Skin: no lesions/rashes Lymphatic: Palpation of nodes in neck show no LAD Psych: Patient co operative, happy playful during exam. Assessment and Recommendations: 13yo F with asthma, allergy to ibuprofen who presents with anaphylaxis. Trigger is unclear, but mom notes hives with prior exposure to cheerleading uniform and there was exposure to multiple hair products. No identifiable food trigger. However, alpha gal can lead to anaphylactic reaction several hours after meat ingestion (+pepperoni pizza for dinner). Unfortunately, IgE testing is not reliable in the acute setting after a suspected type I hypersensitivity reaction. Plan: - Follow-up in Allergy/Immunology Clinic in one month with Alejandrina Long MD. At that time will plan for percutaneous skin testing and/or Immunocaps, in addition to possibly including alpha gal and patch testing. - EpiPen twin pack (x2 - one for home and one for school) with EpiPen teaching - Prednisone/Orapred 1mg/mg BID for today and tomorrow - Oral anthistamines prn - Restart Flovent - Asthma Action Plan (will send in mail tomorrow) Patient discussed with Dr. Fine who agrees with above plan. Alejandrina Long MD 06/09/2013 11:19 AM ALLERGY & IMMUNOLOGY ATTENDING NOTE Patient seen and examined with resident. I have reviewed the Allergy & Immunology fellow's history, physical examination, assessment and treatment plan and evaluation. I confirm/revise history, examination, assessment and plan. In addition I note: Present Illness Bina Holbrook is a 13 y.o. female who presents for evaluation of Anaphylaxis, etiology unclear Possible foods, pizza, chochale, peanut Asthma, mild persistent AR Sensitive to ibuprofen MEDICATIONS Current Facility-Administered Medications Medication Status Dose Route Frequency Provider Last Rate Last Dose 0.9% NaCl injection 2 mL Active 2 mL Intracatheter PRN Ambreen Osman MD famotidine (PEPCID) pediatric IV 20 mg Completed 20 mg Intravenous Once Ambreen Osman MD 20 mg at 06/09/13 0509 sertraline (ZOLOFT) tablet 75 mg Active 75 mg Oral AT BEDTIME Tejinder Smith MD influenza virus vacc (FLUARIX; FLUZONE) injection 0.5 mL Completed 0.5 mL Intramuscular Immunization - Once Odell Orantes MD 0.5 mL at 06/09/13 1131 diphenhydrAMINE (BENADRYL) tablet 25 mg Active 25 mg Oral q8h Tejinder Smith MD 25 mg at 06/09/13 1010 EPINEPHrine 1 MG/ML (1:1000) injection 0.3 mg Active 0.3 mg Intravenous Once PRN Tejinder Smith MD famotidine (PEPCID) tablet 20 mg Active 20 mg Oral QDAY Tejinder Smith MD predniSONE (DELTASONE) tablet 60 mg Active 60 mg Oral QDAY WITH BREAKFAST Tejinder Smith MD 60 mg at 06/09/13 0831 PAST MEDICAL HISTORY Allergies Allergen Reactions Ibuprofen Anaphylaxis Surgeries Past Surgical History Procedure Date Negative surgical history Physical Examination BP 108/56 Pulse 98 Temp 98 F Resp 20 Wt 32.4 kg (71 lb 6.9 oz) BMI 14.69 kg/m2 General Assessment: alert, well appearing, and in no distress Pulmonary Function Studies: Impressions Anaphylaxis, etiology unclear Possible foods, pizza, chochale, peanut Asthma, mild persistent AR Sensitive to ibuprofen Recommendations Anapylaxis action plan Asthma action plan EpiPen Sr Prednisone x2 days FU A&I for allergy testing Flovent 110 2x2 Ihsan Fine MD 06/09/201312:00 PM Please see resident note for further details Procedure Note Ihsan Fine MD - 06/09/2013 11:19 AM CST Allergy/Immunology Fellow Consult Note Date of Admission: 06/09/2013 Date of Consult:06/09/2013 Physician Requesting Consult: Dr. Nih Orantes Reason for Consult: Anaplylaxis Chief Complaint/History of Present Illness: Bina is a 13yo F with history of asthma and allergy to ibuprofen whopresents with anaphylactic reaction characterized by facial swelling,hives and wheeze. She was in her usual state of health going to [employer] friend's house last night. Mom dropped her off at about 6pm.They used a lot of new hair products (sprays/gels) and wore their uniformsthe whole time (and then slept in them). She had pepperoni pizza,chocolate chip and M&M cookies. Dad subsequently picked her up around 9 or9:30. She work up at 12:30AM with periorbital and facial edema and wheeze.She went to an OSH ER, where she was treated with Benadryl, Epinephrine,solumedrol and famotidine. About 30min after meds, she developed urticariabut other symptoms improved. Rash resolved after a subsequent dose ofBenadryl. Wheezing noted on exam. She was transferred to for furtherevaluation and management. No drooling, hoarseness, stridor, diarrhea orabdominal pain. No ingestion of ibuprofen. No known food allergies - shetolerates dairy, peanut, tree nut, egg, finned fish and shellfish. Shedoes eat meat. No prior episode of a similar episode, except withibuprofen one year ago when she developed eye swelling and decreasedsaturations about 45min after taking ibuprofen . She now strictly avoidsNSAIDs and ibuprofen - only takes acetaminophen. Of note, her cheerleading top is new. This is the third time she has wornit. After the first time where she wore it several hours, she developedhives on her forearms (per mom the exact same rash as last night ). Norash after the second time she wore it, but only had it on a couple ofhours. Bina does have a diagnosis of asthma. Her asthma symptoms increased inthe Fall after starting school and she required multiple trips to urgentcare and ER. No response to initial asthma management in urgent care, butlicha says she did improve after she was seen the following night in an ERand her steroids were increased. Mom notes stridor that accompanies asthmasymptoms. +Anxiety for which she is on Zoloft. In the Fall she was startedon Flovent, but has not been taking it over the last few weeks. She wasalso started on Flonase and a prescription allergy medicine to take atbeditme that she is no longer taking. Allergy therapy started with theidea that allergic rhinitis may be worsening asthma symptoms per mom. Shedoes have rhinorrhea, but no sneezing, facial itch or watery/itchy eyes.No history of eczema. Past Medical History: Past Medical History Diagnosis Date Routine infant or child health check 11/04/05 Cellulitis and abscess of finger, unspecified 06/09/08 Cellulitis and abscess of toe, unspecified 03/10/09,03/12/09,04/01/09 Onychia and paronychia of toe 03/10/09,03/12/09,04/01/06,04/03/09 Polydipsia 03/10/09 Molluscum contagiosum 03/10/09 INSECT BITE 01/19/07 Allergic rhinitis, cause unspecified AR (allergic rhinitis) 11/04/05,05/09/06,03/29/07 Eczema Exercise-induced asthma 02/07/2012 Anaphylaxis Ibuprofen, and Hair Products Outpatient Medications: Prescriptions prior to admission Medication Status Sig Dispense Refill Melatonin 10 MG CAPS Active Take by mouth. albuterol HFA (PROVENTIL;VENTOLIN;PROAIR) 108 (90 BASE) MCG/ACT inhalerActive Inhale 2 Puffs by mouth every 6 hours as needed. fluticasone hfa 110 (FLOVENT HFA) 110 MCG/ACT inhaler Active Inhale 2Puffs by mouth 2 times daily. sertraline (ZOLOFT) 50 MG tablet Active Take 75 mg by mouth once daily. fluticasone hfa 110 (FLOVENT HFA) 110 MCG/ACT inhaler Active Inhale 2Puffs by mouth 2 times daily. 1 Inhaler 5 PROAIR HFA 108 (90 BASE) MCG/ACT inhaler Active INHALE TWO PUFFS BYMOUTH EVERY 4 HOURS NEEDED FOR WHEEZING OR COUGH. 8.5 Inhaler 0 PROAIR HFA 108 (90 BASE) MCG/ACT inhaler Active INHALE TWO PUFFS BYMOUTH EVERY 4 HOURS NEEDED FOR WHEEZING 8.5 Inhaler 2 Acetaminophen (TYLENOL PO) Active EPINEPHrine (EPIPEN JR 2-VITALIY) 0.15 MG/0.3ML (1:2000) auto-injectorActive Inject 0.3 mL into muscle once. 1 2 Allergies: Allergies Allergen Reactions Ibuprofen Anaphylaxis Family History: Asthma Dad - severe as child AR Dad AD Urticaria Food Allergy SLE RA Thyroid Leukemia Lymphoma IDS Other Immunization status: UTD Social History: Mom and dad over the last few months - mostlylives with mom. Both homes with central heat and air. +Basements. Insidecat and Dad's and outside cat at moms. No known water or mold damage ateither home. Bina gets mostly good grades. She is being treated with Zoloft foranxiety. Per mom, she was previously diagnosed with ADHD and was treatedfor that, but then developed behavioral problems with not wanting to go goschool. Physician discontinued ADHD meds and transitioned to Zoloft whichshe has done much better on. Review of Systems: A complete review of systems was obtained and positive per HPI. Exam: Vitals: 06/09/13 0430 06/09/13 0445 06/09/13 0525 06/09/13 0825 BP: 104/51 105/48 110/58 Pulse: 90 89 90 100 Temp: 98 F 97.8 F 98.2 F Resp: 17 19 20 20 Weight: SpO2: 98% 98% 94% Gen: NAD Eyes: PERRL, EOMI, conjunctiva clear B, +periorbital edema ENT: TM-clear B, nares - patent with noninflammed nasal mucosa,OP-clear. CV: RRR s m Resp: CTAB, no wheezes ABD: soft, NTND, no HSM Extr: no c/c/e Skin: no lesions/rashes Lymphatic: Palpation of nodes in neck show no LAD Psych: Patient co operative, happy playful during exam. Assessment and Recommendations: 13yo F with asthma, allergy to ibuprofenwho presents with anaphylaxis. Trigger is unclear, but mom notes hiveswith prior exposure to cheerleading uniform and there was exposure tomultiple hair products. No identifiable food trigger. However, alpha galcan lead to anaphylactic reaction several hours after meat ingestion(+pepperoni pizza for dinner). Unfortunately, IgE testing is not reliablein the acute setting after a suspected type I hypersensitivity reaction. Plan: - Follow-up in Allergy/Immunology Clinic in one month with Alejandrina Long MD. At that time will plan for percutaneous skin testing and/orImmunocaps, in addition to possibly including alpha gal and patch testing. - EpiPen twin pack (x2 - one for home and one for school) with EpiPenteaching - Prednisone/Orapred 1mg/mg BID for today and tomorrow - Oral anthistamines prn - Restart Flovent - Asthma Action Plan (will send in mail tomorrow) Patient discussed with Dr. Fine who agrees with above plan. Alejandrina Long MD 06/09/2013 11:19 AM ALLERGY & IMMUNOLOGY ATTENDING NOTE Patient seen and examined with resident. I have reviewed the Allergy &Immunology fellow's history, physical examination, assessment andtreatment plan and evaluation. I confirm/revise history, examination,assessment and plan. In addition I note: Present Illness Bina Holbrook is a 13 y.o. female who presents for evaluation ofAnaphylaxis, etiology unclear Possible foods, pizza, chochale, peanut Asthma, mild persistent AR Sensitive to ibuprofen MEDICATIONS Current Facility-Administered Medications Medication Status Dose Route Frequency Provider Last Rate Last Dose 0.9% NaCl injection 2 mL Active 2 mL Intracatheter PRN Ambreen Adamson MD famotidine (PEPCID) pediatric IV 20 mg Completed 20 mg Intravenous OnceAmbreen Osman MD 20 mg at 06/09/13 0509 sertraline (ZOLOFT) tablet 75 mg Active 75 mg Oral AT BEDTIME MD Piero influenza virus vacc (FLUARIX; FLUZONE) injection 0.5 mL Completed 0.5mL Intramuscular Immunization - Once Odell Orantes MD 0.5 mL at108/09/12 1131 diphenhydrAMINE (BENADRYL) tablet 25 mg Active 25 mg Oral q8h MD Piero 25 mg at 06/09/13 1010 EPINEPHrine 1 MG/ML (1:1000) injection 0.3 mg Active 0.3 mg IntravenousOnce PRN Tejinder Smith MD famotidine (PEPCID) tablet 20 mg Active 20 mg Oral QDAY Tejinder Smith MD predniSONE (DELTASONE) tablet 60 mg Active 60 mg Oral QDAY WITHBREAKFAST Tejinder Smith MD 60 mg at 06/09/13 0831 PAST MEDICAL HISTORY Allergies Allergen Reactions Ibuprofen Anaphylaxis Surgeries Past Surgical History Procedure Date Negative surgical history Physical Examination BP 108/56 Pulse 98 Temp 98 F Resp 20 Wt 32.4 kg (71 lb 6.9 oz) BMI 14.69 kg/m2 General Assessment: alert, well appearing, and in no distress Pulmonary Function Studies: Impressions Anaphylaxis, etiology unclear Possible foods, pizza, chochale, peanut Asthma, mild persistent AR Sensitive to ibuprofen Recommendations Anapylaxis action plan Asthma action plan EpiPen Sr Prednisone x2 days FU A&I for allergy testing Flovent 110 2x2 Ihsan Fine MD 06/09/201312:00 PM Please see resident note for further details Ev Ramirez MD INPATIENT CONSULT ORDERABLES * CULTURE STREP GROUP A (12/27/2012 3:54 PM CDT) Only the most recent of2 resultswithin the time period is included. Culture Strep [facility] Comment: STREPTOCOCCUS, GROUP A CULTURE MICRO NUMBER: [id number] TEST STATUS: FINAL SPECIMEN SOURCE: THROAT SPECIMEN QUALITY: ADEQUATE RESULT: No beta hemolytic Streptococci isolated Test Performed at: [facility] [address] [id number] JONATHAN BARROSO DO, MPH Miscellaneous samples (specimen) ENTIRE THROAT (SURFACE REGION OF NECK) / Unknown 12/27/2012 3:54 PM CDT 12/28/2012 2:38 AM CDT Mala Mccarty MD LAB - MICROBIOLOGY O RDERABLES Performing Organization Address [facility] Co de Phone Number [place] [address] [place] [address] * XR ABDOMEN 1 VW (11/12/2012) Only the most recent of2 resultswithin the time period is included. Anatomical Region Laterality Modality Abdomen Other Mala Mccarty MD DIAGNOSTIC IMAGING O RDERABLES * XR HAND 3+ VW RIGHT (04/27/2012) Anatomical Region Laterality Modality Wrist / Hand Other Emergency Physician DIAGNOSTIC IMAGING O RDERABLES * INFLUENZA A+B ANTIGEN RAPID (08/16/2011) Miscellaneous samples (specimen) Emergency Physician LAB - MICROBIOLOGY O RDERABLES Performing Organization Address [facility] Co de Phone Number [facility] INSURANCE BILL * XR KNEE LEFT 1 OR 2 VW MP (10/07/2010) Anatomical Region Laterality Modality Lower Extremity Other Mala Mccarty MD DIAGNOSTIC IMAGING O RDERABLES * LAB MISC TEST (03/09/2010 4:52 PM CDT) Only the most recent of2 resultswithin the time period is included. Test Name BASOFUNCTION HRT [facility] Test Result See Scanned Report [facility] Test Performed by I.B.T.[email or web address] LAB [facility] BLOOD SPECIMEN / Unknown 03/09/2010 4:52 PM CDT 03/09/2010 5:04 PM CDT Narrative Resulting Agency Comment Performed By you[place] ([id number]) [id number] [place] [id number] Ihsan Fine MD LAB SEND OUT Performing Organization Address City/[facility] Co de Phone Number [facility] [address] [place] [address] Reporter Relationship Specialty Start Date End Date Bessy Santos MD [facility] [place] [address] PCP - General Family Medicine 12/10/19
--- OUTSIDE RECORDS SUMMARY | 2024-08-27 00:29 | XMS_ITS | Data Portability ---
Author Organization [facility] [place] Address [address] [place] [address] Assessment No assessment recorded. Plan of Treatment Reminders Order Date Submit Date Provider Last Modified By Organization Details Last Modified Time Details Appointments None recorded. Lab None recorded. Referral None recorded. Procedures None recorded. Surgeries None recorded. Imaging None recorded. Medication Orders clotrimazol e-betametha sone 1 %-0.05 % topical cream 2023 024 [facility] #[id number], [address], [place], [id number], 4 14:50:23 Diflucan 150 mg tablet 2023 024 [place] [address] [id number], [address], [place], [id number], 4 18:01:37 clotrimazol e-betametha sone 1 %-0.05 % topical cream 2023 024 [facility] #[id number], [address] [facility] [facility], [place], [place], [id number], 4 15:11:07 Diflucan 150 mg tablet 2023 024 [facility] #[id number], [address] [facility], [place], [place], [id number], 4 18:01:37 Diflucan 150 mg tablet 2023 024 [facility] #57055, [address] [facility], [place], [place], [id number], 4 18:01:46 metronidazo le 0.75 % (37.5 mg/5 gram) vaginal gel 2023 024 [facility] #23628, [address] [facility], [place], [place], [id number], 4 18:01:40 Mendy 0.35 mg tablet 2023 024 [facility] #75964, [address] [facility], [place], [place], [id number], 4 16:45:42 oxycodone-a cetaminophe n 5 mg-325 mg tablet 2023 024 [facility] #[id number], [address] [facility], [place], [place], [id number], 4 18:01:34 Patient TargetsNo targets recorded. Patient InstructionsNo instructions recorded. Reason for Referral None Reported. Results Created Date Observation Date Name Description Value Unit Range Abnormal Flag Note LastModifiedBy Organization Detail LastModifiedTime 01/11/20 24 01/11/2024 VAGIN ITIS/ VAGIN OSIS, DNA PROBE itz sp. detection, direct probe Negati ve negati ve Not Available [facility] (Lab) [address] [place], [address], 01/12/2024 20:00:35 01/11/20 24 01/11/2024 VAGIN ITIS/ VAGIN OSIS, DNA PROBE gardnerella vag. detection, direct probe Negati ve negati ve Not Available [facility] (Lab) [address] [place], [address], 01/12/2024 20:00:35 01/11/20 24 01/11/2024 VAGIN ITIS/ VAGIN OSIS, DNA PROBE trichomonas vag. detection, direct probe Negati ve negati ve Not Available [facility] (Lab) [address] [facility], [place], [address], 01/12/2024 20:00:35 01/11/20 24 01/11/2024 CT/GC AND TRICH OMONA S VAGIN RAJESH (RRNA ), SWAB chlamydia trachomatis, PCR Negati ve negati ve Not Available [facility] (Lab) [address] [facility], [place], [address], 01/12/2024 20:00:35 01/11/20 24 01/11/2024 CT/GC AND TRICH OMONA S VAGIN RAJESH (RRNA ), SWAB neisseria gonorrhoeae, PCR Negati ve negati ve Not Available [facility] (Lab) [address] [facility], [place], [address], 01/12/2024 20:00:35 01/11/20 24 01/11/2024 CT/GC AND TRICH OMONA S VAGIN RAJESH (RRNA ), SWAB trichomonas vaginalis ribosomal RNA (rrna) Negati ve negati ve Not Available [facility] (Lab) [address] [facility], [place], [address], 01/12/2024 20:00:35 02/02/20 24 02/02/2024 CT/GC AND TRICH OMONA S VAGIN RAJESH (RRNA ), SWAB chlamydia trachomatis, PCR Negati ve negati ve Not Available [facility] (Lab) [address] [facility], [place], [address], 02/05/2024 09:05:30 02/02/20 24 02/02/2024 CT/GC AND TRICH OMONA S VAGIN RAJESH (RRNA ), SWAB neisseria gonorrhoeae, PCR Negati ve negati ve Not Available [facility] (Lab) [address] [facility], [place], [address], 02/05/2024 09:05:30 02/02/20 24 02/02/2024 CT/GC AND TRICH OMONA S VAGIN RAJESH (RRNA ), SWAB trichomonas vaginalis ribosomal RNA (rrna) Negati ve negati ve Not Available [facility] (Lab) [address] [facility], [place], [address], 02/05/2024 09:05:30 02/02/20 24 02/02/2024 VAGIN ITIS/ VAGIN OSIS, DNA PROBE itz sp. detection, direct probe Negati ve negati ve Not Available [facility] (Lab) [address] [facility], [place], [address], 02/05/2024 09:05:31 02/02/20 24 02/02/2024 VAGIN ITIS/ VAGIN OSIS, DNA PROBE gardnerella vag. detection, direct probe Negati ve negati ve Not Available [facility] (Lab) [address] [facility], [place], [address], 02/05/2024 09:05:31 02/02/20 24 02/02/2024 VAGIN ITIS/ VAGIN OSIS, DNA PROBE trichomonas vag. detection, direct probe Negati ve negati ve Not Available [facility] (Lab) [address] [facility], [place], [address], 02/05/2024 09:05:31 05/23/20 24 05/23/2024 CT/GC AND TRICH OMONA S VAGIN RAJESH (RRNA ), URINE chlamydia trachomatis, PCR Negati ve negati ve Not Available [facility] (Lab) [address] [facility], [place], [address], 05/24/2024 13:55:06 05/23/20 24 05/23/2024 CT/GC AND TRICH OMONA S VAGIN RAJESH (RRNA ), URINE neisseria gonorrhoeae, PCR Negati ve negati ve Not Available [facility] (Lab) [address] [facility], [place], [address], 05/24/2024 13:55:06 05/23/20 24 05/23/2024 CT/GC AND TRICH OMONA S VAGIN RAJESH (RRNA ), URINE trichomonas vaginalis ribosomal RNA (rrna) Negati ve negati ve Not Available [facility] (Lab) [address], [place], [address], 05/24/2024 13:55:06 12/14/19 24 12/14/2023 US, breas t, unila teral , w/ axill a No observ ation record ed. [address] [facility] [address], [place], [address], 01/02/2024 11:30:58 12/14/19 24 12/14/2023 US, breas t, unila teral , w/ axill a No observ ation record ed. [facility] [address], [place], [address], 01/10/2024 16:13:45 12/14/19 24 12/14/2023 US, breas t, unila teral , w/ axill a No observ ation record ed. [address] [facility] [address], [place], [address], 01/17/2024 11:36:48 Result Notes None recorded. Procedures Surgical History Date Name Laterality Status Provider Name and Address Organization Details Recorded Time 4 LAPAROSCOPY, DIAGNOSTIC (SURG) completed Candis Godoy [facility] 03/20/2024 13:50:23 4 Date of Last Pap Smear completed Bella Farley [facility] 08/09/2023 14:26:44 0 extraction of wisdom tooth completed Chrystal Harris [facility] 03/01/2023 14:47:49 Imaging Results Imaging Date Name Status LastModified by Organiz ation Details LastModified Time 12/14/2023 US, breast, unilateral, w/ axilla completed [address] [facility] [address], [place], [address], 01/02/2024 11:30:58 12/14/2023 US, breast, unilateral, w/ axilla completed [facility] [address], [place], [address], 01/10/2024 16:13:45 12/14/2023 US, breast, unilateral, w/ axilla completed [address] [facility] [address], [place], [address], 01/17/2024 11:36:48 Procedure Notes None recorded. Medical Equipment None Reported. Allergies Allergen ID Allergen Name Allergen Category Reaction Reaction Severity Criticality Documentation Date Start Date Code Code System Note Provider Name and Address Organization Details Recorded Time 34887 ibuprofen medicatio n Not available Not available Not available 02/05/2021 5640 RxNorm FRITZ LINARES [facility] 3 10:47:09 67345 amoxicill in medicatio n Not available Not available Not available 02/05/2021 723 RxNorm THROA T MILAGROS Spivey [facility] 3 10:47:02 51529 Product containin g penicilli n and antibioti c (product) medicatio n Not available Not available Not available 09/29/2021 40044 05 SNOMED LIPS MILAGROS [facility] 3 10:47:15 Medications Name Sig Start Date Stop Date Status Note LastModified by Organization Details LastModified Time methocarbam ol 500 mg tablet 09/20 completed Not Available Not Available Not Available terconazole 0.4 % vaginal cream Insert 1 applicato rful every day by vaginal route at bedtime for 7 days. 01/20 completed Not Available Not Available Not Available doxycycline hyclate 100 mg capsule TAKE 1 CAPSULE BY MOUTH TWICE DAILY WITH MEALS FOR 7 DAYS 01/10 completed Not Available Not Available Not Available loperamide 2 mg capsule active Not Available Not Available Not Available azithromyci n 250 mg tablet 11/15 completed Not Available Not Available Not Available Lidocaine Viscous 2 % mucosal solution 03/01 completed Not Available Not Available Not Available nystatin 100,000 unit/gram topical ointment 03/01 completed Not Available Not Available Not Available fluconazole 150 mg tablet 1 tablet by oral route now every week active Not Available Not Available No t Available hydrocodone 5 mg-acetamin ophen 325 mg tablet 11/15 completed Not Available Not Available Not Available ondansetron HCl 8 mg tablet 01/04 completed Not Available Not Available Not Available fluconazole 200 mg tablet Take 1 tablet PO every other day x 3 doses. 12/21 completed Not Available Not Available Not Available phenazopyri dine 200 mg tablet Take 1 tablet 3 times a day by oral route. 07/29 completed Not Available Not Available Not Available metronidazo le 0.75 % (37.5 mg/5 gram) vaginal gel Insert 1 applicato rful every day by vaginal route at bedtime for 5 days. active Not Available Not Available No t Available ondansetron HCl 4 mg tablet active Not Available Not Available Not Available famotidine 40 mg tablet 11/15 completed Not Available Not Available Not Available prednisone 20 mg tablet 03/01 completed Not Available Not Available Not Available clotrimazol e 1 % vaginal cream Insert 1 applicato rful by vaginal route at bedtime for 7 days. 04/25 completed Not Available Not Available Not Available metronidazo le 500 mg tablet Take 1 tablet every 12 hours by oral route for 7 days. 01/10 completed Not Available Not Available Not Available prochlorper azine maleate 10 mg tablet 11/15 completed Not Available Not Available Not Available ciprofloxac in 500 mg tablet Take 1 tablet every 12 hours by oral route. 12/21 completed Not Available Not Available Not Available sulfamethox azole 800 mg-trimetho prim 160 mg tablet take one tablet by oral route twice daily for 3 days 01/02 completed Not Available Not Available Not Available doxycycline monohydrate 100 mg tablet active Not Available Not Available Not Available acetaminoph en 500 mg tablet TAKE 1 TABLET BY MOUTH FOUR TIMES A DAY NEEDED FOR PAIN 03/01 completed Not Available Not Available Not Available triamcinolo ne acetonide 0.1 % topical cream APPLY A THIN LAYER TO THE AFFECTED AREA(S) BY TOPICAL ROUTE 2 TIMES PER DAY 12/21 completed Not Available Not Available Not Available ondansetron 8 mg disintegrat ing tablet 01/04 completed Not Available Not Available Not Available pantoprazol e 20 mg tablet,nando yed release 07/29 completed Not Available Not Available Not Available nystatin-tr iamcinolone 100,000 unit/gram-0 .1 % topical ointment APPLY TO THE AFFECTED AREA(S) BY TOPICAL ROUTE 2 TIMES PER DAY PRN 03/01 completed Not Available Not Available Not Available oxycodone-a cetaminophe n 5 mg-325 mg tablet Take 1 tablet every 6 hours by oral route. 05/23 completed Not Available Not Available Not Available alprazolam 0.25 mg tablet 11/15 completed Not Available Not Available Not Available famotidine 20 mg tablet 01/04 completed Not Available Not Available Not Available dicyclomine 20 mg tablet 08/09 completed Not Available Not Available Not Available doxycycline monohydrate 100 mg capsule 02/05 completed Not Available Not Available Not Available triamcinolo ne acetonide 0.1 % topical ointment APPLY A THIN LAYER TO THE AFFECTED AREA(S) BY TOPICAL ROUTE 2 TIMES PER DAY 03/01 completed Not Available Not Available Not Available nystatin 100,000 unit/gram topical cream APPLY TO THE AFFECTED AREA(S) BY TOPICAL ROUTE 2 TIMES PER DAY 12/21 completed Not Available Not Available Not Available clotrimazol e-betametha sone 1 %-0.05 % topical cream APPLY TO THE AFFECTED AND SURROUNDI NG AREAS OF SKIN BY TOPICAL ROUTE 2 TIMES PER DAY IN THE MORNING AND EVENING FOR 2 WEEKS active Not Available Not Available No t Available promethazin e 25 mg tablet TAKE 1 TABLET BY MOUTH EVERY 6 HOURS NEEDED FOR NAUSEA AND VOMITING 09/20 completed Not Available Not Available Not Available hydrochloro thiazide 12.5 mg capsule 01/10 completed Not Available Not Available Not Available omeprazole 20 mg capsule,del ayed release 01/10 completed Not Available Not Available Not Available nitrofurant oin macrocrysta l 25 mg capsule active Not Available Not Available Not Available montelukast 10 mg tablet active Not Available Not Available Not Available hydroxyzine HCl 25 mg tablet 11/15 completed Not Available Not Available Not Available gabapentin 100 mg capsule 02/05 completed Not Available Not Available Not Available epinephrine 0.3 mg/0.3 mL injection, auto-inject or 01/04 completed Not Available Not Available Not Available methylpredn isolone 4 mg tablets in a dose pack 01/04 completed Not Available Not Available Not Available albuterol sulfate HFA 90 mcg/actuati on aerosol inhaler INHALE 2 PUFFS BY MOUTH EVERY 4 HOURS NEEDED FOR COUGH/WHE DMITRY 01/02 completed Not Available Not Available Not Available ketoconazol e 2 % topical cream 12/21 completed Not Available Not Available Not Available ondansetron 4 mg disintegrat ing tablet 03/27 completed Not Available Not Available Not Available fluticasone propionate 50 mcg/actuati on nasal spray,suspe nsion 11/06 completed Not Available Not Available Not Available clotrimazol e 1 % topical cream APPLY TOPICALLY TO THE AFFECTED AND SURROUNDI NG AREAS TWICE DAILY IN THE MORNING AND IN THE EVENING FOR 2 WEEKS 12/21 completed Not Available Not Available Not Available doxycycline hyclate 100 mg tablet Take 1 tablet twice a day by oral route. 04/25 completed Not Available Not Available Not Available dicyclomine 10 mg capsule active Not Available Not Available Not Available loratadine 10 mg tablet 02/05 completed Not Available Not Available Not Available azithromyci n 500 mg tablet Take 2 tablets (1 gram) by mouth now for 1 dose 04/25 completed Not Available Not Available Not Available nitrofurant oin monohydrate /macrocryst als 100 mg capsule Take 1 capsule every 12 hours by oral route for 7 days. 03/14 completed Not Available Not Available Not Available potassium acetate 01/10 completed Not Available Not Available Not Available Gavilyte-C 240 gram-22.72 gram-6.72 gram-5.84 gram oral solution 02/01 completed Not Available Not Available Not Available Bibiana 0.35 mg tablet Take 1 tablet every day by oral route. active Not Available Not Available No t Available Lo Loestrin Fe 1 mg-10 mcg (24)/10 mcg (2) tablet Take 1 tablet every day by oral route. 08/09 completed Not Available Not Available Not Available Estarylla 0.25 mg-35 mcg tablet Take 1 tablet every day by oral route. 08/09 completed Not Available Not Available Not Available Vitals Date Recorded Body height Body mass index (BMI) Body weight Systolic blood pressure Diastolic blood pressure Provider Name and Address Organization Details Last Updated DateTime 01/11/2024 165.1 cm 19.1 kg/m2 51503.12 g 132 mm[Hg] 82 mm[Hg] [facility] 4 14:49:00 Date Recorded Body height Body mass index (BMI) Body weight Systolic blood pressure Diastolic blood pressure Provider Name and Address Organization Details Last Updated DateTime 02/02/2024 165.1 cm 19 kg/m2 07150.53 g 135 mm[Hg] 91 mm[Hg] [facility] 4 14:49:47 Date Recorded Body height Body mass index (BMI) Body weight Systolic blood pressure Diastolic blood pressure Provider Name and Address Organization Details Last Updated DateTime 03/14/2024 165.1 cm 18.6 kg/m2 98537.35 g 138 mm[Hg] 96 mm[Hg] [facility] 4 12:54:29 Date Recorded Body height Body mass index (BMI) Body weight Systolic blood pressure Diastolic blood pressure Provider Name and Address Organization Details Last Updated DateTime 03/27/2024 165.1 cm 18.5 kg/m2 29349.75 g 161 mm[Hg] 106 mm[Hg] [facility] 4 16:07:57 Date Recorded Body height Body mass index (BMI) Body weight Systolic blood pressure Diastolic blood pressure Provider Name and Address Organization Details Last Updated DateTime 05/23/2024 165.1 cm 19.6 kg/m2 66380.9 g 142 mm[Hg] 93 mm[Hg] Bella Farley [facility] 4 18:01:17 Social History Question Answer Notes LastModified by Organizat ion Details LastModified Time Tobacco Smoking Status Never Smoker Hermelinda Brock sathya, [facility] 01/04/2022 15:40:36 Do You Have An Advance Directive? No Information n ot available 09/29/2021 What Is Your Level Of Alcohol Consumption? Occasional Information not available 09/29/2021 Are You Blind Or Do You Have Difficulty Seeing? No Information n ot available 01/04/2022 What Is Your Level Of Caffeine Consumption? Occasional [email or web address] Information not available 03/01/2023 In The 14 Days Before Symptom Onset, Have You Had Close Contact With A Laboratory-confirm ed COVID-19 While That Case Was Ill? No Information n ot available 09/29/2021 In The 14 Days Before Symptom Onset, Have You Had Close Contact With A Person Who Is Under Investigation For COVID-19 While That Person Was Ill? No Information not available 09/29/2021 Have You Been To An Area Known To Be High Risk For COVID-19? No Information not available 09/29/2021 Are You Deaf Or Do You Have Serious Difficulty Hearing? No Information not available 09/29/2021 What Type Of Diet Are You Following? REGULAR Information n ot available 01/04/2022 What Is The Highest Grade Or Level Of School You Have Completed Or The Highest Degree You Have Received? [id number] Information not available 09/29/2021 Are There Any Guns Present In Your Home? No Information not available 09/29/2021 Have You Ever Been Counseled For Unhealthy Alcohol Use? No [email or web address] Information not available 03/01/2023 Do You Use Protection During Sex? No Information not available 09/29/2021 Do You Use Your Seat Belt Or Car Seat Routinely? Yes Information not available 09/29/2021 Do You Have Smoke And Carbon Monoxide Detectors In Your Home? Yes Information not available 09/29/2021 Do You Feel Stressed (tense, Restless, Nervous, Or Anxious, Or Unable To Sleep At Night)? [id number] Information not available 09/29/2021 Do You Use Any Illicit Or Recreational Drugs? No Information not available 09/29/2021 Do You Use Sunscreen Routinely? No Information not available 09/29/2021 Have You Used IV Drugs? No Information not available 09/29/2021 Sex: Unknown Functional Status Question Answer Note LastModified by Organizat ion Details LastModified Time Do you have difficulty walking or climbing stairs? No Information not available 01/04/2022 Are you able to walk? YESWOREST Information not available 09/29/2021 Are you able to care for yourself? Yes Information not available 01/04/2022 Do you have difficulty dressing or bathing? No Information not available 01/04/2022 What is your exercise level? Occasional Information not available 09/29/2021 Mental Status None recorded. Family History Relationship Description Onset Age of this Age Resolved Age Notes LastModified by Organization Details LastModified Time Brother Asthma Not available 02/05/2021 11:01:28 Father Asthma Not available 02/05/2021 11:01:28 Medical History Condition Response Allergies (Food, seasonal, environmental ) N Other N Breast Cancer N Drug/Latex Allergies/Reactions N Blood Transfusion N Dermatologic Disorders N Lung Disease N Defects or Inherited Disease N Breast Problem N Gestational Diabetes N Hematologic disorders N Anesthesia Complications N History of STI Y Deep Vein Thrombosis N Polycystic ovary syndrome N Anxiety Disorder N Autoimmune disease N Arthritis N Infertility N Polyps N Acid Reflux (GERD) N History of abnormal pap N Cancer N Stroke N Varicosities N Neurologic/Epilepsy N Endometriosis N High Cholesterol N Headaches N Fibromyalgia N Kidney Disease N Heart Problems N Kidney or Bladder Problems N Thyroid Problems N GI Problems Y Eating Disorder N Anemia N Art (IVF or FET) N Psychiatric Illness N Ovarian Cancer N Diabetes N Pulmonary (TB, Asthma) N Hepatitis/Liver Disease N No Past Medical History N Eczema N Urinary Tract Infection N Abuse/Domestic Violence N Asthma Y Trauma/Violence N Depression/ depression N Heart Disease N Pre-Eclampsia N Hypertension Y Osteoporosis N Thrombophilias N Gynecological History Statement/Question Response Date of Last Mammogram Flow Heavy Date of LMP 05/08/2024 N Was last menstrual period normal N STIs/STDs Y Desired Control Method None Abnormal Pap N On BCP's at Conception? N HPV Vaccine N Duration of Flow (days) 14 16 Current Control Method None Are cycles usually normal Y Frequency of Cycle (Q days) Sexually Active? Y Menses Monthly N Date of DEXA bone scan Age of first menstrual cycle 17 Date of Last Pap Smear 07/21/2023 Sexual Problems? N LMP Definite N Obstetrics History GPAL:G 0 P 0 0 0 0 Type Value Living 0 Total 0 Past Encounters Encounter ID Performer Location Encounter Start Date Encounter Closed Date Diagnosis/Indication Diagnosis SNOMED-CT Code Diagnosis ICD10 Code Diagnosis Note [id number] German Pacheco MD [place] [address] [address] 02/05/2021 10:38:21 02/05/2021 11:21:36 Pain in pelvis 47253910 R10.2 This patient is a 21 -year-old female with pelvic pain. We have agreed to complete the evaluation with pelvic ultrasound . The patient will return after the pelvic ultrasound to discuss those findings and to develop a treatment plan. A comprehens isabelle history and physical exam was performed today. We spent over 25 minutes face-to-fa ce. The patient was given precaution s. She will contact clinic if pelvic pain increases in frequency or intensity. Also notify clinic of any new symptoms associated with pelvic pain. She does not appear to have an acute pelvic infection today, but was asked to contact us Immediatel y with nausea, vomiting, fever, chills. [id number] [facility] [address] [address] 02/16/2021 12:05:52 02/16/2021 13:38:37 Pain in pelvis 60301459 R10.2 This patient is a 21 -year-old female with pelvic pain. We have agreed to complete the evaluation with pelvic ultrasound . The patient will return after the pelvic ultrasound to discuss those findings and to develop a treatment plan. A comprehens isabelle history and physical exam was performed today. We spent over 25 minutes face-to-fa ce. The patient was given precaution s. She will contact clinic if pelvic pain increases in frequency or intensity. Also notify clinic of any new symptoms associated with pelvic pain. She does not appear to have an acute pelvic infection today, but was asked to contact us Immediatel y with nausea, vomiting, fever, chills. [id number] German Pacheco MD [place] [address],[place] [address] 02/19/2021 13:59:20 02/19/2021 14:59:35 Pain in pelvis 11130862 R10.2 This patient is a 21-year-ol d female with chronic pelvic pain. we reviewed her ultrasound results. Her ultrasound was normal. We discussed her pelvic pain again. The patient also has recurrent, chronic nausea. I instructed her to get help for this. She should see her primary care doctor. We discussed all her medical treatment options in great detail. We also described and discussed surgical treatments . Ultimately we agreed to oral contracept isabelle pill. We are going to prescribed Lo Lo Estrin. We spent more than 35 minutes face-to-fa ce discussing various aspects of her care. This is a complex issue. [id number] German Pacheco MD [place] [address],[place] [address] 05/06/2021 16:32:05 05/07/2021 18:19:02 Increased frequency of urination [id number] R35.0 [id number] German Pacheco MD [place] [address],[facility] [place] [address] 09/29/2021 15:28:02 09/29/2021 16:57:44 Dyspareunia [id number] N94.10 this patient is a 21-year-ol d female who presents for concern about 6 transmitte d disease. She also had painful sex. It was hard for her to describe where the pain was during sex. She does pain with introducti on of the penis. Set was pain with deep thrust. She said that they are folic there was irritation and rubbing and dryness. She denies any vaginal discharge. She denies any vulvar irritation . She does report some urinary symptoms. She said she had a sensation of needing to urinate more after emptying her bladder. Denies any dysuria or urgency. She was examined. The pelvic exam was normal. The vulva vagina and cervix were normal. The uterus was nontender. The adnexa were nontender. The bladder and rectum are nontender. We spent over 25 minutes face-to-fa ce trying to determine the nature of her problem a. She wanted to be treated for yeast infection. She wanted STD testing. We agreed to the testing with gonorrhea chlamydia Trichomona s. We also did agreed to testing for yeast and BV. We will contact her for abnormal urine culture. We will treat her for yeast infection. [id number] VIOLETTA Cisneros [place] [address],[place] [address] 01/04/2022 15:28:11 01/04/2022 17:44:48 Vaginal irritation [id number] N89.8 Vaginal exam suspect yeast infection. Rx sent.Urine hCG (-) todaySTI endocervic al testing sentVagini tis panel sentVulvar care guidelines discussed Time spent in visit is a total of 35 mins with at least 50% of visit consisting of counseling and review of plan of care.BP elevated, she does not have a PCP. She left before we could retake her BP. I discussed risk of elevated BP (stroke, , etc.) Recommende d ED evaluation and establish care with PCP. Patient verbalized understand ing. Urinary symptoms [id number] 08 R39.9 Venereal d isease screening [id number] Z11.3 [id number] VIOLETTA Cisneros [place] [address],[place] [address] 03/23/2022 15:07:45 03/23/2022 15:55:40 Vaginitis 89839041 N76.0 Suspect yeast on examVagini tis panel sentSTI endocervic al testing sentRx sentVulvar care guidelines discussedC ondom use encouraged Take daily PNV Time spent in visit is a total of 20 mins with at least 50% of visit consisting of counseling and review of plan of care.BP 138/84 - following with PCP on BP [id number] VIOLETTA Cisneros [place] [address],[place] [address] 04/25/2022 14:56:53 04/25/2022 15:58:29 Vaginal irritation 217878879 N89.8 Suspect yeast vs STIRx sent for yeastTOC STI endocervic al testing sentVagini tis panel sentUrine hCG (-) todayUA (-)Vulvar care guidelines discussed in-depthEn couraged daily PNV Time spent in visit is a total of 35 mins with at least 50% of visit consisting of counseling and review of plan of care.BP elevated 140/90. She did not take her BP medication today. She has no symptoms. I discussed risk of elevated BP (stroke, , etc.). Patient to take medication when she gets home, she has a way to check BP. To call PCP / ED visit if elevation continues. To go to the ED with any symptoms. Patient agrees. Chlamydial infection 105 [id number] A74.9 Venereal d isease screening [id number] Z11.3 Urinary symptoms 9008767 08 R39.9 [id number] [facility] [address],[facility] [place] [address] 07/29/2022 16:16:34 08/01/2022 15:06:37 Urinary symptoms [id number] R39.9 Treated for UTI Counseled on medication R/B's, Most common side effects, & use. All questions were answered to patient satisfacti on. Patient is to contact office or go to nearest ED/Urgent care if fever >/= 100.1, pain, excessive bleeding, unusual drainage or swelling in area of concern; or experienci ng worsening sx's or new onset of concerning sx's. Understand ing verbalized . All questions answered to patient satisfacti on. Time spent in visit is a total of 15 mins with at least 50% of visit consisting of counseling and review of plan of care. [id number] VIOLETTA Cisneros [place] [address],[facility] [place] [address] 11/22/2022 15:26:48 11/22/2022 17:33:41 Female pelvic inflammatory disease [id number] N73.9 suspect PID given symptoms and recent STI exposuresi gnificant cervical motion tenderness UPT (-) / STI endocervic al testing senthas not been able to keep food or liquids down due to n/v, unable to keep her HTN medicaton downBP today 154/111, repeat 150/100giv en severity of her symptoms, BP, and n/v - recommend ED visit for IV treatment of PID, as she will likely be unable to keep oral antibiotic 's down, as well as they will be able to do additional imaging to r/o emergent issues such as torsion, etc. She has a friend with her today that will drive her to the ED. States she will not go to [place] due to a previous altercatio n there but will go to a different ED.She will update us once d/c'd to schedule a f/u appointmen t Time spent in visit is a total of 30 mins with at least 50% of visit consisting of counseling and review of plan of care. Venereal d isease screening 139835736 Z11.3 [id number] Lovely Richard [place] [address],[place] [address] 12/07/2022 11:28:32 12/07/2022 12:01:55 Venereal disease screening 643139276 Z11.3 STD sentRx sent Counseled on medication R/B's, Most common side effects, & use. All questions were answered to patient satisfacti on. Time spent in visit is a total of 15 mins with at least 50% of visit consisting of counseling and review of plan of care. [id number] Lovely Richard [facility] [address],[place] [address] 12/21/2022 09:02:19 12/21/2022 09:34:38 Venereal disease screening 200676180 Z11.3 STD sentWill reach outDiscuss ed treatment, abstaining for 10+days after treatment, importance of partner treatment. Using condoms. Counseled on medication R/B's, Most common side effects, & use. All questions were answered to patient satisfacti on. Time spent in visit is a total of 15 mins with at least 50% of visit consisting of counseling and review of plan of care. [id number] German Pacheco MD [place] [address],[place] [address] 12/26/2022 10:11:38 12/26/2022 11:16:49 Vaginal discharge 627804041 N89.8 this patient is a 22-year-ol d female presents for follow-up on vaginal discharge discharge testing. She has E coli the vagina. We agreed to treat with Bactrim. She will also need Diflucan for yeast infection symptoms and for prophylaxi s against yeast infection from the antibiotic s. She has some low back pain but this is probably related to exertional work related activity. This for 20 minutes face-to-fa ce. More than 50% was counseling . Review testing results. Talked about treatment. Talked her symptoms. [id number] Stormy Link MD [place] [address],[place] [address] 01/02/2023 14:43:46 01/03/2023 12:44:10 Candidal vulvovaginitis 97240423 B37.31 [id number] Lovely Richard [facility] [address],[place] [address] 01/20/2023 09:14:36 01/20/2023 09:37:21 Vaginitis 26757449 N76.0 Today we agreed to topical ointment for ext irritation but will wait for return of swabs prior to other txment.VCG reviewedWi ll reach out with results. Time spent in visit is a total of 10 mins with at least 50% of visit consisting of counseling and review of plan of care. [id number] German Pacheco MD [place] [address],[place] [address] 02/17/2023 10:13:35 02/17/2023 11:12:08 Cloudy urine 8649202 R82.90 Pain in pelvis 43288541 R10.2 This patient is a 23-year-ol d female with chronic pelvic pain. we reviewed her ultrasound results. Her ultrasound was normal. We discussed her pelvic pain again. We discussed all her medical treatment options in great detail. We also described and discussed surgical treatments . Ultimately we agreed to oral contracept isabelle pill. We are going to prescribed Lo Lo Estrin. We spent more than 35 minutes face-to-fa ce discussing various aspects of her care. This is a complex issue. she also talked about excess vaginal discharge. There is no odor to the discharge. There is no itching. The discharge is like thick mucousy material. We talked about cervical mucus. Talked about cervical trouble be on. We talked about the function of cervical mucus. Talked about the menstrual cycle and the changes that occur with cervical mucus over time during the menstrual cycle. We agreed to treat with oral contracept isabelle pills. We want to start a very low dose oral contracept isabelle pill. Spent over 40 minutes face-to-fa ce. More than 50% was counseling . We had discussed a complex discharge topic. Discussed pelvic pain she is examined. She has tenderness in the bilateral pelvic sidewalls. She does not have a cervical to OB on. The vulva, vagina, cervix appear normal. The uterus is nontender but the bilateral pelvic sidewalls and adnexa are tender. No masses, no lesions. She will return in 3 months for follow-up. She will give a 3 month trial to oral contracept isabelle pills. Vaginal discharge 924014 006 N89.8 this patient is a 22-year-ol d female presents for follow-up on vaginal discharge discharge testing. She has E coli the vagina. We agreed to treat with Bactrim. She will also need Diflucan for yeast infection symptoms and for prophylaxi s against yeast infection from the antibiotic s. She has some low back pain but this is probably related to exertional work related activity. This for 20 minutes face-to-fa ce. More than 50% was counseling . Review testing results. Talked about treatment. Talked her symptoms. [id number] Ana Lilia Dozier CNM [place] [address],[place] [address] 03/01/2023 14:35:43 03/01/2023 15:14:16 Urinary symptoms 585623876 R39.9 Vaginal discharge 760515 006 N89.8 [id number] VIOLETTA Cisneros [place] [address],[place] [address] 03/16/2023 14:23:42 03/16/2023 15:01:52 Pain in pelvis 39766030 R10.2 Discussed common/nor mal SE of starting OCP is spotting/B TBcontinue to take OCP daily at same timevagini tis / STI panel senturine cx sentencour aged to increase water intake, decrease caffeinesa fe sexual practices encouraged , condom use encouraged she would like to have a pelvic u/s done - orderedpre cautions reviewed with pt Time spent in visit is a total of 25 mins with at least 50% of visit consisting of counseling and review of plan of care. Vaginal discharge 320826 006 N89.8 Break-thro ugh bleeding 20169214 N92.1 [id number] German Pacheco MD [place] [address] [address] 03/28/2023 10:00:51 03/28/2023 10:52:52 Bacterial vaginosis 728109189 N76.0 this patient is a 23-year-ol d female with vaginal discharge. There is odor to the discharge. There is white in color. We agreed to treat for BV. Swabs were obtained. The vulva and distal vagina appear normal. We talked about her pelvic pain. She has an upcoming pelvic ultrasound . She had pain recently with intercours e that lasted 2 days. She may have endometrio sis . consider this at her next visit. [id number] Zenobia Bekc [place] [address],[facility] [place] [address] 04/10/2023 09:30:23 04/10/2023 10:10:12 Pain in pelvis 57220629 R10.2 This patient is a 23-year-ol d female with chronic pelvic pain. we reviewed her ultrasound results. Her ultrasound was normal. We discussed her pelvic pain again. We discussed all her medical treatment options in great detail. We also described and discussed surgical treatments . Ultimately we agreed to oral contracept isabelle pill. We are going to prescribed Lo Lo Estrin. We spent more than 35 minutes face-to-fa ce discussing various aspects of her care. This is a complex issue. she also talked about excess vaginal discharge. There is no odor to the discharge. There is no itching. The discharge is like thick mucousy material. We talked about cervical mucus. Talked about cervical trouble be on. We talked about the function of cervical mucus. Talked about the menstrual cycle and the changes that occur with cervical mucus over time during the menstrual cycle. We agreed to treat with oral contracept isabelle pills. We want to start a very low dose oral contracept isabelle pill. Spent over 40 minutes face-to-fa ce. More than 50% was counseling . We had discussed a complex discharge topic. Discussed pelvic pain she is examined. She has tenderness in the bilateral pelvic sidewalls. She does not have a cervical to OB on. The vulva, vagina, cervix appear normal. The uterus is nontender but the bilateral pelvic sidewalls and adnexa are tender. No masses, no lesions. She will return in 3 months for follow-up. She will give a 3 month trial to oral contracept isabelle pills. [id number] German Pacheco MD [place] [address],[place] [address] 04/27/2023 15:39:49 04/27/2023 16:14:02 Urinary symptoms 630532080 R39.9 Candidal vulvovaginitis 02475805 B37.31 This patient is a 23-year-ol d female presents for vulvar irritation and discharge. Patient has had issues with discharge in the past. She reports white vaginal discharge and vulvar irritation and some pain. She was examined. There is some vulvar erythema. Swabs weeere taken. We agreed to treat weekly with Diflucan for recurrent vaginitis or vulvovagin itis. We spent 20 minutes face-to-fa ce. More than 50% was counseling . She will return as daphney. [id number] HERIBERTO ANTHONY MD [place] [address],[place] [address] 06/20/2023 12:37:19 06/21/2023 14:02:06 Vaginitis 61186303 N76.0 - patient describes normal vaginal discharge, no pruritis or irritation - continue weekly diflucan Dysmenorrhea 400117333 N 94.6 - long hx of painful but regular periods- d/c'd OCPs after daily irregular bleeding x2 months- recommend higher estrogen containing OCP to help with breakthrou gh bleeding [id number] German Pacheco MD [place] [address],[facility] [place] [address] 07/21/2023 14:54:25 07/21/2023 15:53:27 Pain in pelvis 25000997 R10.2 23-year-ol d female with pelvic pain and vaginal discharge. We talked about pelvic pain evaluation . Talked about treatment. Talked about definitive evaluation . The pain is short term at this point. I offered her observatio n. She was to proceed with a more detailed evaluation . We will obtain pelvic ultrasound she will return. We will treat her for bacterial vaginosis. She is a atypical presentati on for bacterial vaginosis or yeast. To treat with Metrogel. Vaginal discharge 483861 006 N89.8 [id number] Alba Ray [place] [address] [address] 07/26/2023 10:25:25 07/26/2023 10:58:19 Pain in pelvis 52510169 R10.2 23-year-ol d female with pelvic pain and vaginal discharge. We talked about pelvic pain evaluation . Talked about treatment. Talked about definitive evaluation . The pain is short term at this point. I offered her observatio n. She was to proceed with a more detailed evaluation . We will obtain pelvic ultrasound she will return. We will treat her for bacterial vaginosis. She is a atypical presentati on for bacterial vaginosis or yeast. To treat with Metrogel. [id number] German Pacheco MD [place] [address] [address] 07/28/2023 11:30:21 08/09/2023 06:51:16 Pain in pelvis 73280397 R10.2 This patient is a 23-year-ol d female with pelvic pain. She also has some GI concerns. She has having a GI consult soon. We talked about a more thorough evaluation for pelvic pain. Her pelvic ultrasound is normal. She does have tenderness on exam. We discussed diagnostic laparoscop y. she began oral contracept isabelle pills short time ago. It is not had an effect yet. It is a combined hormone contracept isabelle pill. We spent more than 20 minutes face-to-fa ce. More than 50% was counseling . We discussed pelvic pain and its treatment. She will await gastroente rology consult for more informatio n and consider diagnostic laparoscop y. She could wait and observe the effect of the oral contracept isabelle pills. She has been on oral contracept isabelle pills for the past 5 months. Continues to have pain. [id number] VIOLETTA Cisneros [place] [address],[place] [address] 08/09/2023 14:15:43 08/10/2023 12:07:53 Dysuria 58723072 R30.0 UA normal, cx sent Vaginitis 85812799 N76.0 vaginitis/ STI panel sentvulvar care guidelines discussed (cotton underwear only, avoid scented soaps/prod ucts/wipes , water/fing ers to cleanse the vulva)rx sent, r/b/a reviewed - pt prefers gelBP precaution s reviewed, continue f/u with PCPRTC if symptoms persist past tx Time spent in visit is a total of 18 mins with at least 50% of visit consisting of counseling and review of plan of care. [id number] VIOLETTA Cisneros [place] [address],[place] [address] 09/21/2023 10:27:48 09/21/2023 10:51:24 Vaginal discharge 811645445 N89.8 vaginitis/ STI panel sentvulvar care guidelines discussedr x sent for BV, r/b/a reviewed - pt prefers gelBP precaution s discussed Time spent in visit is a total of 20 mins with at least 50% of visit consisting of counseling and review of plan of care. Venereal d isease screening 653842697 Z11.3 Dyspareunia 61938030 N94 .10 [id number] German Pacheco MD [place] [address],[place] [address] 10/17/2023 14:10:39 10/17/2023 15:03:17 Venereal disease screening 286277880 Z11.3 This patient is a 23-year-ol d female with concerns about sexual transmitte d disease exposure. Patient's consort has been with other women. Samples were taken. The vulva and distal vagina appear normal. We will follow up on those results. We had a discussion about vaginal discharge. She will likely do blood testing for STDs as well. [id number] Chanelle Kevin [facility] [address],[place] [address] 11/07/2023 11:59:26 11/07/2023 12:56:22 Urinary symptoms 951538083 R39.9 Vaginitis 54439341 N76.0 vaginitis panel sentgc/ct/ trich testing senturine cx sentvulvar care guidelines discusseds afe sexual practices discussedr x sent for yeast - r/b/a reviewedBP precaution s reviewed, encouraged PCP f/u Time spent in visit is a total of 25 mins with at least 50% of visit consisting of counseling and review of plan of care. Venereal d isease screening 504988747 Z11.3 [id number] [facility] [address],[place] [address] 11/23/2023 14:41:46 11/23/2023 17:05:57 Mass of left breast [id number] 8783058 N63.20 Today breast exam warrants US for further informatio n.Possibly just hormonal changes but no other changes on right side.US orderedWil l call to schedule. Vaginitis 83164783 N76.0 Today we agreed to send vag/std swabs and await return of results before treating.S he voices agreement with this plan of care.No other questions or concerns. Time spent in visit is a total of 22 mins with at least 50% of visit consisting of counseling and review of plan of care. [id number] German Pacheco MD [place] [address] [address] 01/11/2024 14:41:45 01/11/2024 15:28:40 Vaginitis 27894367 N76.0 23-year-ol d female with recurrent vulvar irritation . Recurrent vaginal discharge. She is treated here and at urgent Care and almost immediatel y gets her symptoms back. She has been treated for vaginosis and vaginitis with little success. Here she is tested positive for bacterial vaginosis on a couple of occasions historical ly. She is very frustrated . She was examined. The vulvar area looks normal and the vagina appears normal. We agreed to have her see of vulvovagin al Disease specialist . She was prescribed medication s today. She was prescribed an antifungal / steroid for the vulva. We discussed the risks, benefits, and alternativ es to the drug. . She was given instructio ns and precaution s for the drug [id number] German Pacheco MD [place] [address],[place] [address] 02/02/2024 14:17:14 02/02/2024 15:12:13 Vulvovaginitis 52420204 N76.0 patient reports vulvar irritation and white clumpy vaginal discharge. This is an ongoing problem for her she is recurrent vulvovagin itis that is successful ly treated with antifungal s and topical steroid/an tifungal. We agreed to treat this episode and also treat weekly for prevention . She will take 1 Diflucan tablet weekly. She has had multiple infections over the past year. The exam- vulvar inflammati on, normal appearing distal vagina, white discharge. prescribed medication s, given instructio ns and precaution s, discussed risks, benefits, and alternativ es of the medication s. Spent over 30 minutes on the treatment and care of this patient. [id number] German Pacheco MD [place] [address],[facility] [place] [address] 03/14/2024 12:31:34 03/14/2024 14:31:42 Pain in pelvis 20809111 R10.2 this patient is a 24-year-ol d with longstandi ng pelvic pain. We agreed to perform diagnostic laparoscop y. She understand s the risks, benefits, and alternativ es. She has completed the informed consent process and is ready to proceed. [id number] German Pacheco MD [place] [address],[facility] [place] [address] 03/27/2024 15:55:21 03/27/2024 16:57:41 Pain in pelvis 29963447 R10.2 Vulvovaginitis 89413458 N76.0 Postoperative care 16562 9007 Z48.89 this patient is a 24-year-ol d female who presents for postoperat isabelle care. She had a diagnostic laparoscop y for pelvic pain. She had a hemoperito neum. She apparently has retrograde menstruati on. 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 Patient has some GI symptoms of difficulty passing gas and difficulty having bowel movements. Recently had a colonoscop y. She agreed to progestero ne only control pills through treat retrograde menstruati on. She also needed some additional pain control. [id number] German Pacheco MD [place] [address] [address] 05/23/2024 16:59:43 05/24/2024 06:01:47 Contraception care management 426541621 Z30.9 24-year-ol d female who presents for contracept isabelle care management . she is taking a progestero ne only pill at this time. She bleeds intermitte ntly. The bleeding is affecting her quality of life and activities of daily living. Talked about all her options. We talked about control pills, patches, vaginal ring. We talked about progestero ne containing and copper IUD. We talked about progestero ne only options such as Depo-Prove ra shot, progestero ne only pills, Nexplanon. We talked about the risks benefits and pros and cons of each method. We spent 15 minutes face-to-fa ce. All of this was counseling . Ultimately she decided on Kyleena insertion. . She was given instructio ns on starting this method. She was informed of side effects. She was given precaution s on failure and special circumstan ghulam. She was quoted failure rates for all of the methods we discussed. She will return for Kyleena insertion. Health Concerns Section Related Observation LastModified by Organization Detai ls LastModified Time None Recorded Concern Status LastModified by Organization Details LastModified Time None Recorded Advance Directives Directive N: Payers Encounter Date Sequence Insurance Name Policy Number Policy Polanco Covered Member ID Polanco Member ID Guarantor Name 01/11/2024 1 [facility] Fly Holbrook [id number] Chloe Holbrook 02/02/2024 1 [facility] Fly Holbrook [id number] Chloe Holbrook 03/14/2024 1 [facility] Fly Holbrook [id number] Chloe Holbrook 03/27/2024 1 [facility] Fly Holbrook [id number] Chloe Chaidez Yusef 05/23/2024 1 *SELF PAY* Me edgar Chaidez Yusef Notes Date Note Type Note Provider Name and Address Organization Details Recorded Time 01/11/2024 text/html 23-year-old juan manuel tapia with recurrent vulvar irritation. Recurrent vaginal discharge. She is treated here and at urgent Care and almost immediately gets her symptoms back. She has been treated for vaginosis and vaginitis with little success. Here she is tested positive for bacterial vaginosis on a couple of occasions historically. She is very frustrated. She was examined. The vulvar area looks normal and the vagina appears normal. We agreed to have her see of vulvovaginal Disease specialist. She was prescribed medications today. She was prescribed an antifungal/ steroid for the vulva. We discussed the risks, benefits, and alternatives to the drug. . She was given instructions and precautions for the drug German Pacheco MD [address], [place], [address], [facility] 01/11/2024 15:27:10 02/02/2024 text/html Vaginal/Vulvar ProblemReported bypatient.Notes:alvarez ent reports vulvar irritation and white clumpy vaginal discharge. This is an ongoing problem for her she is recurrent vulvovaginitis that is successfully treated with antifungals and topical steroid/antifungal. We agreed to treat this episode and also treat weekly for prevention. She will take 1 Diflucan tablet weekly. She has had multiple infections over the past year. The exam- vulvar inflammation, normal appearing distal vagina, white discharge. prescribed medications, given instructions and precautions, discussed risks, benefits, and alternatives of the medications. Spent over 30 minutes on the treatment and care of this patient. German Pacheco MD [address], [place], [address], [facility] 02/02/2024 15:11:53 03/14/2024 text/html jose is a 24-year-old female with longstanding pelvic pain. We have agreed to perform diagnostic laparoscopy. The patient understands the procedure. The procedure was described to the patient in great detail. the patient also understands the risks. The risks were also explained in detail. She understands that injuries May occur during surgery. She understands these injuries can result in hospitalization, more surgery, and severe illness. She understands there is risk of hemorrhage and infection. German Pacheco MD [address], [place], [address], [facility] 03/14/2024 14:30:57 03/27/2024 text/html this patient is a 24-year-old female who presents for postoperative care. She had a diagnostic laparoscopy for pelvic pain. She had a hemoperitoneum. She apparently has retrograde menstruation. 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 Patient has some GI symptoms of difficulty passing gas and difficulty having bowel movements. Recently had a colonoscopy. She agreed to progesterone only control pills through treat retrograde menstruation. She also needed some additional pain control. German Pacheco MD [address], [place], [address], [facility] 03/27/2024 16:54:28 05/23/2024 text/html 24-year-old juan manuel tapia who presents for contraceptive care management. she is taking a progesterone only pill at this time. She bleeds intermittently. The bleeding is affecting her quality of life and activities of daily living. Talked about all her options. We talked about control pills, patches, vaginal ring. We talked about progesterone containing and copper IUD. We talked about progesterone only options such as Depo-Provera shot, progesterone only pills, Nexplanon. We talked about the risks benefits and pros and cons of each method. We spent 15 minutes [id number]. All of this was counseling. Ultimately she decided on Kyleena insertion. . She was given instructions on starting this method. She was informed of side effects. She was given precautions on failure and special circumstances. She was quoted failure rates for all of the methods we discussed. She will return for Kyleena insertion. German Pacheco MD [address], [place], [address], [facility] 05/23/2024 19:15:09 OBGyn Episode No OBEpisode recorded.
[2024-08-27 00:30] VITALS: BP 144/98; PULSE 96; RESP 18; TEMP 36.8; O2SAT 98
[2024-08-27 06:52] LABS: BEDSIDEPREGUCG Negative (Negative)
--- NOTE | 2024-08-27 06:54 | PC.NURSE ---
Pt brought back to room and now has c/o flu like symptoms (cough, congestion), UTI like symptoms (burning with urination, itching), swollen genitals, nausea, vomiting, chest tightness.
[2024-08-27 07:03] VITALS: BP 149/96; PULSE 73; RESP 16; TEMP 36.7; O2SAT 100
--- NOTE | 2024-08-27 07:03 | PC.NURSE ---
Patient states that she does not want to put the hospital gown on.
[2024-08-27 07:05] LABS: Basophils Percent Auto 0.3 % (0.2-1.2); Eosinophils Absolute Auto 0.4 K/mm3 (0-0.3); Eosinophils Percent Auto 5.3 % (0-4.4); Hematocrit 40.4 % (37.0-47.0); Hemoglobin 13.6 g/dL (12.0-15.0); Immature Granulocyte Absolute 0.03 K/mm3 (0.00-0.031); Immature Granulocyte Percent A 0.4 % (0-0.5); Lymphocytes Absolute Auto 1.66 K/mm3 (0.9-3.2); Lymphocytes Percent Auto 20.9 % (18.3-44.2); Mean Corpuscular HGB Conc 33.7 g/dl (32-36); Mean Corpuscular Hemoglobin 32.2 pg (26-34); Mean Corpuscular Volume 95.5 fl (80-100); Mean Platelet Volume 8.8 fl (7.4-10.4); Monocytes Absolute Auto 0.4 K/mm3 (0.1-0.6); Monocytes Percent Auto 5.3 % (2.6-8.5); Neutrophils Absolute Auto 5.4 K/mm3 (1.3-6.7); Neutrophils Percent Auto 67.8 % (45.5-73.1); Platelet Count Result 272 k/mm3 (150-375); Red Blood Count 4.23 M/mm3 (4.2-5.4); Red Cell Distribution Width 13.2 % (11.5-14.5)
[2024-08-27 07:13] LABS: Add Urine Microscopic? YES; Appearance Urine Clear (Clear); Bacteria Urine None Seen /hpf; Bilirubin Urine Negative (Negative); Blood Urine 2+ (Negative); Color Urine Yellow (Yellow); Glucose Urine UA Negative (Negative); Ketones Urine 1+ mg/dL (Negative); Leukocyte Esterase Ur Negative LEU/UL (Negative); Nitrate Urine Negative (Negative); Non Pathogenic Casts 0-2; Protein Urine Negative (Negative); RBC Urine 51-100 /hpf (0-2); Specific Grav Ur 1.014 (1.001-1.035); Squamous Epithelial Cell Urine Occasional /hpf (Few); Urobilinogen Urine 0.2 mg/dL (<2.0); WBC Urine 0-5 /hpf (0-3); pH Urine 7.5 (5.0-9.0)
[2024-08-27 07:16] LABS: Alanine Aminotransferase 20 U/L (6-35); Albumin Level 5.1 g/dL (3.5-5.1); Alkaline Phosphatase 55 U/L (38-126); Anion Gap 10 mmol/L (4-12); Aspartate Amino Transferase 25 U/L (14-36); Bilirubin,Total 0.8 mg/dL (0.2-1.3); Blood Urea Nitrogen 13 mg/dL (7-17); Calcium 9.9 mg/dL (8.4-10.2); Carbon Dioxide 23 mmol/L (22-30); Chloride 102 mmol/L (98-107); Estimated CRCL calculation 87 ml/min; Estimated Glomerular Filt Rate > 60; Glucose 101 mg/dL (65-110); Potassium 3.6 mmol/L (3.4-5.0); Sodium 135 mmol/L (137-145)
--- OUTSIDE RECORDS SUMMARY | 2024-08-27 07:22 | XMS_ITS | Referral Summary ---
Author Organization [facility] Address [address] [place] [phone] Care Team Providers Care Route Carrier Name Role Phone Bessy Santos MD Primary Care Provider [phone] Allergies Active Allergy Reactions Criticality Noted Date [...] on file Legal Sex Female 9:28 AM WAFER SLICER Gender Identity Not on file Sexual Orientation Not on file Last Filed Vital Signs Vital Sign Reading Time Taken Comments Blood Pressure 103/58 08/26/2023 1:00 AM WAFER SLICER Pulse 102 08/26/2023 1:00 AM WAFER SLICER Temperature 36.8 C (98.2 F) 08/25/2023 9:35 PM WAFER SLICER Respiratory Rate 14 08/26/2023 1:00 AM WAFER SLICER Oxygen Saturation 94% 08/26/2023 1:00 AM WAFER SLICER Inhaled Oxygen Concentration - - Weight 51 kg (112 lb 7 oz) 08/25/2023 9:35 PM CS T Height 154.9 cm (5' 1 ) 08/25/2023 9:35 PM WAFER SLICER Body Mass Index 21.24 08/25/2023 9:35 PM WAFER SLICER Plan of Treatment Not on file Insurance [facility] Care Teams Route Carrier Relationship Specialty Start Date End Date Bessy Santos MD PCP - General Family Medicine 09/14/22
--- OUTSIDE RECORDS SUMMARY | 2024-08-27 07:22 | XMS_ITS | Clinical Summary ---
Author Organization [facility] Address [address] [place] [address] Care Team Providers Care Applications Systems Engineer Name Role Phone Bessy Santos MD Primary Care Provider [phone] Source Comments [facility],non-owned Affiliates and Associated Physician Practices is amultiple site organization consisting of ambulatory clinics and hospital sitesin [place], [place], [place] and [place]. This disclosure is being madepursuant to the Care Everywhere program and may not contain all information available regarding this patient. Last updated 18.[facility] Allergies Active Allergy Reactions Criticality Noted Date [...] placement - Regular Diet as tolerated - Terminal Computer Operator - CR monitors - Pulse ox - [...] placement - Regular Diet as tolerates - Terminal Computer Operator - CR monitors - Pulse ox - [...] psychiatric facility. Plan: - Admit to [facility]: Dr. Tony Orantes - Vitals Q8H - Regular Diet as tolerates - Terminal Computer Operator - EKG, Acetaminophen, and ASA level upon [...] 06/09/2013 Assessment & Plan (06/09/2013 10:08 AM COMMERCIAL FOOD INSTRUCTOR): Assessment: 13 y.o. female with a presumed [...] 2015- Assessment & Plan (06/09/2013 5:25 AM COMMERCIAL FOOD INSTRUCTOR): Assessment: Chloe Holbrook is a 13 y.o. female with history of asthma, being admitted for anaphylactic reaction, likely secondary to hair product use. Plan: - Continue home albuterol, PRN - Per parents she only takes Flovent as a preventive medication during allergy season in the fall - will not order flovent at this time Anxiety 09/16/2011 Assessment & Plan (06/09/2013 5:24 AM COMMERCIAL FOOD INSTRUCTOR): Assessment: Chloe Holbrook is a 13 y.o. [...] Department Care Team Description 08/06/2024 2:00 PM COMMERCIAL FOOD INSTRUCTOR Office Visit [facility] - Family Medicine [address] [place] [phone] Odell Wise DO Neme, Jamil Richard, MD Abdominal wall pain (Primary Dx) 08/06/2024 Travel 07/24/2024 Telephone [facility] - GI [address] [place] [phone] Alisson Mcgrath RN General 07/11/2024 8:30 AM COMMERCIAL FOOD INSTRUCTOR - 07/11/2024 11:59 PM COMMERCIAL FOOD INSTRUCTOR Hospital Encounter [facility] [address] [place] [phone] Odell Wise DO Discharge Disposition: Home or Self Care 07/11/2024 7:44 AM COMMERCIAL FOOD INSTRUCTOR - 07/11/2024 8:29 AM COMMERCIAL FOOD INSTRUCTOR Hospital Encounter [facility] [address] [place] [phone] Odell Wsie DO Discharge Disposition: Home or Self Care 07/11/2024 Telephone [facility] - GI [address] [place] [phone] Odell Wise DO Med Question 07/11/2024 Telephone [facility] - Centralized Scheduling [address] [place] [phone] Clark Griggs MD Referral Consult Request 07/11/2024 Travel 07/04/2024 Telephone [facility] - Centralized Scheduling [address] [place] [phone] Clark Griggs MD Future Appointment 07/01/2024 2:30 PM COMMERCIAL FOOD INSTRUCTOR Office Visit [facility] - GI [address] [facility] [place] [phone] Navya Clements MD Abdominal discomfort (Primary Dx); Nausea and vomiting, unspecified vomiting type 07/01/2024 Travel from Last 3 Months Immunizations Name Administration Dates Next Due INFLUENZA VACCINE, TRIV. (AF LURIA, FLUZONE TRIVALENT; 6MO+) (IIV3) 06/02/2011 DTaP VACCINE IM (6wk-6yrs) 11/04/2005,,2001,05/08,2001 HEP A PEDS 2 DOSE 10/07/2010,11/07/2005 HEP B VACCINE, PED/ADOL 02/04/2002,05/08,2001,01/15 HIB BOOSTER 02/04/2002,2001,2001 Human Papilloma Virus Margie valent Vaccine 11/18/2013,02/01/2013,02/07/2012 INFLUENZA A [id number] VACCINE 05/29/2009 INFLUENZA VACCINE 06/09/2013, 7,06/19/2006,06/01,06/25/2004 INFLUENZA [...] Comments Blood Pressure 122/84 08/06/2024 1:53 PM COMMERCIAL FOOD INSTRUCTOR Pulse 105 08/06/2024 1:53 PM COMMERCIAL FOOD INSTRUCTOR Temperature 36.6 C (97.9 F) 01/25/2024 8:45 AM CDT Respiratory Rate 18 07/01/2024 2:36 PM COMMERCIAL FOOD INSTRUCTOR Oxygen Saturation 99% 08/06/2024 1:53 PM COMMERCIAL FOOD INSTRUCTOR Inhaled Oxygen Concentration - - Weight 51.7 kg (114 lb) 08/06/2024 1:53 PM COMMERCIAL FOOD INSTRUCTOR Height 165.1 cm (5' 5 ) 08/06/2024 1:53 PM COMMERCIAL FOOD INSTRUCTOR Body Mass Index 18.97 08/06/2024 1:53 PM COMMERCIAL FOOD INSTRUCTOR Plan of Treatment Upcoming Encounters Date Type Department Care Team (Late st Contact Info) Description 12/30/2024 12:30 PM CDT Office Visit [facility] - GI [address] [facility] [place] [phone] Health Maintenance Due Date Last Done Comments [...] 018 2:08 PM CDT) No Desirae Sainz, unit support representative Procedure Name Priority Date/Time Associated Diagnosis Comments UT INJ TRIGGER POINT, 1-2 MUSCLES Routine 08/06/2024 1:57 PM COMMERCIAL FOOD INSTRUCTOR Abdominal wall pain UT US GUIDED NEEDLE PLACEMENT Routine 08/06/2024 1:56 PM COMMERCIAL FOOD INSTRUCTOR Abdominal wall pain NM GASTRIC EMPTYING Routine 07/11/2024 1 :03 PM COMMERCIAL FOOD INSTRUCTOR Nausea and vomiting, unspecified vomiting type HEPATITIS C AB SCREEN RFLX NAAT QUANT STAT 01/01/2024 4:22 PM CDT Diarrhea, unspecified type HIV-1 HIV-2 ANTIBODY + HIV P24 AG PANEL Routine 01/01/2024 4:22 PM CDT Diarrhea, unspecified type CHLAMYDIA + GC AMPLIFIED PROBE STAT 12/10/2019 12:31 PM CDT from Last 3 Months or Most Recently Relevant to Health Maintenance Results * UT INJ TRIGGER POINT, 1-2 MUSCLES (08/06/2024 1:57 PM COMMERCIAL FOOD INSTRUCTOR) Narrative Clark Griggs MD - 08/06/2024 1:57 PM COMMERCIAL FOOD INSTRUCTOR Clark Griggs MD 08/07/2024 10:40 AM U/S-GUIDED [...] Griggs MD PROCEDURE/MINOR BUSTAMANTE RGICAL ORDERABLES * UT US GUIDED NEEDLE PLACEMENT (08/06/2024 1:56 PM COMMERCIAL FOOD INSTRUCTOR) Narrative Clark Griggs MD - 08/06/2024 1:56 PM COMMERCIAL FOOD INSTRUCTOR Clark Griggs MD 08/06/2024 1:56 PM (No note.) Clark Griggs MD PROCEDURE/MINOR BUSTAMANTE RGICAL ORDERABLES * NM Gastric Emptying (07/11/2024 1:03 PM COMMERCIAL FOOD INSTRUCTOR) Anatomical Region Laterality Modality Abdomen Nuclear Medicine 07/11/2024 9:14 AM COMMERCIAL FOOD INSTRUCTOR Impressions 07/11/2024 3:36 PM COMMERCIAL FOOD INSTRUCTOR Impression: Normal gastric emptying based on 5% retention at 4 hours after ingestion of meal. > Dictated by Aide Steiner (Underwear Finisher) 07/11/2024 9:14 AM Rnon [facility] DO have personally reviewed and interpreted this examination/study. > Interpreting Provider: Ronn Chaudhary DO on 07/11/2024 3:36 PM Narrative 07/11/2024 3:36 PM COMMERCIAL FOOD INSTRUCTOR PROCEDURE: NM GASTRIC EMPTYING DATE/TIME OF EXAM: [...] meal is labeled with 550 uCi of [id number] sulfur colloid. Findings: After ingestion of solid [...] meal is labeled with 550 uCi of [id number] sulfur colloid. Findings: After ingestion of solid [...] ingestionof meal. > Dictated by Aide Steiner (Underwear Finisher) 07/11/2024 9:14AM IRonn DO have personally reviewed and interpreted this examination/study. > Interpreting Provider: Ronn Chaudhary DO on 07/11/2024 3:36 PM Odell Wise DO NM ORDERABLES * HEPATITIS C AB SCREEN RFLX NAAT QUANT (01/01/2024 4:22 PM CDT) Hepatitis C Antibody Non-react isabelle Non-reac tidamir 01/01/2024 5:15 PM CDT [facility] Comment:Hepatitis C Antibody screen indicates no serologic [...] Provider Unknown LAB - CHEMISTRY MAT [place]UR[place] [facility] [address] [place] [phone], [facility] [phone] * HIV-1 HIV-2 ANTIBODY + HIV P24 AG PANEL (01/01/2024 4:22 PM CDT) Pathologist [facility] HIV Antigen/Antibod y 1 & 2 Non-reacti ve Non-react isabelle 01/01/2024 5:15 PM CDT [facility] Comment:No Laboratory eviden ce of HIV infection. Blood BLOOD SPECIMEN / Unknown Lab Venipuncture / Unknown 01/01/2024 4:22 PM CDT 01/01/2024 4:29 PM CDT Provider Unknown LAB - CHEMISTRY MAT [facility] [address] [place] [address], [facility] [phone] * CHLAMYDIA + GC AMPLIFIED PROBE (STL) (12/10/2019 12:31 PM CDT) Pathologist [facility] Chlamydia Amplified Probe Negative Negative 12/11/2019 11:58 AM CDT [facility] GC Amplified Probe Negative Negative 12/11/2019 11:58 AM CDT [facility] Microbiology URINE / Unknown Collection / Unknown 12/10/2019 12:31 PM CDT 12/10/2019 12:35 PM CDT Narrative [facility] - 12/11/2019 11:58 AM CDT Results based on detection/no detection of ribosomal RNA by amplified method. Ene Renteria MD LAB - MICROBIOLOGY ORDERABLES [facility] [address] [place] [address], [facility] [phone] from Last 3 Months or Most Recently Relevant to Health Maintenance Advance Directives * Full Code (Latest Code Status on File) Date Activated Date Inactivated Comments 02/08/2017 12:40 AM 02/09/2017 12:26 AM Care Teams Applications Systems Engineer Relationship Specialty Start Date End Date Bessy Santos MD [address] [place] [phone] PCP - General Family Medicine 12/10/19
--- OUTSIDE RECORDS SUMMARY | 2024-08-27 07:22 | XMS_ITS | Encounter Summary ---
Author Organization [facility] Address [address] [place] [address] Care Team Providers Care Instructional Technology Coach Name Role Phone Bessy Santos MD Primary Care Provider [phone] Reason for Visit * Reason Onset Date Comments Referral Consult Request 07/11/2024 Encounter Details Date Type Department Care Team (Late st Contact Info) Description 07/11/2024 Telephone [facility] - Centralized Scheduling [address] [place] [phone] Clark Griggs MD [address] [phone] Referral Consult Request Social History [...] Description 12/30/2024 12:30 PM CDT Office Visit [facility] - [address] [place] [phone] documented as of this encounter Goals Goal [...] on filedocumented in this encounter Care Teams Instructional Technology Coach Relationship Specialty Start Date End Date Bessy Santos MD [address] [place] [phone] PCP - General Family Medicine 12/10/19 documented as of this encounter
--- OUTSIDE RECORDS SUMMARY | 2024-08-27 07:22 | XMS_ITS | Clinical Summary ---
Author Organization [facility] Address [address] [place] [phone] Care Team Providers Care Geologic Technician Name Role Phone Bessy Santos MD Primary Care Provider [phone] Allergies Active Allergy Reactions Criticality Noted Date [...] on file Legal Sex Female 9:28 AM BUCKET WASH OPERATOR Gender Identity Not on file Sexual Orientation Not on file Obstetrics History Last Filed Vital Signs Vital Sign Reading Time Taken Comments Blood Pressure 103/58 08/26/2023 1:00 AM BUCKET WASH OPERATOR Pulse 102 08/26/2023 1:00 AM BUCKET WASH OPERATOR Temperature 36.8 C (98.2 F) 08/25/2023 9:35 PM BUCKET WASH OPERATOR Respiratory Rate 14 08/26/2023 1:00 AM BUCKET WASH OPERATOR Oxygen Saturation 94% 08/26/2023 1:00 AM BUCKET WASH OPERATOR Inhaled Oxygen Concentration - - Weight 51 kg (112 lb 7 oz) 08/25/2023 9:35 PM CS T Height 154.9 cm (5' 1 ) 08/25/2023 9:35 PM BUCKET WASH OPERATOR Body Mass Index 21.24 08/25/2023 9:35 PM BUCKET WASH OPERATOR Plan of Treatment Health Maintenance Due Date [...] HPV Vaccines Completed 11/18/2013, 01/14, 02/07/[address] [place] [address] [facility] Care Teams Geologic Technician Relationship Specialty Start Date End Date Bessy Santos MD PCP - General Family Medicine 09/14/22
--- OUTSIDE RECORDS SUMMARY | 2024-08-27 07:23 | XMS_ITS | Patient Health Summary ---
Author Organization [facility] Address [address] [place] [address] Care Team Providers Care Casting Operator Helper Name Role Phone Bessy Santos MD Primary Care Provider Note from [facility],non-owned Affiliates and Associated Physician Practices is amultiple site organization consisting of ambulatory clinics and hospital sitesin [place], [place], [place] and [place]. This disclosure is being madepursuant to the Care Everywhere program and may not contain all information available regarding this patient. Last updated 18.[facility] Allergies * Amoxicillin(Rash,Swelling) -Low Criticality * [...] Vaccine(Given 11/18/2013, 02/01/2013, 02/07/2012) * INFLUENZA A E6D2-03 VACCINE(Given 05/29/2009) * INFLUENZA VACCINE(Given 06/09/2013, 07/03/2007, [...] Comments Blood Pressure 122/84 08/06/2024 1:53 PM VEGETABLE FARMWORKER Pulse 105 08/06/2024 1:53 PM VEGETABLE FARMWORKER Temperature 36.6 C (97.9 F) 01/25/2024 8:45 AM CDT Respiratory Rate 18 07/01/2024 2:36 PM VEGETABLE FARMWORKER Oxygen Saturation 99% 08/06/2024 1:53 PM VEGETABLE FARMWORKER Inhaled Oxygen Concentration - - Weight 51.7 kg (114 lb) 08/06/2024 1:53 PM VEGETABLE FARMWORKER Height 165.1 cm (5' 5 ) 08/06/2024 1:53 PM VEGETABLE FARMWORKER Body Mass Index 18.97 08/06/2024 1:53 PM VEGETABLE FARMWORKER Procedures * IA INJ TRIGGER POINT, 1-2 MUSCLES(Performed 08/06/2024) Performed for Abdominal wall pain * IA US GUIDED NEEDLE PLACEMENT(Performed 08/06/2024) Performed for Abdominal wall pain * NM GASTRIC EMPTYING(Performed 07/11/2024) Performed for Nausea and vomiting, unspecified vomiting type * ENDOSCOPY, COLON, DIAGNOSTIC(Performed 01/25/2024) * PATHOLOGY TISSUE(Performed 01/25/2024) Performed for Diarrhea, unspecified type, Weight loss * EGD(Performed 01/25/2024) * IA COLONOSCOPY, DIAGNOSTIC(Performed 01/25/2024) Performed for Diarrhea, unspecified type, Weight loss * IA ED EGD FLEX TRANSORAL DX(Performed 01/25/2024) Performed [...] 01/20/2010) Performed for Allergy, Unspecified Results * IA INJ TRIGGER POINT, 1-2 MUSCLES (08/06/2024 1:57 PM VEGETABLE FARMWORKER) Narrative Clark Griggs MD - 08/06/2024 1:57 PM VEGETABLE FARMWORKER Clark Griggs MD 08/07/2024 10:40 AM U/S-GUIDED [...] Griggs MD PROCEDURE/MINOR BUSTAMANTE RGICAL ORDERABLES * IA US GUIDED NEEDLE PLACEMENT (08/06/2024 1:56 PM VEGETABLE FARMWORKER) Narrative Clark Griggs MD - 08/06/2024 1:56 PM VEGETABLE FARMWORKER Clark Griggs MD 08/06/2024 1:56 PM (No note.) Clark Griggs MD PROCEDURE/MINOR BUSTAMANTE RGICAL ORDERABLES * NM Gastric Emptying (07/11/2024 1:03 PM VEGETABLE FARMWORKER) Anatomical Region Laterality Modality Abdomen Nuclear Medicine 07/11/2024 9:14 AM VEGETABLE FARMWORKER Impressions 07/11/2024 3:36 PM VEGETABLE FARMWORKER Impression: Normal gastric emptying based on 5% retention at 4 hours after ingestion of meal. > Dictated by Aide Steiner (Quiller Runner) 07/11/2024 9:14 AM IRonn DO have personally reviewed and interpreted this examination/study. > Interpreting Provider: Ronn Chaudhary DO on 07/11/2024 3:36 PM Narrative 07/11/2024 3:36 PM VEGETABLE FARMWORKER PROCEDURE: NM GASTRIC EMPTYING DATE/TIME OF EXAM: [...] meal is labeled with 550 uCi of [id number] sulfur colloid. Findings: After ingestion of solid [...] meal is labeled with 550 uCi of [id number] sulfur colloid. Findings: After ingestion of solid [...] ingestionof meal. > Dictated by Aide Steiner (Quiller Runner) 07/11/2024 9:14AM IRonn DO have personally reviewed [...] entire procedure. Procedure Code(s): --- Professional --- 09028, Colonoscopy, flexible; with biopsy, single or multiple Diagnosis Code(s): --- Professional --- K52.9, Noninfective gastroenteritis and colitis, unspecified CPT copyright 2021 [employer] [place] [employer]. All rights reserved. The codes documented in this report are preliminary and upon certified procedural coder review may be revised to meet current compliance requirements. Marin Hurley, 01/25/2024 8:43:37 AM Note Initiated On: 01/25/2024 8:20 AM Number of Addenda: [address] [address] [facility] 01/25/2024 8:20 AM CDT Marin Hurley MD GI PROCEDURE ORDERAB LES [facility] * PATHOLOGY TISSUE (01/25/2024 8:12 AM CDT) Case Report Surgical Pathology Report Case: [id number] Authorizing Provider: Marin Hurley MD Collected: 01/25/2024 08:12 AM Ordering Location: [facility] Received: 01/25/2024 11:16 AM Pathologist: Fly Lopez MD Specimens: A) - Small Bowel, Small Bowel Biopsies R/O Celiac B) - Gastric, Gastric Biopsies R/O H. Pylori C) - Colon, Random Colon Biopsies 01/26/2024 12:58 PM CDT [facility] Final Diagnosis Small bowel, biopsies (A): - No histopathologic abnormality - No villous blunting or increased intraepithelial lymphocytes Stomach, biopsy (B): - Mild chronic gastritis - No active inflammation or H. pylori organisms (H&E examination) Colon, random biopsies (C): - No histopathologic abnormality - No lymphocytic or collagenous colitis 01/26/2024 12:58 PM CDT [facility] Microscopic Description and Comment Microscopic [...] in C1. MSL 01/26/2024 12:58 PM CDT [facility] Pathologist Location at [facility] 01/26/2024 12:58 PM CDT [facility] Disclaimer The performance characteristics of all immunohistochemical and indirect immunofluorescence stains (if any) cited in this report were determined by the Histopathology Laboratory of [facility]. Some of these tests were developed by [...] attending (teaching) pathologist. 01/26/2024 12:58 PM CDT [facility] Embedded Images 01/26/2024 12:58 PM CDT [facility] Resection without Tumor SMALL BOWEL RESECTION SPECIMEN / Unknown 01/25/2024 8:12 AM CDT 01/25/2024 11:16 AM CDT Biopsy, NOS GASTRIC CONTENTS SPECIMEN / Unknown 01/25/2024 8:12 AM CDT 01/25/2024 11:16 AM CDT Biopsy, NOS COLON PART / Unknown 01/25/2024 8:22 AM CDT 01/25/2024 11:16 AM CDT Marin Hurley MD LAB - PATHOLOGY/CYTO LOGY ORDERABLES [facility] [address] [place], [place] [address] [phone] * EGD (01/25/2024 8:09 AM CDT) Report [...] entire procedure. Procedure Code(s): --- Professional --- 29577, Esophagogastroduod enoscopy, flexible, transoral; with biopsy, single or multiple Diagnosis Code(s): --- Professional --- R19.7, Diarrhea, unspecified R10.13, Epigastric pain R11.2, Nausea with vomiting, unspecified R63.4, Abnormal weight loss CPT copyright 2021 [employer] [place] [employer]. All rights reserved. The codes documented in this report are preliminary and upon certified procedural coder review may be revised to meet current compliance requirements. Marin Hurley, 01/25/2024 8:39:20 AM Note Initiated On: 01/25/2024 8:09 AM Number of Addenda: [id number] [place] [address] 01/25/2024 8:09 AM CDT Marin Hurley MD GI PROCEDURE ORDERAB LES [facility] * HCG URINE QUALITATIVE - POCT (IP) INTERFACED (01/25/2024 7:18 AM CDT) Only the most recent of2 resultswithin the time period is included. HCG Qual Urine Negative Negative 01/25/2024 7:25 AM CDT [facility] Urine URINE / Unknown 01/25/2024 7 :18 AM CDT 01/25/2024 7:25 AM CDT Marin Hurley MD LAB - POINT OF CARE ORDERABLES Performing Organization Address City/[facility]/ZIP Co de Phone Number [facility] [address] [place] [phone], [place] [phone] * HCG URINE QUAL POCT NOTIFICATION (01/25/2024 7:06 AM CDT) Only the most recent of2 resultswithin the time period is included. Comment Notification Label Only - See Separate Report 01/25/2024 8:30 AM CDT [facility] Urine URINE / Unknown 01/25/2024 7 :06 AM CDT 01/25/2024 7:06 AM CDT Marin Hurley MD LAB - URINALYSIS ORD ERABLES Performing Organization Address City/[facility]/ZIP Co de Phone Number [address] [address], [place] [phone] * METANEPHRINES URINE FRACTIONATED (01/04/2024 12:11 PM CDT) Metanephrine 24 Hour Urine 99 36 - 229 ug/d 01/07/2024 5:54 AM CDT [facility] ([facility]) Collection Time Hours 24 hr 01/07/2024 5:54 AM CDT [facility] ([facility]) Comment: Per 24h calculations are provided to aid interpretation for collections with a duration of 24 hours and an average daily urine volume. For specimens with notable deviations in collection time or volume, ratios of analytes to a corresponding urine creatinine concentration may assist in result interpretation. Volume 24 Hour Urine 3000 mL 01/07/2024 5:54 AM CDT [facility] ([facility]) Metanephrine Urine 33 ug/L 2023 5:54 AM CDT [facility] ([facility]) Normetanephrine Urine 52 ug/L 01/07/2024 5:54 AM CDT [facility] ([facility]) Metanephrine Urine Ratio to INDUSTRIAL MAINTENANCE REPAIRER HELPER 67 0 - 300 ug/g INDUSTRIAL MAINTENANCE REPAIRER HELPER 01/07/2024 5:54 AM CDT [facility] ([facility]) Normetanephrine 24 Hour Urine 156 95 - 650 ug/d 01/07/2024 5:54 AM CDT [facility] ([facility]) Normetanephrine ug/g INDUSTRIAL MAINTENANCE REPAIRER HELPER 106 0 - 400 ug/g INDUSTRIAL MAINTENANCE REPAIRER HELPER 01/07/2024 5:54 AM CDT [facility] ([facility]) Interpretation Metanephrine Urine See Note 01/07/2024 5:54 AM CDT [facility] ([facility]) Comment: TEST INFORMATION: Metanephrines Fractionated, [...] reference intervals for this test in the [facility] Test Directory ([employer]). This test was developed and its performance characteristics determined by [facility]. It has not been cleared or approved by the US Food and Drug Administration. This test was performed in a CLIA certified laboratory and is intended for clinical purposes. Creatinine Urine 49 mg/dL 01/07/20 24 5:54 AM CDT [facility] [employer] ([facility]) Creatinine 24 Hour Urine 1470 700 - 1600 mg/d 01/07/2024 5:54 AM CDT [facility] [employer] [facility]) Comment: Performed By: [facility] [address] [place] [address] [employer] Agent: Silvestre Rose MD, PhD CLIA Number: [id number] Urine URINE SPECIMEN COLLECTION, 24 HOURS / Unknown Timed Urine Volume Measurement / Unknown 01/04/2024 12:11 PM CDT 01/04/2024 12:40 PM CDT Provider Unknown LAB - URINE CHEMISTR Y ORDERABLES [employer] [facility]) [address] [place] [address], [facility] * HEPATITIS C AB SCREEN RFLX NAAT QUANT (01/01/2024 4:22 PM CDT) [facility] Hepatitis C Antibody Non-react isabelle Non-reac tive 01/01/2024 5:15 PM CDT [facility] Comment:Hepatitis C Antibody screen indicates no [...] Unknown LAB - CHEMISTRY MAT BURNS [facility] [address] [place] [address], [place] [phone] * HIV-1 HIV-2 ANTIBODY + HIV P24 AG PANEL (01/01/2024 4:22 PM CDT) [facility] HIV Antigen/Antibod y 1 & 2 Non-reacti ve Non-react isabelle 01/01/2024 5:15 PM CDT [facility] Comment:No Laboratory eviden ce of HIV infection. Blood BLOOD SPECIMEN / Unknown Lab Venipuncture / Unknown 01/01/2024 4:22 PM CDT 01/01/2024 4:29 PM CDT Provider Unknown LAB - CHEMISTRY MAT BURNS [facility] [address] [place] [address], [place] [phone] * TSH REFLEX FREE T4 (01/01/2024 4:22 PM CDT) [facility] TSH 0.414 0.350 - 4.940 uIU/mL 01/01/2024 5:23 PM CDT [facility] Blood BLOOD SPECIMEN / Unknown Lab Venipuncture / Unknown 01/01/2024 4:22 PM CDT 01/01/2024 4:36 PM CDT Provider Unknown LAB - CHEMISTRY ORDE KATY Performing Organization Address City/[facility]/ZIP Co de Phone Number [place] [phone], [facility] [phone] * TISSUE TRANSGLUTAMINASE AB IGA (01/01/2024 4:22 PM CDT) Tissue Transglutaminase (tTG) Ab, IgA <1.02 0.00 - 4.99 FLU 01/04/2024 7:43 AM CDT [facility] ([facility]) Comment: INTERPRETIVE INFORMATION: Tissue Transglutaminase [...] indicate a response to therapy. Performed By: [facility] [address] [place] [address] [employer] Agent: Silvestre Rose MD, PhD CLIA Number: [id number] Blood BLOOD SPECIMEN / Unknown Lab Venipuncture / Unknown 01/01/2024 4:22 PM CDT 01/01/2024 4:29 PM CDT Provider Unknown LAB - SEROLOGY ORDER JULIA NEHeyAnita [facility]) [address] * C-REACTIVE PROTEIN (01/01/2024 4:22 PM CDT) C-Reactive Protein <0.5 <=0.5 mg/dL 01/01/2024 5:04 PM CDT [facility] Blood BLOOD SPECIMEN / Unknown Lab Venipuncture / Unknown 01/01/2024 4:22 PM CDT 01/01/2024 4:36 PM CDT Provider Unknown LAB - CHEMISTRY ORDE KATY [facility] [address] [place] [phone], [facility] [phone] * IGA BLOOD (01/01/2024 4:22 PM CDT) IgA 162 61 - 356 mg/dL 01/01/2024 4:57 PM CDT [facility] Blood BLOOD SPECIMEN / Unknown Lab Venipuncture / Unknown 01/01/2024 4:22 PM CDT 01/01/2024 4:29 PM CDT Provider Unknown LAB - CHEMISTRY MAT BURNS Performing Organization Address [facility]/ZIP Co de Phone Number [address] [address], [facility] [phone] * XR LUMBAR SPINE 2 OR 3VW [...] Auto 8.0 x10E9/L 12/10/2019 1:36 PM CDT [facility] WBC Corrected 12/10/2019 1:36 PM CDT [facility] nRBC 12/10/2019 1:36 PM CDT [facility] Neutrophil % Manual 87(H) 31 - 78 % 12/10/2019 1:36 PM CDT [facility] Lymphocytes % Manual 5(L) 13 - 54 % 12/10/2019 1:36 PM CDT [facility] Monocytes % Manual 5 4 - 13 % 12/10/2019 1:36 PM CDT [facility] Eosinophils % Manual 1 0 - 8 % 12/10/2019 1:36 PM CDT [facility] Band % Manual 2 % 12/10/2019 1:36 PM T [facility] Cells Counted 100 # cells 12/10/2019 1:36 PM CDT [facility] RBC Morphology Normal 12/10/2019 1:36 PM CDT [facility] WBC Morph Normal 12/10/2019 1:36 PM CDT [facility] Platelet Estimation Normal 12/10/2019 1:36 PM T [facility] Blood BLOOD SPECIMEN / Unknown Lab Venipuncture / Unknown 12/10/2019 12:49 PM CDT 12/10/2019 12:52 PM CDT Ene Renteria MD LAB - HEMATOLOGY O RDERABLES Performing Organization Address City/[facility]/ZIP Co de Phone Number [facility] [address] [place] [address] * (ABNORMAL) CBC W AUTO DIFFERENTIAL (12/10/2019 12:49 PM CDT) [facility] WBC 8.0 4.5 - 11.0 x10E9/L 12/10/2019 1:06 PM CDT [facility] WBC Corrected 12/10/2019 1:06 PM CDT [facility] RBC 4.38 4.10 - 5.10 x10E12/L 12/10/2019 1:06 PM CDT [facility] Hemoglobin 13.3 12.0 - 16.0 gm/dL 12/10/2019 1:06 PM CDT [facility] Hematocrit 40.0 36.0 - 47.0 % 12/10/2019 1:06 PM CDT [facility] MCV 91.3 78.0 - 98.0 fl 12/10/2019 1:06 PM CDT [facility] MCH 30.4 25.0 - 35.0 pg 12/10/2019 1:06 PM CDT [facility] MCHC 33.3 31.0 - 37.0 gm/dL 12/10/2019 1:06 PM CDT [facility] Platelet Count 233 100 - 400 x10E9/L 12/10/2019 1:06 PM CDT [facility] RDW-CV 12.7 11.5 - 14.0 % 12/10/2019 1:06 PM CDT [facility] MPV 10.0(H) 6.0 - 9.5 fl 12/10/2019 1:06 PM CDT [facility] nRBC Auto 0 /100 WBC 12/10/2019 1:06 PM CDT [facility] Blood BLOOD SPECIMEN / Unknown Lab Venipuncture / Unknown 12/10/2019 12:49 PM CDT 12/10/2019 12:52 PM CDT Ene Renteria MD LAB - HEMATOLOGY O RDERABLES [facility] [address] [place] [address] * (ABNORMAL) COMPREHENSIVE METABOLIC PANEL (12/10/2019 12:49 PM T) [facility] Glucose 98 70 - 105 mg/dL 12/10/2019 1:18 PM [facility] Sodium 138 136 - 145 mmol/L 12/10/2019 1:18 PM [facility] Potassium 4.1 3.5 - 5.1 mmol/L 12/10/2019 1:18 PM [facility] Chloride 108(H) 98 - 107 mmol/L 12/10/2019 1:18 PM [facility] CO2 22 20 - 28 mmol/L 12/10/2019 1:18 PM [facility] Calcium 9.37 9.08 - 10.48 mg/dL 12/10/2019 1:18 PM [facility] Anion Gap 8 5 - 20 mmol/L 12/10/2019 1:18 PM [facility] BUN 11.3 5.3 - 18.7 mg/dL 12/10/2019 1:18 PM [facility] Creatinine 0.91 0.61 - 1.07 mg/dL 12/10/2019 1:18 PM [facility] Alkaline Phosphatase 63 39 - 139 U/L 12/10/2019 1:18 PM [facility] ALT 12 8 - 65 U/L 12/10/2019 1:18 PM [facility] AST 18 8 - 42 U/L 12/10/2019 1:18 PM [facility] Protein Total 7.4 6.3 - 8.2 gm/dL 12/10/2019 1:18 PM [facility] Albumin 4.4 3.3 - 4.9 gm/dL 12/10/2019 1:18 PM [facility] Bilirubin Total 0.3 0.3 - 1.2 mg/dL 12/10/2019 1:18 PM [facility] eGFR by MDRD >60 >60 mL/min/1.7 3m2 12/10/2019 1:18 PM [facility] eGFR by MDRD >60 >60 mL/min/1.7 3m2 12/10/2019 1:18 PM [facility] Blood BLOOD SPECIMEN / Unknown Lab Venipuncture / Unknown 12/10/2019 12:49 PM CDT 12/10/2019 12:52 PM CDT Ene Renteria MD LAB - CHEMISTRY OR DERABLES Performing Organization Address City/[facility]/ZIP Co de Phone Number [facility] [address] [place] [phone] * LIPASE BLOOD (12/10/2019 12:49 PM CDT) Lipase 23 10 - 220 U/L 12/10/2019 1:20 PM CDT [facility] Blood BLOOD SPECIMEN / Unknown Lab Venipuncture / Unknown 12/10/2019 12:49 PM CDT 12/10/2019 12:52 PM CDT Ene Renteria MD LAB - CHEMISTRY OR DERABLES Performing Organization Address [facility] Co de Phone Number [facility] [address] [place] [phone] * (ABNORMAL) URINALYSIS W/MICROSCOPIC NO CULTURE (12/10/2019 12:32 PM CDT) Color UA Yellow Straw, Yellow 12/10/2019 12:57 PM CDT [facility] Clarity UA Clear Clear 12/10/2019 12:57 PM CDT [facility] Glucose UA Negative Negative 12/10/2019 12:57 PM CDT [facility] Bilirubin UA Negative Negative 12/10/2019 12:57 PM CDT [facility] Ketone UA Trace(A) Negative 12/10/2019 12:57 PM CDT [facility] Specific Spencer UA 1.006 1.005 - 1.030 12/10/2019 12:57 PM CDT [facility] Blood UA Negative Negative 12/10/2019 12:57 PM CDT [facility] pH UA 8.0 5.0 - 8.0 pH 12/10/2019 12:57 PM CDT [facility] Protein UA Negative Negative 12/10/2019 12:57 PM CDT [facility] Urobilinogen UA Negative Negative mg/dL 12/10/2019 12:57 PM CDT [facility] Nitrite UA Negative Negative 12/10/2019 12:57 PM CDT [facility] Leukocyte UA Negative Negative 12/10/2019 12:57 PM CDT [facility] RBC UA 0-2 None Seen, 0-2, 3-5 # /hpf 12/10/2019 12:57 PM CDT [facility] WBC UA 0-5 None Seen, 0-5 # /hpf 12/10/2019 12:57 PM CDT [facility] Bacteria UA None Seen None Seen 12/10/2019 12:57 PM CDT [facility] Squamous Epithelial Cells 0-2 None Seen, 0-2, 3-5 /hpf 12/10/2019 12:57 PM CDT [facility] Mucus UA 1+ /LPF 12/10/2019 12:57 PM CDT [facility] Urine URINE SPECIMEN OBTAINED BY CLEAN CATCH PROCEDURE / Unknown Collection / Unknown 12/10/2019 12:32 PM CDT 12/10/2019 12:37 PM CDT Narrative [facility] - 12/10/2019 12:57 PM CDT Ene Renteria MD LAB - URINALYSIS O RDERABLES [facility] [place] [address] * CHLAMYDIA + GC AMPLIFIED PROBE (STL) (12/10/2019 12:31 PM CDT) Pathologist [facility] Chlamydia Amplified Probe Negative Negative 12/11/2019 11:58 AM CDT [facility] GC Amplified Probe Negative Negative 12/11/2019 11:58 AM CDT [facility] Microbiology URINE / Unknown Collection / Unknown 12/10/2019 12:31 PM CDT 12/10/2019 12:35 PM CDT Narrative [facility] - 12/11/2019 11:58 AM CDT Results based on detection/no detection of ribosomal RNA by amplified method. Ene Renteria MD LAB - MICROBIOLOGY ORDERABLES [facility] [address] [place] [address], [facility] [phone] * TRICHOMONAS RAPID TEST (12/10/2019 12:31 PM CDT) [facility] Trichomonas Rapid Test Negative Negative 12/10/2019 1:07 PM CDT [facility] Microbiology VAGINAL SWAB / Unknown Collection / Unknown 12/10/2019 12:31 PM CDT 12/10/2019 12:37 PM CDT Ene Renteria MD LAB - MICROBIOLOGY ORDERABLES [facility] [address] [facility] [place] [address] * LAB RESULTS ORDER (05/04/2019) Only the most recent of6 resultswithin the time period is included. Scanned Document LAB - THERAPEUTIC DR UG MONITORING ORDERABLES * IMAGING RADIOLOGY XRAY RESULTS ORDER (05/04/2019) Only the most recent of2 resultswithin the time period is included. Anatomical Region Laterality Modality Other Scanned Document IMAGING * LIPID PROFILE+GLUCOSE - POINT OF CARE (AMB) (02/20/2018 2:38 PM CDT) [facility] QC Verified Yes Yes Cholesterol POCT 179 [...] of2 resultswithin the time period is included. [facility] Ventricular Rate 68 BPM CG MUSE Atrial Rate 68 BPM CG MUSE P-R Interval 110 ms CG MUSE QRS Duration ms 92 ms CG MUSE Q-T Interval ms 410 ms CG MUSE QTC Calculation (Bezet) 435 ms CG MUSE Calculated P [place] 38 degrees CG MUSE Calculated R [place] 63 degrees CG MUSE Calculated T [place] 62 degrees CG MUSE Interpretation EKG Sinus rhythm with sinus arrhythmia Normal ECG When compared with ECG of 08-FEB-2017 01:05, No significant change was found Confirmed by MANUEL LEMOS ([id number]) on 02/09/2017 4:23:28 PM CG MUSE 02/08/2017 7:32 AM CDT 02/09/2017 4:23 PM CDT Zan Alexander DO ECG ORDERABLES Performing Organization Address [facility] Services de Phone Number CG MUSE * HCG URINE QUALITATIVE (02/08/2017 5:43 AM CDT) Pathologist [facility] hCG Qualitative Urine Negative Negative 02/08/2017 6:05 AM CDT [facility] Urine URINE / Unknown Collection / Unknown 02/08/2017 5:43 AM CDT 02/08/2017 5:46 AM CDT Zan Alexander DO LAB - URINALYSIS ORD ERABLES Performing Organization Address [facility] de Phone Number [facility] [address] [place] [phone] * (ABNORMAL) SALICYLATE LEVEL BLOOD (02/08/2017 12:50 AM CDT) [facility] Salicylate 0.7(L) 15.0 - 30.0 mg/dL 02/08/2017 1:24 AM CDT [facility] Blood BLOOD SPECIMEN / Unknown Venipuncture / Unknown 02/08/2017 12:50 AM CDT 02/08/2017 1:01 AM CDT Faizan Blanca MD LAB - CHEMISTRY ORDE KATY Performing Organization Address [facility] de Phone Number [facility] [address] [place] [phone] * (ABNORMAL) ACETAMINOPHEN LEVEL (02/08/2017 12:50 AM CDT) Acetaminophen <3.0(L) 10.0 - 20.0 ug/mL 02/08/2017 1:24 AM CDT [facility] Blood BLOOD SPECIMEN / Unknown Venipuncture / Unknown 02/08/2017 12:50 AM CDT 02/08/2017 1:01 AM CDT Narrative [facility] - 02/08/2017 1:24 AM CDT [...] may alter the peak level. Contact the [facility] at or reserved for healthcare professionals to assist you in evaluating potentially toxic acetaminophen levels. Disclaimer: Administration of N-acetylcysteine (NAC) may interfere with the acetaminophen assay leading to falsely low acetaminophen results. Please be aware of this negative bias when interpreting results. For questions regarding treatment of acetaminophen toxicity and/or interpretation of acetaminophen concentrations in the presence of NAC please consult [facility] at and/or [facility] Medical Toxicology at [phone]. Faizan Blanca MD LAB - CHEMISTRY [place] [facility] Organization Address City/State/[facility] Co de Phone Number [facility] [address] [place] [address] * INFLUENZA A+B - POINT [...] resultswithin the time period is included. Pathologist [facility] Strep A Rapid POCT Negative Negative Strep [...] pH units Blood UA negative Negative Specific Spencer UA POCT 1.020 1.002 - 1.030 Ketone UA negative Negative Bilirubin UA POCT negative Negative Glucose UA negative Negative Urine specimen (specimen) URINE / Unknown 02/07/2014 1:34 PM CDT Cristina Alexander MD LAB - POINT OF CARE ORDERABLES * EEG (12/25/2013 12:00 PM CDT) 12/25/2013 12:0 0 PM CDT Narrative Transcriptions César Dawn MD - 12/26/2013 11:34 AM CDT [facility] [address] [place] [address] [phone] CLINICAL NEUROPHYSIOLOGY NAME: BINA HOLBROOK : 2000 ADDR[address]: [address] [place] [address] UNIT #: [id number] CSN #: [id number] DATE OF TEST: 12/25/2013 GLAUCOMA SPECIALIST: César Dawn MD This is an EEG being performed with sleep deprivation in a 64 lady with a history of aggression, bipolar [...] By: César Dawn MD SG/MedQ JOB ID: [id number] cc: Magen Waters M.D. CLINICAL NEUROPHYSIOLOGY Ordering Provider Unlisted MD NEUROLOGY ORDERABLES [facility] * MRI BRAIN WITH AND [...] COMMON ADULT FOOD PROFILE (09/17/2013 10:34 AM VEGETABLE FARMWORKER) Allergen [place] <0.10 <=0.34 kU/L 09/18/2013 3:30 PM VEGETABLE FARMWORKER [facility] Allergen Egg White <0.10 <=0.34 kU/L 09/18/2013 3:30 PM VEGETABLE FARMWORKER [facility] Allergen Milk (Cow) <0.10 <=0.34 kU/L 09/18/2013 3:30 PM VEGETABLE FARMWORKER [facility] Allergen Wheat 1.44(H) <=0.34 kU/L 09/18/2013 3:30 PM VEGETABLE FARMWORKER [facility] Allergen [place] 0.95(H) <=0.34 kU/L 09/18/2013 3:30 PM VEGETABLE FARMWORKER [facility] Allergen Peanut 0.25 <=0.34 kU/L 09/18/2013 3:30 PM VEGETABLE FARMWORKER [facility] Allergen Soybean 0.31 <=0.34 kU/L 09/18/2013 3:30 PM VEGETABLE FARMWORKER [facility] Allergen Shrimp <0.10 <=0.34 kU/L 09/18/2013 3:30 PM VEGETABLE FARMWORKER [facility] Allergen Clam <0.10 <=0.34 kU/L 09/18/2013 3:30 PM VEGETABLE FARMWORKER [facility] Allergen Codfish <0.10 <=0.34 kU/L 09/18/2013 3:30 PM VEGETABLE FARMWORKER [facility] Allergen Scallop <0.10 <=0.34 kU/L 09/18/2013 3:30 PM [facility] IgE Total 142 2 - 696 IU/mL 09/18/2013 3:30 PM [facility] Comment: REFERENCE INTERVAL: Immunoglobulin E, Serum Access complete set of age- and/or gender-specific reference intervals for this test in the [facility] Test Directory ([facility]). Immunocap Score See Note 4 3:30 PM VEGETABLE FARMWORKER [facility] Comment: REFERENCE INTERVAL: Allergen, Interpretation Less than [...] Lab Venipuncture / Unknown 09/17/2013 10:34 AM VEGETABLE FARMWORKER 09/17/2013 11:01 AM VEGETABLE FARMWORKER Irma Najera MD LAB - CHEMISTRY ORD ERABLES [facility] [employer] [address] [place] [address] * ALLERGEN INDIVIDUAL IGE (09/17/2013 10:34 AM VEGETABLE FARMWORKER) Test Name ALLERGEN, FOOD, GELATIN BOVINE IgE 09/25/2013 8:12 AM CDT [facility] Test Result See Scanned Report 09/25/2013 8:12 AM CDT [facility] Blood specimen (specimen) BLOOD SPECIMEN / Unknown Lab Venipuncture / Unknown 09/17/2013 10:34 AM VEGETABLE FARMWORKER 09/17/2013 11:00 AM VEGETABLE FARMWORKER Irma Najera MD LAB - CHEMISTRY ORD ERABLES Performing Organization Address [facility] Co de Phone Number [employer] [address] [place] [address] * ALLERGEN LATEX IGE (09/17/2013 10:34 AM VEGETABLE FARMWORKER) Allergen Latex <0.10 <=0.34 kU/L 09/18/2013 3:13 PM VEGETABLE FARMWORKER [facility] Blood specimen (specimen) BLOOD SPECIMEN / Unknown Lab Venipuncture / Unknown 09/17/2013 10:34 AM VEGETABLE FARMWORKER 09/17/2013 11:01 AM VEGETABLE FARMWORKER Irma Najera MD LAB - CHEMISTRY ORD ERABLES Performing Organization Address [facility] Co de Phone Number [employer] [address] [place] [address] * TRYPTASE (09/17/2013 10:34 AM VEGETABLE FARMWORKER) Tryptase 2.3 <=10.9 ug/L 09/18/2013 10:56 PM VEGETABLE FARMWORKER [facility] [employer] Blood specimen (specimen) BLOOD SPECIMEN / Unknown Lab Venipuncture / Unknown 09/17/2013 10:34 AM VEGETABLE FARMWORKER 09/17/2013 11:01 AM VEGETABLE FARMWORKER Irma Najera MD LAB - CHEMISTRY ORD ERABLES Performing Organization Address [facility] de Phone Number [place] [employer] [address] [place] [address] * IP CONSULT TO PEDIATRIC ALLERGY (06/09/2013 12:06 PM VEGETABLE FARMWORKER) Narrative Ihsan Fine MD - 06/09/2013 12:06 PM VEGETABLE FARMWORKER Ihsan Fine MD 06/09/2013 12:06 PM Allergy/Immunology [...] a prescription allergy medicine to take at [facility] that she is no longer taking. Allergy [...] her usual state of health going to [employer] friend's house last night. Mom dropped her [...] Comment: STREPTOCOCCUS, GROUP A CULTURE MICRO NUMBER: [id number] TEST STATUS: FINAL SPECIMEN SOURCE: THROAT SPECIMEN QUALITY: ADEQUATE RESULT: No beta hemolytic Streptococci isolated Test Performed at: [facility] [address] [address] JONATHAN BARROSO DO, MPH Miscellaneous samples (specimen) ENTIRE THROAT (SURFACE REGION OF NECK) / Unknown 12/27/2012 3:54 PM CDT 12/28/2012 2:38 AM CDT Mala Mccarty MD LAB - MICROBIOLOGY O RDERABLES Performing Organization Address City/[facility] Co de Phone Number [employer] [address] [place] [address] * XR ABDOMEN 1 VW (11/12/2012) Only [...] - MICROBIOLOGY O RDERABLES Performing Organization Address [facility] Co de Phone Number [facility] INSURANCE BILL * XR KNEE LEFT 1 OR 2 VW MP (10/07/2010) Anatomical Region Laterality Modality Lower Extremity Other Mala Mccarty MD DIAGNOSTIC IMAGING O RDERABLES * LAB MISC TEST (03/09/2010 4:52 PM CDT) Only the most recent of2 resultswithin the time period is included. Test Name BASOFUNCTION HRT [facility] Test Result See Scanned Report [facility] Test Performed by I.B.T.REF LAB [facility] BLOOD SPECIMEN / Unknown 03/09/2010 4:52 PM CDT 03/09/2010 5:04 PM CDT Narrative Resulting Agency Comment Performed By [email or web address] ([place]) [id number] [place] [id number] Ihsan Fine MD LAB SEND OUT Performing Organization Address City/[facility] Co de Phone Number [facility] [address] [place] [address] Care Teams Casting Operator Helper Relationship Specialty Start Date End Date Bessy Santos MD [facility] [place] [address] PCP - General Family Medicine 12/10/19
--- OUTSIDE RECORDS SUMMARY | 2024-08-27 07:23 | XMS_ITS | Clinical Summary ---
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 Active ziprasidone (GEODON) 40 mg Capsule Take [...] Comments Blood Pressure 131/77 07/30/2018 6:05 PM REMOTE SENSING ENGINEER Pulse 98 07/30/2018 6:05 PM REMOTE SENSING ENGINEER Temperature 37.2 C (98.9 F) 07/30/2018 6:05 PM REMOTE SENSING ENGINEER Respiratory Rate 14 07/30/2018 6:05 PM REMOTE SENSING ENGINEER Oxygen Saturation 99% 07/30/2018 6:05 PM REMOTE SENSING ENGINEER Inhaled Oxygen Concentration - - Weight 62.7 kg (138 lb 3.2 oz) 07/30/2018 6:05 P M REMOTE SENSING ENGINEER Height 165.1 cm (5' 5 ) 05/16/2018 [...] HPV VACCINES Completed 11/18/2013, 01/14, 02/07/2012 Insurance [facility] MEDICAID
--- OUTSIDE RECORDS SUMMARY | 2024-08-27 07:23 | XMS_ITS | Referral Summary ---
Author Organization [facility] Address [address] [place] [address] Care Team Providers Care Corn Breeder Name Role Phone Bessy Santos MD Primary Care Provider [phone] Source Comments [facility],non-owned Affiliates and Associated Physician Practices is amultiple site organization consisting of ambulatory clinics and hospital sitesin [place], [place], [place] and [place]. This disclosure is being madepursuant to the Care Everywhere program and may not contain all information available regarding this patient. Last updated 18.[facility] Encounters Date Type Department Care Team Description 08/06/2024 Travel 08/06/2024 2:00 PM COMPOSITION MOLDER Office Visit [facility] - Family Medicine [address] [place] [phone] Odell Wise DO Neme, Jamil Richard, MD Abdominal wall pain (Primary Dx) 07/24/2024 Telephone [facility] - GI [address] [place] [phone] Alisson Mcgrath RN General 07/11/2024 Telephone [facility] - GI [address] [place] [phone] Odell Wise DO Med Question 07/11/2024 Telephone [facility] - Centralized Scheduling [address] [place] [address] Clark Griggs MD Referral Consult Request 07/11/2024 Travel 07/11/2024 8:30 AM COMPOSITION MOLDER - 07/11/2024 11:59 PM COMPOSITION MOLDER Hospital Encounter [facility] [address] [place] [address] Odell Wise, DO Discharge Disposition: Home or Self Care 07/11/2024 7:44 AM COMPOSITION MOLDER - 07/11/2024 8:29 AM COMPOSITION MOLDER Hospital Encounter [facility] [address] [place] [address] Odell Wise, Discharge Disposition: Home or Self Care 07/04/2024 Telephone [facility] - Centralized Scheduling [address] [place] [address] Clark Griggs MD Future Appointment 07/01/2024 Travel 07/01/2024 2:30 PM COMPOSITION MOLDER Office Visit [facility] - GI [address] [facility] [place] [address] Navya Clements MD Abdominal discomfort (Primary Dx); [...] placement - Regular Diet as tolerated - Professor Criminal Justice - CR monitors - Pulse ox - [...] placement - Regular Diet as tolerates - Professor Criminal Justice - CR monitors - Pulse ox - [...] Q8H - Regular Diet as tolerates - Professor Criminal Justice - EKG, Acetaminophen, and ASA level upon [...] 06/09/2013 Assessment & Plan (06/09/2013 10:08 AM COMPOSITION MOLDER): Assessment: 13 y.o. female with a presumed [...] 2015- Assessment & Plan (06/09/2013 5:25 AM COMPOSITION MOLDER): Assessment: Chloe Holbrook is a 13 y.o. female with history of asthma, being admitted for anaphylactic reaction, likely secondary to hair product use. Plan: - Continue home albuterol, PRN - Per parents she only takes Flovent as a preventive medication during allergy season in the fall - will not order flovent at this time Anxiety 09/16/2011 Assessment & Plan (06/09/2013 5:24 AM COMPOSITION MOLDER): Assessment: Chloe Holbrook is a 13 y.o. [...] Virus Margie valent Vaccine 11/18/2013,02/01/2013,02/07/2012 INFLUENZA A [id number] VACCINE 05/29/2009 INFLUENZA VACCINE 06/09/2013, 7,06/19/2006,06/01,06/25/2004 INFLUENZA [...] Comments Blood Pressure 122/84 08/06/2024 1:53 PM COMPOSITION MOLDER Pulse 105 08/06/2024 1:53 PM COMPOSITION MOLDER Temperature 36.6 C (97.9 F) 01/25/2024 8:45 AM CDT Respiratory Rate 18 07/01/2024 2:36 PM COMPOSITION MOLDER Oxygen Saturation 99% 08/06/2024 1:53 PM COMPOSITION MOLDER Inhaled Oxygen Concentration - - Weight 51.7 kg (114 lb) 08/06/2024 1:53 PM COMPOSITION MOLDER Height 165.1 cm (5' 5 ) 08/06/2024 1:53 PM COMPOSITION MOLDER Body Mass Index 18.97 08/06/2024 1:53 PM COMPOSITION MOLDER Functional Status Functional Status Response Date of [...] Description 12/30/2024 12:30 PM CDT Office Visit [facility] - [address] [phone] Goals Goal Patient Goal Type Associated Problems [...] Procedure Name Priority Date/Time Associated Diagnosis Comments CT INJ TRIGGER POINT, 1-2 MUSCLES Routine 08/06/2024 1:57 PM COMPOSITION MOLDER Abdominal wall pain CT US GUIDED NEEDLE PLACEMENT Routine 08/06/2024 1:56 PM COMPOSITION MOLDER Abdominal wall pain NM GASTRIC EMPTYING Routine 07/11/2024 1 :03 PM COMPOSITION MOLDER Nausea and vomiting, unspecified vomiting type HEPATITIS C AB SCREEN RFLX NAAT QUANT STAT 01/01/2024 4:22 PM CDT Diarrhea, unspecified type HIV-1 HIV-2 ANTIBODY + HIV P24 AG PANEL Routine 01/01/2024 4:22 PM CDT Diarrhea, unspecified type CHLAMYDIA + GC AMPLIFIED PROBE STAT 12/10/2019 12:31 PM CDT from Last 3 Months or Most Recently Relevant to Health Maintenance Results * CT INJ TRIGGER POINT, 1-2 MUSCLES (08/06/2024 1:57 PM COMPOSITION MOLDER) Narrative Clark Griggs MD - 08/06/2024 1:57 PM COMPOSITION MOLDER Clark Griggs MD 08/07/2024 10:40 AM U/S-GUIDED [...] Griggs MD PROCEDURE/MINOR BUSTAMANTE RGICAL ORDERABLES * CT US GUIDED NEEDLE PLACEMENT (08/06/2024 1:56 PM COMPOSITION MOLDER) Narrative Clark Griggs MD - 08/06/2024 1:56 PM COMPOSITION MOLDER Clark Griggs MD 08/06/2024 1:56 PM (No note.) Clark Griggs MD PROCEDURE/MINOR BUSTAMANTE RGICAL ORDERABLES * NM Gastric Emptying (07/11/2024 1:03 PM COMPOSITION MOLDER) Anatomical Region Laterality Modality Abdomen Nuclear Medicine 07/11/2024 9:14 AM COMPOSITION MOLDER Impressions 07/11/2024 3:36 PM COMPOSITION MOLDER Impression: Normal gastric emptying based on 5% retention at 4 hours after ingestion of meal. > Dictated by Aide Steiner (Pricer) 07/11/2024 9:14 AM IRonn DO have personally reviewed and interpreted this examination/study. > Interpreting Provider: Ronn Chaudhary DO on 07/11/2024 3:36 PM Narrative 07/11/2024 3:36 PM COMPOSITION MOLDER PROCEDURE: NM GASTRIC EMPTYING DATE/TIME OF EXAM: [...] meal is labeled with 550 uCi of [id number] sulfur colloid. Findings: After ingestion of solid [...] meal is labeled with 550 uCi of [id number] sulfur colloid. Findings: After ingestion of solid [...] ingestionof meal. > Dictated by Aide Steiner (Pricer) 07/11/2024 9:14AM Ronn Sullivan DO have personally reviewed and interpreted this examination/study. > Interpreting Provider: Ronn Chaudhary DO on 07/11/2024 3:36 PM Odell Wise DO [place] ORDERABLES * HEPATITIS C AB SCREEN RFLX NAAT QUANT (01/01/2024 4:22 PM CDT) Hepatitis C Antibody Non-react isabelle Non-reac tive 01/01/2024 5:15 PM CDT [facility] Comment:Hepatitis C Antibody screen indicates no [...] CDT Provider Unknown LAB - CHEMISTRY [facility] Performing Organization Address City/[facility]/ZIP Co de Phone Number [address] [address], [facility] [phone] * HIV-1 HIV-2 ANTIBODY + HIV P24 AG PANEL (01/01/2024 4:22 PM CDT) Pathologist [facility] HIV Antigen/Antibod y 1 & 2 Non-reacti ve Non-react isabelle 01/01/2024 5:15 PM CDT [facility] Comment:No Laboratory eviden ce of HIV infection. Blood BLOOD SPECIMEN / Unknown Lab Venipuncture / Unknown 01/01/2024 4:22 PM CDT 01/01/2024 4:29 PM CDT Provider Unknown LAB - CHEMISTRY [facility]DE [facility] [address] [address], [place] [phone] * CHLAMYDIA + GC AMPLIFIED PROBE (STL) (12/10/2019 12:31 PM CDT) Pathologist [facility] Chlamydia Amplified Probe Negative Negative 12/11/2019 11:58 AM CDT [facility] GC Amplified Probe Negative Negative 12/11/2019 11:58 AM CDT [facility] Microbiology URINE / Unknown Collection / Unknown 12/10/2019 12:31 PM CDT 12/10/2019 12:[address] [facility] - 12/11/2019 11:58 AM CDT Results based on detection/no detection of ribosomal RNA by amplified method. Ene Renteria MD LAB - MICROBIOLOGY ORDERABLES [facility] [address] [place] [address], [facility] [phone] from Last 3 Months or Most Recently Relevant to Health Maintenance Administered Medications Advance Directives * Full Code (Latest Code Status on File) Date Activated Date Inactivated Comments 02/08/2017 12:40 AM 02/09/2017 12:26 AM Care Teams Corn Breeder Relationship Specialty Start Date End Date Bessy Santos MD [address] [place] [phone] PCP - General Family Medicine 12/10/19
[2024-08-27] MEDS: metroNIDAZOLE 500 MG TABLET PO (07:37)
[2024-08-27] MEDS: PROMETHAZINE HCL 25 MG/ML AMPUL IM (07:37)
[2024-08-27] MEDS: DOXYCYCLINE HYCLATE 100 MG TABLET PO (07:37)
[2024-08-27] MEDS: DICYCLOMINE HCL 10 MG CAPSULE 20 MG PO (07:38)
--- NOTE | 2024-08-27 08:30 | ED_ITS ---
HPI - Abdominal Pain General Chief Complaint: Abdominal Pain Stated Complaint: abd pain Time Seen by Provider: 08/27/24 07:00 History of Present Illness HPI narrative: Patient has been having some vaginal discharge and left lower pelvic pain for the last week, on and off, she has had similar symptoms in the past from [facility] treatment, she is concerned for possible STDs, she also started having a sore throat this morning. Related Data Home Medications ?Medication ?Instructions ?Recorded ?Confirmed ?Last Taken ?Type albuterol sulfate 90 mcg/actuation 2 puff inhalation PRN PRN 10/11/23 07/30/24 Unknown History aerosol inhaler Shortness Of Breath Or Wheezing cetirizine 10 mg tablet (Zyrtec) 10 mg PO DAILY 10/11/23 07/30/24 Unknown History fluconazole 150 mg tablet 150 mg PO WEEKLY 03/15/24 07/30/24 Unknown History amitriptyline 10 mg tablet 10 mg PO BID 07/30/24 07/30/24 Unknown History metoprolol tartrate 25 mg tablet 25 mg PO .QD 07/30/24 07/30/24 Unknown History montelukast 10 mg tablet 10 mg PO QPM 07/30/24 07/30/24 Unknown History norethindrone (contraceptive) 0.35 0.35 mg PO .QD 07/30/24 07/30/24 Unknown History mg tablet (Bibiana) Allergies Allergy/AdvReac Type Severity Reaction Status Date / Time amoxicillin Allergy Severe Swelling Verified 07/30/24 16:29 ibuprofen Allergy Severe Anaphylactic Verified 07/30/24 16:29 Shock Penicillins Allergy Severe Swelling Verified 07/30/24 16:29 metoclopramide (From Reglan) AdvReac Intermediate Anxiety Verified 07/30/24 16:29 Review of Systems 2 Review of Systems: All systems reviewed & are unremarkable except as noted in HPI and below PMFSH Past Medical History Medical History Endometriosis Cyclic vomiting syndrome Irritable bowel syndrome Self-mutilation Suicide attempt Anxiety Depression Bipolar 1 disorder ADD (attention deficit disorder) Asthma Surgical History Surgical History History of colonoscopy [facility] History of esophagogastroduodenoscopy (EGD) [facility] S/P wisdom tooth extraction Family History Family History Father ADHD (attention deficit hyperactivity disorder) Bipolar disorder Personality disorder Mother Alive and well Social History Social History Smoking packs per day: 0.5 Smoking cigarettes per day: 10.0 Years smoked: 8 Smoking pack-years: 4.00 Smoking status: Current every day smoker Tobacco type: cigarettes and e-cigarettes/vaping Second hand tobacco smoke exposure: Yes Additional smoking assessment comments: Vaping Alcohol intake: former Alcohol use details: Maybe once a week Substance use: current Substance use type: marijuana Other substance usage details: Daily Living arrangements: with family Occupation/Education: occupation Additional occupation/education comments: works at [employer] in [place] Gender identity (if verbalized by the patient): Female Spiritual care concerns: No Exam 2 Narrative: EXAMINATION OF ORGAN SYSTEMS/BODY AREAS: Constitutional: Vital signs per nursing GENERAL: Actively retching HEAD: Normal with no signs of head trauma. EYES: EOMI, conjunctiva normal ENT: Slight pharyngeal erythema without tonsillar exudate, normal voice LUNGS: Nonlabored breathing. HEART: [Regular rate and rhythm] ABD: [Soft], very minimal tenderness to palpation left lower quadrant EXT: Normal range of motion SKIN: [No rashes or lesions.] NEURO: [Alert and oriented x 3. No gross focal sensory or strength deficits.] PSYCH: Normal affect Course Vital Signs Vital signs: Vital Signs Temperature 98.3 F 08/27/24 00:30 Pulse Rate 96 08/27/24 00:30 Respiratory Rate 18 08/27/24 00:30 Blood Pressure 144/98 H 08/27/24 00:30 Pulse Oximetry 98 08/27/24 00:30 Oxygen Delivery Room Air 08/27/24 00:30 Temperature 97.6 F 08/27/24 09:51 Pulse Rate 88 08/27/24 09:51 Respiratory Rate 16 08/27/24 09:51 Blood Pressure 112/74 08/27/24 09:51 Pulse Oximetry 100 08/27/24 09:51 Oxygen Delivery Room Air 08/27/24 00:30 MDM - Abdominal Pain MDM Narrative Medical decision making narrative: Electronic medical record was reviewed. Patient presented to the ED with complaint of [abdominal pain and vomiting, some slight discharge and sore throat]. Vitals [were within acceptable limits]. Physical exam revealed [tenderness to palpation in periumbilical abdomen]. Based on the patient's history and physical exam, my differential includes but is not limited to [gastritis, gastroenteritis, cholecystitis, pancreatitis, appendicitis]. [IV access was established by nursing staff. Patient was given zofran, famotidine]. CBC, BMP, lipase, LFTs, bilirubin and alk phos were obtained. Labs were pertinent for hematuria but patient on her period. She would like STD treatment at this time. [Decision was made to obtain a CT-abdomen to evaluate for acute abdominal process. CT-abdomen per radiology interpretation is unremarkable for acute intra-abdominal process, no signs of hydronephrosis, cholecystitis, appendicitis.] On reevaluation, the patient states that they are feeling better. There were no further witnessed episodes of vomiting in the emergency department after second round of meds. They are not complaining of any new abdominal pain. Repeat examination did not show any significant guarding or rebound. No new tenderness. At this time I do not feel there is any further emergent treatment to be provided. STD testing came back neg so abx canceled. The patient was given strict return precautions, if they are to develop any worsening abdominal pain, vomiting, or blood in the vomit they are to return to the emergency department immediately. Patient verbally acknowledges understanding these directions. [The patient was informed of the above diagnostic test findings.] No further workup is necessary at this time. They will be discharged home [with prescriptions]. They were advised to follow-up with [their PCP] in 2 days. The patient feels that this is appropriate medical decision making and verbalizes an understanding of the discharge instructions. Lab Data 08/27/24 06:58 08/27/24 06:58 Labs: Lab Results 08/27/24 08/27/24 08/27/24 Range/Units 06:51 06:57 06:58 WBC 8.0 (4.5-10.0) K/mm3 RBC 4.23 (4.2-5.4) M/mm3 Hgb 13.6 (12.0-15.0) g/dL Hct 40.4 (37.0-47.0) % MCV 95.5 (80-100) fl MCH 32.2 (26-34) pg MCHC 33.7 (32-36) g/dl RDW 13.2 (11.5-14.5) % Plt Count 272 (150-375) k/mm3 MPV 8.8 (7.4-10.4) fl Immature Gran % (Auto) 0.4 (0-0.5) % Neut % (Auto) 67.8 (45.5-73.1) % Lymph % (Auto) 20.9 (18.3-44.2) % Allen % (Auto) 5.3 (2.6-8.5) % Eos % (Auto) 5.3 H (0-4.4) % Baso % (Auto) 0.3 (0.2-1.2) % Lymph # (Auto) 1.66 (0.9-3.2) K/mm3 Allen # (Auto) 0.4 (0.1-0.6) K/mm3 Eos # (Auto) 0.4 H (0-0.3) K/mm3 Baso # (Auto) 0.0 (0.0-0.1) K/mm3 Abs Immat Gran (auto) 0.03 (0.00-0.031) K/mm3 Absolute Neuts (auto) 5.4 (1.3-6.7) K/mm3 Absolute Nucleated RBC 0.000 (0.0-0.012) K/mm3 Nucleated RBC % 0.0 (0.0-0.2) % Sodium 135 L (137-145) mmol/L Potassium 3.6 (3.4-5.0) mmol/L Chloride 102 (98-107) mmol/L Carbon Dioxide 23 (22-30) mmol/L Anion Gap 10 (4-12) mmol/L BUN 13 (7-17) mg/dL Creatinine 0.70 (0.7-1.0) mg/dL Estim Creat Clear Calc 87 ml/min Estimated GFR > 60 (59 - ) Glucose 101 (65-110) mg/dL Calcium 9.9 (8.4-10.2) mg/dL Total Bilirubin 0.8 (0.2-1.3) mg/dL AST 25 (14-36) U/L ALT 20 (6-35) U/L Alkaline Phosphatase 55 (38-126) U/L Total Protein 8.0 (6.3-8.2) g/dL Albumin 5.1 (3.5-5.1) g/dL Urine Color Yellow (Yellow) Urine Appearance Clear (Clear) Urine pH 7.5 (5.0-9.0) Ur Specific [place] 1.014 (1.001-1.035) Urine Protein Negative (Negative) mg/dL Urine Glucose (UA) Negative (Negative) mg/dL Urine Ketones 1+ H (Negative) mg/dL Ur Blood (Man) 2+ H (Negative) Urine Nitrate Negative (Negative) Urine Bilirubin Negative (Negative) Urine Urobilinogen 0.2 (<2.0) mg/dL Leukocyte Esterase Rfl Negative (Negative) CHIDI/UL Urine RBC 51-100 H (0-2) /hpf Urine WBC 0-5 (0-3) /hpf Ur Squamous Epith Cells Occasional (Few) /hpf Urine Bacteria None seen /hpf Urine Casts 0-2 POC Urine HCG, Qual Negative (Negative) C. trachomatis (PCR) Not detected (NOT DETECTE) Influenza A (RT-PCR) (Negative) Influenza B (RT-PCR) (Negative) N. gonorrhoeae (PCR) Not detected (NOT DETECTE) RSV (RT-PCR) (Negative) SARS-CoV-2 RNA (RT-PCR) (Negative) T. vaginalis (PCR) Not detected (NOT DETECTE) 08/27/24 Range/Units 08:14 WBC (4.5-10.0) K/mm3 RBC (4.2-5.4) M/mm3 Hgb (12.0-15.0) g/dL Hct (37.0-47.0) % MCV (80-100) fl MCH (26-34) pg MCHC (32-36) g/dl RDW (11.5-14.5) % Plt Count (150-375) k/mm3 MPV (7.4-10.4) fl Immature Gran % (Auto) (0-0.5) % Neut % (Auto) (45.5-73.1) % Lymph % (Auto) (18.3-44.2) % Allen % (Auto) (2.6-8.5) % Eos % (Auto) (0-4.4) % Baso % (Auto) (0.2-1.2) % Lymph # (Auto) (0.9-3.2) K/mm3 Allen # (Auto) (0.1-0.6) K/mm3 Eos # (Auto) (0-0.3) K/mm3 Baso # (Auto) (0.0-0.1) K/mm3 Abs Immat Gran (auto) (0.00-0.031) K/mm3 Absolute Neuts (auto) (1.3-6.7) K/mm3 Absolute Nucleated RBC (0.0-0.012) K/mm3 Nucleated RBC % (0.0-0.2) % Sodium (137-145) mmol/L Potassium (3.4-5.0) mmol/L Chloride (98-107) mmol/L Carbon Dioxide (22-30) mmol/L Anion Gap (4-12) mmol/L BUN (7-17) mg/dL Creatinine (0.7-1.0) mg/dL Estim Creat Clear Calc ml/min Estimated GFR (59 - ) Glucose (65-110) mg/dL Calcium (8.4-10.2) mg/dL Total Bilirubin (0.2-1.3) mg/dL AST (14-36) U/L ALT (6-35) U/L Alkaline Phosphatase (38-126) U/L Total Protein (6.3-8.2) g/dL Albumin (3.5-5.1) g/dL Urine Color (Yellow) Urine Appearance (Clear) Urine pH (5.0-9.0) Ur Specific [place] (1.001-1.035) Urine Protein (Negative) mg/dL Urine Glucose (UA) (Negative) mg/dL Urine Ketones (Negative) mg/dL Ur Blood (Man) (Negative) Urine Nitrate (Negative) Urine Bilirubin (Negative) Urine Urobilinogen (<2.0) mg/dL Leukocyte Esterase Rfl (Negative) CHIDI/UL Urine RBC (0-2) /hpf Urine WBC (0-3) /hpf Ur Squamous Epith Cells (Few) /hpf Urine Bacteria /hpf Urine Casts POC Urine HCG, Qual (Negative) C. trachomatis (PCR) (NOT DETECTE) Influenza A (RT-PCR) Negative (Negative) Influenza B (RT-PCR) Negative (Negative) N. gonorrhoeae (PCR) (NOT DETECTE) RSV (RT-PCR) Negative (Negative) SARS-CoV-2 RNA (RT-PCR) Negative (Negative) T. vaginalis (PCR) (NOT DETECTE) Imaging Data Radiologist's impression: ITS Impressions Abdomen/Pelvis CT 08/27/24 08:49 IMPRESSION: 1. No etiology for the patient's symptoms. Discharge Plan Discharge Clinical Impression: Left lower quadrant abdominal pain, Nausea and vomiting Patient Disposition: Home, Self-Care Condition: Stable Instructions: Acute Nausea and Vomiting (ED), Abdominal Pain (ED) Additional Instructions: Please follow-up with your OBGYN and come back for any further issues. Patient Language: Citizen Of [place] Prescriptions: New ondansetron 4 mg tablet,disintegrating 4 mg PO Q8H PRN (Reason: nausea and vomiting) Qty: 10 0RF No Action amitriptyline 10 mg tablet 10 mg PO BID montelukast 10 mg tablet 10 mg PO QPM norethindrone (contraceptive) [Bibiana] 0.35 mg tablet 0.35 mg PO .QD metoprolol tartrate 25 mg tablet 25 mg PO .QD prednisone 20 mg tablet See Rx Instructions .Route .COMPLEX Qty: 18 0RF Rx Instructions: Take 60 mg daily for 3 days, 40 mg daily for 3 days, 20 mg daily for 3 days fluticasone propionate [Flonase Allergy Relief] 50 mcg/actuation spray,suspension 2 spray NASAL DAILY 14 Days Qty: 15.8 0RF Rx Instructions: administer into each nostril fluconazole 150 mg tablet 150 mg PO WEEKLY Rx Instructions: Takes on dicyclomine 10 mg capsule 10 mg PO BID PRN (Reason: abdominal pain) Qty: 10 0RF cetirizine [Zyrtec] 10 mg Tablet 10 mg PO DAILY albuterol sulfate 90 mcg/actuation HFA aerosol inhaler 2 puff INHALATION PRN PRN (Reason: Shortness Of Breath Or Wheezing) Follow-up/Referrals: Treasure,TERRY Lorenzo [Primary Care Provider] - 2 Days
[2024-08-27 08:38] LABS: Trichomonas Vag PCR NOT DETECTED (NOT DETECTE)
[2024-08-27 08:59] LABS: Influenza A QL RT-PCR Negative (Negative); Influenza B QL RT-PCR Negative (Negative); RSV RNA, RT-PCR Negative (Negative); SARS-CoV-2 RNA PCR Negative (Negative)
[2024-08-27 09:03] LABS: Chlamydia trachomatis NOT DETECTED (NOT DETECTE); Neisseria gonorrhoeae PCR NOT DETECTED (NOT DETECTE)
[2024-08-27] MEDS: LORazepam INJ (*CRX) 2 MG/ML VIAL 0.5 MG IV PUSH (09:43)
[2024-08-27] MEDS: ONDANSETRON INJ 4 MG/2 ML VIAL IV PUSH (09:43)
[2024-08-27 09:51] VITALS: BP 112/74; PULSE 88; RESP 16; TEMP 36.4; O2SAT 100
== END 2024-08-27 09:52 | disposition home or self-care (01) ==
PROVIDERS: Student in an Organized Health Care Education/Training Program; Emergency Provider Emergency Medicine; PCP Physician Assistant
DX: R11.2 Nausea with vomiting, unspecified (principal); R10.32 Left lower quadrant pain; Z20.822 Contact with and (suspected) exposure to COVID-19; F17.210 Nicotine dependence, cigarettes, uncomplicated; F41.9 Anxiety disorder, unspecified; F32.A Depression, unspecified; J45.909 Unspecified asthma, uncomplicated
CPT/HCPCS: 36415; 74177; 80053; 81001; 81025; 85025; 87491; 87591; 87637; 87661; 96365; 96375; 99284; A9270; J0696; J2060; J2405; J2550; Q9967

== ENCOUNTER 2024-10-11 23:15 | Emergency (ER) | payer OTHER, SELFPAY ==
--- OUTSIDE RECORDS SUMMARY | 2024-10-11 23:18 | XMS_ITS | Clinical Summary ---
Author Organization [facility] Address [address] [place] [id number] Care Team Providers Care Instructor Technical Training Name Role Phone Bessy Santos MD Primary Care Provider [phone]- [phone] Allergies Active Allergy Reactions Criticality Noted Date [...] on file Legal Sex Female 9:28 AM PULLEY WORKER Gender Identity Not on file Sexual Orientation Not on file Obstetrics History Last Filed Vital Signs Vital Sign Reading Time Taken Comments Blood Pressure 103/58 08/26/2023 1:00 AM PULLEY WORKER Pulse 102 08/26/2023 1:00 AM PULLEY WORKER Temperature 36.8 C (98.2 F) 08/25/2023 9:35 PM PULLEY WORKER Respiratory Rate 14 08/26/2023 1:00 AM PULLEY WORKER Oxygen Saturation 94% 08/26/2023 1:00 AM PULLEY WORKER Inhaled Oxygen Concentration - - Weight 51 kg (112 lb 7 oz) 08/25/2023 9:35 PM CS T Height 154.9 cm (5' 1 ) 08/25/2023 9:35 PM PULLEY WORKER Body Mass Index 21.24 08/25/2023 9:35 PM PULLEY WORKER Plan of Treatment Health Maintenance Due Date Last Done Comments Cervical Cancer Screening 2001 Depression Screening 2001 Hepatitis C Screening 2001 Meningococcal B Vaccine (1 o f 2 - Standard) 2017 Regular Well Visit/Exam 18-64 2019 Pneumococcal vaccine <65 (1 of 2 - PCV) 01/16/2020 DTaP/Tdap/Td Vaccine (7 - Td or Tdap) 02/06/2022 02/07/2012, 11/04/2005, 08/06/2002, Additional history exists Influenza Vaccine (#1) 2024 6, 05/14/2015, 05/17/2014, Additional history exists Hepatitis B Screening Completed 02/04/2002 , 2001, 2001, Additional history exists Varicella Vaccines Completed 02/01/2013, 03/29/2002 HPV Vaccines Completed 11/18/2013, 01/14, 02/07/[address] [place] [address] [place] [address] [facility] Care Teams Instructor Technical Training Relationship Specialty Start Date End Date Bessy Santos MD PCP - General Family Medicine 09/14/22
--- OUTSIDE RECORDS SUMMARY | 2024-10-11 23:18 | XMS_ITS | Referral Summary ---
Author Organization [facility] Address [address] [place] [id number] Care Team Providers Care Chief Of Party Name Role Phone Bsesy Santos MD Primary Care Provider [phone]- [phone] Allergies Active Allergy Reactions Criticality Noted Date [...] on file Legal Sex Female 9:28 AM PAD HAND Gender Identity Not on file Sexual Orientation Not on file Last Filed Vital Signs Vital Sign Reading Time Taken Comments Blood Pressure 103/58 08/26/2023 1:00 AM PAD HAND Pulse 102 08/26/2023 1:00 AM PAD HAND Temperature 36.8 C (98.2 F) 08/25/2023 9:35 PM PAD HAND Respiratory Rate 14 08/26/2023 1:00 AM PAD HAND Oxygen Saturation 94% 08/26/2023 1:00 AM PAD HAND Inhaled Oxygen Concentration - - Weight 51 kg (112 lb 7 oz) 08/25/2023 9:35 PM CS T Height 154.9 cm (5' 1 ) 08/25/2023 9:35 PM PAD HAND Body Mass Index 21.24 08/25/2023 9:35 PM PAD HAND Plan of Treatment Not on file Insurance [facility] Care Teams Chief Of Party Relationship Specialty Start Date End Date Bessy Santos MD PCP - General Family Medicine 09/14/22
--- OUTSIDE RECORDS SUMMARY | 2024-10-11 23:18 | XMS_ITS | Clinical Summary ---
Author Organization [facility] [employer] Address [address] [place] [address] Care Team Providers Care Senior Asic Engineer Name Role Phone Bessy Santos MD Primary Care Provider [phone] Source Comments [facility],non-owned Affiliates and Associated Physician Practices is amultiple site organization consisting of ambulatory clinics and hospital sitesin [place], [place], [place] and [place]. This disclosure is being madepursuant to the Care Everywhere program and may not contain all information available regarding this patient. Last updated 18.[facility] [employer] Allergies Active Allergy Reactions Criticality Noted Date [...] 0.3 mL into muscle once as needed 5 Active albuterol HFA (PROVENTIL;VENT DEVIKA;PROAIR) 108 (90 Base) MCG/ACT inhaler INHALE 2 PUFFS EVERY 4 HOURS NEEDED FOR COUGH/WHEEZE 18 Inhaler 9 Active hydroCHLOROthia zide (Microzide) 12.5 MG capsule Take 1 (one) capsule by mouth once daily Active lidocaine (Lidoderm) 4 % patch Apply 1 (one) patch to skin as needed 4 Active ondansetron, disintegrating, (Zofran ODT) 4 MG tablet Take 1 (one) tablet by mouth every 8 hours as needed for Nausea/Vomiting 3 Active POTASSIUM PO Take 99 mg by mouth once daily Active polyethylene glycol (Gavilyte-C) 240 g solution Drink 3/4th of prep solution at 5pm the night before colonoscopy. Finish the prep at 4am the day of test. 4000 mL 4 Active Additional Information Patient not taking.Reported on 07/01/2024 cetirizine (ZyrTEC) 10 MG chew tablet Take 1 (one) tablet by mouth once daily Active boric acid 600 mg vaginal capsule Insert 1 (one) capsule into the vagina at bedtime Active Loperamide (Imodium) 2 MG tablet Take 1 (one) tablet by mouth 4 times daily as needed for Diarrhea 120 tablet 4 Active Additional Information Patient not taking.Reported on 07/01/2024 metoprolol succinate XL 24hr (Toprol XL) 25 MG tablet Take 1 (one) tablet by mouth once daily Active cimetidine (Tagamet HB 200) 200 MG tablet Take 1 (one) tablet by mouth 2 times daily Active Other Vaginal Probiotic + prebiotic, cranberry, and d mannose, once daily Active dicyclomine (Bentyl) 10 MG capsule TAKE 1 CAPSULE BY MOUTH FOUR TIMES DAILY NEEDED 360 capsule 5 Active amitriptyline (Elavil) 10 MG tablet Take 2 (two) tablets by mouth at bedtime 60 tablet 1 5 Active dicyclomine (Bentyl) 10 MG capsule Take 1 (one) capsule by mouth 4 times daily as needed 360 capsule 4 09/24/19 25 Discontinued amitriptyline (Elavil) 10 MG tablet Take 2 (two) tablets by mouth at bedtime 60 tablet 1 4 10/01/19 25 Discontinued(Tiffany belcher) Active Problems Problem Noted Date Diagnosed Date [...] placement - Regular Diet as tolerated - Cylinder Loader - CR monitors - Pulse ox - [...] placement - Regular Diet as tolerates - Cylinder Loader - CR monitors - Pulse ox - [...] Q8H - Regular Diet as tolerates - Cylinder Loader - EKG, Acetaminophen, and ASA level upon [...] 06/09/2013 Assessment & Plan (06/09/2013 10:08 AM PUBLIC HEALTH VETERINARIAN): Assessment: 13 y.o. female with a presumed [...] 2015- Assessment & Plan (06/09/2013 5:25 AM PUBLIC HEALTH VETERINARIAN): Assessment: Chloe Holbrook is a 13 y.o. female with history of asthma, being admitted for anaphylactic reaction, likely secondary to hair product use. Plan: - Continue home albuterol, PRN - Per parents she only takes Flovent as a preventive medication during allergy season in the fall - will not order flovent at this time Anxiety 09/16/2011 Assessment & Plan (06/09/2013 5:24 AM PUBLIC HEALTH VETERINARIAN): Assessment: Chloe Holbrook is a 13 y.o. [...] Encounters Date Type Department Care Team Description 09/30/2024 Telephone [facility] - LEAD BUSINESS ANALYST [address] [place] [id number] Charanjit Alatorre MD Appointment 09/30/2024 Refill [facility] - [place] [address] [place] [address], [place] [phone] Odell Wise DO MEDICATION REFILL 09/23/2024 Refill [facility] - [address] [address] Odell Wise DO Refill Request 08/06/2024 2:00 PM PUBLIC HEALTH VETERINARIAN Office Visit [facility] - Family Medicine [address] [place] [address], [facility] [place] [address] Odell Wise DO Neme, Jamil Richard, MD Abdominal wall pain (Primary Dx) 08/06/2024 Travel 07/24/2024 Telephone [facility] - [place] [address] [place] [phone] Alisson Mcgrath, RN General from Last 3 Months Immunizations Name Administration Dates Next Due INFLUENZA VACCINE, TRIV. (AF LURIA, FLUZONE TRIVALENT; 6MO+) (IIV3) 06/02/2011 DTaP VACCINE IM (6wk-6yrs) 11/04/2005,,2001,05/08,2001 HEP A PEDS 2 DOSE 10/07/2010,11/07/2005 HEP B VACCINE, PED/ADOL 02/04/2002,05/08,2001,01/15 HIB BOOSTER 02/04/2002,2001,2001 Human Papilloma Virus Margie valent Vaccine 11/18/2013,02/01/2013,02/07/2012 INFLUENZA A [id number] VACCINE 05/29/2009 INFLUENZA VACCINE 06/09/2013, 7,06/19/2006,06/01,06/25/2004 INFLUENZA [...] Comments Blood Pressure 122/84 08/06/2024 1:53 PM PUBLIC HEALTH VETERINARIAN Pulse 105 08/06/2024 1:53 PM PUBLIC HEALTH VETERINARIAN Temperature 36.6 C (97.9 F) 01/25/2024 8:45 AM CDT Respiratory Rate 18 07/01/2024 2:36 PM PUBLIC HEALTH VETERINARIAN Oxygen Saturation 99% 08/06/2024 1:53 PM PUBLIC HEALTH VETERINARIAN Inhaled Oxygen Concentration - - Weight 51.7 kg (114 lb) 08/06/2024 1:53 PM PUBLIC HEALTH VETERINARIAN Height 165.1 cm (5' 5 ) 08/06/2024 1:53 PM PUBLIC HEALTH VETERINARIAN Body Mass Index 18.97 08/06/2024 1:53 PM PUBLIC HEALTH VETERINARIAN Plan of Treatment Upcoming Encounters Date Type Department Care Team (Late st Contact Info) Description 12/30/2024 12:30 PM CDT Office Visit [facility] [address], [place] [address] Health Maintenance Due Date Last Done Comments PAP SMEAR 2001 PNEUMOCOCCAL VACCINE (1 of 1 - PPSV23) 2007 2001, 2001, 2001 MENINGOCOCCAL (Group B) VACC INE SHARED DECISION-MAKING (1 of 2 - Standard) 2017 DTAP/TDAP/TD VACCINES (7 - T d or Tdap) 02/06/2022 02/07/2012, 11/04/2005, 08/06/2002, Additional history exists COVID-19 VACCINE ( - 2023-2 5 season) 2024 INFLUENZA VACCINE (#1) 2024 6, 05/14/2015, 05/17/2014, Additional history exists CHLAMYDIA/GONORRHEA SCREENING 05/23/2025, 01/11/2024, 11/23/2023, Additional history exists ZOSTER VACCINE (1 of 2) 2051 HEPATITIS B VACCINE Completed 02/04/2002, 2001, 2001, Additional history exists HIB VACCINE Completed 02/04/2002, 04/17, 2001 HPV VACCINE Completed 11/18/2013, 01/14, 02/07/2012 MENINGOCOCCAL GROUPS A/C/Y/W VACCINE Completed 02/20/2018, 02/07/2012 HEPATITIS C SCREENING Completed 01/01/2024 HIV SCREENING [...] Procedure Name Priority Date/Time Associated Diagnosis Comments TX INJ TRIGGER POINT, 1-2 MUSCLES Routine 08/06/2024 1:57 PM PUBLIC HEALTH VETERINARIAN Abdominal wall pain TX US GUIDED NEEDLE PLACEMENT Routine 08/06/2024 1:56 PM PUBLIC HEALTH VETERINARIAN Abdominal wall pain HEPATITIS C AB SCREEN RFLX NAAT QUANT STAT 01/01/2024 4:22 PM CDT Diarrhea, unspecified type HIV-1 HIV-2 ANTIBODY + HIV P24 AG PANEL Routine 01/01/2024 4:22 PM CDT Diarrhea, unspecified type CHLAMYDIA + GC AMPLIFIED PROBE STAT 12/10/2019 12:31 PM CDT from Last 3 Months or Most Recently Relevant to Health Maintenance Results * TX INJ TRIGGER POINT, 1-2 MUSCLES (08/06/2024 1:57 PM PUBLIC HEALTH VETERINARIAN) Narrative Clark Griggs MD - 08/06/2024 1:57 PM PUBLIC HEALTH VETERINARIAN Clark Griggs MD 08/07/2024 10:40 AM U/S-GUIDED [...] Griggs MD PROCEDURE/MINOR BUSTAMANTE RGICAL ORDERABLES * TX US GUIDED NEEDLE PLACEMENT (08/06/2024 1:56 PM PUBLIC HEALTH VETERINARIAN) Narrative Clark Griggs MD - 08/06/2024 1:56 PM PUBLIC HEALTH VETERINARIAN Clark Griggs MD 08/06/2024 1:56 PM (No note.) Clark Griggs MD PROCEDURE/MINOR BUSTAMANTE RGICAL ORDERABLES * HEPATITIS C AB SCREEN RFLX NAAT QUANT (01/01/2024 4:22 PM CDT) Hepatitis C Antibody Non-react isabelle Non-reac tive 01/01/2024 5:15 PM CDT [facility] Comment:Hepatitis C Antibody screen indicates no [...] - CHEMISTRY MAT BURNS Performing Organization Address City/[facility]/ZIP Co de Phone Number [address] [address], [place] [phone] * HIV-1 HIV-2 ANTIBODY + HIV P24 AG PANEL (01/01/2024 4:22 PM CDT) Pathologist [facility] HIV Antigen/Antibod y 1 & 2 Non-reacti ve Non-react isabelle 01/01/2024 5:15 PM CDT [facility] Comment:No Laboratory eviden ce of HIV infection. Blood BLOOD SPECIMEN / Unknown Lab Venipuncture / Unknown 01/01/2024 4:22 PM CDT 01/01/2024 4:29 PM CDT Provider Unknown LAB - CHEMISTRY MAT BURNS Performing Organization Address City/[facility]/ZIP Co de Phone Number [address] [address], [place] [phone] * CHLAMYDIA + GC AMPLIFIED PROBE (STL) (12/10/2019 12:31 PM CDT) Chlamydia Amplified Probe Negative Negative 12/11/2019 11:58 AM CDT [facility] GC Amplified Probe Negative Negative 12/11/2019 11:58 AM CDT [facility] Microbiology URINE / Unknown Collection / Unknown 12/10/2019 12:31 PM CDT 12/10/2019 12:35 PM CDT Narrative [facility] - 12/11/2019 11:58 AM CDT Results based on detection/no detection of ribosomal RNA by amplified method. Ene Renteria MD LAB - MICROBIOLOGY ORDERABLES [facility] [address] [place] [address], [place] [phone] from Last 3 Months or Most Recently Relevant to Health Maintenance Advance Directives * Full Code (Latest Code Status on File) Date Activated Date Inactivated Comments 02/08/2017 12:40 AM 02/09/2017 12:26 AM Care Teams Senior Asic Engineer Relationship Specialty Start Date End Date Bessy Santos MD [address] [place] [address] PCP - General Family Medicine 12/10/19
--- OUTSIDE RECORDS SUMMARY | 2024-10-11 23:18 | XMS_ITS | Clinical Summary ---
Author Organization [facility] Address [address] [place] [address] Care Team Providers Care Rolloff Driver Name Role Phone Claudia Holman PA-C Primary Care Provider [phone] Allergies Active Allergy Reactions Criticality Noted Date [...] Comments Blood Pressure 136/84 09/12/2023 11:30 PM TILE MACHINE OPERATOR Pulse 107 09/12/2023 9:21 PM TILE MACHINE OPERATOR Temperature 36.7 C (98.1 F) 09/12/2023 9:21 PM TILE MACHINE OPERATOR Respiratory Rate 18 09/12/2023 9:21 PM TILE MACHINE OPERATOR Oxygen Saturation 97% 09/12/2023 11:30 PM TILE MACHINE OPERATOR Inhaled Oxygen Concentration - - Weight 54.4 kg (120 lb) 09/12/2023 9:21 PM TILE MACHINE OPERATOR Height 165.1 cm (5' 5 ) 09/12/2023 9:21 PM TILE MACHINE OPERATOR Body Mass Index 19.97 09/12/2023 9:21 PM TILE MACHINE OPERATOR Plan of Treatment Health Maintenance Due Date Last Done Comments Annual Physical 01/16/2004 Meningococcal B Vaccine (1 of 2 - Standard) 2017 Hepatitis C 2019 DTaP, Tdap and Td Vaccines (7 - Td or Tdap) 02/06/2022 02/07/2012, 11/04/2005, 08/06/2002, Additional history exists COVID-19 Vaccine ( season) 2024 PHQ-2 (Physician [place]) 07/17/2024 Cervical Cancer Screening Pap Smear (Age [...] patient's age to complete this topic Insurance [employer] Care Teams Rolloff Driver Relationship Specialty Start Date End Date Claudia Holman PA-C [address] [place], [place] [phone] PCP - General NURSE PRACTITIONER 05/18/23
--- OUTSIDE RECORDS SUMMARY | 2024-10-11 23:18 | XMS_ITS | Clinical Summary ---
Author Organization [employer] [address] [facility] Address [address] [place] [address] Care Team Providers Care Service Coordinator Elderly Facility Name Role Phone Unavailable Primary Care Provider [...] capsule Take 40 mg by mouth daily kiln transfer operator. Active ziprasidone (GEODON) 40 mg Capsule [...] Comments Blood Pressure 131/77 07/30/2018 6:05 PM ENVELOPE FOLD OPERATOR Pulse 98 07/30/2018 6:05 PM ENVELOPE FOLD OPERATOR Temperature 37.2 C (98.9 F) 07/30/2018 6:05 PM ENVELOPE FOLD OPERATOR Respiratory Rate 14 07/30/2018 6:05 PM ENVELOPE FOLD OPERATOR Oxygen Saturation 99% 07/30/2018 6:05 PM ENVELOPE FOLD OPERATOR Inhaled Oxygen Concentration - - Weight 62.7 kg (138 lb 3.2 oz) 07/30/2018 6:05 P M ENVELOPE FOLD OPERATOR Height 165.1 cm (5' 5 ) 05/16/2018 11:54 AM CDT Body Mass Index - - Plan of Treatment Health Maintenance Due Date Last Done Comments CHLAMYDIA SCREENING (ANNUAL) 11-24 YEARS 01/16/2012 CERVICAL CANCER SCREENING 2022 PAP SMEAR 2022 PAP SMEAR 2022 DTAP/TDAP/TD VACCINES (7 - T d or Tdap) 02/06/2022 02/07/2012, 11/04/2005, 08/06/2002, Additional history exists INFLUENZA VACCINE (#1) 2024 6, 05/14/2015, 05/17/2014, Additional history exists HEPATITIS B VACCINES Completed 02/04/2002, 2001, 2001, Additional history exists HPV VACCINES Completed 11/18/2013, 01/14, 02/07/2012 Insurance [facility] MEDICAID
--- OUTSIDE RECORDS SUMMARY | 2024-10-11 23:18 | XMS_ITS | Data Portability ---
Author Organization [facility] [place] Address [address] [place] [address] Assessment No assessment recorded. Plan of Treatment Reminders Order Date Submit Date Provider Last Modified By Organization Details Last Modified Time Details Appointments None recorded. Lab None recorded. Referral None recorded. Procedures None recorded. Surgeries None recorded. Imaging None recorded. Medication Orders Diflucan 150 mg tablet 2023 KRAK[facility] #[id number], [address] [facility], [place], [place], [id number], 4 18:01:46 metronidazo le 0.75 % (37.5 mg/5 gram) vaginal gel 2023 [id number], [address] [facility], [place], [place], [id number], 4 18:01:40 Mendy 0.35 mg tablet 2023 [facility], [address] [facility], [place], [place], [id number], 4 16:45:42 oxycodone-a cetaminophe n 5 mg-325 mg tablet 2023 K[facility]51951, [address] [facility], [place], [place], [id number], 4 18:01:34 Diflucan 150 mg tablet [address] [facility] #[id number], [address] [facility], [place], [place], [id number], 4 18:01:37 clotrimazol e-betametha sone 1 %-0.05 % topical cream 2023 024 [facility] #74474, [address] [facility], [place], [id number], 4 15:11:07 Diflucan 150 mg tablet [address] [facility] #91163, [address] [facility], [place], [place], [id number], 4 18:01:37 clotrimazol e-betametha sone 1 %-0.05 % topical cream 2023 024 [facility] #69619, [address] [facility], [place], [place], [id number], 4 14:50:23 Patient TargetsNo targets recorded. Patient InstructionsNo instructions recorded. Reason for Referral None Reported. Results Created Date Observation Date Name Description Value Unit Range Abnormal Flag Note LastModifiedBy Organization Detail LastModifiedTime 01/11/20 24 01/11/2024 VAGIN ITIS/ VAGIN OSIS, DNA PROBE itz sp. detection, direct probe Negati ve negati ve Not Available [facility] (Lab) [address] [place], [address], 01/12/2024 20:00:35 01/11/20 24 01/11/2024 VAGIN ITIS/ VAGIN OSIS, DNA PROBE gardnerella vag. detection, direct probe Negati ve negati ve Not Available [facility] (Lab) [address] [place], [address], 01/12/2024 20:00:35 01/11/20 24 01/11/2024 VAGIN ITIS/ VAGIN OSIS, DNA PROBE trichomonas vag. detection, direct probe Negati ve negati ve Not Available [facility] (Lab) [address] [facility], [place], [address], 01/12/2024 20:00:35 01/11/20 24 01/11/2024 CT/GC AND TRICH OMONA S VAGIN RAJESH (RRNA ), SWAB chlamydia trachomatis, PCR Negati ve negati ve Not Available [facility] (Lab) [address] [facility], [place], [address], 01/12/2024 20:00:35 01/11/20 24 01/11/2024 CT/GC AND TRICH OMONA S VAGIN RAJESH (RRNA ), SWAB neisseria gonorrhoeae, PCR Negati ve negati ve Not Available [facility] (Lab) [address] [facility], [place], [address], 01/12/2024 20:00:35 01/11/20 24 01/11/2024 CT/GC AND TRICH OMONA S VAGIN RAJESH (RRNA ), SWAB trichomonas vaginalis ribosomal RNA (rrna) Negati ve negati ve Not Available [facility] (Lab) [address] [facility], [place], [address], 01/12/2024 20:00:35 02/02/20 24 02/02/2024 CT/GC AND TRICH OMONA S VAGIN RAJESH (RRNA ), SWAB chlamydia trachomatis, PCR Negati ve negati ve Not Available [facility] (Lab) [address] [facility], [place], [address], 02/05/2024 09:05:30 02/02/20 24 02/02/2024 CT/GC AND TRICH OMONA S VAGIN RAJESH (RRNA ), SWAB neisseria gonorrhoeae, PCR Negati ve negati ve Not Available [facility] (Lab) [address] [facility], [place], [address], 02/05/2024 09:05:30 02/02/20 24 02/02/2024 CT/GC AND TRICH OMONA S VAGIN RAJESH (RRNA ), SWAB trichomonas vaginalis ribosomal RNA (rrna) Negati ve negati ve Not Available [facility] (Lab) [address] [facility], [place], [address], 02/05/2024 09:05:30 02/02/20 24 02/02/2024 VAGIN ITIS/ VAGIN OSIS, DNA PROBE itz sp. detection, direct probe Negati ve negati ve Not Available [facility] (Lab) [address] [facility], [place], [address], 02/05/2024 09:05:31 02/02/20 24 02/02/2024 VAGIN ITIS/ VAGIN OSIS, DNA PROBE gardnerella vag. detection, direct probe Negati ve negati ve Not Available [facility] (Lab) [address] [facility], [place], [address], 02/05/2024 09:05:31 02/02/20 24 02/02/2024 VAGIN ITIS/ VAGIN OSIS, DNA PROBE trichomonas vag. detection, direct probe Negati ve negati ve Not Available [facility] (Lab) [address] [facility], [place], [address], 02/05/2024 09:05:31 05/23/20 24 05/23/2024 CT/GC AND TRICH OMONA S VAGIN RAJESH (RRNA ), URINE chlamydia trachomatis, PCR Negati ve negati ve Not Available [facility] (Lab) [address] [facility], [place], [address], 05/24/2024 13:55:06 05/23/20 24 05/23/2024 CT/GC AND TRICH OMONA S VAGIN RAJESH (RRNA ), URINE neisseria gonorrhoeae, PCR Negati ve negati ve Not Available [facility] (Lab) [address] [facility], [place], [address], 05/24/2024 13:55:06 05/23/20 24 05/23/2024 CT/GC AND TRICH OMONA S VAGIN RAJESH (RRNA ), URINE trichomonas vaginalis ribosomal RNA (rrna) Negati ve negati ve Not Available [facility] (Lab) [address], [place], [address], 05/24/2024 13:55:06 12/14/19 24 12/14/2023 US, breas t, unila teral , w/ axill a No observ ation record ed. [address] [facility] [address], [place], [address], 01/02/2024 11:30:58 12/14/19 24 12/14/2023 US, breas t, unila teral , w/ axill a No observ ation record ed. [facility] [address], [place], [address], 01/10/2024 16:13:45 12/14/19 24 12/14/2023 US, breas t, unila teral , w/ axill a No observ ation record ed. [address] [facility] [address], [place], [address], 01/17/2024 11:36:48 Result Notes None recorded. Procedures Surgical History Date Name Laterality Status Provider Name and Address Organization Details Recorded Time 4 LAPAROSCOPY, DIAGNOSTIC (SURG) completed Candis Godoy [facility] 03/20/2024 13:50:23 4 Date of Last Pap Smear completed Bella Farley [facility] 08/09/2023 14:26:44 0 extraction of wisdom tooth completed Chrystal Harris [facility] 03/01/2023 14:47:49 Imaging Results Imaging Date Name Status LastModified by Organiz ation Details LastModified Time 12/14/2023 US, breast, unilateral, w/ axilla completed [address] [facility] [address], [place], [address], 01/02/2024 11:30:58 12/14/2023 US, breast, unilateral, w/ axilla completed [facility] [address], [place], [address], 01/10/2024 16:13:45 12/14/2023 US, breast, unilateral, w/ axilla completed [address] [facility] [address], [place], [address], 01/17/2024 11:36:48 Procedure Notes None recorded. Medical Equipment None Reported. Allergies Allergen ID Allergen Name Allergen Category Reaction Reaction Severity Criticality Documentation Date Start Date Code Code System Note Provider Name and Address Organization Details Recorded Time 94756 ibuprofen medicatio n Not available Not available Not available 02/05/2021 5640 RxNorm FRITZ LINARES Matilda [facility] 3 10:47:09 51101 amoxicill in medicatio n Not available Not available Not available 02/05/2021 723 RxNorm THROA T MILAGROS Grey [facility] 3 10:47:02 29350 Product containin g penicilli n (product) medicatio n Not available Not available Not available 09/29/2021 16883 8001 SNOMED LIPS MILAGROS Grey [facility] 3 10:47:15 Medications Name Sig Start [...] 0.75 % (37.5 mg/5 gram) vaginal gel INSERT 1 APPLICATO RFUL VAGINALLY EVERY DAY AT BEDTIME FOR 5 DAYS active Not Available Not Available No t Available ondansetron HCl 4 mg tablet active Not Available Not Available Not Available famotidine 40 mg tablet 11/15 completed Not Available Not Available Not Available prednisone 20 mg tablet active Not Available Not Available Not Available clotrimazol [...] completed Not Available Not Available Not Available amitriptyli ne 10 mg tablet active Not Available Not Available Not Available doxycycline [...] completed Not Available Not Available Not Available metoprolol succinate ER 25 mg tablet,exte nded release 24 hr active Not Available Not Available Not Available epinephrine [...] Available ondansetron 4 mg disintegrat ing tablet active Not Available Not Available N ot Available fluticasone propionate 50 mcg/actuati on nasal [...] completed Not Available Not Available Not Available Mendy 0.35 mg tablet Take 1 tablet every day by oral route. 2024 active Not Available Not Available Not Avai lable nitrofurant oin monohydrate /macrocryst als 100 mg capsule Take 1 capsule every 12 hours by oral route for 7 days. 03/14 completed Not Available Not Available Not Available potassium acetate 01/10 completed Not Available Not Available Not Available Gavilyte-C 240 gram-22.72 gram-6.72 gram-5.84 gram oral solution 02/01 completed Not Available Not Available Not Available Lo Loestrin Fe 1 mg-10 mcg (24)/10 mcg (2) tablet Take 1 tablet every day by oral route. 08/09 completed Not Available Not Available Not Available Estarylla 0.25 mg-0.035 mg tablet Take 1 tablet every day by oral route. 08/09 completed Not Available Not Available Not Available Vitals Date Recorded Body height Body mass index (BMI) Body weight Systolic blood pressure Diastolic blood pressure Provider Name and Address Organization Details Last Updated DateTime 01/11/2024 165.1 cm 19.1 kg/m2 03988.12 g 132 mm[Hg] 82 mm[Hg] [facility] 4 14:49:00 Date Recorded Body height Body mass index (BMI) Body weight Systolic blood pressure Diastolic blood pressure Provider Name and Address Organization Details Last Updated DateTime 02/02/2024 165.1 cm 19 kg/m2 36032.53 g 135 mm[Hg] 91 mm[Hg] [facility] 4 14:49:47 Date Recorded Body height Body mass index (BMI) Body weight Systolic blood pressure Diastolic blood pressure Provider Name and Address Organization Details Last Updated DateTime 03/14/2024 165.1 cm 18.6 kg/m2 84348.35 g 138 mm[Hg] 96 mm[Hg] [facility] 4 12:54:29 Date Recorded Body height Body mass index (BMI) Body weight Systolic blood pressure Diastolic blood pressure Provider Name and Address Organization Details Last Updated DateTime 03/27/2024 165.1 cm 18.5 kg/m2 48554.75 g 161 mm[Hg] 106 mm[Hg] [facility] 4 16:07:57 Date Recorded Body height Body mass index (BMI) Body weight Systolic blood pressure Diastolic blood pressure Provider Name and Address Organization Details Last Updated DateTime 05/23/2024 165.1 cm 19.6 kg/m2 59851.9 g 142 mm[Hg] 93 mm[Hg] Bella Miguelito [facility] 18:01:17 Social History Question Answer Notes LastModified by Organizat ion Details LastModified Time Tobacco Smoking Status Never Smoker Hermelinda Brock sathya, [facility] 01/04/2022 15:40:36 Do You Have An Advance Directive? No Information n ot available 09/29/2021 What Is Your Level Of Alcohol Consumption? Occasional Information not available 09/29/2021 Are You Blind Or Do You Have Difficulty Seeing? No Information n ot available 01/04/2022 What Is Your Level Of Caffeine Consumption? Occasional [email or web address] Information not available 03/01/2023 In The 14 [...] Or The Highest Degree You Have Received? [id number] Information not available 09/29/2021 Are There Any Guns Present In Your Home? No Information not available 09/29/2021 Have You Ever Been Counseled For Unhealthy Alcohol Use? No [email or web address] Information not available 03/01/2023 Do You Use Protection During Sex? No Information not available 09/29/2021 Do You Use Your Seat Belt Or Car Seat Routinely? Yes Information not available 09/29/2021 Do You Have Smoke And Carbon Monoxide Detectors In Your Home? Yes Information not available 09/29/2021 Do You Feel Stressed (tense, Restless, Nervous, Or Anxious, Or Unable To Sleep At Night)? [id number] Information not available 09/29/2021 Do You Use [...] available 02/05/2021 11:01:28 Medical History Condition Response Other N Blood Transfusion N Dermatologic Disorders N Gestational Diabetes N Anxiety Disorder N Autoimmune disease N Arthritis N Polyps N Infertility N Acid Reflux (GERD) N Cancer N Varicosities N Stroke N Neurologic/Epilepsy N Fibromyalgia N Headaches N Kidney Disease N Heart Problems N Kidney or Bladder Problems N Eating Disorder N Art (IVF or FET) N Hepatitis/Liver Disease N No Past Medical History N Urinary Tract Infection N Asthma Y Trauma/Violence N Thrombophilias N Allergies (Food, seasonal, environmental ) N Breast Cancer N Drug/Latex Allergies/Reactions N Lung Disease N Defects or Inherited Disease N Breast Problem N Hematologic disorders N Anesthesia Complications N History of STI Y Deep Vein Thrombosis N Polycystic ovary syndrome N History of abnormal pap N Endometriosis N High Cholesterol N Thyroid Problems N GI Problems Y Anemia N Psychiatric Illness N Ovarian Cancer N Diabetes N Pulmonary (TB, Asthma) N Eczema N Abuse/Domestic Violence N Depression/ depression N Heart Disease N Pre-Eclampsia N Hypertension Y Osteoporosis N Gynecological History Statement/Question Response Date of [...] SNOMED-CT Code Diagnosis ICD10 Code Diagnosis Note [id number] German Pacheco MD [place] [address] [address] 02/05/2021 10:38:21 02/05/2021 11:21:36 Pain in pelvis 27117049 R10.2 This patient is a 21 -year-old [...] Immediatel y with nausea, vomiting, fever, chills. [id number] Zenobia Beck [place] [address] [address] 02/16/2021 12:05:52 02/16/2021 13:38:37 Pain in pelvis 82323935 R10.2 This patient is a 21 -year-old [...] Immediatel y with nausea, vomiting, fever, chills. [id number] German Pacheco MD [place] [address],[place] [address] 02/19/2021 13:59:20 02/19/2021 14:59:35 Pain in pelvis 69828730 R10.2 This patient is a 21-year-ol d [...] her care. This is a complex issue. [id number] German Pacheco MD [place] [address],[place] [address] 05/06/2021 16:32:05 05/07/2021 18:19:02 Increased frequency of urination 118168906 R35.0 [id number] German Pacheco MD [place] [address],[facility] [address] 09/29/2021 15:28:02 09/29/2021 16:57:44 Dyspareunia 16718720 N94.10 this patient is a 21-year-ol d [...] We will treat her for yeast infection. [id number] VIOLETTA Cisneros [place] [address] [address] 01/04/2022 15:28:11 01/04/2022 17:44:48 Vaginal irritation 103273395 N89.8 Vaginal exam suspect yeast infection. Rx [...] PCP. Patient verbalized understand ing. Urinary symptoms 5412309 08 R39.9 Venereal d isease screening 816699552 Z11.3 [id number] VIOLETTA Cisneros [place] [address] [address] 03/23/2022 15:07:45 03/23/2022 15:55:40 Vaginitis 10228480 N76.0 Suspect yeast on examVagini tis panel sentSTI endocervic al testing sentRx sentVulvar care guidelines discussedC ondom use encouraged Take daily PNV Time spent in visit is a total of 20 mins with at least 50% of visit consisting of counseling and review of plan of care.BP 138/84 - following with [place]CP [place] BP [id number] VIOLETTA Cisneros [place] [address],[facility] [place] [address] 04/25/2022 14:56:53 04/25/2022 15:58:29 Vaginal irritation 629907404 N89.8 Suspect yeast vs STIRx sent for [...] any symptoms. Patient agrees. Chlamydial infection 105 898721 A74.9 Venereal d isease screening 060601044 Z11.3 Urinary symptoms 7040721 08 R39.9 [id number] [facility] [address],[place] [address] 07/29/2022 16:16:34 08/01/2022 15:06:37 Urinary symptoms 174729942 R39.9 Treated for UTI Counseled on medication [...] counseling and review of plan of care. [id number] Chanelle Kevin [facility] [address],[facility] [place] [address] 11/22/2022 15:26:48 11/22/2022 17:33:41 Female pelvic inflammatory disease 526190248 N73.9 suspect PID given symptoms and recent STI exposuresi gnificant cervical motion tenderness UPT (-) / STI endocervic al testing max not been able to keep food or [...] ED. States she will not go to [place] due to a previous altercatio n there but will go to a different ED.She will update us once d/c'd to schedule a f/u appointmen t Time spent in visit is a total of 30 mins with at least 50% of visit consisting of counseling and review of plan of care. Venereal d isease screening 746352568 Z11.3 [id number] Lovely [facility] [address] [address] 12/07/2022 11:28:32 12/07/2022 12:01:55 Venereal disease screening 024753265 Z11.3 STD sentRx sent Counseled on medication R/B's, Most common side effects, & use. All questions were answered to patient satisfacti on. Time spent in visit is a total of 15 mins with at least 50% of visit consisting of counseling and review of plan of care. [id number] Lovely Richard [facility] [address] [address] 12/21/2022 09:02:19 12/21/2022 09:34:38 Venereal disease screening 793031533 Z11.3 STD sentWill reach outDiscuss ed treatment, abstaining for 10+days after treatment, importance of partner treatment. Using condoms. Counseled on medication R/B's, Most common side effects, & use. All questions were answered to patient satisfacti on. Time spent in visit is a total of 15 mins with at least 50% of visit consisting of counseling and review of plan of care. [id number] German Pacheco MD [place] [address],[place] [address] 12/26/2022 10:11:38 12/26/2022 11:16:49 Vaginal discharge 776465798 N89.8 this patient is a 22-year-ol d [...] results. Talked about treatment. Talked her symptoms. [id number] Stormy Link MD [place] [address],[place] [address] 01/02/2023 14:43:46 01/03/2023 12:44:10 Candidal vulvovaginitis 80151826 B37.31 [id number] Lovely Richard [facility] [address],[place] [address] 01/20/2023 09:14:36 01/20/2023 09:37:21 Vaginitis 43124745 N76.0 Today we agreed to topical ointment for ext irritation but will wait for return of swabs prior to other txment.VCG reviewedWi ll reach out with results. Time spent in visit is a total of 10 mins with at least 50% of visit consisting of counseling and review of plan of care. [id number] German Pacheco MD [place] [address],[place] [address] 02/17/2023 10:13:35 02/17/2023 11:12:08 Cloudy urine 7084851 R82.90 Pain in pelvis 51695287 R10.2 This patient is a 23-year-ol d [...] to oral contracept isabelle pills. Vaginal discharge 881038 006 N89.8 this patient is a 22-year-ol [...] results. Talked about treatment. Talked her symptoms. [id number] Ana Lilia Dozier CNM [place] [address] [address] 03/01/2023 14:35:43 03/01/2023 15:14:16 Urinary symptoms 973807795 R39.9 Vaginal discharge 195758 006 N89.8 [id number] VIOLETTA Cisneros [place] [address] [address] 03/16/2023 14:23:42 03/16/2023 15:01:52 Pain in pelvis 49692706 R10.2 Discussed common/nor mal SE of starting [...] review of plan of care. Vaginal discharge 136106 006 N89.8 Break-thro ugh bleeding 81745636 N92.1 [id number] German Pacheco MD [place] [address] [address] 03/28/2023 10:00:51 03/28/2023 10:52:52 Bacterial vaginosis 338030814 N76.0 this patient is a 23-year-ol d [...] . consider this at her next visit. [id number] Zenobia Beck [place] [address] [address] 04/10/2023 09:30:23 04/10/2023 10:10:12 Pain in pelvis 00616041 R10.2 This patient is a 23-year-ol d [...] month trial to oral contracept isabelle pills. [id number] German Pacheco MD [place] [address] [address] 04/27/2023 15:39:49 04/27/2023 16:14:02 Urinary symptoms 234229680 R39.9 Candidal vulvovaginitis 15083908 B37.31 This patient is a 23-year-ol d [...] counseling . She will return as daphney. [id number] HERIBERTO ANTHONY MD [place] [address] [address] 06/20/2023 12:37:19 06/21/2023 14:02:06 Vaginitis 18735070 N76.0 - patient describes normal vaginal discharge, no pruritis or irritation - continue weekly diflucan Dysmenorrhea 639311147 N 94.6 - long hx of painful but regular periods- d/c'd OCPs after daily irregular bleeding x2 months- recommend higher estrogen containing OCP to help with breakthrou gh bleeding [id number] German Pacheco MD [place] [address] [address] 07/21/2023 14:54:25 07/21/2023 15:53:27 Pain in pelvis 12589370 R10.2 23-year-ol d female with pelvic pain [...] yeast. To treat with Metrogel. Vaginal discharge 909326 006 N89.8 [id number] Alba Ray [place] [address],[facility] [place] [address] 07/26/2023 10:25:25 07/26/2023 10:58:19 Pain in pelvis 57449749 R10.2 23-year-ol d female with pelvic pain [...] vaginosis or yeast. To treat with Metrogel. [id number] German Pacheco MD [place] [address],[place] [address] 07/28/2023 11:30:21 08/09/2023 06:51:16 Pain in pelvis 40014307 R10.2 This patient is a 23-year-ol d [...] past 5 months. Continues to have pain. [id number] VIOLETTA Cisneros [place] [address],[place] [address] 08/09/2023 14:15:43 08/10/2023 12:07:53 Dysuria 58552422 R30.0 UA normal, cx sent Vaginitis 88461484 N76.0 vaginitis/ STI panel sentvulvar care guidelines [...] counseling and review of plan of care. [id number] Chanelle Kevin RAKAN [place] [address],[place] [address] 09/21/2023 10:27:48 09/21/2023 10:51:24 Vaginal discharge 736260773 N89.8 vaginitis/ STI panel sentvulvar care guidelines discussedr x sent for BV, r/b/a reviewed - pt prefers gelBP precaution s discussed Time spent in visit is a total of 20 mins with at least 50% of visit consisting of counseling and review of plan of care. Venereal d isease screening 675809105 Z11.3 Dyspareunia 83389026 N94 .10 [id number] German Pacheco MD [place] [address],[place] [address] 10/17/2023 14:10:39 10/17/2023 15:03:17 Venereal disease screening 107938543 Z11.3 This patient is a 23-year-ol d female with concerns about sexual transmitte d disease exposure. Patient's consort has been with other women. Samples were taken. The vulva and distal vagina appear normal. We will follow up on those results. We had a discussion about vaginal discharge. She will likely do blood testing for STDs as well. [id number] Chanelle Kevin RAKAN [place] [address],[place] [address] 11/07/2023 11:59:26 11/07/2023 12:56:22 Urinary symptoms 428205289 R39.9 Vaginitis 25683567 N76.0 vaginitis panel sentgc/ct/ trich testing senturine cx sentvulvar care guidelines discusseds afe sexual practices discussedr x sent for yeast - r/b/a reviewedBP precaution s reviewed, encouraged PCP f/u Time spent in visit is a total of 25 mins with at least 50% of visit consisting of counseling and review of plan of care. Venereal d isease screening 941306939 Z11.3 [id number] Lovely Richard [facility] [address],[place] [address] 11/23/2023 14:41:46 11/23/2023 17:05:57 Mass of left breast [id number] 8341114 N63.20 Today breast exam warrants US for further informatio n.Possibly just hormonal changes but no other changes on right side.US orderedWil l call to schedule. Vaginitis [id number] N76.0 Today we agreed to send vag/std swabs and await return of results before treating.S he voices agreement with this plan of care.No other questions or concerns. Time spent in visit is a total of 22 mins with at least 50% of visit consisting of counseling and review of plan of care. [id number] German Pacheco MD [place] [address],[place] [address] 01/11/2024 14:41:45 01/11/2024 15:28:40 Vaginitis [id number] N76.0 23-year-ol d female with recurrent vulvar [...] for the drug [id number] German Pacheco MD [place] [address],[place] [address] 02/02/2024 14:17:14 02/02/2024 15:12:13 Vulvovaginitis [id number] N76.0 patient reports vulvar irritation and white [...] of this patient. [id number] German Pacheco MD [place] [address],[place] [address] 03/14/2024 12:31:34 03/14/2024 14:31:42 Pain in pelvis [id number] R10.2 this patient is a 24-year-ol d with longstandi ng pelvic pain. We agreed to perform diagnostic laparoscop y. She understand s the risks, benefits, and alternativ es. She has completed the informed consent process and is ready to proceed. [id number] German Pacheco MD [place] [address],[place] [address] 03/27/2024 15:55:21 03/27/2024 16:57:41 Pain in pelvis [id number] R10.2 Vulvovaginitis [id number] N76.0 Postoperative care [id number] Z48.89 this patient is a 24-year-ol [...] She also needed some additional pain control. [id number] German Pacheco MD [place] [address],[place] [address] 05/23/2024 16:59:43 05/24/2024 06:01:47 Contraception care management [id number] Z30.9 24-year-ol d female who presents for [...] Polanco Member ID Guarantor Name 01/11/2024 1 [facility] Fly Holbrook [id number] Chloe Holbrook 02/02/2024 1 [facility] Fly Holbrook [id number] Chloe Holbrook 03/14/2024 1 [facility] Fly Etta [id number] Chloe Holbrook 03/27/2024 1 [facility] Fly Etta [id number] Chloe Chaidez Holbrook 05/23/2024 1 *SELF PAY* Me edgar Holbrook Notes Date Note Type Note Provider Name [...] German Pacheco MD [address], [place], [address], [facility] 01/11/2024 15:27:10 02/02/2024 text/html Vaginal/Vulvar ProblemReported bypatient.Notes:alvarez serna reports vulvar irritation and white clumpy vaginal [...] German Pacheco MD [address], [place], [address], [facility] 02/02/2024 15:11:53 03/14/2024 text/html jose is [...] German Pacheco MD [address], [place], [address], [facility] 03/14/2024 14:30:57 03/27/2024 text/html this patient [...] German Pacheco MD [address], [place], [address], [facility] 03/27/2024 16:54:28 05/23/2024 text/html 24-year-old juan [...] of each method. We spent 15 minutes [id number]. All of this was counseling. Ultimately she decided on Kyleena insertion. . She was given instructions on starting this method. She was informed of side effects. She was given precautions on failure and special circumstances. She was quoted failure rates for all of the methods we discussed. She will return for Kyleena insertion. German Pacheco MD [address], [place], [address], [facility] 05/23/2024 19:15:09 OBGyn Episode No OBEpisode recorded.
--- OUTSIDE RECORDS SUMMARY | 2024-10-11 23:18 | XMS_ITS | Encounter Summary ---
Author Organization [facility] Address [address] [place] [address] Care Team Providers Care Feather Baler Name Role Phone Bessy Santos MD Primary Care Provider [phone] Reason for Visit * Reason Onset Date Comments Referral Consult Request 07/11/2024 Encounter Details Date Type Department Care Team (Late st Contact Info) Description 07/11/2024 Telephone [facility] - Centralized Scheduling [address] [place] [phone] Clark Griggs MD [address] [address] Referral Consult Request Social History [...] Description 12/30/2024 12:30 PM CDT Office Visit [facility] - [address] [place] [address] documented as of this encounter Goals Goal [...] on filedocumented in this encounter Care Teams Feather Baler Relationship Specialty Start Date End Date Bessy Santos MD [address] [place] [phone] PCP - General Family Medicine 12/10/19 documented as of this encounter
[2024-10-12 00:19] VITALS: BP 142/91; PULSE 103; RESP 18; TEMP 36.9; O2SAT 99
--- NOTE | 2024-10-12 01:28 | ED_ITS ---
HPI - Female Genitourinary General Chief complaint: Urogenital-Female Stated complaint: UTI symptoms Time Seen by Provider: 10/12/24 01:32 History of Present Illness HPI Narrative: Patient is a 24-year-old female who presents to the ER with complaints of sore throat, urinary symptoms, decreased p.o. intake, sores on her lip and request for STD testing. She reports she started experiencing a sore throat last week. Shortly afterwards she started experiencing vaginal yeast infection type symptoms. Patient reports today her urine is dark and she has increased urgency. She denies any recent fevers, abdominal pain, neck stiffness, or swollen lymph nodes. Patient endorses a history of chronic back pain, asthma, and frequent yeast infections. Related Data Home Medications ?Medication ?Instructions ?Recorded ?Confirmed ?Last Taken ?Type albuterol sulfate 90 mcg/actuation 2 puff inhalation PRN PRN 10/11/23 07/30/24 Unknown History aerosol inhaler Shortness Of Breath Or Wheezing cetirizine 10 mg tablet (Zyrtec) 10 mg PO DAILY 10/11/23 07/30/24 Unknown History fluconazole 150 mg tablet 150 mg PO WEEKLY 03/15/24 07/30/24 Unknown History amitriptyline 10 mg tablet 10 mg PO BID 07/30/24 07/30/24 Unknown History metoprolol tartrate 25 mg tablet 25 mg PO .QD 07/30/24 07/30/24 Unknown History montelukast 10 mg tablet 10 mg PO QPM 07/30/24 07/30/24 Unknown History norethindrone (contraceptive) 0.35 0.35 mg PO .QD 07/30/24 07/30/24 Unknown History mg tablet (Bibiana) Allergies Allergy/AdvReac Type Severity Reaction Status Date / Time amoxicillin Allergy Severe Swelling Verified 07/30/24 16:29 ibuprofen Allergy Severe Anaphylactic Verified 07/30/24 16:29 Shock Penicillins Allergy Severe Swelling Verified 07/30/24 16:29 metoclopramide (From Reglan) AdvReac Intermediate Anxiety Verified 07/30/24 16:29 Review of Systems Review of Systems: All systems reviewed & are unremarkable except as noted in HPI and below PMFSH Past Medical History Medical History Endometriosis Cyclic vomiting syndrome Irritable bowel syndrome Self-mutilation Suicide attempt Anxiety Depression Bipolar 1 disorder ADD (attention deficit disorder) Asthma Surgical History Surgical History History of colonoscopy [facility] History of esophagogastroduodenoscopy (EGD) [facility] S/P wisdom tooth extraction Family History Family History Father ADHD (attention deficit hyperactivity disorder) Bipolar disorder Personality disorder Mother Alive and well Social History Social History Smoking packs per day: 0.5 Smoking cigarettes per day: 10.0 Years smoked: 8 Smoking pack-years: 4.00 Smoking status: Current every day smoker Tobacco type: cigarettes and e-cigarettes/vaping Second hand tobacco smoke exposure: Yes Additional smoking assessment comments: Vaping Alcohol intake: former Alcohol use details: Maybe once a week Substance use: current Substance use type: marijuana Other substance usage details: Daily Living arrangements: with family Occupation/Education: occupation Additional occupation/education comments: works at [employer] in [place] Gender identity (if verbalized by the patient): Female Spiritual care concerns: No Exam Narrative: GENERAL: Well appearing, well-nourished, non-toxic, in no acute distress. HEAD: Normocephalic, atraumatic. NECK: Supple. No adenopathy, no masses. Mildly red throat. RESPIRATORY: Airway patent, respirations nonlabored. Clear to auscultation bilaterally, no rales, rhonchi, wheezing. CARDIOVASCULAR: Regular rate and rhythm without murmurs, rubs, or gallops. Peripheral pulses 2+ and equal bilaterally. ABDOMINAL: Soft, nontender, nondistended, no hepatosplenomegaly. Normoactive BS. MUSCULOSKELETAL: Moves all extremities. Strength/ROM intact without gross deformities. SKIN: Warm, dry, normal color. No rashes. NEURO: A&O X3. Speech clear. Cranial nerves II-XII intact. No ataxic movements. PSYCHIATRIC: Appropriate mood and affect. Normal interaction. Course Vital Signs Vital signs: Vital Signs Temperature 36.9 C 10/12/24 00:19 Pulse Rate 103 H 10/12/24 00:19 Respiratory Rate 18 10/12/24 00:19 Blood Pressure 142/91 H 10/12/24 00:19 Pulse Oximetry 99 10/12/24 00:19 Oxygen Delivery Room Air 10/12/24 00:19 Temperature 36.9 C 10/12/24 00:19 Pulse Rate 103 H 10/12/24 00:19 Respiratory Rate 18 10/12/24 00:19 Blood Pressure 142/91 H 10/12/24 00:19 Pulse Oximetry 99 10/12/24 00:19 Oxygen Delivery Room Air 10/12/24 00:19 MDM - Female Genitourinary MDM Narrative Medical decision making narrative: Patient is a 24-year-old female who presents to the ER with complaints of sore throat, urinary symptoms, decreased p.o. intake, sores on her lip and request for STD testing. She reports she started experiencing a sore throat la week. Shortly afterwards she started experiencing vaginal yeast infection type symptoms. Patient reports today her urine is dark and she has increased urgency. She denies any recent fevers, abdominal pain, neck stiffness, or swollen lymph nodes. Patient endorses a history of chronic back pain, asthma, and frequent yeast infections. Upon further discussion, patient reports she has been experiencing thick, white discharge and it has not improved with Diflucan administration. She would like to be tested and treated for STDs. Patient is endorsing abdominal pain at the time of reexamination. Labs Ordered: UA, STD swabs, strep swab Imaging Ordered: None necessary Medications Ordered: Zofran 4 mg ODT, Flagyl 500 mg p.o., doxycycline 100 mg p.o., gentamicin 250 mg IM, azithromycin 2000 mg p.o., Bentyl 20mg PO (patient was given gentamicin and azithromycin per up-to-date guidelines of gonorrhea treatment when pt has an allergy to amoxicillin) Results: Patient's urinalysis did not indicate a UTI. Her strep swab was negative. Diagnosis: Abdominal pain, STD treatment, abnormal vaginal discharge Patient Education/Shared MDM: Results of lab work shared with patient. She was strongly advised to maintain hydration status upon discharge and follow-up with her PCP as soon as possible. Pt will be discharged home with a prescription for Bentyl, Doxycycline and Flagyl. She is requesting a prescription for Diflucan. It was explained to patient that her current symptoms are most likely unrelated to a vaginal yeast infection since she has taken Diflucan and it has not rel ieved them. She will be provided two doses in case the new prescriptions of antibiotics cause her to develop yeast infection. Strict return precautions provided. Patient verbalized understanding is in agreement with plan. Vital signs stable at time of discharge. All questions answered. Differential Diagnosis Differential diagnosis: Likely urinary tract infection, bacterial vaginosis, trichomoniasis, vaginitis and cystitis Lab Data Attestation: I reviewed the patient's lab results. Labs: Lab Results 10/12/24 10/12/24 Range/Units 01:44 02:13 Urine Color Yellow (Yellow) Urine Appearance Clear (Clear) Urine pH 5.5 (5.0-9.0) Ur Specific [place] 1.006 (1.001-1.035) Urine Protein Negative (Negative) mg/dL Urine Glucose (UA) Negative (Negative) mg/dL Urine Ketones Negative (Negative) mg/dL Ur Blood (Man) Negative (Negative) Urine Nitrate Negative (Negative) Urine Bilirubin Negative (Negative) Urine Urobilinogen 0.2 (<2.0) mg/dL Leukocyte Esterase Rfl Negative (Negative) CHIDI/UL POC Urine HCG, Qual Negative (Negative) C. trachomatis (PCR) Pending N. gonorrhoeae (PCR) Pending Group A Strep (PCR) Not detected (Negative) T. vaginalis (PCR) Pending Discharge Plan Discharge Clinical Impression: Sexually transmitted disease exposure, Vaginal discharge, Abdominal pain Patient Disposition: Home, Self-Care Condition: Stable Instructions: Antibiotic Form, Sexually Transmitted Diseases (ED), Safe Sex Practices (ED), Abdominal Pain (ED), Vaginal Discharge (ED) Additional Instructions: Please return to the ER with any worsening symptoms. Follow-up with primary care provider as soon as possible. Take all medications as prescribed. Complete your full dose of antibiotics. Patient Language: Citizen Of [place] Prescriptions: New doxycycline monohydrate 100 mg capsule 100 mg PO BID Qty: 14 0RF metronidazole 500 mg tablet 500 mg PO BID Qty: 14 0RF dicyclomine 20 mg tablet 20 mg PO TID Qty: 15 0RF fluconazole 150 mg tablet 150 mg PO Q3D Qty: 2 0RF Rx Instructions: as a single dose No Action amitriptyline 10 mg tablet 10 mg PO BID montelukast 10 mg tablet 10 mg PO QPM norethindrone (contraceptive) [Bibiana] 0.35 mg tablet 0.35 mg PO .QD metoprolol tartrate 25 mg tablet 25 mg PO .QD prednisone 20 mg tablet See Rx Instructions .Route .COMPLEX Qty: 18 0RF Rx Instructions: Take 60 mg daily for 3 days, 40 mg daily for 3 days, 20 mg daily for 3 days fluticasone propionate [Flonase Allergy Relief] 50 mcg/actuation spray,suspension 2 spray NASAL DAILY 14 Days Qty: 15.8 0RF Rx Instructions: administer into each nostril fluconazole 150 mg tablet 150 mg PO WEEKLY Rx Instructions: Takes on dicyclomine 10 mg capsule 10 mg PO BID PRN (Reason: abdominal pain) Qty: 10 0RF ondansetron 4 mg tablet,disintegrating 4 mg PO Q8H PRN (Reason: nausea and vomiting) Qty: 10 0RF cetirizine [Zyrtec] 10 mg Tablet 10 mg PO DAILY albuterol sulfate 90 mcg/actuation HFA aerosol inhaler 2 puff INHALATION PRN PRN (Reason: Shortness Of Breath Or Wheezing) Follow-up/Referrals: Treasure,TERRY Lorenzo [Primary Care Provider] - Time of Disposition: 03:06
--- OUTSIDE RECORDS SUMMARY | 2024-10-12 01:47 | XMS_ITS | Clinical Summary ---
Author Organization [facility] Address [address] [place] [address] Care Team Providers Care Detector Car Operator Name Role Phone Bessy Santos MD Primary Care Provider [phone] Source Comments [facility],non-owned Affiliates and Associated Physician Practices is amultiple site organization consisting of ambulatory clinics and hospital sitesin [place], [place], [place] and [place]. This disclosure is being madepursuant to the Care Everywhere program and may not contain all information available regarding this patient. Last updated 18.[facility] Allergies Active Allergy Reactions Criticality Noted Date [...] placement - Regular Diet as tolerated - Program Mgr - CR monitors - Pulse ox - [...] placement - Regular Diet as tolerates - Program Mgr - CR monitors - Pulse ox - [...] Q8H - Regular Diet as tolerates - Program Mgr - EKG, Acetaminophen, and ASA level upon [...] 06/09/2013 Assessment & Plan (06/09/2013 10:08 AM BILLING ANALYST): Assessment: 13 y.o. female with a presumed [...] 2015- Assessment & Plan (06/09/2013 5:25 AM BILLING ANALYST): Assessment: Chloe Holbrook is a 13 y.o. female with history of asthma, being admitted for anaphylactic reaction, likely secondary to hair product use. Plan: - Continue home albuterol, PRN - Per parents she only takes Flovent as a preventive medication during allergy season in the fall - will not order flovent at this time Anxiety 09/16/2011 Assessment & Plan (06/09/2013 5:24 AM BILLING ANALYST): Assessment: Chloe Holbrook is a 13 y.o. [...] Type Department Care Team Description 09/30/2024 Telephone [facility] - PAPER FOLDING MACHINE OPERATOR [address] [place] [phone] Charanjit Alatorre MD Appointment 09/30/2024 Refill [facility] [place] [address] [place] [address], [place] [phone] Odell Wise DO MEDICATION REFILL 09/23/2024 Refill [facility] - [address] [address] Odell Wise DO Refill Request 08/06/2024 2:00 PM BILLING ANALYST Office Visit [facility] - Family Medicine [address] [place] [address], [facility] [place] [address] Odell Wise DO Neme, Jamil Richard, MD Abdominal wall pain (Primary Dx) 08/06/2024 Travel 07/24/2024 Telephone [facility] - [place] [address] [place] [phone] Alisson Mcgrath, RN General from Last 3 Months Immunizations Name Administration Dates Next Due INFLUENZA VACCINE, TRIV. (AF LURIA, FLUZONE TRIVALENT; 6MO+) (IIV3) 06/02/2011 DTaP VACCINE IM (6wk-6yrs) 11/04/2005,,2001,05/08,2001 HEP A PEDS 2 DOSE 10/07/2010,11/07/2005 HEP B VACCINE, PED/ADOL 02/04/2002,05/08,2001,01/15 HIB BOOSTER 02/04/2002,2001,2001 Human Papilloma Virus Margie valent Vaccine 11/18/2013,02/01/2013,02/07/2012 INFLUENZA A [id number] VACCINE 05/29/2009 INFLUENZA VACCINE 06/09/2013, 7,06/19/2006,06/01,06/25/2004 INFLUENZA [...] Comments Blood Pressure 122/84 08/06/2024 1:53 PM BILLING ANALYST Pulse 105 08/06/2024 1:53 PM BILLING ANALYST Temperature 36.6 C (97.9 F) 01/25/2024 8:45 AM CDT Respiratory Rate 18 07/01/2024 2:36 PM BILLING ANALYST Oxygen Saturation 99% 08/06/2024 1:53 PM BILLING ANALYST Inhaled Oxygen Concentration - - Weight 51.7 kg (114 lb) 08/06/2024 1:53 PM BILLING ANALYST Height 165.1 cm (5' 5 ) 08/06/2024 1:53 PM BILLING ANALYST Body Mass Index 18.97 08/06/2024 1:53 PM BILLING ANALYST Plan of Treatment Upcoming Encounters Date Type Department Care Team (Late st Contact Info) Description 12/30/2024 12:30 PM CDT Office Visit [facility] [place] [address] [facility] [address], [place] [address] Health Maintenance Due Date Last [...] Procedure Name Priority Date/Time Associated Diagnosis Comments OK INJ TRIGGER POINT, 1-2 MUSCLES Routine 08/06/2024 1:57 PM BILLING ANALYST Abdominal wall pain OK US GUIDED NEEDLE PLACEMENT Routine 08/06/2024 1:56 PM BILLING ANALYST Abdominal wall pain HEPATITIS C AB SCREEN RFLX NAAT QUANT STAT 01/01/2024 4:22 PM CDT Diarrhea, unspecified type HIV-1 HIV-2 ANTIBODY + HIV P24 AG PANEL Routine 01/01/2024 4:22 PM CDT Diarrhea, unspecified type CHLAMYDIA + GC AMPLIFIED PROBE STAT 12/10/2019 12:31 PM CDT from Last 3 Months or Most Recently Relevant to Health Maintenance Results * OK INJ TRIGGER POINT, 1-2 MUSCLES (08/06/2024 1:57 PM BILLING ANALYST) Narrative Clark Griggs MD - 08/06/2024 1:57 PM BILLING ANALYST Clark Griggs MD 08/07/2024 10:40 AM U/S-GUIDED [...] Griggs MD PROCEDURE/MINOR BUSTAMANTE RGICAL ORDERABLES * OK US GUIDED NEEDLE PLACEMENT (08/06/2024 1:56 PM BILLING ANALYST) Narrative Clark Griggs MD - 08/06/2024 1:56 PM BILLING ANALYST Clark Griggs MD 08/06/2024 1:56 PM (No note.) Clark Griggs MD PROCEDURE/MINOR BUSTAMANTE RGICAL ORDERABLES * HEPATITIS C AB SCREEN RFLX NAAT QUANT (01/01/2024 4:22 PM CDT) Hepatitis C Antibody Non-react isabelle Non-reac tive 01/01/2024 5:15 PM CDT [facility] Comment:Hepatitis C Antibody screen indicates [...] - CHEMISTRY MAT BURNS Performing Organization Address City/[facility]/ZIP Co de Phone Number [address] [address], [facility] [phone] * HIV-1 HIV-2 ANTIBODY + HIV P24 AG PANEL (01/01/2024 4:22 PM CDT) Pathologist [facility] HIV Antigen/Antibod y 1 & 2 Non-reacti ve Non-react isabelle 01/01/2024 5:15 PM CDT [facility] Comment:No Laboratory eviden ce of HIV infection. Blood BLOOD SPECIMEN / Unknown Lab Venipuncture / Unknown 01/01/2024 4:22 PM CDT 01/01/2024 4:29 PM CDT Provider Unknown LAB - CHEMISTRY MAT BURNS Performing Organization Address City/[facility]/ZIP Co de Phone Number [address] [address], [facility] [phone] * CHLAMYDIA + GC AMPLIFIED PROBE (STL) (12/10/2019 12:31 PM CDT) Chlamydia Amplified Probe Negative Negative 12/11/2019 11:58 AM CDT [facility] MICROBIOLOGY GC Amplified Probe Negative Negative 12/11/2019 11:58 AM CDT [facility] MICROBIOLOGY Microbiology URINE / Unknown Collection / Unknown 12/10/2019 12:31 PM CDT 12/10/2019 12:35 PM CDT Narrative [facility] MICROBIOLOGY - 12/11/2019 11:58 AM CDT Results based on detection/no detection of ribosomal RNA by amplified method. Ene Renteria MD LAB - MICROBIOLOGY ORDERABLES [facility] MICROBIOLOGY [address] [place] [address], [facility] [phone] from Last 3 Months or Most Recently Relevant to Health Maintenance Advance Directives * Full Code (Latest Code Status on File) Date Activated Date Inactivated Comments 02/08/2017 12:40 AM 02/09/2017 12:26 AM Care Teams Detector Car Operator Relationship Specialty Start Date End Date Bessy Santos MD [address] [place] [address] PCP - General Family Medicine 12/10/19
--- OUTSIDE RECORDS SUMMARY | 2024-10-12 01:47 | XMS_ITS | Clinical Summary ---
Author Organization [employer] [employer] [address] [facility] Address [address] [place] [address] Care Team Providers Care Data Management Analyst Name Role Phone Unavailable Primary Care Provider [...] capsule Take 40 mg by mouth daily manager client service. Active ziprasidone (GEODON) 40 mg Capsule Take [...] Comments Blood Pressure 131/77 07/30/2018 6:05 PM OWNER ORAL SURGEON Pulse 98 07/30/2018 6:05 PM OWNER ORAL SURGEON Temperature 37.2 C (98.9 F) 07/30/2018 6:05 PM OWNER ORAL SURGEON Respiratory Rate 14 07/30/2018 6:05 PM OWNER ORAL SURGEON Oxygen Saturation 99% 07/30/2018 6:05 PM OWNER ORAL SURGEON Inhaled Oxygen Concentration - - Weight 62.7 kg (138 lb 3.2 oz) 07/30/2018 6:05 P M OWNER ORAL SURGEON Height 165.1 cm (5' 5 ) 05/16/2018 [...] HPV VACCINES Completed 11/18/2013, 01/14, 02/07/2012 Insurance [facility] MEDICAID
--- OUTSIDE RECORDS SUMMARY | 2024-10-12 01:47 | XMS_ITS | Encounter Summary ---
Author Organization [facility] Address [address] [place] [address] Care Team Providers Care Bottom Cementer Name Role Phone Bessy Santos MD Primary Care Provider [phone] Reason for Visit * Reason Onset Date Comments Referral Consult Request 07/11/2024 Encounter Details Date Type Department Care Team (Late st Contact Info) Description 07/11/2024 Telephone [facility] - Centralized Scheduling [address] [place] [phone] Clark Griggs MD [address] [phone] Referral Consult Request Social History [...] Description 12/30/2024 12:30 PM CDT Office Visit [facility] - [address] [place] [address] documented as of this encounter Goals Goal [...] on filedocumented in this encounter Care Teams Bottom Cementer Relationship Specialty Start Date End Date Bessy Santos MD [address] [place] [phone] PCP - General Family Medicine 12/10/19 documented as of this encounter
--- OUTSIDE RECORDS SUMMARY | 2024-10-12 01:47 | XMS_ITS | Clinical Summary ---
Author Organization [facility] Address [address] [place] [address] Care Team Providers Care Office Services Associate Name Role Phone Claudia Holman PA-C Primary Care Provider [phone]- [phone] Allergies Active Allergy Reactions Criticality Noted Date [...] Comments Blood Pressure 136/84 09/12/2023 11:30 PM COMFORT FILLER Pulse 107 09/12/2023 9:21 PM COMFORT FILLER Temperature 36.7 C (98.1 F) 09/12/2023 9:21 PM COMFORT FILLER Respiratory Rate 18 09/12/2023 9:21 PM COMFORT FILLER Oxygen Saturation 97% 09/12/2023 11:30 PM COMFORT FILLER Inhaled Oxygen Concentration - - Weight 54.4 kg (120 lb) 09/12/2023 9:21 PM COMFORT FILLER Height 165.1 cm (5' 5 ) 09/12/2023 9:21 PM COMFORT FILLER Body Mass Index 19.97 09/12/2023 9:21 PM COMFORT FILLER Plan of Treatment Health Maintenance Due Date Last Done Comments Annual Physical 01/16/2004 Meningococcal B Vaccine (1 of 2 - Standard) 2017 Hepatitis C 2019 DTaP, Tdap and Td Vaccines (7 - Td or Tdap) 02/06/2022 02/07/2012, 11/04/2005, 08/06/2002, Additional history exists COVID-19 Vaccine ( season) 2024 PHQ-2 (Physician [place]) 07/17/2024 Cervical Cancer Screening Pap Smear (Age [...] patient's age to complete this topic Insurance [place] Care Teams Office Services Associate Relationship Specialty Start Date End Date Claudia Holman PA-C [address], [place] [id number] PCP - General NURSE PRACTITIONER 05/18/23
--- OUTSIDE RECORDS SUMMARY | 2024-10-12 01:47 | XMS_ITS | Clinical Summary ---
Author Organization [facility] Address [address] [place] [phone] Care Team Providers Care Director Machine Name Role Phone Bessy Santos MD Primary Care Provider [phone] Allergies Active Allergy Reactions Criticality Noted Date [...] on file Legal Sex Female 9:28 AM FINANCIAL SPECIALIST Gender Identity Not on file Sexual Orientation Not on file Obstetrics History Last Filed Vital Signs Vital Sign Reading Time Taken Comments Blood Pressure 103/58 08/26/2023 1:00 AM FINANCIAL SPECIALIST Pulse 102 08/26/2023 1:00 AM FINANCIAL SPECIALIST Temperature 36.8 C (98.2 F) 08/25/2023 9:35 PM FINANCIAL SPECIALIST Respiratory Rate 14 08/26/2023 1:00 AM FINANCIAL SPECIALIST Oxygen Saturation 94% 08/26/2023 1:00 AM FINANCIAL SPECIALIST Inhaled Oxygen Concentration - - Weight 51 kg (112 lb 7 oz) 08/25/2023 9:35 PM CS T Height 154.9 cm (5' 1 ) 08/25/2023 9:35 PM FINANCIAL SPECIALIST Body Mass Index 21.24 08/25/2023 9:35 PM FINANCIAL SPECIALIST Plan of Treatment Health Maintenance Due Date [...] HPV Vaccines Completed 11/18/2013, 01/14, 02/07/[address] [place] [address] [facility] Care Teams Director Machine Relationship Specialty Start Date End Date Bessy Santos MD PCP - General Family Medicine 09/14/22
--- OUTSIDE RECORDS SUMMARY | 2024-10-12 01:47 | XMS_ITS | Referral Summary ---
Author Organization [facility] Address [address] [place] [id number] Care Team Providers Care Crowning Inspector Name Role Phone Bessy Santos MD Primary Care Provider [phone]- [phone] Allergies Active Allergy Reactions Criticality Noted Date [...] on file Legal Sex Female 9:28 AM MARBLE CARVER Gender Identity Not on file Sexual Orientation Not on file Last Filed Vital Signs Vital Sign Reading Time Taken Comments Blood Pressure 103/58 08/26/2023 1:00 AM MARBLE CARVER Pulse 102 08/26/2023 1:00 AM MARBLE CARVER Temperature 36.8 C (98.2 F) 08/25/2023 9:35 PM MARBLE CARVER Respiratory Rate 14 08/26/2023 1:00 AM MARBLE CARVER Oxygen Saturation 94% 08/26/2023 1:00 AM MARBLE CARVER Inhaled Oxygen Concentration - - Weight 51 kg (112 lb 7 oz) 08/25/2023 9:35 PM CS T Height 154.9 cm (5' 1 ) 08/25/2023 9:35 PM MARBLE CARVER Body Mass Index 21.24 08/25/2023 9:35 PM MARBLE CARVER Plan of Treatment Not on file Insurance [facility] Care Teams Crowning Inspector Relationship Specialty Start Date End Date Bessy Santos MD PCP - General Family Medicine 09/14/22
[2024-10-12 01:52] LABS: Add Urine Microscopic? NO; Appearance Urine Clear (Clear); Bilirubin Urine Negative (Negative); Blood Urine Negative (Negative); Color Urine Yellow (Yellow); Glucose Urine UA Negative (Negative); Ketones Urine Negative (Negative); Leukocyte Esterase Ur Negative LEU/UL (Negative); Nitrate Urine Negative (Negative); Protein Urine Negative (Negative); Specific Grav Ur 1.006 (1.001-1.035); Urobilinogen Urine 0.2 mg/dL (<2.0); pH Urine 5.5 (5.0-9.0)
[2024-10-12 02:15] LABS: BEDSIDEPREGUCG Negative (Negative)
[2024-10-12 02:18] LABS: Strep Group A RT-PCR NOT DETECTED (Negative)
[2024-10-12] MEDS: ONDANSETRON HCL ODT 4 MG TABLET PO (02:49)
[2024-10-12 02:51] VITALS: BP 140/85; PULSE 83; RESP 18; O2SAT 98
[2024-10-12 02:56] LABS: Trichomonas Vag PCR NOT DETECTED (NOT DETECTE)
[2024-10-12] MEDS: AZITHROMYCIN 250 MG TABLET 2000 MG PO (03:14)
[2024-10-12] MEDS: GENTAMICIN SULFATE INJ 80 MG/2 ML VIAL 250 MG IM (03:14)
[2024-10-12] MEDS: DICYCLOMINE HCL 10 MG CAPSULE 20 MG PO (03:15)
[2024-10-12] MEDS: DOXYCYCLINE HYCLATE 100 MG TABLET PO (03:15)
[2024-10-12] MEDS: metroNIDAZOLE 500 MG TABLET PO (03:15)
[2024-10-12 03:21] LABS: Chlamydia trachomatis NOT DETECTED (NOT DETECTE); Neisseria gonorrhoeae PCR NOT DETECTED (NOT DETECTE)
[2024-10-12 03:43] VITALS: BP 121/96; PULSE 93; RESP 18; O2SAT 99
== END 2024-10-12 03:48 | disposition home or self-care (01) ==
PROVIDERS: Emergency Provider Registered Nurse; PCP Physician Assistant
DX: A64 Unspecified sexually transmitted disease (principal); N89.8 Other specified noninflammatory disorders of vagina; R10.9 Unspecified abdominal pain; F17.210 Nicotine dependence, cigarettes, uncomplicated; Z11.3 Encounter for screening for infections with a predominantly sexual mode of transmission
CPT/HCPCS: 81003; 81025; 87491; 87591; 87651; 87661; 96372; 99284; A9270; J1580

== ENCOUNTER 2024-10-12 23:34 | Emergency (ER) | payer OTHER, SELFPAY ==
--- OUTSIDE RECORDS SUMMARY | 2024-10-12 23:36 | XMS_ITS | Encounter Summary ---
Author Organization [facility] Address [address] [place] [address] Care Team Providers Care Robotics Testing Technician Name Role Phone Bessy Santos MD Primary Care Provider [phone] Reason for Visit * Reason Onset Date Comments Referral Consult Request 07/11/2024 Encounter Details Date Type Department Care Team (Late st Contact Info) Description 07/11/2024 Telephone [facility] - Centralized Scheduling [address] [place] [phone] Clark Griggs MD [address] [phone] Referral Consult Request Social History [...] Description 12/30/2024 12:30 PM CDT Office Visit [facility] - [address] [place] [phone] documented as of this encounter Goals Goal [...] on filedocumented in this encounter Care Teams Robotics Testing Technician Relationship Specialty Start Date End Date Bessy Santos MD [address] [place] [phone] PCP - General Family Medicine 12/10/19 documented as of this encounter
--- OUTSIDE RECORDS SUMMARY | 2024-10-12 23:36 | XMS_ITS | Data Portability ---
Author Organization [facility] [place] Address [address] [place] [address] Assessment No assessment recorded. Plan of Treatment Reminders Order Date Submit Date Provider Last Modified By Organization Details Last Modified Time Details Appointments None recorded. Lab None recorded. Referral None recorded. Procedures None recorded. Surgeries None recorded. Imaging None recorded. Medication Orders Diflucan 150 mg tablet 2023 [place] [facility] #[id number], [address], [place], [place], [id number], 4 18:01:46 metronidazo le 0.75 % (37.5 mg/5 gram) vaginal gel 2023 [place] [id number], [address], [place], [place], [id number], 4 18:01:40 Mendy 0.35 mg tablet 2023 [place] [id number], [address], [place], [place], [id number], 4 16:45:42 oxycodone-a cetaminophe n 5 mg-325 mg tablet 2023 [place] [id number], [address], [place], [place], [id number], 4 18:01:34 Diflucan 150 mg tablet [address] [facility][id number], [address], [place], [place], [id number], 4 18:01:37 clotrimazol e-betametha sone 1 %-0.05 % topical cream 2023 024 [facility] #[id number], [address], [place], [place], [id number], 4 15:11:07 Diflucan 150 mg tablet [address] [facility] #89757, [address], [place], [place], [id number], 4 18:01:37 clotrimazol e-betametha sone 1 %-0.05 % topical cream 2023 024 [facility] #[id number], [address], [place], [place], [id number], 4 14:50:23 Patient TargetsNo targets recorded. Patient InstructionsNo instructions recorded. Reason for Referral None Reported. Results Created Date Observation Date Name Description Value Unit Range Abnormal Flag Note LastModifiedBy Organization Detail LastModifiedTime 01/11/20 24 01/11/2024 VAGIN ITIS/ VAGIN OSIS, DNA PROBE itz sp. detection, direct probe Negati ve negati ve Not Available [facility] (Lab) [address] [place], [address], 01/12/2024 20:00:35 01/11/20 24 01/11/2024 VAGIN ITIS/ VAGIN OSIS, DNA PROBE gardnerella vag. detection, direct probe Negati ve negati ve Not Available [facility] (Lab) [address] [place], [address], 01/12/2024 20:00:35 01/11/20 24 01/11/2024 VAGIN ITIS/ VAGIN OSIS, DNA PROBE trichomonas vag. detection, direct probe Negati ve negati ve Not Available [facility] (Lab) [address] [facility], [place], [address], 01/12/2024 20:00:35 01/11/20 24 01/11/2024 CT/GC AND TRICH OMONA S VAGIN RAJESH (RRNA ), SWAB chlamydia trachomatis, PCR Negati ve negati ve Not Available [facility] (Lab) [address] [facility], [place], [address], 01/12/2024 20:00:35 01/11/20 24 01/11/2024 CT/GC AND TRICH OMONA S VAGIN RAJESH (RRNA ), SWAB neisseria gonorrhoeae, PCR Negati ve negati ve Not Available [facility] (Lab) [address] [facility], [place], [address], 01/12/2024 20:00:35 01/11/20 24 01/11/2024 CT/GC AND TRICH OMONA S VAGIN RAJESH (RRNA ), SWAB trichomonas vaginalis ribosomal RNA (rrna) Negati ve negati ve Not Available [facility] (Lab) [address] [facility], [place], [address], 01/12/2024 20:00:35 02/02/20 24 02/02/2024 CT/GC AND TRICH OMONA S VAGIN RAJESH (RRNA ), SWAB chlamydia trachomatis, PCR Negati ve negati ve Not Available [facility] (Lab) [address] [facility], [place], [address], 02/05/2024 09:05:30 02/02/20 24 02/02/2024 CT/GC AND TRICH OMONA S VAGIN RAJESH (RRNA ), SWAB neisseria gonorrhoeae, PCR Negati ve negati ve Not Available [facility] (Lab) [address] [facility], [place], [address], 02/05/2024 09:05:30 02/02/20 24 02/02/2024 CT/GC AND TRICH OMONA S VAGIN RAJESH (RRNA ), SWAB trichomonas vaginalis ribosomal RNA (rrna) Negati ve negati ve Not Available [facility] (Lab) [address] [facility], [place], [address], 02/05/2024 09:05:30 02/02/20 24 02/02/2024 VAGIN ITIS/ VAGIN OSIS, DNA PROBE itz sp. detection, direct probe Negati ve negati ve Not Available [facility] (Lab) [address] [facility], [place], [address], 02/05/2024 09:05:31 02/02/20 24 02/02/2024 VAGIN ITIS/ VAGIN OSIS, DNA PROBE gardnerella vag. detection, direct probe Negati ve negati ve Not Available [facility] (Lab) [address] [facility], [place], [address], 02/05/2024 09:05:31 02/02/20 24 02/02/2024 VAGIN ITIS/ VAGIN OSIS, DNA PROBE trichomonas vag. detection, direct probe Negati ve negati ve Not Available [facility] (Lab) [address] [facility], [place], [address], 02/05/2024 09:05:31 05/23/20 24 05/23/2024 CT/GC AND TRICH OMONA S VAGIN RAJESH (RRNA ), URINE chlamydia trachomatis, PCR Negati ve negati ve Not Available [facility] (Lab) [address] [facility], [place], [address], 05/24/2024 13:55:06 05/23/20 24 05/23/2024 CT/GC AND TRICH OMONA S VAGIN RAJESH (RRNA ), URINE neisseria gonorrhoeae, PCR Negati ve negati ve Not Available [facility] (Lab) [address] [facility], [place], [address], 05/24/2024 13:55:06 05/23/20 24 05/23/2024 CT/GC AND TRICH OMONA S VAGIN RAJESH (RRNA ), URINE trichomonas vaginalis ribosomal RNA (rrna) Negati ve negati ve Not Available [facility] (Lab) [address], [place], [address], 05/24/2024 13:55:06 12/14/19 24 12/14/2023 US, breas t, unila teral , w/ axill a No observ ation record ed. [address] [facility] [address], [place], [address], 01/02/2024 11:30:58 12/14/19 24 12/14/2023 US, breas t, unila teral , w/ axill a No observ ation record ed. [facility] [address], [place], [address], 01/10/2024 16:13:45 12/14/19 24 12/14/2023 US, breas t, unila teral , w/ axill a No observ ation record ed. [address] [facility] [address], [place], [address], 01/17/2024 11:36:48 Result Notes None recorded. Procedures Surgical History Date Name Laterality Status Provider Name and Address Organization Details Recorded Time 4 LAPAROSCOPY, DIAGNOSTIC (SURG) completed Candis Godoy [facility] 03/20/2024 13:50:23 4 Date of Last Pap Smear completed Bella Farley [facility] 08/09/2023 14:26:44 0 extraction of wisdom tooth completed Chrystal Harris [facility] 03/01/2023 14:47:49 Imaging Results Imaging Date Name Status LastModified by Organiz ation Details LastModified Time 12/14/2023 US, breast, unilateral, w/ axilla completed [address] [facility] [address], [place], [address], 01/02/2024 11:30:58 12/14/2023 US, breast, unilateral, w/ axilla completed [facility] [address], [place], [address], 01/10/2024 16:13:45 12/14/2023 US, breast, unilateral, w/ axilla completed [address] [facility] [address], [place], [address], 01/17/2024 11:36:48 Procedure Notes None recorded. Medical Equipment None Reported. Allergies Allergen ID Allergen Name Allergen Category Reaction Reaction Severity Criticality Documentation Date Start Date Code Code System Note Provider Name and Address Organization Details Recorded Time 56891 ibuprofen medicatio n Not available Not available Not available 02/05/2021 5640 RxNorm FRITZ LINARES Matilda [facility] 3 10:47:09 56253 amoxicill in medicatio n Not available Not available Not available 02/05/2021 723 RxNorm THROA T MILAGROS Grey [facility] 3 10:47:02 46997 Product containin g penicilli n (product) medicatio n Not available Not available Not available 09/29/2021 37381 8001 SNOMED LIPS MILAGROS Grey [facility] 3 10:47:15 Medications Name Sig Start [...] Updated DateTime 01/11/2024 165.1 cm 19.1 kg/m2 41064.12 g 132 mm[Hg] 82 mm[Hg] [facility] 4 14:49:00 Date Recorded Body height Body mass index (BMI) Body weight Systolic blood pressure Diastolic blood pressure Provider Name and Address Organization Details Last Updated DateTime 02/02/2024 165.1 cm 19 kg/m2 99945.53 g 135 mm[Hg] 91 mm[Hg] [facility] 4 14:49:47 Date Recorded Body height Body mass index (BMI) Body weight Systolic blood pressure Diastolic blood pressure Provider Name and Address Organization Details Last Updated DateTime 03/14/2024 165.1 cm 18.6 kg/m2 35082.35 g 138 mm[Hg] 96 mm[Hg] [facility] 4 12:54:29 Date Recorded Body height Body mass index (BMI) Body weight Systolic blood pressure Diastolic blood pressure Provider Name and Address Organization Details Last Updated DateTime 03/27/2024 165.1 cm 18.5 kg/m2 65922.75 g 161 mm[Hg] 106 mm[Hg] [facility] 4 16:07:57 Date Recorded Body height Body mass index (BMI) Body weight Systolic blood pressure Diastolic blood pressure Provider Name and Address Organization Details Last Updated DateTime 05/23/2024 165.1 cm 19.6 kg/m2 28263.9 g 142 mm[Hg] 93 mm[Hg] Bella Miguelito [facility] 18:01:17 Social History Question Answer Notes LastModified by Organizat ion Details LastModified Time Tobacco Smoking Status Never Smoker Hermelinda Brock sathya, [facility] 01/04/2022 15:40:36 Do You Have An Advance Directive? No Information n ot available 09/29/2021 What Is Your Level Of Alcohol Consumption? Occasional Information not available 09/29/2021 Are You Blind Or Do You Have Difficulty Seeing? No Information n ot available 01/04/2022 What Is Your Level Of Caffeine Consumption? Occasional [email or web address] Information not available 03/01/2023 In The 14 [...] Or The Highest Degree You Have Received? [id number] Information not available 09/29/2021 Are There Any Guns Present In Your Home? No Information not available 09/29/2021 Have You Ever Been Counseled For Unhealthy Alcohol Use? No [email or web address] Information not available 03/01/2023 Do You Use Protection During Sex? No Information not available 09/29/2021 Do You Use Your Seat Belt Or Car Seat Routinely? Yes Information not available 09/29/2021 Do You Have Smoke And Carbon Monoxide Detectors In Your Home? Yes Information not available 09/29/2021 Do You Feel Stressed (tense, Restless, Nervous, Or Anxious, Or Unable To Sleep At Night)? [id number] Information not available 09/29/2021 Do You Use [...] N Drug/Latex Allergies/Reactions N Blood Transfusion N Lung Disease N Dermatologic Disorders N Defects or Inherited Disease N Breast [...] SNOMED-CT Code Diagnosis ICD10 Code Diagnosis Note [id number] German Pacheco MD [facility] [address] [address] 02/05/2021 10:38:21 02/05/2021 11:21:36 Pain in pelvis 68179218 R10.2 This patient is a 21 -year-old [...] Immediatel y with nausea, vomiting, fever, chills. [id number] Zenobia Beck [facility] [address] [address] 02/16/2021 12:05:52 02/16/2021 13:38:37 Pain in pelvis 69174759 R10.2 This patient is a 21 -year-old [...] Immediatel y with nausea, vomiting, fever, chills. [id number] German Pacheco MD [place] [address],[place] [address] 02/19/2021 13:59:20 02/19/2021 14:59:35 Pain in pelvis 54935960 R10.2 This patient is a 21-year-ol d [...] her care. This is a complex issue. [id number] German Pacheco MD [place] [address],[place] [address] 05/06/2021 16:32:05 05/07/2021 18:19:02 Increased frequency of urination 268145695 R35.0 [id number] German Pacheco MD [facility] [address],[facility] [place] [address] 09/29/2021 15:28:02 09/29/2021 16:57:44 Dyspareunia 59731045 N94.10 this patient is a 21-year-ol d [...] We will treat her for yeast infection. [id number] VIOLETTA Cisneros [place] [address] [address] 01/04/2022 15:28:11 01/04/2022 17:44:48 Vaginal irritation 376099936 N89.8 Vaginal exam suspect yeast infection. Rx [...] PCP. Patient verbalized understand ing. Urinary symptoms 0578561 08 R39.9 Venereal d isease screening 184860611 Z11.3 [id number] VIOLETTA Cisneros [place] [address] [address] 03/23/2022 15:07:45 03/23/2022 15:55:40 Vaginitis 33011197 N76.0 Suspect yeast on examVagini tis panel sentSTI endocervic al testing sentRx sentVulvar care guidelines discussedC ondom use encouraged Take daily PNV Time spent in visit is a total of 20 mins with at least 50% of visit consisting of counseling and review of plan of care.BP 138/84 - following with PCP on BP [id number] VIOLETTA Cisneros [place] [address],[facility] [place] [address] 04/25/2022 14:56:53 04/25/2022 15:58:29 Vaginal irritation 252473124 N89.8 Suspect yeast vs STIRx sent for [...] any symptoms. Patient agrees. Chlamydial infection 105 150376 A74.9 Venereal d isease screening 473978306 Z11.3 Urinary symptoms 6444695 08 R39.9 [id number] [facility] [address],[place] [address] 07/29/2022 16:16:34 08/01/2022 15:06:37 Urinary symptoms 266559692 R39.9 Treated for UTI Counseled on medication [...] counseling and review of plan of care. [id number] Chanelle Kevin [facility] [address],[facility] [place] [address] 11/22/2022 15:26:48 11/22/2022 17:33:41 Female pelvic inflammatory disease 898977496 N73.9 suspect PID given symptoms and recent [...] ED. States she will not go to [facility] due to a previous altercatio n there but will go to a different ED.She will update us once d/c'd to schedule a f/u appointmen t Time spent in visit is a total of 30 mins with at least 50% of visit consisting of counseling and review of plan of care. Venereal d isease screening 815989691 Z11.3 [id number] [facility]ely [facility] [address] [address] 12/07/2022 11:28:32 12/07/2022 12:01:55 Venereal disease screening 468462860 Z11.3 STD sentRx sent Counseled on medication R/B's, Most common side effects, & use. All questions were answered to patient satisfacti on. Time spent in visit is a total of 15 mins with at least 50% of visit consisting of counseling and review of plan of care. [id number] [facility]ely [facility] [address] [address] 12/21/2022 09:02:19 12/21/2022 09:34:38 Venereal disease screening 192231888 Z11.3 STD sentWill reach outDiscuss ed treatment, abstaining for 10+days after treatment, importance of partner treatment. Using condoms. Counseled on medication R/B's, Most common side effects, & use. All questions were answered to patient satisfacti on. Time spent in visit is a total of 15 mins with at least 50% of visit consisting of counseling and review of plan of care. [id number] German Pacheco MD [facility] [address],[place] [address] 12/26/2022 10:11:38 12/26/2022 11:16:49 Vaginal discharge 134375609 N89.8 this patient is a 22-year-ol d [...] results. Talked about treatment. Talked her symptoms. [id number] Stormy Link MD [facility] [address],[place] [address] 01/02/2023 14:43:46 01/03/2023 12:44:10 Candidal vulvovaginitis 02173015 B37.31 [id number] Lovely Richard [facility] [address],[place] [address] 01/20/2023 09:14:36 01/20/2023 09:37:21 Vaginitis 82761858 N76.0 Today we agreed to topical ointment for ext irritation but will wait for return of swabs prior to other txment.VCG reviewedWi ll reach out with results. Time spent in visit is a total of 10 mins with at least 50% of visit consisting of counseling and review of plan of care. [id number] German Pacheco MD [facility] [address],[place] [address] 02/17/2023 10:13:35 02/17/2023 11:12:08 Cloudy urine 3646973 R82.90 Pain in pelvis 21819160 R10.2 This patient is a 23-year-ol d female with chronic pelvic pain. we reviewed her ultrasound results. Her ultrasound was normal. We discussed her pelvic pain again. We discussed all her medical treatment options in great detail. We also described and discussed surgical treatments . Ultimately we agreed to oral contracept siabelle pill. We are going to prescribed Lo [...] to oral contracept isabelle pills. Vaginal discharge 483357 006 N89.8 this patient is a 22-year-ol [...] results. Talked about treatment. Talked her symptoms. [id number] Ana Lilia Dozier CNM [facility] [address] [address] 03/01/2023 14:35:43 03/01/2023 15:14:16 Urinary symptoms 253131934 R39.9 Vaginal discharge 973102 006 N89.8 [id number] VIOLETTA Cisneros [place] [address] [address] 03/16/2023 14:23:42 03/16/2023 15:01:52 Pain in pelvis 28035989 R10.2 Discussed common/nor mal SE of starting [...] review of plan of care. Vaginal discharge 153898 006 N89.8 Break-thro ugh bleeding 16416145 N92.1 [id number] German Pacheco MD [facility] [address] [address] 03/28/2023 10:00:51 03/28/2023 10:52:52 Bacterial vaginosis 690391224 N76.0 this patient is a 23-year-ol d [...] . consider this at her next visit. [id number] Zenobia Beck [facility] [address] [address] 04/10/2023 09:30:23 04/10/2023 10:10:12 Pain in pelvis 01360353 R10.2 This patient is a 23-year-ol d [...] month trial to oral contracept isabelle pills. [id number] German Pacheco MD [facility] [address] [address] 04/27/2023 15:39:49 04/27/2023 16:14:02 Urinary symptoms 470278366 R39.9 Candidal vulvovaginitis 29412577 B37.31 This patient is a 23-year-ol d [...] counseling . She will return as daphney. [id number] HERIBERTO ANTHONY MD [facility] [address] [address] 06/20/2023 12:37:19 06/21/2023 14:02:06 Vaginitis 45382628 N76.0 - patient describes normal vaginal discharge, no pruritis or irritation - continue weekly diflucan Dysmenorrhea 120808402 N 94.6 - long hx of painful but regular periods- d/c'd OCPs after daily irregular bleeding x2 months- recommend higher estrogen containing OCP to help with breakthrou gh bleeding [id number] German Pacheco MD [facility] [address] [address] 07/21/2023 14:54:25 07/21/2023 15:53:27 Pain in pelvis 09738773 R10.2 23-year-ol d female with pelvic pain [...] yeast. To treat with Metrogel. Vaginal discharge 419382 006 N89.8 [id number] Alba Ray [facility] [address],[facility] [place] [address] 07/26/2023 10:25:25 07/26/2023 10:58:19 Pain in pelvis 57083128 R10.2 23-year-ol d female with pelvic pain [...] vaginosis or yeast. To treat with Metrogel. [id number] German Pacheco MD [facility] [address],[place] [address] 07/28/2023 11:30:21 08/09/2023 06:51:16 Pain in pelvis 21458003 R10.2 This patient is a 23-year-ol d [...] past 5 months. Continues to have pain. [id number] VIOLETTA Cisneros [facility] [address],[place] [address] 08/09/2023 14:15:43 08/10/2023 12:07:53 Dysuria 21932704 R30.0 UA normal, cx sent Vaginitis 86883360 N76.0 vaginitis/ STI panel sentvulvar care guidelines [...] counseling and review of plan of care. [id number] Chanelle Kevin RAKAN [facility] [address],[place] [address] 09/21/2023 10:27:48 09/21/2023 10:51:24 Vaginal discharge 251747108 N89.8 vaginitis/ STI panel sentvulvar care guidelines discussedr x sent for BV, r/b/a reviewed - pt prefers gelBP precaution s discussed Time spent in visit is a total of 20 mins with at least 50% of visit consisting of counseling and review of plan of care. Venereal d isease screening 230285738 Z11.3 Dyspareunia 18723188 N94 .10 [id number] German Pacheco MD [facility] [address],[place] [address] 10/17/2023 14:10:39 10/17/2023 15:03:17 Venereal disease screening 817449566 Z11.3 This patient is a 23-year-ol d female with concerns about sexual transmitte d disease exposure. Patient's consort has been with other women. Samples were taken. The vulva and distal vagina appear normal. We will follow up on those results. We had a discussion about vaginal discharge. She will likely do blood testing for STDs as well. [id number] Chanelle Kevin RAKAN [facility] [address],[place] [address] 11/07/2023 11:59:26 11/07/2023 12:56:22 Urinary symptoms 103065258 R39.9 Vaginitis 91591960 N76.0 vaginitis panel sentgc/ct/ trich testing senturine cx sentvulvar care guidelines discusseds afe sexual practices discussedr x sent for yeast - r/b/a reviewedBP precaution s reviewed, encouraged PCP f/u Time spent in visit is a total of 25 mins with at least 50% of visit consisting of counseling and review of plan of care. Venereal d isease screening 372973938 Z11.3 [id number] Lovely Richard [facility] [address],[place] [address] 11/23/2023 14:41:46 11/23/2023 17:05:57 Mass of left breast 6088540623 0479641 N63.20 Today breast exam warrants US for further informatio n.Possibly just hormonal changes but no other changes on right side.US orderedWil l call to schedule. Vaginitis 33673717 N76.0 Today we agreed to send vag/std swabs and await return of results before treating.S he voices agreement with this plan of care.No other questions or concerns. Time spent in visit is a total of 22 mins with at least 50% of visit consisting of counseling and review of plan of care. [id number] German Pacheco MD [facility] [address],[place] [address] 01/11/2024 14:41:45 01/11/2024 15:28:40 Vaginitis 50019644 N76.0 23-year-ol d female with recurrent vulvar [...] for the drug [id number] German Pacheco MD [facility] [address] [address] 02/02/2024 14:17:14 02/02/2024 15:12:13 Vulvovaginitis 59446231 N76.0 patient reports vulvar irritation and white [...] of this patient. [id number] German Pacheco MD [facility] [address] [address] 03/14/2024 12:31:34 03/14/2024 14:31:42 Pain in pelvis 39944018 R10.2 this patient is a 24-year-ol d with longstandi ng pelvic pain. We agreed to perform diagnostic laparoscop y. She understand s the risks, benefits, and alternativ es. She has completed the informed consent process and is ready to proceed. [id number] German Pacheco MD [facility] [address] [address] 03/27/2024 15:55:21 03/27/2024 16:57:41 Pain in pelvis 45050701 R10.2 Vulvovaginitis 36633542 N76.0 Postoperative care 39249 9007 Z48.89 this patient is a 24-year-ol [...] She also needed some additional pain control. [id number] German Pacheco MD [facility] [address] [address] 05/23/2024 16:59:43 05/24/2024 06:01:47 Contraception care management 253283601 Z30.9 24-year-ol d female who presents for [...] Polanco Member ID Guarantor Name 01/11/2024 1 [facility] [place] [id number] Chloe Holbrook 02/02/2024 1 [facility] [place] [id number] Chloe Holbrook 03/14/2024 1 [facility] [place] [id number] Chloe Holbrook 03/27/2024 1 [facility] [place] [id number] Chloe Chaidez Holbrook 05/23/2024 1 *SELF PAY* [...] German Pacheco MD [address], [place], [address], [facility] 01/11/2024 15:27:10 02/02/2024 text/html [...] German Pacheco MD [address], [place], [address], [facility] 02/02/2024 15:11:53 03/14/2024 text/html [...] German Pacheco MD [address], [place], [address], [facility] 03/14/2024 14:30:57 03/27/2024 text/html [...] German Pacheco MD [address], [place], [address], [facility] 03/27/2024 16:54:28 05/23/2024 text/html [...] of each method. We spent 15 minutes [id number]. All of this was counseling. Ultimately she decided on Kyleena insertion. . She was given instructions on starting this method. She was informed of side effects. She was given precautions on failure and special circumstances. She was quoted failure rates for all of the methods we discussed. She will return for Kyleena insertion. German Pacheco MD [address], [place], [address], [facility] 05/23/2024 19:15:09 OBGyn Episode No OBEpisode recorded.
--- OUTSIDE RECORDS SUMMARY | 2024-10-12 23:36 | XMS_ITS | Referral Summary ---
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 Gender Identity Not on file Sexual Orientation Not on file Last Filed Vital Signs Vital Sign Reading Time Taken Comments Blood Pressure 103/58 08/26/2023 1:00 AM SWIMMING POOL PLASTERER HELPER Pulse 102 08/26/2023 1:00 AM SWIMMING POOL PLASTERER HELPER Temperature 36.8 C (98.2 F) 08/25/2023 9:35 PM SWIMMING POOL PLASTERER HELPER Respiratory Rate 14 08/26/2023 1:00 AM SWIMMING POOL PLASTERER HELPER Oxygen Saturation 94% 08/26/2023 1:00 AM SWIMMING POOL PLASTERER HELPER Inhaled Oxygen Concentration - - Weight 51 kg (112 lb 7 oz) 08/25/2023 9:35 PM CS T Height 154.9 cm (5' 1 ) 08/25/2023 9:35 PM SWIMMING POOL PLASTERER HELPER Body Mass Index 21.24 08/25/2023 9:35 PM SWIMMING POOL PLASTERER HELPER Plan of Treatment Not on file Insurance [facility] Care Teams Material Manager Relationship Specialty Start Date End Date Bessy Santos MD PCP - General Family Medicine 09/14/22
--- OUTSIDE RECORDS SUMMARY | 2024-10-12 23:36 | XMS_ITS | Clinical Summary ---
Author Organization [facility] Ref[facility] Address [address] [place] [address] Care Team Providers Care Soapstoner Name Role Phone Bessy Santos MD Primary Care Provider [phone] Source Comments [facility],non-owned Affiliates and Associated Physician Practices is amultiple site organization consisting of ambulatory clinics and hospital sitesin [place], [place], [place] and [place]. This disclosure is being madepursuant to the Care Everywhere program and may not contain all information available regarding this patient. Last updated 18.[facility] Allergies Active Allergy Reactions Criticality Noted Date [...] placement - Regular Diet as tolerated - Scale Installer - CR monitors - Pulse ox - [...] placement - Regular Diet as tolerates - Scale Installer - CR monitors - Pulse ox - [...] Q8H - Regular Diet as tolerates - Scale Installer - EKG, Acetaminophen, and ASA level upon [...] 06/09/2013 Assessment & Plan (06/09/2013 10:08 AM INSPECTOR REPAIRER): Assessment: 13 y.o. female with a presumed [...] 2015- Assessment & Plan (06/09/2013 5:25 AM INSPECTOR REPAIRER): Assessment: Chloe Holbrook is a 13 y.o. female with history of asthma, being admitted for anaphylactic reaction, likely secondary to hair product use. Plan: - Continue home albuterol, PRN - Per parents she only takes Flovent as a preventive medication during allergy season in the fall - will not order flovent at this time Anxiety 09/16/2011 Assessment & Plan (06/09/2013 5:24 AM INSPECTOR REPAIRER): Assessment: Chloe Holbrook is a 13 y.o. [...] Type Department Care Team Description 09/30/2024 Telephone [facility] - SEO SPECIALIST [address] [place] [phone] Charanjit Alatorre MD Appointment 09/30/2024 Refill [facility] - [place] [address] [place] [address], [place] [phone] Odell Wise DO MEDICATION REFILL 09/23/2024 Refill [facility] - [address] [phone] Odell Wise DO Refill Request 08/06/2024 2:00 PM INSPECTOR REPAIRER Office Visit [facility] - Family Medicine [address] [place] [address], [facility] [place] [address] Odell Wise DO Neme, Jamil Richard, MD Abdominal wall pain (Primary Dx) 08/06/2024 Travel 07/24/2024 Telephone [facility] - [place] [address] [place] [phone] Alisson Mcgrath, RN General from Last 3 Months Immunizations Name Administration Dates Next Due INFLUENZA VACCINE, TRIV. (AF LURIA, FLUZONE TRIVALENT; 6MO+) (IIV3) 06/02/2011 DTaP VACCINE IM (6wk-6yrs) 11/04/2005,,2001,05/08,2001 HEP A PEDS 2 DOSE 10/07/2010,11/07/2005 HEP B VACCINE, PED/ADOL 02/04/2002,05/08,2001,01/15 HIB BOOSTER 02/04/2002,2001,2001 Human Papilloma Virus Margie valent Vaccine 11/18/2013,02/01/2013,02/07/2012 INFLUENZA A [id number] VACCINE 05/29/2009 INFLUENZA VACCINE 06/09/2013, 7,06/19/2006,06/01,06/25/2004 INFLUENZA [...] Comments Blood Pressure 122/84 08/06/2024 1:53 PM INSPECTOR REPAIRER Pulse 105 08/06/2024 1:53 PM INSPECTOR REPAIRER Temperature 36.6 C (97.9 F) 01/25/2024 8:45 AM CDT Respiratory Rate 18 07/01/2024 2:36 PM INSPECTOR REPAIRER Oxygen Saturation 99% 08/06/2024 1:53 PM INSPECTOR REPAIRER Inhaled Oxygen Concentration - - Weight 51.7 kg (114 lb) 08/06/2024 1:53 PM INSPECTOR REPAIRER Height 165.1 cm (5' 5 ) 08/06/2024 1:53 PM INSPECTOR REPAIRER Body Mass Index 18.97 08/06/2024 1:53 PM INSPECTOR REPAIRER Plan of Treatment Upcoming Encounters Date Type Department Care Team (Late st Contact Info) Description 12/30/2024 12:30 PM CDT Office Visit [facility] - [place] [address], [place] [address] Health Maintenance Due Date Last [...] Procedure Name Priority Date/Time Associated Diagnosis Comments IN INJ TRIGGER POINT, 1-2 MUSCLES Routine 08/06/2024 1:57 PM INSPECTOR REPAIRER Abdominal wall pain IN US GUIDED NEEDLE PLACEMENT Routine 08/06/2024 1:56 PM INSPECTOR REPAIRER Abdominal wall pain HEPATITIS C AB SCREEN RFLX NAAT QUANT STAT 01/01/2024 4:22 PM CDT Diarrhea, unspecified type HIV-1 HIV-2 ANTIBODY + HIV P24 AG PANEL Routine 01/01/2024 4:22 PM CDT Diarrhea, unspecified type CHLAMYDIA + GC AMPLIFIED PROBE STAT 12/10/2019 12:31 PM CDT from Last 3 Months or Most Recently Relevant to Health Maintenance Results * IN INJ TRIGGER POINT, 1-2 MUSCLES (08/06/2024 1:57 PM INSPECTOR REPAIRER) Narrative Clark Griggs MD - 08/06/2024 1:57 PM INSPECTOR REPAIRER Clark Griggs MD 08/07/2024 10:40 AM U/S-GUIDED [...] Griggs MD PROCEDURE/MINOR BUSTAMANTE RGICAL ORDERABLES * IN US GUIDED NEEDLE PLACEMENT (08/06/2024 1:56 PM INSPECTOR REPAIRER) Narrative Clark Griggs MD - 08/06/2024 1:56 PM INSPECTOR REPAIRER Clark Griggs MD 08/06/2024 1:56 PM (No note.) Clark Griggs MD PROCEDURE/MINOR BUSTAMANTE RGICAL ORDERABLES * HEPATITIS C AB SCREEN RFLX NAAT QUANT (01/01/2024 4:22 PM CDT) Hepatitis C Antibody Non-react isabelle Non-reac tive 01/01/2024 5:15 PM CDT [facility] Comment:Hepatitis C Antibody screen indicates [...] - CHEMISTRY MAT BURNS Performing Organization Address City/[facility]/ZIP Co de Phone Number [address] [address], [facility] [phone] * HIV-1 HIV-2 ANTIBODY + HIV P24 AG PANEL (01/01/2024 4:22 PM CDT) Pathologist [facility] HIV Antigen/Antibod y 1 & 2 Non-reacti ve Non-react isabelle 01/01/2024 5:15 PM CDT [facility] Comment:No Laboratory eviden ce of HIV infection. Blood BLOOD SPECIMEN / Unknown Lab Venipuncture / Unknown 01/01/2024 4:22 PM CDT 01/01/2024 4:29 PM CDT Provider Unknown LAB - CHEMISTRY MAT BURNS Performing Organization Address City/[facility]/ZIP Co de Phone Number [address] [address], [facility] [phone] * CHLAMYDIA + GC AMPLIFIED PROBE (STL) (12/10/2019 12:31 PM CDT) Chlamydia Amplified Probe Negative Negative 12/11/2019 11:58 AM CDT [facility] GC Amplified Probe Negative Negative 12/11/2019 11:58 AM CDT [facility] Microbiology URINE / Unknown Collection / Unknown 12/10/2019 12:31 PM CDT 12/10/2019 12:35 PM CDT Narrative [facility] - 12/11/2019 11:58 AM CDT Results based on detection/no detection of ribosomal RNA by amplified method. Ene Renteria MD LAB - MICROBIOLOGY ORDERABLES [facility] [address] [place] [address], [facility] [phone] from Last 3 Months or Most Recently Relevant to Health Maintenance Advance Directives * Full Code (Latest Code Status on File) Date Activated Date Inactivated Comments 02/08/2017 12:40 AM 02/09/2017 12:26 AM Care Teams Soapstoner Relationship Specialty Start Date End Date Bessy Santos MD [address] [place] [address] PCP - General Family Medicine 12/10/19
--- OUTSIDE RECORDS SUMMARY | 2024-10-12 23:36 | XMS_ITS | Clinical Summary ---
Author Organization [facility] Address [address] [place] [address] Care Team Providers Care People Greeter Name Role Phone Unavailable Primary Care Provider [...] capsule Take 40 mg by mouth daily child & adolescent psychiatrist. Active ziprasidone (GEODON) 40 mg Capsule Take [...] Comments Blood Pressure 131/77 07/30/2018 6:05 PM LINE PREP COOK Pulse 98 07/30/2018 6:05 PM LINE PREP COOK Temperature 37.2 C (98.9 F) 07/30/2018 6:05 PM LINE PREP COOK Respiratory Rate 14 07/30/2018 6:05 PM LINE PREP COOK Oxygen Saturation 99% 07/30/2018 6:05 PM LINE PREP COOK Inhaled Oxygen Concentration - - Weight 62.7 kg (138 lb 3.2 oz) 07/30/2018 6:05 P M LINE PREP COOK Height 165.1 cm (5' 5 ) 05/16/2018 [...] HPV VACCINES Completed 11/18/2013, 01/14, 02/07/2012 Insurance [facility]
--- OUTSIDE RECORDS SUMMARY | 2024-10-12 23:36 | XMS_ITS | Clinical Summary ---
Author Organization [facility] Address [address] [place] [phone] Care Team Providers Care Audio Visual Facilities Engineer Name Role Phone Bessy Santos MD Primary Care Provider [phone] Allergies Active Allergy Reactions Criticality Noted Date [...] on file Legal Sex Female 9:28 AM CLIENT EXPERIENCE SPECIALIST Gender Identity Not on file Sexual Orientation Not on file Obstetrics History Last Filed Vital Signs Vital Sign Reading Time Taken Comments Blood Pressure 103/58 08/26/2023 1:00 AM CLIENT EXPERIENCE SPECIALIST Pulse 102 08/26/2023 1:00 AM CLIENT EXPERIENCE SPECIALIST Temperature 36.8 C (98.2 F) 08/25/2023 9:35 PM CLIENT EXPERIENCE SPECIALIST Respiratory Rate 14 08/26/2023 1:00 AM CLIENT EXPERIENCE SPECIALIST Oxygen Saturation 94% 08/26/2023 1:00 AM CLIENT EXPERIENCE SPECIALIST Inhaled Oxygen Concentration - - Weight 51 kg (112 lb 7 oz) 08/25/2023 9:35 PM CS T Height 154.9 cm (5' 1 ) 08/25/2023 9:35 PM CLIENT EXPERIENCE SPECIALIST Body Mass Index 21.24 08/25/2023 9:35 PM CLIENT EXPERIENCE SPECIALIST Plan of Treatment Health Maintenance Due [...] HPV Vaccines Completed 11/18/2013, 01/14, 02/07/[address] [place] [address] [place] [address] [facility] Care Teams Audio Visual Facilities Engineer Relationship Specialty Start Date End Date Bessy Santos MD PCP - General Family Medicine 09/14/22
--- OUTSIDE RECORDS SUMMARY | 2024-10-12 23:36 | XMS_ITS | Clinical Summary ---
Author Organization [facility] Address [address] [place] [address] Care Team Providers Care Starch Factory Laborer Name Role Phone Claudia Holman PA-C Primary Care Provider [phone] Allergies Active Allergy Reactions Criticality Noted Date [...] Comments Blood Pressure 136/84 09/12/2023 11:30 PM BIODIESEL PRODUCT MANAGER Pulse 107 09/12/2023 9:21 PM BIODIESEL PRODUCT MANAGER Temperature 36.7 C (98.1 F) 09/12/2023 9:21 PM BIODIESEL PRODUCT MANAGER Respiratory Rate 18 09/12/2023 9:21 PM BIODIESEL PRODUCT MANAGER Oxygen Saturation 97% 09/12/2023 11:30 PM BIODIESEL PRODUCT MANAGER Inhaled Oxygen Concentration - - Weight 54.4 kg (120 lb) 09/12/2023 9:21 PM BIODIESEL PRODUCT MANAGER Height 165.1 cm (5' 5 ) 09/12/2023 9:21 PM BIODIESEL PRODUCT MANAGER Body Mass Index 19.97 09/12/2023 9:21 PM BIODIESEL PRODUCT MANAGER Plan of Treatment Health Maintenance Due Date Last Done Comments Annual Physical 01/16/2004 Meningococcal B Vaccine (1 of 2 - Standard) 2017 Hepatitis C 2019 DTaP, Tdap and Td Vaccines (7 - Td or Tdap) 02/06/2022 02/07/2012, 11/04/2005, 08/06/2002, Additional history exists COVID-19 Vaccine ( season) 2024 PHQ-2 (Physician [place]) 07/17/2024 Cervical Cancer Screening Pap Smear (Age [...] patient's age to complete this topic Insurance [employer] Care Teams Starch Factory Laborer Relationship Specialty Start Date End Date Claudia Holman PA-C [address] [place], [place] [phone] PCP - General NURSE PRACTITIONER 05/18/23
[2024-10-12 23:43] VITALS: BP 144/105; PULSE 120; RESP 16; TEMP 36.6; O2SAT 98
[2024-10-13 03:36] VITALS: BP 132/87; PULSE 99; RESP 18; RESP 19; O2SAT 99
--- NOTE | 2024-10-13 04:29 | ED_ITS ---
HPI - General Adult General Chief complaint: Recheck/Abnormal Lab/Rx Stated complaint: uti possible bacterial infection in throat Time Seen by Provider: 10/13/24 04:06 History of Present Illness HPI narrative: This is a 24-year-old female presenting ED with multiple complaints. She says that she has a sore throat. She says that she has ulcers in her mouth. She says that she has red bumps around her asshole. She was seen last night and was tested for STDs as well as strep throat which were all negative. Patient states that she tried to take any medicine but throughout. She has Zofran at home. Related Data Home Medications ?Medication ?Instructions ?Recorded ?Confirmed ?Last Taken ?Type albuterol sulfate 90 mcg/actuation 2 puff inhalation PRN PRN 10/11/23 07/30/24 Unknown History aerosol inhaler Shortness Of Breath Or Wheezing cetirizine 10 mg tablet (Zyrtec) 10 mg PO DAILY 10/11/23 07/30/24 Unknown History fluconazole 150 mg tablet 150 mg PO WEEKLY 03/15/24 07/30/24 Unknown History amitriptyline 10 mg tablet 10 mg PO BID 07/30/24 07/30/24 Unknown History metoprolol tartrate 25 mg tablet 25 mg PO .QD 07/30/24 07/30/24 Unknown History montelukast 10 mg tablet 10 mg PO QPM 07/30/24 07/30/24 Unknown History norethindrone (contraceptive) 0.35 0.35 mg PO .QD 07/30/24 07/30/24 Unknown History mg tablet (Bibiana) Allergies Allergy/AdvReac Type Severity Reaction Status Date / Time amoxicillin Allergy Severe Swelling Verified 07/30/24 16:29 ibuprofen Allergy Severe Anaphylactic Verified 07/30/24 16:29 Shock Penicillins Allergy Severe Swelling Verified 07/30/24 16:29 metoclopramide (From Reglan) AdvReac Intermediate Anxiety Verified 07/30/24 16:29 [facility] Past Medical History Medical History Endometriosis Cyclic vomiting syndrome Irritable bowel syndrome Self-mutilation Suicide attempt Anxiety Depression Bipolar 1 disorder ADD (attention deficit disorder) Asthma Surgical History Surgical History History of colonoscopy [facility] History of esophagogastroduodenoscopy (EGD) [facility] S/P wisdom tooth extraction Family History Family History Father ADHD (attention deficit hyperactivity disorder) Bipolar disorder Personality disorder Mother Alive and well Social History Social History Smoking packs per day: 0.5 Smoking cigarettes per day: 10.0 Years smoked: 8 Smoking pack-years: 4.00 Smoking status: Current every day smoker Tobacco type: cigarettes and e-cigarettes/vaping Second hand tobacco smoke exposure: Yes Additional smoking assessment comments: Vaping Alcohol intake: former Alcohol use details: Maybe once a week Substance use: current Substance use type: marijuana Other substance usage details: Daily Living arrangements: with family Occupation/Education: occupation Additional occupation/education comments: works at [employer] in [place] Gender identity (if verbalized by the patient): Female Spiritual care concerns: No Exam Narrative: APPEARANCE: No apparent distress. Head: No ulcerations in the patient's mouth, no erythema or exudates on the tonsils EYES: EOMI, NOSE: Atraumatic NECK: Trachea midline RESPIRATORY: No increased rate of breathing CTAB CARDIOVASCULAR: RRR, ABDOMINAL: Soft, nontender no guarding or rebound Rectal: Normal appearing anus without any sort of ulcerations or MUSCULOSKELETAl: No obvious deformities NEURO: Alert. Moving 4/4 extremities SKIN:: Warm, dry. Normal color PSYCHIATRIC: Normal affect Course Vital Signs Vital signs: Vital Signs Temperature 97.9 F 10/12/24 23:43 Pulse Rate 120 H 10/12/24 23:43 Respiratory Rate 16 10/12/24 23:43 Blood Pressure 144/105 H 10/12/24 23:43 Pulse Oximetry 98 10/12/24 23:43 Oxygen Delivery Room Air 10/12/24 23:43 Temperature 97.9 F 10/12/24 23:43 Pulse Rate 99 10/13/24 03:36 Respiratory Rate 19 10/13/24 03:36 Blood Pressure 132/87 10/13/24 03:36 Pulse Oximetry 99 10/13/24 03:36 Oxygen Delivery Room Air 10/12/24 23:43 Medical Decision Making MDM Narrative Medical decision making narrative: -Course: 24-year-old female presenting for sore throat and concerns about mouth and anal ulcers. Patient has no ulcerations in her mouth. Her throat is not erythematous. No exudates she does not have any lymphadenopathy. She has no ulcerations/lesions on her anus. I reviewed her results from yesterday and all her STD testing was negative. She was prescribed Diflucan for yeast infection symptoms. I do not think there is anything needs to be done emergently today that she should follow up with her primary care physician. When I told the patient this she became upset. She said she is not comfortable following up her primary care physician. She was then seen storming out of the emergency department. Vital Signs Vital Signs: Vital Signs Temperature 97.9 F 10/12/24 23:43 Pulse Rate 120 H 10/12/24 23:43 Respiratory Rate 16 10/12/24 23:43 Blood Pressure 144/105 H 10/12/24 23:43 Pulse Oximetry 98 10/12/24 23:43 Oxygen Delivery Room Air 10/12/24 23:43 Temperature 97.9 F 10/12/24 23:43 Pulse Rate 99 10/13/24 03:36 Respiratory Rate 19 10/13/24 03:36 Blood Pressure 132/87 10/13/24 03:36 Pulse Oximetry 99 10/13/24 03:36 Oxygen Delivery Room Air 10/12/24 23:43 Discharge Plan Discharge Clinical Impression: Encounter for patient concern about exposure to infectious organism Patient Disposition: Elopement After Seen by Prov Patient Language: Syrian Prescriptions: No Action amitriptyline 10 mg tablet 10 mg PO BID montelukast 10 mg tablet 10 mg PO QPM norethindrone (contraceptive) [Bibiana] 0.35 mg tablet 0.35 mg PO .QD metoprolol tartrate 25 mg tablet 25 mg PO .QD prednisone 20 mg tablet See Rx Instructions .Route .COMPLEX Qty: 18 0RF Rx Instructions: Take 60 mg daily for 3 days, 40 mg daily for 3 days, 20 mg daily for 3 days fluticasone propionate [Flonase Allergy Relief] 50 mcg/actuation spray,suspension 2 spray NASAL DAILY 14 Days Qty: 15.8 0RF Rx Instructions: administer into each nostril fluconazole 150 mg tablet 150 mg PO WEEKLY Rx Instructions: Takes on dicyclomine 10 mg capsule 10 mg PO BID PRN (Reason: abdominal pain) Qty: 10 0RF ondansetron 4 mg tablet,disintegrating 4 mg PO Q8H PRN (Reason: nausea and vomiting) Qty: 10 0RF cetirizine [Zyrtec] 10 mg Tablet 10 mg PO DAILY albuterol sulfate 90 mcg/actuation HFA aerosol inhaler 2 puff INHALATION PRN PRN (Reason: Shortness Of Breath Or Wheezing) doxycycline monohydrate 100 mg capsule 100 mg PO BID Qty: 14 0RF metronidazole 500 mg tablet 500 mg PO BID Qty: 14 0RF dicyclomine 20 mg tablet 20 mg PO TID Qty: 15 0RF fluconazole 150 mg tablet 150 mg PO Q3D Qty: 2 0RF Rx Instructions: as a single dose Follow-up/Referrals: Treasure,TERRY Lorenzo [Primary Care Provider] -
--- NOTE | 2024-10-13 04:30 | PC.NURSE ---
patient states that she has some redness and bumps around her rectum. Upon bedside assessment patient this rn and edp dr. izaguirre did not note redness or bumps at this time.
--- NOTE | 2024-10-13 04:33 | PC.NURSE ---
Per Dr. Lim pt was going to be discharged and he went and informed the pt that. Pt called out to ED screening unit registered nurse call light and states she is not leaving and does not feel comfortable with that. hosted services analyst Robyn went to pt room to talk with pt. Before auditor in charge could say anything to pt she walked out. Pt was discharged without signing papers.
--- OUTSIDE RECORDS SUMMARY | 2024-10-13 06:13 | XMS_ITS | Clinical Summary ---
Author Organization [facility] [employer] Address [address] [place] [address] Care Team Providers Care Tooth Clerk Name Role Phone Bessy Santos MD Primary Care Provider [phone] Source Comments [facility],non-owned Affiliates and Associated Physician Practices is amultiple site organization consisting of ambulatory clinics and hospital sitesin [place], [place], [place] and [place]. This disclosure is being madepursuant to the Care Everywhere program and may not contain all information available regarding this patient. Last updated 18.[facility] [employer] Allergies Active Allergy Reactions Criticality Noted Date [...] placement - Regular Diet as tolerated - Director Distribution - CR monitors - Pulse ox - [...] placement - Regular Diet as tolerates - Director Distribution - CR monitors - Pulse ox - [...] Q8H - Regular Diet as tolerates - Director Distribution - EKG, Acetaminophen, and ASA level upon [...] 06/09/2013 Assessment & Plan (06/09/2013 10:08 AM SQUEEGEER AND FORMER): Assessment: 13 y.o. female with a presumed [...] 2015- Assessment & Plan (06/09/2013 5:25 AM SQUEEGEER AND FORMER): Assessment: Chloe Holbrook is a 13 y.o. female with history of asthma, being admitted for anaphylactic reaction, likely secondary to hair product use. Plan: - Continue home albuterol, PRN - Per parents she only takes Flovent as a preventive medication during allergy season in the fall - will not order flovent at this time Anxiety 09/16/2011 Assessment & Plan (06/09/2013 5:24 AM SQUEEGEER AND FORMER): Assessment: Chloe Holbrook is a 13 y.o. [...] Type Department Care Team Description 09/30/2024 Telephone [facility] - CLUB LICENSEE [address] [place] [phone] Charanjit Alatorre MD Appointment 09/30/2024 Refill [facility] - [place] [address] [place] [address], [place] [phone] Odell Wise DO MEDICATION REFILL 09/23/2024 Refill [facility] - [address] [phone] Odell Wise DO Refill Request 08/06/2024 2:00 PM SQUEEGEER AND FORMER Office Visit [facility] - Family Medicine [address] [place] [address], [facility] [place] [address] Odell Wise DO Neme, Jamil Richard, MD Abdominal wall pain (Primary Dx) 08/06/2024 Travel 07/24/2024 Telephone [facility] - [place] [address] [place] [phone] Alisson Mcgrath, RN General from Last 3 Months Immunizations Name Administration Dates Next Due INFLUENZA VACCINE, TRIV. (AF LURIA, FLUZONE TRIVALENT; 6MO+) (IIV3) 06/02/2011 DTaP VACCINE IM (6wk-6yrs) 11/04/2005,,2001,05/08,2001 HEP A PEDS 2 DOSE 10/07/2010,11/07/2005 HEP B VACCINE, PED/ADOL 02/04/2002,05/08,2001,01/15 HIB BOOSTER 02/04/2002,2001,2001 Human Papilloma Virus Margie valent Vaccine 11/18/2013,02/01/2013,02/07/2012 INFLUENZA A [id number] VACCINE 05/29/2009 INFLUENZA VACCINE 06/09/2013, 7,06/19/2006,06/01,06/25/2004 INFLUENZA [...] Comments Blood Pressure 122/84 08/06/2024 1:53 PM SQUEEGEER AND FORMER Pulse 105 08/06/2024 1:53 PM SQUEEGEER AND FORMER Temperature 36.6 C (97.9 F) 01/25/2024 8:45 AM CDT Respiratory Rate 18 07/01/2024 2:36 PM SQUEEGEER AND FORMER Oxygen Saturation 99% 08/06/2024 1:53 PM SQUEEGEER AND FORMER Inhaled Oxygen Concentration - - Weight 51.7 kg (114 lb) 08/06/2024 1:53 PM SQUEEGEER AND FORMER Height 165.1 cm (5' 5 ) 08/06/2024 1:53 PM SQUEEGEER AND FORMER Body Mass Index 18.97 08/06/2024 1:53 PM SQUEEGEER AND FORMER Plan of Treatment Upcoming Encounters Date Type Department Care Team (Late st Contact Info) Description 12/30/2024 12:30 PM CDT Office Visit [facility] - [facility] [address] [facility], [place] [address] Health Maintenance Due Date Last [...] Procedure Name Priority Date/Time Associated Diagnosis Comments PA INJ TRIGGER POINT, 1-2 MUSCLES Routine 08/06/2024 1:57 PM SQUEEGEER AND FORMER Abdominal wall pain PA US GUIDED NEEDLE PLACEMENT Routine 08/06/2024 1:56 PM SQUEEGEER AND FORMER Abdominal wall pain HEPATITIS C AB SCREEN RFLX NAAT QUANT STAT 01/01/2024 4:22 PM CDT Diarrhea, unspecified type HIV-1 HIV-2 ANTIBODY + HIV P24 AG PANEL Routine 01/01/2024 4:22 PM CDT Diarrhea, unspecified type CHLAMYDIA + GC AMPLIFIED PROBE STAT 12/10/2019 12:31 PM CDT from Last 3 Months or Most Recently Relevant to Health Maintenance Results * PA INJ TRIGGER POINT, 1-2 MUSCLES (08/06/2024 1:57 PM SQUEEGEER AND FORMER) Narrative Clark Griggs MD - 08/06/2024 1:57 PM SQUEEGEER AND FORMER Clark Griggs MD 08/07/2024 10:40 AM U/S-GUIDED [...] Griggs MD PROCEDURE/MINOR BUSTAMANTE RGICAL ORDERABLES * PA US GUIDED NEEDLE PLACEMENT (08/06/2024 1:56 PM SQUEEGEER AND FORMER) Narrative Clark Griggs MD - 08/06/2024 1:56 PM SQUEEGEER AND FORMER Clark Griggs MD 08/06/2024 1:56 PM (No note.) Clark Griggs MD PROCEDURE/MINOR BUSTAMANTE RGICAL ORDERABLES * HEPATITIS C AB SCREEN RFLX NAAT QUANT (01/01/2024 4:22 PM CDT) Hepatitis C Antibody Non-react isabelle Non-reac tive 01/01/2024 5:15 PM CDT [facility] Comment:Hepatitis C Antibody screen indicates [...] - CHEMISTRY MAT BURNS Performing Organization Address City/[facility]/ZIP Co de Phone Number [address] [address], [facility] [phone] * HIV-1 HIV-2 ANTIBODY + HIV P24 AG PANEL (01/01/2024 4:22 PM CDT) Pathologist [facility] HIV Antigen/Antibod y 1 & 2 Non-reacti ve Non-react isabelle 01/01/2024 5:15 PM CDT [facility] Comment:No Laboratory eviden ce of HIV infection. Blood BLOOD SPECIMEN / Unknown Lab Venipuncture / Unknown 01/01/2024 4:22 PM CDT 01/01/2024 4:29 PM CDT Provider Unknown LAB - CHEMISTRY MAT BURNS Performing Organization Address City/[facility]/ZIP Co de Phone Number [address] [address], [facility] [phone] * CHLAMYDIA + GC AMPLIFIED PROBE (STL) (12/10/2019 12:31 PM CDT) Chlamydia Amplified Probe Negative Negative 12/11/2019 11:58 AM CDT [facility] GC Amplified Probe Negative Negative 12/11/2019 11:58 AM CDT [facility] Microbiology URINE / Unknown Collection / Unknown 12/10/2019 12:31 PM CDT 12/10/2019 12:35 PM CDT Narrative [facility] - 12/11/2019 11:58 AM CDT Results based on detection/no detection of ribosomal RNA by amplified method. Ene Renteria MD LAB - MICROBIOLOGY ORDERABLES [facility]CROBIOLOG[facility] [address] [place] [address], [facility] [phone] from Last 3 Months or Most Recently Relevant to Health Maintenance Advance Directives * Full Code (Latest Code Status on File) Date Activated Date Inactivated Comments 02/08/2017 12:40 AM 02/09/2017 12:26 AM Care Teams Tooth Clerk Relationship Specialty Start Date End Date Bessy Santos MD [address] [place] [address] PCP - General Family Medicine 12/10/19
--- OUTSIDE RECORDS SUMMARY | 2024-10-13 06:13 | XMS_ITS | Encounter Summary ---
Author Organization [facility] Address [address] [place] [address] Care Team Providers Care Mushroom Laborer Name Role Phone Bessy Santos MD Primary Care Provider [phone] Reason for Visit * Reason Onset Date Comments Referral Consult Request 07/11/2024 Encounter Details Date Type Department Care Team (Late st Contact Info) Description 07/11/2024 Telephone [facility] - Centralized Scheduling [address] [place] [phone] Clark Griggs MD [address] [phone] Referral Consult Request Social History [...] Description 12/30/2024 12:30 PM CDT Office Visit [facility] - [address] [place] [address] documented as of this encounter Goals Goal [...] on filedocumented in this encounter Care Teams Mushroom Laborer Relationship Specialty Start Date End Date Bessy Santos MD [address] [place] [phone] PCP - General Family Medicine 12/10/19 documented as of this encounter
--- OUTSIDE RECORDS SUMMARY | 2024-10-13 06:13 | XMS_ITS | Clinical Summary ---
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 Gender Identity Not on file Sexual Orientation Not on file Obstetrics History Last Filed Vital Signs Vital Sign Reading Time Taken Comments Blood Pressure 103/58 08/26/2023 1:00 AM LABORER MARINE TERMINAL Pulse 102 08/26/2023 1:00 AM LABORER MARINE TERMINAL Temperature 36.8 C (98.2 F) 08/25/2023 9:35 PM LABORER MARINE TERMINAL Respiratory Rate 14 08/26/2023 1:00 AM LABORER MARINE TERMINAL Oxygen Saturation 94% 08/26/2023 1:00 AM LABORER MARINE TERMINAL Inhaled Oxygen Concentration - - Weight 51 kg (112 lb 7 oz) 08/25/2023 9:35 PM CS T Height 154.9 cm (5' 1 ) 08/25/2023 9:35 PM LABORER MARINE TERMINAL Body Mass Index 21.24 08/25/2023 9:35 PM LABORER MARINE TERMINAL Plan of Treatment Health Maintenance Due Date [...] HPV Vaccines Completed 11/18/2013, 01/14, 02/07/[address] [place] [address] [facility] Care Teams Deputy Treasurer Relationship Specialty Start Date End Date Bessy Santos MD PCP - General Family Medicine 09/14/22
--- OUTSIDE RECORDS SUMMARY | 2024-10-13 06:13 | XMS_ITS | Referral Summary ---
Author Organization [facility] Address [address] [place] [phone] Care Team Providers Care Switchboard And Control Room Operator Name Role Phone Bessy Santos MD Primary Care Provider [phone] Allergies Active Allergy Reactions Criticality Noted Date [...] on file Legal Sex Female 9:28 AM PUBLIC INTERVIEWER Gender Identity Not on file Sexual Orientation Not on file Last Filed Vital Signs Vital Sign Reading Time Taken Comments Blood Pressure 103/58 08/26/2023 1:00 AM PUBLIC INTERVIEWER Pulse 102 08/26/2023 1:00 AM PUBLIC INTERVIEWER Temperature 36.8 C (98.2 F) 08/25/2023 9:35 PM PUBLIC INTERVIEWER Respiratory Rate 14 08/26/2023 1:00 AM PUBLIC INTERVIEWER Oxygen Saturation 94% 08/26/2023 1:00 AM PUBLIC INTERVIEWER Inhaled Oxygen Concentration - - Weight 51 kg (112 lb 7 oz) 08/25/2023 9:35 PM CS T Height 154.9 cm (5' 1 ) 08/25/2023 9:35 PM PUBLIC INTERVIEWER Body Mass Index 21.24 08/25/2023 9:35 PM PUBLIC INTERVIEWER Plan of Treatment Not on file Insurance [facility] Care Teams Switchboard And Control Room Operator Relationship Specialty Start Date End Date Bessy Santos MD PCP - General Family Medicine 09/14/22
--- OUTSIDE RECORDS SUMMARY | 2024-10-13 06:13 | XMS_ITS | Clinical Summary ---
Author Organization [facility] Address [address] [place] [address] Care Team Providers Care Peoplesoft Crm Developer Name Role Phone Claudia Holman PA-C Primary Care Provider [phone] Allergies Active Allergy Reactions Criticality Noted Date [...] Comments Blood Pressure 136/84 09/12/2023 11:30 PM ELIGIBILITY COUNSELOR Pulse 107 09/12/2023 9:21 PM ELIGIBILITY COUNSELOR Temperature 36.7 C (98.1 F) 09/12/2023 9:21 PM ELIGIBILITY COUNSELOR Respiratory Rate 18 09/12/2023 9:21 PM ELIGIBILITY COUNSELOR Oxygen Saturation 97% 09/12/2023 11:30 PM ELIGIBILITY COUNSELOR Inhaled Oxygen Concentration - - Weight 54.4 kg (120 lb) 09/12/2023 9:21 PM ELIGIBILITY COUNSELOR Height 165.1 cm (5' 5 ) 09/12/2023 9:21 PM ELIGIBILITY COUNSELOR Body Mass Index 19.97 09/12/2023 9:21 PM ELIGIBILITY COUNSELOR Plan of Treatment Health Maintenance Due Date Last Done Comments Annual Physical 01/16/2004 Meningococcal B Vaccine (1 of 2 - Standard) 2017 Hepatitis C 2019 DTaP, Tdap and Td Vaccines (7 - Td or Tdap) 02/06/2022 02/07/2012, 11/04/2005, 08/06/2002, Additional history exists COVID-19 Vaccine ( season) 2024 PHQ-2 (Physician [place]) 07/17/2024 Cervical Cancer Screening Pap Smear (Age [...] patient's age to complete this topic Insurance [place] Care Teams Peoplesoft Crm Developer Relationship Specialty Start Date End Date Claudia Holman PA-C [address] [place], [place] [phone] PCP - General NURSE PRACTITIONER 05/18/23
--- OUTSIDE RECORDS SUMMARY | 2024-10-13 06:13 | XMS_ITS | Clinical Summary ---
Author Organization [email or web address] [facility] [facility] Address [address] [place] [address] Care Team Providers Care Health Occupations Teacher Name Role Phone Unavailable Primary Care Provider [...] capsule Take 40 mg by mouth daily film cleaner. Active ziprasidone (GEODON) 40 mg Capsule Take [...] Comments Blood Pressure 131/77 07/30/2018 6:05 PM SAUSAGE TIER Pulse 98 07/30/2018 6:05 PM SAUSAGE TIER Temperature 37.2 C (98.9 F) 07/30/2018 6:05 PM SAUSAGE TIER Respiratory Rate 14 07/30/2018 6:05 PM SAUSAGE TIER Oxygen Saturation 99% 07/30/2018 6:05 PM SAUSAGE TIER Inhaled Oxygen Concentration - - Weight 62.7 kg (138 lb 3.2 oz) 07/30/2018 6:05 P M SAUSAGE TIER Height 165.1 cm (5' 5 ) 05/16/2018 [...] HPV VACCINES Completed 11/18/2013, 01/14, 02/07/2012 Insurance [facility] MEDICA[facility]
== END 2024-10-13 04:35 | disposition left against medical advice (07) ==
LOC: ANHED 10-13 06:12
PROVIDERS: Emergency Provider Emergency Medicine; PCP Physician Assistant
DX: Z03.89 Encounter for observation for other suspected diseases and conditions ruled out (principal); J45.909 Unspecified asthma, uncomplicated; N80.9 Endometriosis, unspecified; K58.9 Irritable bowel syndrome, unspecified; F41.9 Anxiety disorder, unspecified; F31.9 Bipolar disorder, unspecified; F98.8 Other specified behavioral and emotional disorders with onset usually occurring in childhood and adolescence; F17.210 Nicotine dependence, cigarettes, uncomplicated; F17.290 Nicotine dependence, other tobacco product, uncomplicated; Z79.899 Other long term (current) drug therapy
CPT/HCPCS: 99281

== ENCOUNTER 2024-11-28 18:30 | Emergency (ER) | payer OTHER, SELFPAY ==
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
[2024-11-28 18:39] VITALS: BP 116/78; PULSE 82; RESP 16; TEMP 36.5; O2SAT 100
[2024-11-28 18:49] LABS: EDUAAPPEAR Clear; EDUABILI Negative (Negative); EDUABLOOD Negative (Negative); EDUACOLOR1 Yellow; EDUAGLUCOSE Negative (Negative); EDUAKETONE Negative (Negative); EDUALEUKO Negative (Negative); EDUANITRATE Negative (Negative); EDUAPROTEIN Negative (Negative); EDUAUROBILI 0.2
[2024-11-28 19:12] LABS: BEDSIDEPREGUCG Negative (Negative)
[2024-11-29 20:03] LABS: Trichomonas Vag PCR NOT DETECTED (NOT DETECTE)
[2024-11-29 20:25] LABS: Chlamydia trachomatis NOT DETECTED (NOT DETECTE); Neisseria gonorrhoeae PCR NOT DETECTED (NOT DETECTE)
== END 2024-11-28 19:20 | disposition home or self-care (01) ==
PROVIDERS: Emergency Provider Nurse Practitioner Family
DX: R30.0 Dysuria (principal); Z11.3 Encounter for screening for infections with a predominantly sexual mode of transmission; F17.210 Nicotine dependence, cigarettes, uncomplicated; F17.290 Nicotine dependence, other tobacco product, uncomplicated; N80.9 Endometriosis, unspecified; J45.909 Unspecified asthma, uncomplicated; F32.A Depression, unspecified; F12.90 Cannabis use, unspecified, uncomplicated
CPT/HCPCS: 81003; 81025; 87491; 87591; 87661; 99213; G0463

== ENCOUNTER 2024-12-15 15:16 | Emergency (ER) | payer OTHER, SELFPAY ==
[2024-12-15 15:20] VITALS: BP 146/96; PULSE 106; RESP 12; TEMP 36.9; O2SAT 99
--- NOTE | 2024-12-15 15:50 | ED_ITS ---
HPI - Skin/Abscess/Foreign Bdy General Chief complaint: Skin/Abscess/Foreign Body Stated complaint: swollen R eye Source: patient, RN notes reviewed and old records reviewed Mode of arrival: ambulatory Limitations: no limitations History of Present Illness HPI narrative: 24-year-old female presents to the [facility] with concerns of an infection to the right eyebrow after plucking hairs, area is red. Patient reports thick drainage this morning. Area is mildly swollen. Also developed areas on her cheek and chin, honey-colored crusts are noted. Related Data Home Medications ?Medication ?Instructions ?Recorded ?Confirmed ?Last Taken ?Type albuterol sulfate 90 mcg/actuation 2 puff inhalation PRN PRN 10/11/23 11/28/24 Unknown History aerosol inhaler Shortness Of Breath Or Wheezing cetirizine 10 mg tablet (Zyrtec) 10 mg PO DAILY 10/11/23 11/28/24 Unknown History fluconazole 150 mg tablet 150 mg PO WEEKLY 03/15/24 11/28/24 Unknown History amitriptyline 10 mg tablet 10 mg PO BID 07/30/24 11/28/24 Unknown History metoprolol tartrate 25 mg tablet 25 mg PO .QD 07/30/24 11/28/24 Unknown History montelukast 10 mg tablet 10 mg PO QPM 07/30/24 11/28/24 Unknown History norethindrone (contraceptive) 0.35 0.35 mg PO .QD 07/30/24 11/28/24 Unknown History mg tablet (Bibiana) Allergies Allergy/AdvReac Type Severity Reaction Status Date / Time amoxicillin Allergy Severe Swelling Verified 12/15/24 16:02 ibuprofen Allergy Severe Anaphylactic Verified 12/15/24 16:02 Shock Penicillins Allergy Severe Swelling Verified 12/15/24 16:02 metoclopramide (From Reglan) AdvReac Intermediate Anxiety Verified 12/15/24 16:02 Review of Systems 2 Review of Systems: All systems reviewed & are unremarkable except as noted in HPI and below Constitutional: Constitutional: Reports no additional constitutional complaints ENT: Reports system reviewed and no additional complaints, except as documented Cardiovascular: Cardiovascular: Reports no additional cardiovascular complaints, Denies chest pain and Denies dyspnea Respiratory: Respiratory: Reports no additional respiratory complaints, Denies chest congestion, Denies cough and Denies dyspnea Musculoskeletal: Musculoskeletal: Reports no additional musculoskeletal complaints Integumentary/Breasts: Skin/Breast: Reports as per [facility] Past Medical History Medical History Endometriosis Cyclic vomiting syndrome Irritable bowel syndrome Self-mutilation Suicide attempt Anxiety Depression Bipolar 1 disorder ADD (attention deficit disorder) Asthma Surgical History Surgical History History of colonoscopy [facility] History of esophagogastroduodenoscopy (EGD) [facility] S/P wisdom tooth extraction Family History Family History Father ADHD (attention deficit hyperactivity disorder) Bipolar disorder Personality disorder Mother Alive and well Social History Social History Smoking packs per day: 0.5 Smoking cigarettes per day: 10.0 Years smoked: 8 Smoking pack-years: 4.00 Smoking status: Current every day smoker Tobacco type: cigarettes and e-cigarettes/vaping Second hand tobacco smoke exposure: Yes Additional smoking assessment comments: Vaping Alcohol intake: former Alcohol use details: Maybe once a week Substance use: current Substance use type: marijuana Other substance usage details: Daily Living arrangements: with family Occupation/Education: occupation Additional occupation/education comments: works at [employer] in [place] Gender identity (if verbalized by the patient): Female Spiritual care concerns: No Comments At the time of my signature, I reviewed and agree with the nursing past medical, surgical, social, and family history. There is no relevant family history pertinent to the patient complaint. Exam 2 Const: General: cooperative, healthy appearing, comfortable, no acute distress, well developed, alert and well nourished Nutritional Appearance: w ell nourished Orientation/consciousness: patient oriented x3 Limitations: no limitations HENMT: Head: normal to inspection Mouth: Yes Normal oral and palatal mucosa present, Yes lip normal, Yes tongue normal and Yes moist mucous membranes T hroat: posterior oropharynx normal, uvula midline and no uvular edema Eyes: General: appearance normal, both eyes and all related structures V isual Mir: normal visual mir by confrontation Alignment and Position: a lignment normal Conjunctivae: conjunctivae normal Sclera: sclerae normal Pupils: Equal, round and reactive pupils present EOM: EOMs intact bilaterally Direct Ophthalmoscopy: no photophobia Neck: Neck: normal visual inspection, full ROM, no lymphadenopathy and no meningeal signs Chest: Chest palpation & inspection: normal inspection of the chest Resp: Effort & Inspection: normal respiratory effort and able to speak in complete sentences Cardio: Rate: regular rate Skin: General skin exam: normal color and no rashes or lesions noted Other: Small lesions noted to the right cheek and right chin, honey-colored crust is noted. Full body images: 1. 1 x 1 red, raised area, warm. No fluctuance. No drainage noted Surrounding tissue inflamed without periorbital cellulitic changes. Neuro: General: patient oriented x3, gait normal, moves all extremities and no meningeal signs Cognition (Neuro): normal cognition Speech: normal speech Gait exam (Neuro): Normal gait present Extrem: General: normal to inspection, full ROM, capillary refill normal and normal gait Psych: Appearance: grossly normal and well kempt Mental Status: mental status grossly normal Speech and movement: Normal speech and movement present and Clear speech present Affect: normal affect Attitude: cooperative Course Course Level of Care: Express Care Visit Vital Signs Vital signs: Vital Signs Temperature 98.4 F 12/15/24 15:20 Pulse Rate 106 H 12/15/24 15:20 Respiratory Rate 12 12/15/24 15:20 Blood Pressure 146/96 H 12/15/24 15:20 Pulse Oximetry 99 12/15/24 15:20 Temperature 98.4 F 12/15/24 15:20 Pulse Rate 106 H 12/15/24 15:20 Respiratory Rate 12 12/15/24 15:20 Blood Pressure 146/96 H 12/15/24 15:20 Pulse Oximetry 99 12/15/24 15:20 Reviewed MDM - Skin/Abscess/Foreign Bdy MDM Narrative Medical decision making narrative: Patient sitting in exam room. Patient is nontoxic, vitals are stable. Patient presents with a reddened area that she reports had purulent drainage this morning. States that she has been plucking ingrown hairs. Patient was a red area to the eyebrow, no periorbital cellulitic changes noted. Patient appropriate for outpatient treatment and follow-up. Discharge instructions reviewed with patient, as well as provided in writing per nursing staff. The instructions also include specific and strict return/GO TO THE ER as well as f/u information. All questions have been answered, and the patient deny any further questions with discharge and discharge plan. Some parts of this dictation were generated by voice recognition software and may contain typographical and/or grammatical inaccuracies. Differential Diagnosis Differential diagnosis: Likely abscess of skin or subcutaneous tissue, viral exanthem, dermatophytosis, urticaria, herpes zoster, allergic reaction to drug, cellulitis, insect bites, impetigo and contact dermatitis Critical Care Time Critical Care Time Critical Care Time: No Discharge Plan Discharge Clinical Impression: Cellulitis, Impetigo Patient Disposition: Home Condition: Stable Instructions: Impetigo (DC), Cellulitis (ED) Additional Instructions: Wash with warm soapy water twice daily. avoid using alcohol and peroxide. Alternate Tylenol and Motrin every 4 hours as needed for pain Take antibiotic as prescribed After washing the area apply the topical antibiotic ointment. Please schedule a follow up visit with your personal physician for further evaluation and treatment within 3-5days If symptoms change or worsen significantly, go to the emergency department for further evaluation. Patient Language: Albanian Prescriptions: No Action amitriptyline 10 mg tablet 10 mg PO BID montelukast 10 mg tablet 10 mg PO QPM norethindrone (contraceptive) [Bibiana] 0.35 mg tablet 0.35 mg PO .QD metoprolol tartrate 25 mg tablet 25 mg PO .QD fluconazole 150 mg tablet 150 mg PO WEEKLY Rx Instructions: Takes on cetirizine [Zyrtec] 10 mg Tablet 10 mg PO DAILY albuterol sulfate 90 mcg/actuation HFA aerosol inhaler 2 puff INHALATION PRN PRN (Reason: Shortness Of Breath Or Wheezing) fluconazole 150 mg tablet 150 mg PO Q3D Qty: 2 0RF Rx Instructions: as a single dose Follow-up/Referrals: Treasure,TERRY Lorenzo [Primary Care Provider] - 1 Week ([facility] follow-up) Time of Disposition: 16:00
== END 2024-12-15 16:20 | disposition home or self-care (01) ==
PROVIDERS: Emergency Provider Nurse Practitioner; PCP Physician Assistant
DX: L03.211 Cellulitis of face (principal); L01.00 Impetigo, unspecified; F17.210 Nicotine dependence, cigarettes, uncomplicated; F17.290 Nicotine dependence, other tobacco product, uncomplicated; N80.9 Endometriosis, unspecified; J45.909 Unspecified asthma, uncomplicated; F32.A Depression, unspecified
CPT/HCPCS: 99213; G0463

== ENCOUNTER 2024-12-28 17:01 | Emergency (ER) | payer OTHER, SELFPAY ==
[2024-12-28 17:07] VITALS: BP 140/103; PULSE 90; RESP 16; TEMP 37; O2SAT 99
--- NOTE | 2024-12-28 17:15 | ED_ITS ---
HPI - Skin/Abscess/Foreign Bdy General Chief complaint: Skin/Abscess/Foreign Body Stated complaint: spots on face Time Seen by Provider: 12/28/24 17:22 Source: patient and RN notes reviewed Mode of arrival: ambulatory Limitations: dementia History of Present Illness HPI narrative: 24-year-old female presents with concern for areas on her face that are red and tender. Reports she was treated 2 weeks ago for impetigo. She took the antibiotic as directed and has continued to use the mupirocin ointment. She reports that ribs are improved but not gone. She reports she also has vaginal itching and discharge, and coating on her tongue. She reports history of yeast infections and thrush after taking antibiotics. MD complaint: other (Redness) Related Data Home Medications ?Medication ?Instructions ?Recorded ?Confirmed ?Last Taken ?Type albuterol sulfate 90 mcg/actuation 2 puff inhalation PRN PRN 10/11/23 11/28/24 U nknown History aerosol inhaler Shortness Of Breath Or Wheezing cetirizine 10 mg tablet (Zyrtec) 10 mg PO DAILY 10/11/23 11/28/24 Unknown History amitriptyline 10 mg tablet 10 mg PO BID 07/30/24 11/28/24 Unknown History metoprolol tartrate 25 mg tablet 25 mg PO .QD 07/30/24 11/28/24 Unknown History montelukast 10 mg tablet 10 mg PO QPM 07/30/24 11/28/24 Unknown History norethindrone (contraceptive) 0.35 0.35 mg PO .QD 07/30/24 11/28/24 Unknown History mg tablet (Bibiana) Allergies Allergy/AdvReac Type Severity Reaction Status Date / Time amoxicillin Allergy Severe Swelling Verified 12/28/24 17:06 ibuprofen Allergy Severe Anaphylactic Verified 12/28/24 17:06 Shock Penicillins Allergy Severe Swelling Verified 12/28/24 17:06 metoclopramide (From Reglan) AdvReac Intermediate Anxiety Verified 12/28/24 17:06 Review of Systems Review of Systems: CONSTITUTIONAL: Denies malaise, chills, sweats, or fever. EYES: Denies redness, or discharge. ENT: Denies rhinorrhea, congestion, swollen lips, swollen tongue. Reports irritation of the mouth and white coating on her tongue CARDIOVASCULAR: Denies chest pain, palpitations, or edema. RESPIRATORY: Denies cough or dyspnea. GASTROINTESTINAL: Denies abdominal pain, nausea, vomiting SKIN: Reports redness, tenderness in her follicle of her right eyebrow and two areas of infection on her chin. Denies purulent drainage, vesicles, bullae, numbness, pain beyond proportion MUSCULOSKELETAL: Denies joint pain or myalgia. : Reports vaginal itching and discharge NEUROLOGIC: Denies headache. All systems reviewed & are unremarkable except as noted in HPI and below PMFSH Past Medical History Medical History Endometriosis Cyclic vomiting syndrome Irritable bowel syndrome Self-mutilation Suicide attempt Anxiety Depression Bipolar 1 disorder ADD (attention deficit disorder) Asthma Surgical History Surgical History History of colonoscopy [facility] History of esophagogastroduodenoscopy (EGD) [facility] S/P wisdom tooth extraction Family History Family History Father ADHD (attention deficit hyperactivity disorder) Bipolar disorder Personality disorder Mother Alive and well Social History Social History Smoking packs per day: 0.5 Smoking cigarettes per day: 10.0 Years smoked: 8 Smoking pack-years: 4.00 Smoking status: Current every day smoker Tobacco type: cigarettes and e-cigarettes/vaping Second hand tobacco smoke exposure: Yes Additional smoking assessment comments: Vaping Alcohol intake: former Alcohol use details: Maybe once a week Substance use: current Substance use type: marijuana Other substance usage details: Daily Living arrangements: with family Occupation/Education: occupation Additional occupation/education comments: works at [employer] in [place] Gender identity (if verbalized by the patient): Female Spiritual care concerns: No Comments At time of signature, agree with nursing past medical, surgical, social and family history. There is no relevant family history pertinent to the presenting complaint Exam Narrative: GENERAL: Well-appearing, well-nourished, and in no acute distress. HEAD: Normocephalic, atraumatic. EYES: PERRLA, conjunctivae clear ENT: Mucous membranes moist. White coating noted on the tongue NECK: Supple. No lymphadenopathy CHEST: Clear to auscultation. No respiratory distress. HEART: Regular rate and rhythm. SKIN: Warm, dry. Inflamed hair follicle in the right eyebrow, to small scaly areas on the chin that are slightly erythematous without surrounding erythema, edema, induration. No drainage or fluctuant areas noted. No vesicles, bullae, necrosis, ecchymosis, crepitus noted. NEURO: Alert and oriented x3. PSYCH: Normal mood and affect Course Course Emergency Course: Patient is aware of diagnosis, understands and agrees to treatment plan. Anticipatory guidance given. Patient agrees to follow-up as directed and is aware of reasons to seek care at the emergency department. Portions of this record may have been created with voice recognition software Level of Care: Express Care Visit Vital Signs Vital signs: Vital Signs Temperature 98.6 F 12/28/24 17:07 Pulse Rate 90 12/28/24 17:07 Respiratory Rate 16 12/28/24 17:07 Blood Pressure 140/103 H 12/28/24 17:07 Pulse Oximetry 99 12/28/24 17:07 Temperature 98.6 F 12/28/24 17:07 Pulse Rate 90 12/28/24 17:07 Respiratory Rate 16 12/28/24 17:07 Blood Pressure 140/103 H 12/28/24 17:07 Pulse Oximetry 99 12/28/24 17:07 Reviewed. MDM - Skin/Abscess/Foreign Bdy MDM Narrative Medical decision making narrative: I evaluated this in the [facility] care. History is obtained from patient who is an independent historian and physical exam was performed.? Available medical records were reviewed. ? Exam findings and relevant testing show no acute concerns or changes; patient is non-toxic appearing and is in no distress. No risk factors or findings concerning for epidural abscess, diskitis, vertebral osteomyelitis, cord compression, cauda equina, vertebral fracture or bone malignancy, AAA, or pyelonephritis. Patient instructed to consider further imaging and workup through their primary care physician as an outpatient if symptoms persist. Does not appear at this time to be erythema multiforme, bullous, SJS, TEN; no evidence at this time to suggest RMSF, NSTI, endocarditis or Lyme disease; patient looks well, nontoxic and is tolerating oral intake; no neurologic signs or symptoms; no headache, photophobia or neck pain; afebrile.? Patient does not have history of of penetrating trauma, laceration, blunt trauma, recent surgery, immunosuppression, malignancy, obesity, alcoholism, corticosteroid use.? Discussed the importance of follow-up, patient agrees; question, cellulitis versus necrotizing soft tissue infection versus abscess.?? Patient is appropriate for outpatient treatment and follow-up. Critical Care Time Critical Care Time Critical Care Time: No Discharge Plan Discharge Clinical Impression: Thrush, oral, Vaginal itching, Bacterial skin infection Patient Disposition: Home Condition: Stable Instructions: Oral Candidiasis (ED), Yeast Infection (ED) Additional Instructions: Take medication as prescribed Use antibiotic gel as prescribed. You can apply warm compresses to your eyebrow or any other red or sore areas on her face. Do not reuse any makeup, makeup brushes or sponges. Make a follow-up appoint with your primary care provider for further evaluation. If you have any urgent concerns please go to the emergency room Patient Language: Yoruba Prescriptions: New nystatin 100,000 unit/mL suspension 5 ml PO QID 7 Days Qty: 140 0RF Rx Instructions: swish and swallow fluconazole 150 mg tablet 150 mg PO Q48H 3 Days Qty: 3 0RF Rx Instructions: take one dose now, and a second dose if symptoms remain in 48 hours clindamycin phosphate 1 % gel 1 applic topical QAM AND QHS Qty: 60 0RF No Action amitriptyline 10 mg tablet 10 mg PO BID montelukast 10 mg tablet 10 mg PO QPM norethindrone (contraceptive) [Bibiana] 0.35 mg tablet 0.35 mg PO .QD metoprolol tartrate 25 mg tablet 25 mg PO .QD cetirizine [Zyrtec] 10 mg Tablet 10 mg PO DAILY albuterol sulfate 90 mcg/actuation HFA aerosol inhaler 2 puff INHALATION PRN PRN (Reason: Shortness Of Breath Or Wheezing) Follow-up/Referrals: UNKNOWN,DOCTOR [Primary Care Provider] - Stand Alone Forms: Work/School Release IP Time of Disposition: 17:30
== END 2024-12-28 17:35 | disposition home or self-care (01) ==
PROVIDERS: Emergency Provider Nurse Practitioner
DX: L08.9 Local infection of the skin and subcutaneous tissue, unspecified (principal); B96.89 Other specified bacterial agents as the cause of diseases classified elsewhere; B37.0 Candidal stomatitis; N89.8 Other specified noninflammatory disorders of vagina; F17.210 Nicotine dependence, cigarettes, uncomplicated; F17.290 Nicotine dependence, other tobacco product, uncomplicated; N80.9 Endometriosis, unspecified; J45.909 Unspecified asthma, uncomplicated; F32.A Depression, unspecified
CPT/HCPCS: 99213; G0463

== ENCOUNTER 2025-05-18 13:17 | Emergency (ER) | payer OTHER, SELFPAY ==
[2025-05-18 13:24] VITALS: BP 124/80; PULSE 81; RESP 20; TEMP 37.1; O2SAT 100
--- NOTE | 2025-05-18 13:48 | ED.GENADULT ---
HPI - General Adult General Chief complaint: Eye Problems Stated complaint: bump on left eye Time Seen by Provider: 05/18/25 13:48 Source: patient Mode of arrival: ambulatory Limitations: no limitations History of Present Illness HPI narrative: 25-year-old female patient presents to [facility] with complaints of left eye bump for the past week. Patient states it is tender to the upper lid. Denies wearing contacts denies any recent injury that she is aware of. Denies any sensitivity to the light for vision changes. Related Data Home Medications ?Medication ?Instructions ?Recorded ?Confirmed ?Last Taken ?Type metoprolol tartrate 25 mg tablet 25 mg PO .QD 07/30/24 11/28/24 Unknown History montelukast 10 mg tablet 10 mg PO QPM 07/30/24 11/28/24 Unknown History norethindrone (contraceptive) 0.35 0.35 mg PO .QD 07/30/24 11/28/24 Unknown History mg tablet (Bibiana) gabapentin 300 mg capsule mg 05/18/25 Unknown History Allergies Allergy/AdvReac Type Severity Reaction Status Date / Time amoxicillin Allergy Severe Swelling Verified 05/18/25 13:30 ibuprofen Allergy Severe Anaphylactic Verified 05/18/25 13:30 Shock Penicillins Allergy Severe Swelling Verified 05/18/25 13:30 metoclopramide (From Reglan) AdvReac Intermediate Anxiety Verified 05/18/25 13:30 Review of Systems Review of Systems: CONSTITUTIONAL: Denies fever, chills, or sweats. EYES: Denies visual changes, redness, or discharge. Positive redness and tenderness to the left upper lid x1 week ENT: Denies rhinorrhea, congestion, sore throat, or otalgia. CARDIOVASCULAR: Denies chest pain, palpitations, or edema. RESPIRATORY: Denies cough or dyspnea. GASTROINTESTINAL: Denies abdominal pain, nausea, vomiting, or diarrhea. GENITOURINARY: Denies dysuria or hematuria. SKIN: Denies rash or itching. MUSCULOSKELETAL: Denies back pain, joint pain, or myalgia. NEUROLOGIC: Denies headache, numbness, or weakness. PSYCHIATRIC: Denies anxiety or depression. [facility] Past Medical History Medical History Endometriosis Cyclic vomiting syndrome Irritable bowel syndrome Self-mutilation Suicide attempt Anxiety Depression Bipolar 1 disorder ADD (attention deficit disorder) Asthma Surgical History Surgical History History of colonoscopy [facility] History of esophagogastroduodenoscopy (EGD) [facility] S/P wisdom tooth extraction Family History Family History Father ADHD (attention deficit hyperactivity disorder) Bipolar disorder Personality disorder Mother Alive and well Social History Social History Smoking packs per day: 0.5 Smoking cigarettes per day: 10.0 Years smoked: 8 Smoking pack-years: 4.00 Smoking status: Current every day smoker Tobacco type: cigarettes and e-cigarettes/vaping Second hand tobacco smoke exposure: Yes Additional smoking assessment comments: Vaping Alcohol intake: former Alcohol use details: Maybe once a week Substance use: current Substance use type: marijuana Other substance usage details: Daily Living arrangements: with family Occupation/Education: occupation Additional occupation/education comments: works at [employer] in [place] Gender identity (if verbalized by the patient): Female Spiritual care concerns: No Comments At the time of my signature I agree with nursing past medical history, surgical, social, and family history. There is no relevant family history pertinent to the presenting complaint. Exam Narrative: GENERAL: Well-appearing, well-nourished, and in no acute distress. HEAD: Normocephalic, atraumatic. EYES: PERRLA and EOMI. Patient has internal hordeolum noted to the middle of the left upper lid on inversion of the lid. There is no active drainage at this time. The eyeball does not have any erythema, injection or obvious corneal abrasions noted. ENT: Nares clear, no rhinorrhea or epistaxis. Mucous membranes moist. NECK: Supple. No lymphadenopathy CHEST: Clear to auscultation. No respiratory distress. HEART: Regular rate and rhythm. No murmur heard. Normal peripheral pulses. ABDOMEN: Soft, nontender, nondistended, normal active bowel sounds. EXTREMITIES: Normal range of motion. No edema. SKIN: Warm, dry, no rash. NEURO: No focal deficits. Alert and oriented x3. Course Course Level of Care: Express Care Visit Vital Signs Vital signs: Vital Signs Temperature 37.1 C 05/18/25 13:24 Pulse Rate 81 05/18/25 13:24 Respiratory Rate 20 05/18/25 13:24 Blood Pressure 124/80 05/18/25 13:24 Pulse Oximetry 100 05/18/25 13:24 Oxygen Delivery Room Air 05/18/25 13:24 Temperature 37.1 C 05/18/25 13:24 Pulse Rate 81 05/18/25 13:24 Respiratory Rate 20 05/18/25 13:24 Blood Pressure 124/80 05/18/25 13:24 Pulse Oximetry 100 05/18/25 13:24 Oxygen Delivery Room Air 05/18/25 13:24 Vital signs reviewed. Medical Decision Making MDM Narrative Medical decision making narrative: Plan care patient is discharged home with an antibiotic ointment for the eye and also encouraged warm compresses to the eye. Discussed with patient to get rid of their eye makeup and get all new eye makeup is most likely either eye makeup is contaminated. Patient verbalized understanding denies any other questions or concerns at this time. Differential Diagnosis Differential Diagnosis: Differential diagnosis: Conjunctivitis, foreign body, corneal ulcer, Keratitis, dendritic lesions, corneal abrasion, very orbital infection, orbital cellulitis, orbital pain, acute narrow angle glaucoma, detached retina, central retinal artery occlusion, complete hyphema, vitreous hemorrhage, optic neuritis, globe disruption Vital Signs Vital Signs: Vital Signs Temperature 37.1 C 05/18/25 13:24 Pulse Rate 81 05/18/25 13:24 Respiratory Rate 20 05/18/25 13:24 Blood Pressure 124/80 05/18/25 13:24 Pulse Oximetry 100 05/18/25 13:24 Oxygen Delivery Room Air 05/18/25 13:24 Temperature 37.1 C 05/18/25 13:24 Pulse Rate 81 05/18/25 13:24 Respiratory Rate 20 05/18/25 13:24 Blood Pressure 124/80 05/18/25 13:24 Pulse Oximetry 100 05/18/25 13:24 Oxygen Delivery Room Air 05/18/25 13:24 Critical Care Time Critical Care Time Critical Care Time: No Discharge Plan Discharge Clinical Impression: Hordeolum internum left upper eyelid Patient Disposition: Home Condition: Stable Instructions: Antibiotic Form, Stye (ED) Additional Instructions: A stye is a lump on the edge or inside of your eyelid caused by an infection. A stye can form on your upper or lower eyelid. It usually goes away in 2 to 4 days. DISCHARGE INSTRUCTIONS: Medicines: Antibiotic medicine: This is given as an ointment to put into your eye. It is used to fight an infection caused by bacteria. Use as directed. Take your medicine as directed. Contact your healthcare provider if you think your medicine is not helping or if you have side effects. Tell him of her if you are allergic to any medicine. Keep a list of the medicines, vitamins, and herbs you take. Include the amounts, and when and why you take them. Bring the list or the pill bottles to follow-up visits. Carry your medicine list with you in case of an emergency. Follow up with your healthcare provider as directed: Write down your questions so you remember to ask them during your visits. Self-care: Use warm compresses: This will help decrease swelling and pain. Wet a clean washcloth with warm water and place it on your eye for 10 to 15 minutes, 3 to 4 times each day or as directed. Keep your hands away from your eye: This helps to prevent the spread of the infection to other parts of the eye. Wash your hands often with soap and dry with a clean towel. Do not squeeze the stye. Do not use eye makeup: Do not wear eye makeup while you have a stye. Eye makeup may carry bacteria and cause another stye. Throw away eye makeup and brushes used to apply the makeup. Use new eye makeup after the stye has gone away. Do not share eye makeup with others. Prevent another stye: Wash your face and clean your eyelashes every day. Remove eye makeup with makeup remover. This helps to completely remove eye makeup without heavy rubbing. Contact your healthcare provider if: You have redness and discharge around your eye, and your eye pain is getting worse. Your vision changes. The stye has not gone away within 7 days. The stye comes back within a short period of time after treatment. You have questions or concerns about your condition or care. Patient Language: [place] Prescriptions: New erythromycin 5 mg/gram (0.5 %) ointment 1 applic EACH EYE DAILY 7 Days Qty: 3.5 0RF No Action montelukast 10 mg tablet 10 mg PO QPM norethindrone (contraceptive) [Bibiana] 0.35 mg tablet 0.35 mg PO .QD metoprolol tartrate 25 mg tablet 25 mg PO .QD fluconazole 150 mg tablet 150 mg PO Q48H 3 Days Qty: 3 0RF Rx Instructions: take one dose now, and a second dose if symptoms remain in 48 hours clindamycin phosphate 1 % gel 1 applic topical QAM AND QHS Qty: 60 0RF gabapentin 300 mg capsule Follow-up/Referrals: Tom,Bessy Brenner MD [Primary Care Provider] Time of Disposition: 13:54
== END 2025-05-18 14:01 | disposition home or self-care (01) ==
PROVIDERS: Emergency Provider Nurse Practitioner Family; PCP Family Medicine
DX: H00.024 Hordeolum internum left upper eyelid (principal); F17.210 Nicotine dependence, cigarettes, uncomplicated; F17.290 Nicotine dependence, other tobacco product, uncomplicated; F12.90 Cannabis use, unspecified, uncomplicated; N80.9 Endometriosis, unspecified; J45.909 Unspecified asthma, uncomplicated
CPT/HCPCS: 99213; G0463